=== PATIENT | male | born 1945 | race Caucasian/White ===

== ENCOUNTER 2017-05-31 12:54 | Inpatient (IN) | payer MEDICARE, OTHER ==
[~2017-05-31] VITALS: Ht 188 cm; Wt 123.8 kg
[~2017-05-31 12:54] MED LIST changes: -ALBU2.5V5 INH; -AMLO5 PO; -ASCO500 PO; -AZIT500 PO; -BUDE.5 INH; -Bactrim Ds Tab1 EACH PO; -CEFP200 PO; -CHOL10002 PO; -DOXA4 PO; -ERGO400 PO; -Elemental Calc600 MG PO; -GUAI600T33 PO; -INSULANPEN SC; -IRON150C PO; -METAMUCIL POWD174 GM PO; -Metamucil Plus1 EACH PO; -OMEG1CAP30 PO; -POTCHL10ER PO; -PRED10; -Toprol Xl25 MG PO; -XARELTO20 MG PO; -[UNRECOGNIZED DRUG - CODE] PO
[2017-05-31] MEDS ORDERED: INSULANPEN SC (13:53)
[2017-05-31] MEDS ORDERED: AMLO5 PO (15:29)
[2017-05-31] MEDS ORDERED: ERGO400 PO (15:35)
[2017-05-31 16:05] LABS: Influenza A Negative (NEGATIVE); Influenza B Negative (NEGATIVE)
[2017-05-31 17:28] LABS: BASOPHILS ABSOLUTE AUTO 0.08 K/mm3 (0.00-0.23); BASOPHILS PERCENT AUTO 1 % (0-2); EOSINOPHILS ABSOLUTE AUTO 0.27 K/mm3 (0.00-0.68); EOSINOPHILS PERCENT AUTO 2 % (0-6); Hematocrit 42.5 % (37.0-53.0); Hemoglobin 13.5 g/dL (13.5-17.5); IMMATURE GRAN ABSOLUTE AUTO 0.04 K/mm3 (0.00-0.10); IMMATURE GRAN PERCENT AUTO 0 % (0-1); LYMPHOCYTES ABSOLUTE AUTO 1.84 K/mm3 (0.84-5.20); LYMPHOCYTES PERCENT AUTO 16 % (21-46); MONOCYTES ABSOLUTE AUTO 0.81 K/mm3 (0.16-1.47); MONOCYTES PERCENT AUTO 7 % (4-13); Mean Corpuscular HGB Conc 31.8 g/dL (31.5-36.5); Mean Corpuscular Volume 91 fL (80-100); Mean Platelet Volume 9.5 fL (9.1-12.4); NEUTROPHILS ABSOLUTE AUTO 8.72 K/mm3 (1.96-9.15); NEUTROPHILS PERCENT AUTO 74 % (41-73); Platelet Count 294 K/mm3 (150-400); RDW Coefficient Variation 14.6 % (11.7-14.2); RDW Standard Deviation 48.9 fL (35.1-46.3); Red Blood Cell Count 4.65 M/mm3 (4.30-5.90); White Blood Cell Count 11.76 K/mm3 (4.00-11.30)
[2017-05-31 17:49] LABS: Albumin, Blood 3.5 g/dL (3.4-5.0); Albumin/Globulin Ratio 0.7 (0.8-1.8); Bilirubin, Total 0.5 mg/dL (0.1-1.0); Bun/Creatinine Ratio 10.8 (12.0-20.0); Calcium, Blood 10.6 mg/dL (8.5-10.1); Creatinine, Blood 1.39 mg/dL (0.60-1.20); Globulin, Blood 4.8 g/dL (2.2-4.0); Potassium, Blood 3.7 mmol/L (3.5-5.5); Total Protein, Blood 8.3 g/dL (6.4-8.2)
[2017-06-01] MEDS ORDERED: FINA5 PO (00:53)
[2017-06-01 04:43] LABS: BASOPHILS ABSOLUTE AUTO 0.06 K/mm3 (0.00-0.23); BASOPHILS PERCENT AUTO 1 % (0-2); EOSINOPHILS ABSOLUTE AUTO 0.38 K/mm3 (0.00-0.68); EOSINOPHILS PERCENT AUTO 5 % (0-6); Hematocrit 38.5 % (37.0-53.0); Hemoglobin 12.1 g/dL (13.5-17.5); IMMATURE GRAN ABSOLUTE AUTO 0.04 K/mm3 (0.00-0.10); IMMATURE GRAN PERCENT AUTO 1 % (0-1); LYMPHOCYTES ABSOLUTE AUTO 1.79 K/mm3 (0.84-5.20); LYMPHOCYTES PERCENT AUTO 22 % (21-46); MONOCYTES ABSOLUTE AUTO 0.73 K/mm3 (0.16-1.47); MONOCYTES PERCENT AUTO 9 % (4-13); Mean Corpuscular HGB 29.2 pg (26.0-34.0); Mean Corpuscular HGB Conc 31.4 g/dL (31.5-36.5); Mean Corpuscular Volume 93 fL (80-100); Mean Platelet Volume 9.6 fL (9.1-12.4); NEUTROPHILS ABSOLUTE AUTO 5.31 K/mm3 (1.96-9.15); NEUTROPHILS PERCENT AUTO 64 % (41-73); Platelet Count 256 K/mm3 (150-400); RDW Coefficient Variation 14.6 % (11.7-14.2); RDW Standard Deviation 48.8 fL (35.1-46.3); Red Blood Cell Count 4.15 M/mm3 (4.30-5.90); White Blood Cell Count 8.31 K/mm3 (4.00-11.30)
[2017-06-01 05:20] LABS: Alanine Aminotransfer (ALT/SGP 24 U/L (12-78); Albumin, Blood 2.9 g/dL (3.4-5.0); Albumin/Globulin Ratio 0.7 (0.8-1.8); Alk Phos 69 U/L (50-136); Anion Gap 7 mmol/L (6-16); Aspartate Aminotrans (AST/SGOT 18 U/L (12-37); Bilirubin, Total 0.5 mg/dL (0.1-1.0); Blood Urea Nitrogen 13 mg/dL (8-24); Bun/Creatinine Ratio 10.7 (12.0-20.0); CHOL/HDL RATIO 2.8; CO2, Blood 31 mmol/L (21-32); Calcium, Blood 9.9 mg/dL (8.5-10.1); Chloride, Blood 100 mmol/L (98-108); Cholesterol 85 mg/dL (50-200); Creatinine, Blood 1.21 mg/dL (0.60-1.20); Globulin, Blood 4.2 g/dL (2.2-4.0); Glomerular Filtration Rate >60 (60-); Glucose, Blood 110 mg/dL (70-99); HDL Cholesterol 30 mg/dL (>39); LDL/HDL RATIO 1.1; Low Density Lipoprotein Chol 34 mg/dL (0-110); Potassium, Blood 3.6 mmol/L (3.5-5.5); Sodium, Blood 138 mmol/L (136-145); Total Protein, Blood 7.1 g/dL (6.4-8.2); Triglycerides 105 mg/dL (30-160); Very Low Density Lipoprot Chol 21 mg/dL (6-32)
[2017-06-02] MEDS ORDERED: Elemental Calc600 MG PO (12:14)
[2017-06-02] MEDS ORDERED: DOXA4 PO (12:15)
[2017-06-02] MEDS ORDERED: OMEG1CAP30 PO (12:23)
[2017-06-02] MEDS ORDERED: CHOL10002 PO (12:23)
[2017-06-02] MEDS ORDERED: AZIT500 PO (12:24)
[2017-06-02] MEDS ORDERED: BUDE.5 INH (12:25)
[2017-06-02] MEDS ORDERED: GUAI600T33 PO (12:25)
[2017-06-02] MEDS ORDERED: ALBU2.5V5 INH (12:26)
== END 2017-06-02 16:25 | DRG 871 ==
LOC: ER 12:54 → MEDS 17:42 → ENPENDDIS 06-02 11:53 → MEDS 06-02 16:25
PROVIDERS: Emergency Medicine; Internal Medicine
DX: A41.9 Sepsis, unspecified organism (principal); J18.9 Pneumonia, unspecified organism; J96.01 Acute respiratory failure with hypoxia; N17.9 Acute kidney failure, unspecified; J44.0 Chronic obstructive pulmonary disease with (acute) lower respiratory infection; E11.9 Type 2 diabetes mellitus without complications; I10 Essential (primary) hypertension; E78.5 Hyperlipidemia, unspecified; Z77.22 Contact with and (suspected) exposure to environmental tobacco smoke (acute) (chronic); Z86.718 Personal history of other venous thrombosis and embolism; Z88.1 Allergy status to other antibiotic agents; Z88.8 Allergy status to other drugs, medicaments and biological substances; Z91.018 Allergy to other foods; Z79.4 Long term (current) use of insulin; Z79.84 Long term (current) use of oral hypoglycemic drugs; Z79.82 Long term (current) use of aspirin; Z79.899 Other long term (current) drug therapy
CPT/HCPCS: 36415; 71046; 71260; 80053; 80061; 82550; 82947; 83605; 83880; 84439; 84443; 84484; 85025; 85379; 87040; 87804; 93005; 93010; 93306; 94640; 94760; 94761; 94762; 96365; 99285; G0103; J1580; J1644; J1815; J3480; J3490; Q9967

== ENCOUNTER → 2017-05-31 | Outpatient (CLI) | payer MEDICARE, OTHER ==
[~2017-05-31] MED LIST: ALBU2.5V5 INH; AMLO5 PO; ASCO500 PO; ASPI81CH PO; ATOR40TA PO; AZIT500 PO; Amaryl1 MG PO; BENADRYL25 MG PO; BUDE.5 INH; Bactrim Ds Tab1 EACH PO; CALC1.25T; CEFP200 PO; CHOL10002; CHOL10002 PO; CYAN500 PO; Cardura8 MG PO; Catapres0.1 MG PO; DOXA4 PO; DOXAZOSIN; ERGO400 PO; Elemental Calc600 MG PO; FINA5 PO; FISH1000; GUAI600T33 PO; Ginkgo Biloba60 M1 PO; INSULANPEN SC; IRON150C PO; Klor-Con M1010 MEQ PO; LASIX; LISI20 PO; Lasix40 MG PO; METAMUCIL POWD174 GM PO; MINO100 PO; Metamucil Plus1 EACH PO; Multivitamin1 EAC1 PO; NAPR500 PO; OMEG1CAP30 PO; POTASSIUM; POTCHL10ER PO; PRED10; Pepcid20 MG PO; Prednisone20 MG PO; RANITIDINE; Toprol Xl25 MG PO; Vitamin C100 M1 PO; XARELTO20 MG PO; [UNRECOGNIZED DRUG - CODE] PO
[2017-05-31 11:44] LABS: BASOPHILS PERCENT AUTO 1 % (0-2); EOSINOPHILS ABSOLUTE AUTO 0.29 K/mm3 (0.00-0.68); EOSINOPHILS PERCENT AUTO 2 % (0-6); Hematocrit 39.6 % (37.0-53.0); Hemoglobin 13.2 g/dL (13.5-17.5); IMMATURE GRAN ABSOLUTE AUTO 0.06 K/mm3 (0.00-0.10); IMMATURE GRAN PERCENT AUTO 1 % (0-1); LYMPHOCYTES ABSOLUTE AUTO 1.19 K/mm3 (0.84-5.20); LYMPHOCYTES PERCENT AUTO 10 % (21-46); MONOCYTES ABSOLUTE AUTO 0.67 K/mm3 (0.16-1.47); MONOCYTES PERCENT AUTO 5 % (4-13); Mean Corpuscular HGB 30.3 pg (26.0-34.0); Mean Corpuscular HGB Conc 33.3 g/dL (31.5-36.5); Mean Corpuscular Volume 91 fL (80-100); Mean Platelet Volume 9.6 fL (9.1-12.4); NEUTROPHILS ABSOLUTE AUTO 10.17 K/mm3 (1.96-9.15); NEUTROPHILS PERCENT AUTO 82 % (41-73); Platelet Count 295 K/mm3 (150-400); RDW Coefficient Variation 14.6 % (11.7-14.2); RDW Standard Deviation 48.1 fL (35.1-46.3); Red Blood Cell Count 4.36 M/mm3 (4.30-5.90); White Blood Cell Count 12.48 K/mm3 (4.00-11.30)
[2017-05-31 12:04] LABS: Alanine Aminotransfer (ALT/SGP 28 U/L (12-78); Albumin, Blood 3.3 g/dL (3.4-5.0); Albumin/Globulin Ratio 0.7 (0.8-1.8); Alk Phos 82 U/L (40-126); Anion Gap 9 mmol/L (6-16); Aspartate Aminotrans (AST/SGOT 21 U/L (12-37); Bilirubin, Total 0.6 mg/dL (0.1-1.0); Blood Urea Nitrogen 16 mg/dL (8-24); Bun/Creatinine Ratio 9.8 (12.0-20.0); CO2, Blood 28 mmol/L (21-32); CPK Creatine Kinase 137 U/L (39-308); Calcium, Blood 11.1 mg/dL (8.5-10.1); Chloride, Blood 95 mmol/L (98-108); Creatinine, Blood 1.64 mg/dL (0.60-1.20); Free Thyroxine 1.02 ng/dL (0.70-1.60); Globulin, Blood 4.7 g/dL (2.2-4.0); Glomerular Filtration Rate 42 (60-); Glucose, Blood 225 mg/dL (70-99); Potassium, Blood 3.3 mmol/L (3.5-5.5); Sodium, Blood 132 mmol/L (136-145); Thyroid Stimulating Hormone 0.569 uIU/mL (0.360-4.800)
[2017-05-31 12:17] LABS: Troponin I <0.017 ng/mL (0.000-0.040)
== END ==
LOC: LAB EV 11:38 → LAB SHORT 11:38
PROVIDERS: General Practice
DX: E11.37X1 Type 2 diabetes mellitus with diabetic macular edema, resolved following treatment, right eye (principal); R06.00 Dyspnea, unspecified
CPT/HCPCS: 80053; 82550; 84439; 84443; 84484; 85025; 85379

== ENCOUNTER 2017-06-14 14:39 | Inpatient (IN) | payer MEDICARE, OTHER ==
[~2017-06-14] VITALS: Ht 190.5 cm; Wt 122.0 kg
[~2017-06-14 14:39] MED LIST changes: +ALBU2.5V5 INH; +AMLO5 PO; +AZIT500 PO; +BUDE.5 INH; +CHOL10002 PO; +DOXA4 PO; +ERGO400 PO; +Elemental Calc600 MG PO; +GUAI600T33 PO; +INSULANPEN SC; +OMEG1CAP30 PO
[2017-06-14 16:12] LABS: BASOPHILS ABSOLUTE AUTO 0.05 K/mm3 (0.00-0.23); BASOPHILS PERCENT AUTO 0 % (0-2); EOSINOPHILS ABSOLUTE AUTO 0.13 K/mm3 (0.00-0.68); EOSINOPHILS PERCENT AUTO 1 % (0-6); Hematocrit 37.9 % (37.0-53.0); Hemoglobin 12.5 g/dL (13.5-17.5); IMMATURE GRAN ABSOLUTE AUTO 0.07 K/mm3 (0.00-0.10); IMMATURE GRAN PERCENT AUTO 1 % (0-1); LYMPHOCYTES ABSOLUTE AUTO 0.94 K/mm3 (0.84-5.20); LYMPHOCYTES PERCENT AUTO 7 % (21-46); MONOCYTES PERCENT AUTO 6 % (4-13); Mean Corpuscular HGB 28.7 pg (26.0-34.0); Mean Platelet Volume 10.1 fL (9.1-12.4); NEUTROPHILS ABSOLUTE AUTO 11.11 K/mm3 (1.96-9.15); NEUTROPHILS PERCENT AUTO 85 % (41-73); Platelet Count 306 K/mm3 (150-400); RDW Coefficient Variation 14.2 % (11.7-14.2); RDW Standard Deviation 45.5 fL (35.1-46.3); Red Blood Cell Count 4.36 M/mm3 (4.30-5.90)
[2017-06-14 16:13] LABS: Mean Corpuscular Volume 87 fL (80-100)
[2017-06-14 16:28] LABS: Alanine Aminotransfer (ALT/SGP 42 U/L (12-78); Albumin, Blood 3.1 g/dL (3.4-5.0); Albumin/Globulin Ratio 0.7 (0.8-1.8); Alk Phos 84 U/L (50-136); Anion Gap 8 mmol/L (6-16); Aspartate Aminotrans (AST/SGOT 35 U/L (12-37); Bilirubin, Total 0.9 mg/dL (0.1-1.0); Blood Urea Nitrogen 15 mg/dL (8-24); Bun/Creatinine Ratio 12.5 (12.0-20.0); CO2, Blood 31 mmol/L (21-32); Calcium, Blood 9.5 mg/dL (8.5-10.1); Chloride, Blood 86 mmol/L (98-108); Globulin, Blood 4.7 g/dL (2.2-4.0); Glomerular Filtration Rate >60 (60-); Glucose, Blood 216 mg/dL (70-99); Magnesium, Blood 1.5 mg/dL (1.6-2.4); Potassium, Blood 3.4 mmol/L (3.5-5.5); Sodium, Blood 125 mmol/L (136-145); Total Protein, Blood 7.8 g/dL (6.4-8.2); Troponin I <0.015 ng/mL (0.000-0.040)
[2017-06-14 21:27] LABS: Osmolality, Serum 273 mos/KG (275-300)
[2017-06-14] MEDS ORDERED: METAMUCIL POWD174 GM PO (22:58)
[2017-06-14] MEDS ORDERED: CYAN500 PO (22:59)
[2017-06-14] MEDS ORDERED: ASCO500 PO (23:00)
[2017-06-14] MEDS ORDERED: IRON150C PO (23:00)
[2017-06-14] MEDS ORDERED: ERGO400 PO (23:00)
[2017-06-14 23:09] LABS: Potassium, Blood 3.3 mmol/L (3.5-5.5); Uric Acid, Blood 8.5 mg/dL (3.5-7.2)
[2017-06-15 04:13] LABS: PCO2 Arterial 53.4 mmHg (35-45); PO2 Arterial 72.3 mmHg (80-100)
[2017-06-15 04:14] LABS: BASOPHILS ABSOLUTE AUTO 0.02 K/mm3 (0.00-0.23); BASOPHILS PERCENT AUTO 0 % (0-2); EOSINOPHILS ABSOLUTE AUTO 0.08 K/mm3 (0.00-0.68); EOSINOPHILS PERCENT AUTO 1 % (0-6); Hematocrit 39.2 % (37.0-53.0); IMMATURE GRAN ABSOLUTE AUTO 0.06 K/mm3 (0.00-0.10); IMMATURE GRAN PERCENT AUTO 1 % (0-1); LYMPHOCYTES ABSOLUTE AUTO 0.67 K/mm3 (0.84-5.20); LYMPHOCYTES PERCENT AUTO 7 % (21-46); MONOCYTES ABSOLUTE AUTO 0.13 K/mm3 (0.16-1.47); MONOCYTES PERCENT AUTO 1 % (4-13); Mean Corpuscular HGB Conc 33.2 g/dL (31.5-36.5); Mean Corpuscular Volume 87 fL (80-100); Mean Platelet Volume 9.7 fL (9.1-12.4); NEUTROPHILS ABSOLUTE AUTO 9.01 K/mm3 (1.96-9.15); NEUTROPHILS PERCENT AUTO 90 % (41-73); Platelet Count 285 K/mm3 (150-400); RDW Coefficient Variation 14.4 % (11.7-14.2); RDW Standard Deviation 45.6 fL (35.1-46.3); Red Blood Cell Count 4.49 M/mm3 (4.30-5.90); White Blood Cell Count 9.97 K/mm3 (4.00-11.30)
[2017-06-15 04:33] LABS: Osmolality, Serum 275 mos/KG (275-300)
[2017-06-15 04:38] LABS: Anion Gap 8 mmol/L (6-16); Blood Urea Nitrogen 14 mg/dL (8-24); Bun/Creatinine Ratio 12.1 (12.0-20.0); CO2, Blood 30 mmol/L (21-32); Chloride, Blood 87 mmol/L (98-108); Creatinine, Blood 1.16 mg/dL (0.60-1.20); Glomerular Filtration Rate >60 (60-); Glucose, Blood 198 mg/dL (70-99); Magnesium, Blood 1.8 mg/dL (1.6-2.4); Phosphorus, Blood 3.2 mg/dL (2.5-4.9); Sodium, Blood 125 mmol/L (136-145); Uric Acid, Blood 8.6 mg/dL (3.5-7.2)
[2017-06-15 04:41] LABS: Thyroid Stimulating Hormone 0.449 uIU/mL (0.360-4.800)
== END 2017-06-15 14:29 | disposition short-term general hospital (02) | DRG 189 ==
LOC: ER 14:39 → PCU 17:17
PROVIDERS: Emergency Medicine; Hospitalist; Internal Medicine; Internal Medicine Nephrology
DX: J96.01 Acute respiratory failure with hypoxia (principal); E11.22 Type 2 diabetes mellitus with diabetic chronic kidney disease; I48.91 Unspecified atrial fibrillation; J67.9 Hypersensitivity pneumonitis due to unspecified organic dust; J21.9 Acute bronchiolitis, unspecified; J44.0 Chronic obstructive pulmonary disease with (acute) lower respiratory infection; E87.1 Hypo-osmolality and hyponatremia; Z99.81 Dependence on supplemental oxygen; Z77.22 Contact with and (suspected) exposure to environmental tobacco smoke (acute) (chronic); I12.9 Hypertensive chronic kidney disease with stage 1 through stage 4 chronic kidney disease, or unspecified chronic kidney disease; N18.2 Chronic kidney disease, stage 2 (mild); E78.1 Pure hyperglyceridemia; K21.9 Gastro-esophageal reflux disease without esophagitis; M17.9 Osteoarthritis of knee, unspecified; N40.0 Benign prostatic hyperplasia without lower urinary tract symptoms; I45.10 Unspecified right bundle-branch block; G89.29 Other chronic pain; M54.2 Cervicalgia; R91.8 Other nonspecific abnormal finding of lung field; D64.9 Anemia, unspecified; E87.6 Hypokalemia; E88.09 Other disorders of plasma-protein metabolism, not elsewhere classified; E21.3 Hyperparathyroidism, unspecified; Z77.090 Contact with and (suspected) exposure to asbestos; Z86.718 Personal history of other venous thrombosis and embolism; Z91.19 Patient's noncompliance with other medical treatment and regimen; Z79.82 Long term (current) use of aspirin; Z79.4 Long term (current) use of insulin; Z79.899 Other long term (current) drug therapy; Z88.1 Allergy status to other antibiotic agents; Z88.0 Allergy status to penicillin; Z88.8 Allergy status to other drugs, medicaments and biological substances
CPT/HCPCS: 36415; 36600; 71045; 71250; 80053; 80069; 82533; 82803; 82947; 83735; 83880; 83930; 83935; 84132; 84295; 84300; 84443; 84484; 84550; 85025; 93005; 93010; 94640; 94760; 96365; 96366; 96375; 99285; J0456; J0713; J1815; J2930; J3475; J3480; J7050

== ENCOUNTER 2017-06-26 12:41 | Observation (INO) | payer MEDICARE, OTHER ==
[~2017-06-26] VITALS: Ht 190.5 cm; Wt 117.8 kg
[~2017-06-26 12:41] MED LIST changes: +ASCO500 PO; +IRON150C PO; +METAMUCIL POWD174 GM PO
[2017-06-26] MEDS ORDERED: [UNRECOGNIZED DRUG - CODE] PO (13:43)
[2017-06-26] MEDS ORDERED: Toprol Xl25 MG PO (13:46)
[2017-06-26] MEDS ORDERED: Metamucil Plus1 EACH PO (13:46)
[2017-06-26] MEDS ORDERED: XARELTO20 MG PO (13:47)
[2017-06-26] MEDS ORDERED: CEFP200 PO (13:49)
[2017-06-26 14:56] LABS: Hematocrit 40.1 % (37.0-53.0); Mean Corpuscular HGB 28.8 pg (26.0-34.0); Mean Corpuscular HGB Conc 32.4 g/dL (31.5-36.5); Mean Corpuscular Volume 89 fL (80-100); Mean Platelet Volume 9.4 fL (9.1-12.4); Platelet Count 211 K/mm3 (150-400); RDW Coefficient Variation 14.3 % (11.7-14.2); RDW Standard Deviation 46.8 fL (35.1-46.3); Red Blood Cell Count 4.51 M/mm3 (4.30-5.90); White Blood Cell Count 10.87 K/mm3 (4.00-11.30)
[2017-06-26 15:25] LABS: Alanine Aminotransfer (ALT/SGP 68 U/L (12-78); Albumin/Globulin Ratio 0.7 (0.8-1.8); Alk Phos 86 U/L (50-136); Anion Gap 7 mmol/L (6-16); Aspartate Aminotrans (AST/SGOT 29 U/L (12-37); Bilirubin, Total 0.7 mg/dL (0.1-1.0); Blood Urea Nitrogen 11 mg/dL (8-24); Bun/Creatinine Ratio 9.8 (12.0-20.0); CO2, Blood 34 mmol/L (21-32); Calcium, Blood 8.8 mg/dL (8.5-10.1); Chloride, Blood 95 mmol/L (98-108); Creatinine, Blood 1.12 mg/dL (0.60-1.20); Globulin, Blood 4.2 g/dL (2.2-4.0); Glomerular Filtration Rate >60 (60-); Glucose, Blood 194 mg/dL (70-99); Potassium, Blood 3.4 mmol/L (3.5-5.5); Sodium, Blood 136 mmol/L (136-145); Total Protein, Blood 7.2 g/dL (6.4-8.2); Troponin I <0.015 ng/mL (0.000-0.040)
[2017-06-26 18:21] LABS: BASOPHILS ABSOLUTE AUTO 0.06 K/mm3 (0.00-0.23); BASOPHILS PERCENT AUTO 1 % (0-2); EOSINOPHILS PERCENT AUTO 2 % (0-6); IMMATURE GRAN ABSOLUTE AUTO 0.05 K/mm3 (0.00-0.10); IMMATURE GRAN PERCENT AUTO 1 % (0-1); LYMPHOCYTES PERCENT AUTO 12 % (21-46); MONOCYTES ABSOLUTE AUTO 0.54 K/mm3 (0.16-1.47); MONOCYTES PERCENT AUTO 5 % (4-13); NEUTROPHILS ABSOLUTE AUTO 8.71 K/mm3 (1.96-9.15); NEUTROPHILS PERCENT AUTO 80 % (41-73)
[2017-06-27 04:04] LABS: BASOPHILS ABSOLUTE AUTO 0.05 K/mm3 (0.00-0.23); BASOPHILS PERCENT AUTO 1 % (0-2); EOSINOPHILS ABSOLUTE AUTO 0.23 K/mm3 (0.00-0.68); EOSINOPHILS PERCENT AUTO 3 % (0-6); Hematocrit 38.2 % (37.0-53.0); Hemoglobin 12.3 g/dL (13.5-17.5); IMMATURE GRAN ABSOLUTE AUTO 0.02 K/mm3 (0.00-0.10); IMMATURE GRAN PERCENT AUTO 0 % (0-1); LYMPHOCYTES ABSOLUTE AUTO 1.49 K/mm3 (0.84-5.20); LYMPHOCYTES PERCENT AUTO 21 % (21-46); MONOCYTES ABSOLUTE AUTO 0.51 K/mm3 (0.16-1.47); MONOCYTES PERCENT AUTO 7 % (4-13); Mean Corpuscular HGB 28.5 pg (26.0-34.0); Mean Corpuscular HGB Conc 32.2 g/dL (31.5-36.5); Mean Corpuscular Volume 89 fL (80-100); Mean Platelet Volume 9.8 fL (9.1-12.4); NEUTROPHILS ABSOLUTE AUTO 4.73 K/mm3 (1.96-9.15); NEUTROPHILS PERCENT AUTO 67 % (41-73); Platelet Count 217 K/mm3 (150-400); RDW Coefficient Variation 14.4 % (11.7-14.2); RDW Standard Deviation 46.9 fL (35.1-46.3); Red Blood Cell Count 4.31 M/mm3 (4.30-5.90); White Blood Cell Count 7.03 K/mm3 (4.00-11.30)
[2017-06-27 04:22] LABS: Alanine Aminotransfer (ALT/SGP 65 U/L (12-78); Albumin, Blood 2.8 g/dL (3.4-5.0); Albumin/Globulin Ratio 0.7 (0.8-1.8); Alk Phos 80 U/L (50-136); Anion Gap 5 mmol/L (6-16); Aspartate Aminotrans (AST/SGOT 28 U/L (12-37); Bilirubin, Total 0.8 mg/dL (0.1-1.0); Blood Urea Nitrogen 12 mg/dL (8-24); Bun/Creatinine Ratio 12.2 (12.0-20.0); CO2, Blood 33 mmol/L (21-32); Calcium, Blood 8.8 mg/dL (8.5-10.1); Chloride, Blood 95 mmol/L (98-108); Creatinine, Blood 0.98 mg/dL (0.60-1.20); Globulin, Blood 4.3 g/dL (2.2-4.0); Glomerular Filtration Rate >60 (60-); Glucose, Blood 168 mg/dL (70-99); Potassium, Blood 3.4 mmol/L (3.5-5.5); Sodium, Blood 133 mmol/L (136-145); Total Protein, Blood 7.1 g/dL (6.4-8.2)
[2017-06-28 07:41] LABS: ANA Negative (NEG); Myeloperoxidase Antibody <0.2 AI (<1.0)
[2017-06-28 09:48] LABS: Immunoglobulin E 8.1 kU/L (0.0-158.0)
[2017-06-28 19:28] LABS: ANCA <1:20
== END 2017-06-27 16:05 | disposition home or self-care (01) ==
LOC: PCU 12:41
PROVIDERS: Internal Medicine Critical Care Medicine; Student in an Organized Health Care Education/Training Program
DX: J96.01 Acute respiratory failure with hypoxia (principal); E11.22 Type 2 diabetes mellitus with diabetic chronic kidney disease; I12.9 Hypertensive chronic kidney disease with stage 1 through stage 4 chronic kidney disease, or unspecified chronic kidney disease; N18.9 Chronic kidney disease, unspecified; N25.81 Secondary hyperparathyroidism of renal origin; I48.91 Unspecified atrial fibrillation; K21.9 Gastro-esophageal reflux disease without esophagitis; I45.10 Unspecified right bundle-branch block; M17.9 Osteoarthritis of knee, unspecified; G89.29 Other chronic pain; M54.2 Cervicalgia; N40.0 Benign prostatic hyperplasia without lower urinary tract symptoms; Z79.01 Long term (current) use of anticoagulants; Z86.718 Personal history of other venous thrombosis and embolism; Z79.899 Other long term (current) drug therapy; Z91.19 Patient's noncompliance with other medical treatment and regimen; Z79.82 Long term (current) use of aspirin; Z79.4 Long term (current) use of insulin; Z88.8 Allergy status to other drugs, medicaments and biological substances; Z88.1 Allergy status to other antibiotic agents
CPT/HCPCS: 36415; 71045; 80053; 82785; 82947; 83516; 84145; 84484; 85025; 85027; 86038; 86256; 87070; 87205; 94640; 94760; 94762; G0378; J1815

== ENCOUNTER 2017-07-11 15:20 | Inpatient (IN) | payer MEDICARE, OTHER ==
[~2017-07-11] VITALS: Ht 190.5 cm; Wt 115.3 kg
[~2017-07-11 15:20] MED LIST changes: +CEFP200 PO; +Metamucil Plus1 EACH PO; +Toprol Xl25 MG PO; +XARELTO20 MG PO; +[UNRECOGNIZED DRUG - CODE] PO
[2017-07-11] MEDS ORDERED: POTCHL10ER PO (16:35)
[2017-07-11 16:51] LABS: BASOPHILS ABSOLUTE AUTO 0.05 K/mm3 (0.00-0.23); BASOPHILS PERCENT AUTO 0 % (0-2); EOSINOPHILS ABSOLUTE AUTO 0.24 K/mm3 (0.00-0.68); EOSINOPHILS PERCENT AUTO 2 % (0-6); Hematocrit 38.2 % (37.0-53.0); Hemoglobin 12.6 g/dL (13.5-17.5); IMMATURE GRAN ABSOLUTE AUTO 0.06 K/mm3 (0.00-0.10); IMMATURE GRAN PERCENT AUTO 0 % (0-1); LYMPHOCYTES ABSOLUTE AUTO 1.55 K/mm3 (0.84-5.20); LYMPHOCYTES PERCENT AUTO 12 % (21-46); MONOCYTES ABSOLUTE AUTO 0.82 K/mm3 (0.16-1.47); MONOCYTES PERCENT AUTO 6 % (4-13); Mean Corpuscular HGB 29.1 pg (26.0-34.0); Mean Corpuscular Volume 88 fL (80-100); Mean Platelet Volume 9.4 fL (9.1-12.4); NEUTROPHILS ABSOLUTE AUTO 10.62 K/mm3 (1.96-9.15); NEUTROPHILS PERCENT AUTO 80 % (41-73); Platelet Count 280 K/mm3 (150-400); RDW Coefficient Variation 14.3 % (11.7-14.2); RDW Standard Deviation 45.7 fL (35.1-46.3); Red Blood Cell Count 4.33 M/mm3 (4.30-5.90); White Blood Cell Count 13.34 K/mm3 (4.00-11.30)
[2017-07-11 17:08] LABS: Alanine Aminotransfer (ALT/SGP 37 U/L (12-78); Albumin/Globulin Ratio 0.8 (0.8-1.8); Alk Phos 109 U/L (50-136); Anion Gap 2 mmol/L (6-16); Aspartate Aminotrans (AST/SGOT 26 U/L (12-37); Bilirubin, Total 0.7 mg/dL (0.1-1.0); Blood Urea Nitrogen 9 mg/dL (8-24); Bun/Creatinine Ratio 7.7 (12.0-20.0); CO2, Blood 34 mmol/L (21-32); Calcium, Blood 9.2 mg/dL (8.5-10.1); Chloride, Blood 95 mmol/L (98-108); Creatinine, Blood 1.17 mg/dL (0.60-1.20); Glomerular Filtration Rate >60 (60-); Glucose, Blood 160 mg/dL (70-99); Potassium, Blood 3.7 mmol/L (3.5-5.5); Sodium, Blood 131 mmol/L (136-145)
[2017-07-11 19:19] LABS: PCO2 Arterial 44.8 mmHg (35-45); PO2 Arterial 60.2 mmHg (80-100)
[2017-07-12 03:47] LABS: Hematocrit 39.7 % (37.0-53.0); Hemoglobin 12.9 g/dL (13.5-17.5); Mean Corpuscular HGB 28.3 pg (26.0-34.0); Mean Corpuscular HGB Conc 32.5 g/dL (31.5-36.5); Mean Corpuscular Volume 87 fL (80-100); Mean Platelet Volume 9.6 fL (9.1-12.4); Platelet Count 281 K/mm3 (150-400); RDW Coefficient Variation 14.5 % (11.7-14.2); RDW Standard Deviation 45.9 fL (35.1-46.3); Red Blood Cell Count 4.56 M/mm3 (4.30-5.90); White Blood Cell Count 8.82 K/mm3 (4.00-11.30)
[2017-07-12 04:07] LABS: Alanine Aminotransfer (ALT/SGP 38 U/L (12-78); Albumin, Blood 2.8 g/dL (3.4-5.0); Albumin/Globulin Ratio 0.6 (0.8-1.8); Alk Phos 105 U/L (50-136); Anion Gap 8 mmol/L (6-16); Aspartate Aminotrans (AST/SGOT 19 U/L (12-37); Bilirubin, Total 0.8 mg/dL (0.1-1.0); Blood Urea Nitrogen 12 mg/dL (8-24); Bun/Creatinine Ratio 10.6 (12.0-20.0); CO2, Blood 31 mmol/L (21-32); Chloride, Blood 92 mmol/L (98-108); Creatinine, Blood 1.13 mg/dL (0.60-1.20); Globulin, Blood 4.4 g/dL (2.2-4.0); Glomerular Filtration Rate >60 (60-); Glucose, Blood 192 mg/dL (70-99); Sodium, Blood 131 mmol/L (136-145); Total Protein, Blood 7.2 g/dL (6.4-8.2)
[2017-07-16] MEDS ORDERED: Bactrim Ds Tab1 EACH PO (12:47)
[2017-07-16] MEDS ORDERED: PRED10 (12:49)
== END 2017-07-16 13:57 | disposition home or self-care (01) | DRG 177 ==
LOC: PCU 15:20 → MEDS 15:56 → PCU 15:56 → MEDS 07-12 12:57
PROVIDERS: Family Medicine
DX: J69.0 Pneumonitis due to inhalation of food and vomit (principal); J96.21 Acute and chronic respiratory failure with hypoxia; E87.1 Hypo-osmolality and hyponatremia; J67.9 Hypersensitivity pneumonitis due to unspecified organic dust; J15.6 Pneumonia due to other Gram-negative bacteria; J42 Unspecified chronic bronchitis; R63.4 Abnormal weight loss; I12.9 Hypertensive chronic kidney disease with stage 1 through stage 4 chronic kidney disease, or unspecified chronic kidney disease; E11.22 Type 2 diabetes mellitus with diabetic chronic kidney disease; N18.2 Chronic kidney disease, stage 2 (mild); R13.10 Dysphagia, unspecified; E21.3 Hyperparathyroidism, unspecified; I48.91 Unspecified atrial fibrillation; T50.2X5A Adverse effect of carbonic-anhydrase inhibitors, benzothiadiazides and other diuretics, initial encounter; K21.9 Gastro-esophageal reflux disease without esophagitis; M19.90 Unspecified osteoarthritis, unspecified site; N40.0 Benign prostatic hyperplasia without lower urinary tract symptoms; E78.5 Hyperlipidemia, unspecified; I45.10 Unspecified right bundle-branch block; E66.9 Obesity, unspecified; Z68.31 Body mass index [BMI] 31.0-31.9, adult; Z79.01 Long term (current) use of anticoagulants; Z86.718 Personal history of other venous thrombosis and embolism; Z79.82 Long term (current) use of aspirin; Z79.4 Long term (current) use of insulin; Z79.899 Other long term (current) drug therapy; Z88.1 Allergy status to other antibiotic agents; Z88.0 Allergy status to penicillin
CPT/HCPCS: 36415; 36600; 71046; 71250; 74230; 80053; 82803; 82947; 83605; 83880; 85025; 85027; 85651; 86140; 87040; 87070; 87077; 87186; 87205; 92611; 93005; 93010; 94640; 94760; 97116; 97161; G8978; G8979; G8996; G8997; J0456; J0692; J1815; J2930; J7050

== ENCOUNTER → 2017-07-27 | Outpatient (CLI) | payer MEDICARE, OTHER ==
[~2017-07-27] MED LIST changes: +Bactrim Ds Tab1 EACH PO; +POTCHL10ER PO; +PRED10
== END | disposition home or self-care (01) ==
LOC: LAB HH 13:43
DX: E11.22 Type 2 diabetes mellitus with diabetic chronic kidney disease (principal); I12.9 Hypertensive chronic kidney disease with stage 1 through stage 4 chronic kidney disease, or unspecified chronic kidney disease; N18.3 Chronic kidney disease, stage 3 (moderate)
CPT/HCPCS: 83880

== ENCOUNTER 2017-08-06 12:12 | Emergency (ER) | payer MEDICARE, OTHER ==
[~2017-08-06] VITALS: Ht 190.5 cm; Wt 111.6 kg
[2017-08-06] MEDS ORDERED: NYST100000 (12:37)
[2017-08-06] MEDS ORDERED: FLUC100 (12:38)
[2017-08-06 12:47] LABS: BASOPHILS ABSOLUTE AUTO 0.03 K/mm3 (0.00-0.23); BASOPHILS PERCENT AUTO 0 % (0-2); EOSINOPHILS PERCENT AUTO 3 % (0-6); Hematocrit 36.5 % (37.0-53.0); Hemoglobin 12.1 g/dL (13.5-17.5); IMMATURE GRAN ABSOLUTE AUTO 0.05 K/mm3 (0.00-0.10); IMMATURE GRAN PERCENT AUTO 1 % (0-1); LYMPHOCYTES ABSOLUTE AUTO 1.45 K/mm3 (0.84-5.20); LYMPHOCYTES PERCENT AUTO 19 % (21-46); MONOCYTES PERCENT AUTO 8 % (4-13); Mean Corpuscular HGB Conc 33.2 g/dL (31.5-36.5); Mean Corpuscular Volume 88 fL (80-100); Mean Platelet Volume 9.9 fL (9.1-12.4); NEUTROPHILS ABSOLUTE AUTO 5.44 K/mm3 (1.96-9.15); NEUTROPHILS PERCENT AUTO 70 % (41-73); Platelet Count 233 K/mm3 (150-400); RDW Coefficient Variation 14.6 % (11.7-14.2); RDW Standard Deviation 46.5 fL (35.1-46.3); Red Blood Cell Count 4.17 M/mm3 (4.30-5.90); White Blood Cell Count 7.77 K/mm3 (4.00-11.30)
[2017-08-06 13:05] LABS: Alanine Aminotransfer (ALT/SGP 31 U/L (12-78); Albumin, Blood 2.9 g/dL (3.4-5.0); Albumin/Globulin Ratio 0.7 (0.8-1.8); Alk Phos 135 U/L (50-136); Anion Gap 9 mmol/L (6-16); Aspartate Aminotrans (AST/SGOT 15 U/L (12-37); Bilirubin, Total 0.6 mg/dL (0.1-1.0); Blood Urea Nitrogen 10 mg/dL (8-24); Bun/Creatinine Ratio 9.9 (12.0-20.0); CO2, Blood 30 mmol/L (21-32); Calcium, Blood 8.7 mg/dL (8.5-10.1); Chloride, Blood 95 mmol/L (98-108); Creatinine, Blood 1.01 mg/dL (0.60-1.20); Globulin, Blood 3.9 g/dL (2.2-4.0); Glomerular Filtration Rate >60 (60-); Glucose, Blood 438 mg/dL (70-99); Potassium, Blood 3.5 mmol/L (3.5-5.5); Sodium, Blood 134 mmol/L (136-145); Total Protein, Blood 6.8 g/dL (6.4-8.2); Troponin I <0.015 ng/mL (0.000-0.040)
[2017-08-06 13:43] LABS: PCO2 Arterial 43 mmHg (35-45); PO2 Arterial 64.8 mmHg (80-100); pH Blood Arterial 7.44 (7.35-7.45)
[2017-08-06] MEDS ORDERED: Cleocin HCl300 MG PO (17:17)
== END 2017-08-06 19:22 | disposition home or self-care (01) ==
LOC: ER 12:12
PROVIDERS: Physician Assistant
DX: R06.02 Shortness of breath (principal); Z88.0 Allergy status to penicillin; Z88.1 Allergy status to other antibiotic agents; Z88.8 Allergy status to other drugs, medicaments and biological substances; Z91.048 Other nonmedicinal substance allergy status; Z91.018 Allergy to other foods; Z79.899 Other long term (current) drug therapy; Z79.52 Long term (current) use of systemic steroids; Z79.82 Long term (current) use of aspirin; Z79.4 Long term (current) use of insulin; I12.9 Hypertensive chronic kidney disease with stage 1 through stage 4 chronic kidney disease, or unspecified chronic kidney disease; E11.22 Type 2 diabetes mellitus with diabetic chronic kidney disease; N18.2 Chronic kidney disease, stage 2 (mild); I48.91 Unspecified atrial fibrillation; K21.9 Gastro-esophageal reflux disease without esophagitis; E78.5 Hyperlipidemia, unspecified
CPT/HCPCS: 36415; 36600; 71046; 71260; 80053; 82803; 84484; 85025; 93005; 93010; 94640; 96361; 96374; 99284; J2930; J7030; Q9967

== ENCOUNTER → 2017-08-28 | Outpatient (CLI) | payer MEDICARE, OTHER ==
[~2017-08-28] MED LIST changes: +Cleocin HCl300 MG PO; +FLUC100; +NYST100000
[2017-08-28 16:57] LABS: BASOPHILS ABSOLUTE AUTO 0.08 K/mm3 (0.00-0.23); BASOPHILS PERCENT AUTO 1 % (0-2); EOSINOPHILS ABSOLUTE AUTO 0.28 K/mm3 (0.00-0.68); EOSINOPHILS PERCENT AUTO 2 % (0-6); Hemoglobin 13.2 g/dL (13.5-17.5); IMMATURE GRAN ABSOLUTE AUTO 0.05 K/mm3 (0.00-0.10); IMMATURE GRAN PERCENT AUTO 0 % (0-1); LYMPHOCYTES ABSOLUTE AUTO 2.62 K/mm3 (0.84-5.20); LYMPHOCYTES PERCENT AUTO 22 % (21-46); MONOCYTES ABSOLUTE AUTO 0.76 K/mm3 (0.16-1.47); MONOCYTES PERCENT AUTO 6 % (4-13); Mean Corpuscular HGB Conc 33.8 g/dL (31.5-36.5); Mean Corpuscular Volume 89 fL (80-100); Mean Platelet Volume 9.9 fL (9.1-12.4); NEUTROPHILS PERCENT AUTO 68 % (41-73); Platelet Count 277 K/mm3 (150-400); RDW Coefficient Variation 15.7 % (11.7-14.2); RDW Standard Deviation 50.9 fL (35.1-46.3); White Blood Cell Count 11.79 K/mm3 (4.00-11.30)
[2017-08-28 17:10] LABS: Anion Gap 8 mmol/L (6-16); Blood Urea Nitrogen 20 mg/dL (8-24); Bun/Creatinine Ratio 13.9 (12.0-20.0); CO2, Blood 34 mmol/L (21-32); Chloride, Blood 97 mmol/L (98-108); Creatinine, Blood 1.44 mg/dL (0.60-1.20); Glomerular Filtration Rate 49 (60-); Glucose, Blood 259 mg/dL (70-99); Potassium, Blood 3.3 mmol/L (3.5-5.5); Sodium, Blood 139 mmol/L (136-145)
[2017-08-28 17:11] LABS: Troponin I <0.017 ng/mL (0.000-0.040)
== END | disposition home or self-care (01) ==
LOC: LAB SHORT 16:52 → LAB EV 16:52
PROVIDERS: Family Medicine
DX: I48.91 Unspecified atrial fibrillation (principal)
CPT/HCPCS: 80048; 83880; 84484; 85025

== ENCOUNTER 2018-04-16 13:52 | Emergency (ER) | payer MEDICARE, OTHER ==
[~2018-04-16] VITALS: Ht 190.5 cm; Wt 127.0 kg
[2018-04-16] MEDS ORDERED: METF500C PO (14:16)
[2018-04-16] MEDS ORDERED: CYAN500 PO (15:00)
[2018-04-16 15:01] LABS: BASOPHILS ABSOLUTE AUTO 0.06 K/mm3 (0.00-0.23); BASOPHILS PERCENT AUTO 1 % (0-2); EOSINOPHILS ABSOLUTE AUTO 0.34 K/mm3 (0.00-0.68); EOSINOPHILS PERCENT AUTO 3 % (0-6); Hematocrit 38.4 % (37.0-53.0); Hemoglobin 12.7 g/dL (13.5-17.5); IMMATURE GRAN ABSOLUTE AUTO 0.02 K/mm3 (0.00-0.10); IMMATURE GRAN PERCENT AUTO 0 % (0-1); LYMPHOCYTES ABSOLUTE AUTO 1.42 K/mm3 (0.84-5.20); LYMPHOCYTES PERCENT AUTO 14 % (21-46); MONOCYTES ABSOLUTE AUTO 0.71 K/mm3 (0.16-1.47); MONOCYTES PERCENT AUTO 7 % (4-13); Mean Corpuscular HGB 30.5 pg (26.0-34.0); Mean Corpuscular HGB Conc 33.1 g/dL (31.5-36.5); Mean Corpuscular Volume 92 fL (80-100); Mean Platelet Volume 9.4 fL (9.1-12.4); NEUTROPHILS PERCENT AUTO 76 % (41-73); Platelet Count 239 K/mm3 (150-400); RDW Coefficient Variation 13.3 % (11.7-14.2); RDW Standard Deviation 45.2 fL (35.1-46.3); Red Blood Cell Count 4.16 M/mm3 (4.30-5.90); White Blood Cell Count 10.55 K/mm3 (4.00-11.30)
[2018-04-16] MEDS ORDERED: ASCO500 PO (15:01)
[2018-04-16] MEDS ORDERED: VITAMIN D32000 UNIT PO (15:01)
[2018-04-16] MEDS ORDERED: MAGOXI400 PO (15:04)
[2018-04-16] MEDS ORDERED: Humalog100 UNIT/1 (15:06)
[2018-04-16] MEDS ORDERED: CEPH500 PO (15:08)
[2018-04-16] MEDS ORDERED: PERIDEX15 ML (15:09)
[2018-04-16] MEDS ORDERED: Sulfamethoxazo1 EAC4 PO (15:09)
[2018-04-16 15:19] LABS: Anion Gap 8 mmol/L (6-16); Blood Urea Nitrogen 22 mg/dL (8-24); Bun/Creatinine Ratio 18.2 (12.0-20.0); CO2, Blood 31 mmol/L (21-32); Calcium, Blood 9.2 mg/dL (8.5-10.1); Chloride, Blood 99 mmol/L (98-108); Creatinine, Blood 1.21 mg/dL (0.60-1.20); Glomerular Filtration Rate >60 (60-); Glucose, Blood 142 mg/dL (70-99); Potassium, Blood 3.6 mmol/L (3.5-5.5); Sodium, Blood 138 mmol/L (136-145)
== END 2018-04-16 15:45 | disposition home or self-care (01) ==
LOC: ER 13:52
PROVIDERS: Physician Assistant
DX: S99.921A Unspecified injury of right foot, initial encounter (principal); W22.8XXA Striking against or struck by other objects, initial encounter; Z88.0 Allergy status to penicillin; Z88.8 Allergy status to other drugs, medicaments and biological substances; Z88.1 Allergy status to other antibiotic agents; Z91.018 Allergy to other foods; Z79.899 Other long term (current) drug therapy; Z79.4 Long term (current) use of insulin; Z79.52 Long term (current) use of systemic steroids; Z79.82 Long term (current) use of aspirin; I12.9 Hypertensive chronic kidney disease with stage 1 through stage 4 chronic kidney disease, or unspecified chronic kidney disease; N18.2 Chronic kidney disease, stage 2 (mild); E11.22 Type 2 diabetes mellitus with diabetic chronic kidney disease; K21.9 Gastro-esophageal reflux disease without esophagitis; I48.91 Unspecified atrial fibrillation; E78.5 Hyperlipidemia, unspecified
CPT/HCPCS: 36415; 73660; 80048; 85025; 99283-25

== ENCOUNTER 2018-09-18 17:06 | Emergency (ER) | payer MEDICARE, OTHER ==
[~2018-09-18] VITALS: Ht 190.5 cm; Wt 134.7 kg
[~2018-09-18 17:06] MED LIST changes: +CEPH500 PO; +Humalog100 UNIT/1; +MAGOXI400 PO; +METF500C PO; +PERIDEX15 ML; +Sulfamethoxazo1 EAC4 PO; +VITAMIN D32000 UNIT PO
== END 2018-09-18 18:15 | disposition home or self-care (01) ==
LOC: ER 17:06
DX: M77.02 Medial epicondylitis, left elbow (principal); E11.40 Type 2 diabetes mellitus with diabetic neuropathy, unspecified; Z79.899 Other long term (current) drug therapy; Z79.4 Long term (current) use of insulin; Z79.82 Long term (current) use of aspirin; Z88.8 Allergy status to other drugs, medicaments and biological substances; Z88.0 Allergy status to penicillin; Z88.1 Allergy status to other antibiotic agents; Z91.018 Allergy to other foods; I12.9 Hypertensive chronic kidney disease with stage 1 through stage 4 chronic kidney disease, or unspecified chronic kidney disease; N18.2 Chronic kidney disease, stage 2 (mild); E11.22 Type 2 diabetes mellitus with diabetic chronic kidney disease; E78.5 Hyperlipidemia, unspecified
CPT/HCPCS: 99283

== ENCOUNTER 2021-05-10 20:06 | Inpatient (IN) | payer MEDICARE, OTHER ==
[~2021-05-10] VITALS: Ht 188 cm; Wt 123.9 kg
[~2021-05-10 20:06] MED LIST changes: -PERIDEX15 ML; +PERIDEX15 ML PO
[2021-05-10 20:35] LABS: Base Excess Venous -7.8 mmol/L; Bicarbonate Venous 17.4 mmol/L (24.0-30.0); PCO2 Venous 53.4 mmHg (38-42); PO2 Venous 48.7 mmHg (38-42); pH Blood Venous 7.19 (7.34-7.37)
[2021-05-10 20:37] LABS: BASOPHILS ABSOLUTE AUTO 0.02 K/mm3 (0.00-0.23); BASOPHILS PERCENT AUTO 0 % (0-2); EOSINOPHILS PERCENT AUTO 0 % (0-6); Hematocrit 43.1 % (37.0-53.0); Hemoglobin 14.9 g/dL (13.5-17.5); IMMATURE GRAN ABSOLUTE AUTO 0.03 K/mm3 (0.00-0.10); IMMATURE GRAN PERCENT AUTO 0 % (0-1); LYMPHOCYTES PERCENT AUTO 5 % (21-46); MONOCYTES ABSOLUTE AUTO 0.54 K/mm3 (0.16-1.47); MONOCYTES PERCENT AUTO 6 % (4-13); Mean Corpuscular HGB 30.8 pg (26.0-34.0); Mean Corpuscular HGB Conc 34.6 g/dL (31.5-36.5); Mean Corpuscular Volume 89 fL (80-100); Mean Platelet Volume 11.7 fL (9.1-12.4); NEUTROPHILS ABSOLUTE AUTO 8.35 K/mm3 (1.96-9.15); NEUTROPHILS PERCENT AUTO 89 % (41-73); Platelet Count 234 K/mm3 (150-400); RDW Coefficient Variation 12.8 % (11.7-14.2); RDW Standard Deviation 41.6 fL (35.1-46.3); Red Blood Cell Count 4.83 M/mm3 (4.30-5.90); White Blood Cell Count 9.44 K/mm3 (4.00-11.30)
[2021-05-10 21:06] LABS: Ethanol (Alcohol), Blood, Med <3 mg/dL
[2021-05-10 21:12] LABS: Source, Urine Voided
[2021-05-10 21:15] LABS: Influenza A, PCR NEGATIVE (NEGATIVE); Influenza B, PCR NEGATIVE (NEGATIVE); Resp Syncytial Virus, PCR NEGATIVE (NEGATIVE); SARS-Cov-2 (COVID-19) PCR, MMC NEGATIVE (NEGATIVE)
[2021-05-10 21:22] LABS: Bilirubin, Urine Neg (Neg); Blood, Urine 3+ (Neg); Glucose Qualitative, Urine 4+ (Neg); Ketones, Urine 3+ (Neg); Leukocyte Esterase, Urine Neg (Neg); Nitrite, Urine Neg (Neg); Protein, Urine 2+ (Neg); Urobilinogen, Urine NORM (Normal)
[2021-05-10 21:27] LABS: Color, Urine Pale Yellow (P-Yellow)
[2021-05-10 21:28] LABS: Amorphous Light (0-Heavy); Appearance, Urine Hazy (Clear); Bacteria Rare /hpf; Squamous Epithelial Cells Rare /hpf (Few); White Blood Cells, Urine 0-2 /hpf (0-5)
[2021-05-10] MEDS ORDERED: XARELTO15 M1 PO (21:40)
[2021-05-10 21:50] LABS: CPK Creatine Kinase 182 U/L (39-308)
[2021-05-10 21:52] LABS: Alanine Aminotransfer (ALT/SGP 40 U/L (12-78); Albumin, Blood 4.1 g/dL (3.4-5.0); Alk Phos 131 U/L (50-136); Anion Gap 22 mmol/L (6-16); Aspartate Aminotrans (AST/SGOT 15 U/L (12-37); Beta-hydroxybutyrate 88.5 mg/dL (0.2-2.8); Bilirubin, Total 0.7 mg/dL (0.1-1.0); Blood Urea Nitrogen 54 mg/dL (8-24); Bun/Creatinine Ratio 26.9 (12.0-20.0); CO2, Blood 22 mmol/L (21-32); Calcium, Blood 9.9 mg/dL (8.5-10.1); Chloride, Blood 90 mmol/L (98-108); Creatinine, Blood 2.01 mg/dL (0.60-1.20); Glomerular Filtration Rate 33 (60-); Glucose, Blood 1120 mg/dL (70-99); Potassium, Blood 3.8 mmol/L (3.5-5.5); Sodium, Blood 134 mmol/L (136-145); Total Protein, Blood 8.1 g/dL (6.4-8.2)
[2021-05-10 21:57] LABS: International Normalized Ratio 1.06; Prothrombin Time Results 11.1 Sec (9.7-11.5)
[2021-05-10 23:44] LABS: Thyroid Stimulating Hormone 0.389 uIU/mL (0.360-4.800)
[2021-05-11 00:04] LABS: BASOPHILS ABSOLUTE AUTO 0.01 K/mm3 (0.00-0.23); BASOPHILS PERCENT AUTO 0 % (0-2); EOSINOPHILS ABSOLUTE AUTO 0.01 K/mm3 (0.00-0.68); EOSINOPHILS PERCENT AUTO 0 % (0-6); Hematocrit 42.8 % (37.0-53.0); Hemoglobin 15.1 g/dL (13.5-17.5); IMMATURE GRAN ABSOLUTE AUTO 0.06 K/mm3 (0.00-0.10); IMMATURE GRAN PERCENT AUTO 1 % (0-1); LYMPHOCYTES ABSOLUTE AUTO 1.04 K/mm3 (0.84-5.20); LYMPHOCYTES PERCENT AUTO 9 % (21-46); MONOCYTES ABSOLUTE AUTO 0.98 K/mm3 (0.16-1.47); MONOCYTES PERCENT AUTO 9 % (4-13); Mean Corpuscular HGB 30.6 pg (26.0-34.0); Mean Corpuscular HGB Conc 35.3 g/dL (31.5-36.5); Mean Corpuscular Volume 87 fL (80-100); Mean Platelet Volume 11.1 fL (9.1-12.4); NEUTROPHILS ABSOLUTE AUTO 9.37 K/mm3 (1.96-9.15); NEUTROPHILS PERCENT AUTO 82 % (41-73); Platelet Count 270 K/mm3 (150-400); RDW Coefficient Variation 12.5 % (11.7-14.2); RDW Standard Deviation 39.6 fL (35.1-46.3); Red Blood Cell Count 4.93 M/mm3 (4.30-5.90); White Blood Cell Count 11.47 K/mm3 (4.00-11.30)
[2021-05-11 00:27] LABS: Bun/Creatinine Ratio 28.5 (12.0-20.0); Calcium, Blood 10.2 mg/dL (8.5-10.1); Creatinine, Blood 1.86 mg/dL (0.60-1.20); Potassium, Blood 3.7 mmol/L (3.5-5.5)
[2021-05-11 03:25] LABS: BASOPHILS ABSOLUTE AUTO 0.02 K/mm3 (0.00-0.23); BASOPHILS PERCENT AUTO 0 % (0-2); EOSINOPHILS ABSOLUTE AUTO 0.01 K/mm3 (0.00-0.68); EOSINOPHILS PERCENT AUTO 0 % (0-6); Hematocrit 44.5 % (37.0-53.0); Hemoglobin 15.8 g/dL (13.5-17.5); IMMATURE GRAN ABSOLUTE AUTO 0.04 K/mm3 (0.00-0.10); IMMATURE GRAN PERCENT AUTO 0 % (0-1); LYMPHOCYTES PERCENT AUTO 13 % (21-46); MONOCYTES ABSOLUTE AUTO 0.72 K/mm3 (0.16-1.47); MONOCYTES PERCENT AUTO 5 % (4-13); Mean Corpuscular HGB 30.1 pg (26.0-34.0); Mean Corpuscular HGB Conc 35.5 g/dL (31.5-36.5); Mean Corpuscular Volume 85 fL (80-100); NEUTROPHILS ABSOLUTE AUTO 10.73 K/mm3 (1.96-9.15); NEUTROPHILS PERCENT AUTO 81 % (41-73); Platelet Count 311 K/mm3 (150-400); RDW Coefficient Variation 12.4 % (11.7-14.2); RDW Standard Deviation 37.8 fL (35.1-46.3); Red Blood Cell Count 5.25 M/mm3 (4.30-5.90); White Blood Cell Count 13.22 K/mm3 (4.00-11.30)
[2021-05-11 03:42] LABS: Bun/Creatinine Ratio 28.6 (12.0-20.0); Calcium, Blood 10.7 mg/dL (8.5-10.1); Creatinine, Blood 1.82 mg/dL (0.60-1.20); Potassium, Blood 3.1 mmol/L (3.5-5.5)
--- NOTE | 2021-05-11 06:24 | NUR ---
TOA: 2330 Pt AOx2 (person and place), labile and anxious. Upon arrival to ICU, noticed left sided facial droop that wasn't passed along from ED report. Notified MD and obtain STAT head CT. Pt also became very combative and agitated as the night went on. Bilateral wrist restraints were initiated due to combativeness and confusion. Pt also has spasticity on bilat upper extremities - pt unable to verify if it was baseline due to confusion. Pt does tend to repeat phrases and answers, very difficult to redirect when agitated. HR 90 - 130s, sinus tachycardia, did have an episode of wide bundle branch AFIB vs VT, was not symptomatic. Afebrible. Pt on room air, does occassionally desaturate while asleep. Pt has a nonproductive cough. Remains NPO due to insulin drip. Unable to fully clear secretions per MD will do a swallow evaluation in the morning. DKA protocol initiated and notified MD of the glucose trends. Insulin drip still infusing with 150 mL of NS. Guardado catheter was placed for strict I/Os. Pt states he lives alone, will need a social service consult to help evaluate his current situation.
[2021-05-11 06:26] LABS: Bun/Creatinine Ratio 29.9 (12.0-20.0); Calcium, Blood 10.3 mg/dL (8.5-10.1); Creatinine, Blood 1.84 mg/dL (0.60-1.20); Potassium, Blood 2.9 mmol/L (3.5-5.5)
[2021-05-11 10:50] LABS: Bun/Creatinine Ratio 27.8 (12.0-20.0); Calcium, Blood 9.7 mg/dL (8.5-10.1); Creatinine, Blood 1.8 mg/dL (0.60-1.20); Potassium, Blood 3.5 mmol/L (3.5-5.5)
--- NOTE | 2021-05-11 13:28 | NUR ---
Echocardiogram using 0.50ml of Definity contrast was performed.
[2021-05-11 14:24] LABS: Bun/Creatinine Ratio 28.3 (12.0-20.0); Calcium, Blood 9.6 mg/dL (8.5-10.1); Creatinine, Blood 1.84 mg/dL (0.60-1.20); Potassium, Blood 3.4 mmol/L (3.5-5.5)
--- NOTE | 2021-05-11 15:01 | NUR ---
Pt. was alert and in bed. Pt. welcomed my visit. Pt. was unsettled about the care of his pets, and verbalized concern about his health. Pt. had spiritual distress regarding the lack of a family support system. Provided a calming presence and offered emotional support. Pt. displayed evidence of increased courage. Prayed with pt. Pt. verbalized prayer as well as gratitude for spiritual care visit.
--- NOTE | 2021-05-11 17:31 | NUR ---
NEURO: THIS AM ORIGINALLY IS CONFUSED AND DISORIENTED TO PLACE, SITUATION. KNOWS IT IS THE YEAR 2021. ONCE REORIENTED TO PLACE AND SITUATION, HE IS ABLE TO ANSWER THESE QUESTIONS APPROPRIATELY. THROUGHOUT DAY, HE HAS BECOME INCREASINGLY MORE TALKATIVE AND ALERT. HE IS CONSTANTLY DISROBING. YELLS OCCASIONALLY, PULLS AT LINES AND TUBES FREQUENTLY EVEN IN BILATERAL RESTRAINTS. HE IS INAPPROPRAITE W STAFF, MAKING INAPPROPRAITE REMARKS ABOUT STAFF BODY PARTS, CONTINUES WHEN ASKED TO STOP. HE SEEMS TO UNDERSTAND STAFF REQUEST TO NOT PULL AT LINES AT TUBES, BUT CONTINUES TO DO SO, APOLOGIZES FREQUENTLY. PT HAS L SIDE FACIAL DROOP. PULM: LUNGS DIMINISHED, OCCASIONAL PRODUCTIVE COUGH. ROOM AIR. CARDIAC: SR [id number]. PVCS AND PACS. HAD 1 SHORT RUN OF SVT THIS AFTERNOON DURING A TURN. GI/: NPO. THIS RN IS NOT COMFORTABLE WITH PT ABILITY TO SWALLOW. DISCUSSED WITH , SALESFORCE ADMINISTRATOR DANNI ORDERED. PT HAS BEEN ON INSULIN GTT TODAY. LOSS OF IV ACCESS THIS MORNING REQUIRED A PAUSE IN INSULIN DRIP WHILE NEW IV ACCESS WAS ACQUIRED. HERMINIO W CLEAR YELLOW OUTPUT SKIN: SCALING AND FLAKING BLE, RASH/RED BUMPS BUE, SCATTERED REDNESS COCCYX/BUTTOCKS, BROWN SPOTS BILATERAL THIGHS.
--- NOTE | 2021-05-11 20:00 | NUR ---
ASSUMED CARE OF PT AT 1915. REPORT RECEIVED. PT PRESENTS IN BED. TAT RESTRAINTS IN PLACE SECONDARY TO PT PULLING AT LINES. PT SLEEPING AT THIS TIME. INSULIN DRIP AT 1 UNIT PER HOUR. WILL REVIEW CHART AND PLAN OF CARE FOR THIS PT.
[2021-05-12 01:09] LABS: Bun/Creatinine Ratio 27.6 (12.0-20.0); Calcium, Blood 9.2 mg/dL (8.5-10.1); Creatinine, Blood 1.63 mg/dL (0.60-1.20); Potassium, Blood 3.8 mmol/L (3.5-5.5)
--- NOTE | 2021-05-12 06:30 | NUR ---
WITH PT'S IMPROVING MENTATION, DID TRIAL PT OUT OF RESTRAINTS. PT WAS ABLE TO NOT PULL AT LINES EXCEPT FOR SEVERAL TIMES PULLING AT CATHETER. PT WOULD REDIRECT APPROPRIATELY. PT DOES SLEEP SOME. WHEN HE AWAKENED, PT WAS CONFUSED. THROWS BLANKETS AND PILLOWS OFF BED. BEGINS TO PULL AT LINES AND CATHETER. DID, UNFORTUNEATELY HAVE TO RESTART RESTRAINTS. PT VERBALLY AGGRESSIVE AND VULGAR. INSULIN DRIP HAS BEEN TITRATED UP TO 3 UNITS PER HOUR. PT REFUSED LAB TO DRAW HIS BLOOD THIS MORNING EVEN WITH THIS RN GIVING RATIONAL FOR HAVING LABS DRAWN WHILE ON INSULIN DRIP. WILL CONTINUE TO MONITOR PT, AND WILL REPORT OFF TO ONCOMING RN.
[2021-05-12 09:54] LABS: Bun/Creatinine Ratio 25.7 (12.0-20.0); Calcium, Blood 8.7 mg/dL (8.5-10.1); Creatinine, Blood 1.4 mg/dL (0.60-1.20); Phosphorus, Blood 2.2 mg/dL (2.5-4.9); Potassium, Blood 3.2 mmol/L (3.5-5.5)
--- NOTE | 2021-05-12 12:43 | NUR ---
I called and spoke with the patient's neighbor, Jeannie whom lives next door to the patient. She states that the Sony's , Lucy, about 3-4 years ago. The patient now lives alone in his home. Jeannie states the patient has a cane that he uses and O2 at home. Patient previously was still driving prior to admit. She states that another neighbor across the street had contacted her on 05/09 stating that she was worried because she had not seen Sony in two days. Jeannie had contacted the police who were able to enter the home and found the patient on his bedroom floor. Jeannie believes he may have been down about two days. She now has a hyman and is taking care of the patient's dog and cat in his home. She states he did serve in the and may have VA benefits. That about a year ago he received a [place] loan to purchase his residence he had been previously renting. Jeannie also confirmed that the patient does not have any family or friends in the area, just his neighbors who check in on him periodically. Jeannie also reports that the patient's home is not clean, and that it does not look like his shower has been used for awhile. She does not believe he had been bathing for an unknown length of time. I went to visit the patient in his room. He was sitting up, eating lunch, alert and pleasant. He confirmed he did service in the . I've left a message with Cesar at the [employer] in regards to inquiring whether the patient is currently service connected. Patient asked about his dog and cat. I reassured him that his neighbor Jeannie is currently taking care of them. Sony became teary and worried that he left them alone. He states he has not been to a SNF and does not have a preference. He does confirm he needs more help at home. I also inquired his opinion on the possibility of an assisted living facility. He was unsure at this time. I plan to talk to him again about LTC placement as an option.
--- NOTE | 2021-05-12 14:13 | NUR ---
UPDATE: PT IS ALERT AND ORIENTED TO SELF, PLACE AND FOLLOWING DIRECTIONS. PT REMOVED FROM BILATERAL WRIST RESTRAINTS AT 0800. PT CONFUSED. PT DENIED NAUSEA/PAIN. PT EVALUATED BY SPEECH THERAPIST, DIET ADVANCED TO PUREE/THIN LIQUIDS, TOLERATED WELL. PT TRASITIONED TO SUBq INSULIN. PHYSICAL THERAPY EVALUATED PT, PT AMBULATED TO [facility] WITH FWW, GAIT BLET, 3 STAFF MEMBERS PRESENT, VERY WEAK AND UNSTEADY. PT GIVEN BEDBATH, LINENS CHANGED. PT HAD ONE LARGE BM, DURHAM PATENT AND DRAINING TO GRAVITY.
--- NOTE | 2021-05-12 18:00 | NUR ---
SHIFT SUMMARY: SEE PREVIOUS NOTES. PT CONTINUES TO BE ALERT AND ORIENTED TO SELF, AND FOLLOWING DIRECTIONS. PT HAS BEEN ON RA WITH SPO2 ABOVE 90% NO RESP DISTRESS NOTED. BP STABLE, BP MEDS STARTED. PT HAS BEEN EATING 100% OF ALL MEALS, NO S/S OF ASPIRATION. DENIES NAUSEA/PAIN. DURHAM PATENT AND DRAINING TO GRAVITY, DURHAM CARE PROVIDED. WILL CONTINUE TO MONITOR PT UNTIL REPORT IS GIVEN TO ONCOMING SHIFT.
--- NOTE | 2021-05-12 18:25 | NUR ---
Pt. was awake and welcomed my visit. Pt. continues to be unsettled by concern of his pets at home. Provided calming presence and theraputic listeing. Pt. emotes easily. Pt. was spiritually distressed by the past deaths of brothers, and passing of his in recent years. Provided prayer. Pt. displayed evidence of comprehension and increased hope. Pt. verbalized gratitude and requested that I return tomorrow.
--- NOTE | 2021-05-12 20:00 | NUR ---
ASSUMED CARE OF PT AT 1915. REPORT RECEIVED. PT PRESENTS IN BED SLEEPING. IN NO APPARENT DISTRESS. MAINTAINS ON ROOM AIR WITHOUT S/S DYSPNEA. WILL REVIEW CHART AND PLAN OF CARE FOR THIS PT.
--- NOTE | 2021-05-12 23:51 | NUR ---
PT COOPERATIVE WITH CARE. BLOOD GLUCOSE CHECK DONE WITH COVERAGE INDICATED. SEE EMAR FOR DETAILS. PT TOLERATES TURNS IN BED AND IS COOPERATIVE. NO ACTIONS OF PULLING AT LINES NOTED. WILL CONTINUE TO MONITOR.
--- NOTE | 2021-05-13 06:30 | NUR ---
PT ABLE TO REST SOME THIS NIGHT. DID NOT REQUIRE RESTRAINTS THIS NIGHT. HAS NOT PULLED AT ANY LINES OR TUBES. PT ASKS QUESTIONS ABOUT WHY HE IS HERE. ANSWERED QUESTIONS FOR HIM. PROVIDED MUSIC PER TELEVISION Mallika SEWELL FOR HIM. HE VOICES APPRECIATION. WILL CONTINUE TO MONITOR PT, AND WILL REPORT OFF TO ONCOMING RN.
[2021-05-13 06:36] LABS: Bun/Creatinine Ratio 20.6 (12.0-20.0); Calcium, Blood 8.2 mg/dL (8.5-10.1); Creatinine, Blood 1.26 mg/dL (0.60-1.20); Potassium, Blood 3.6 mmol/L (3.5-5.5)
[2021-05-13 07:47] LABS: BASOPHILS ABSOLUTE AUTO 0.03 K/mm3 (0.00-0.23); BASOPHILS PERCENT AUTO 0 % (0-2); EOSINOPHILS PERCENT AUTO 3 % (0-6); Hematocrit 40.2 % (37.0-53.0); Hemoglobin 13.3 g/dL (13.5-17.5); IMMATURE GRAN ABSOLUTE AUTO 0.03 K/mm3 (0.00-0.10); IMMATURE GRAN PERCENT AUTO 0 % (0-1); LYMPHOCYTES ABSOLUTE AUTO 1.41 K/mm3 (0.84-5.20); LYMPHOCYTES PERCENT AUTO 21 % (21-46); MONOCYTES ABSOLUTE AUTO 0.63 K/mm3 (0.16-1.47); MONOCYTES PERCENT AUTO 9 % (4-13); Mean Corpuscular HGB 30.5 pg (26.0-34.0); Mean Corpuscular HGB Conc 33.1 g/dL (31.5-36.5); Mean Platelet Volume 11.2 fL (9.1-12.4); NEUTROPHILS ABSOLUTE AUTO 4.45 K/mm3 (1.96-9.15); NEUTROPHILS PERCENT AUTO 66 % (41-73); Platelet Count 165 K/mm3 (150-400); RDW Coefficient Variation 12.9 % (11.7-14.2); RDW Standard Deviation 43.8 fL (35.1-46.3); Red Blood Cell Count 4.36 M/mm3 (4.30-5.90); White Blood Cell Count 6.75 K/mm3 (4.00-11.30)
[2021-05-13 07:52] LABS: Mean Corpuscular Volume 92 fL (80-100)
--- NOTE | 2021-05-13 10:43 | NUR ---
Per PT evaluation yesterday, patient is recommended for SNF setting to resume activity to return home indepedent and safe. This morning I faxed a patient packet for SNF referral to Sarita Delaney with [facility]. I plan to also give his neighbor , Jeannie [phone], a call to update and plan accordingly. She is currently taking care of his dog and cat in his home.
--- NOTE | 2021-05-13 12:01 | NUR ---
ASSUMED CARE OF PATIENT 0700: FOLLOWS COMMANDS, AOX3, DISORIENTED TO TIME, CBGS COVERED WITH LISPRO, TOLERATED BREAKFAST 100%, VSS ON RA, 1 SMALL BM TYPE 5, WILL CONTINUE TO MONITOR.
--- NOTE | 2021-05-13 17:12 | NUR ---
AOX3, FOLLOWS COMMANDS, CONFUSED AT TIMES, TOLERATING NEW MECHANICAL SOFT DIET, CBGS 200/300 RANGE COVERED WITH LISPRO, LUNGS CLEAR/DIM, RA, 2 PERSON ASSIST TO COMMED, VSS, 2 SMALL FORMED STOOLS, HERMINIO MOHAMUD PER MD, VOIDS INDEPENDENTLY, WILL CONTINUE TO MONITOR AND REPORT TO NIGHT RN.
--- NOTE | 2021-05-13 20:29 | NUR ---
SHIFT ASSESSMENT ASSUMED CARE OF PT @ 1900. PT A&OX3. INTERMITTENT BOUTS OF CONFUSION. FOLLOWS ALL COMMANDS, MOVING ALL EXTREMITIES. VSS. USING BEDSIDE URINAL WITH ASSISTANCE. TWO PERSON ASSIST TO BEDSIDE COMMODE. PT WAS INCONTINENT OF SMALL BM. MED NO TELE STATUS. WILL CONTINUE TO MONITOR.
--- NOTE | 2021-05-14 07:30 | NUR ---
ASSUMED CARE: PT RESTING IN BED, CALLS FOR STAFF TO ASSIST WITH URINAL. PT IS COOPERATIVE, ALERT AND ORIENTED, FLIRTATIOUS WITH STAFF BY FREQUENTLY COMMENTING HOW HE LIKES WORKING WITH PRETTY GIRLS. VSS, NO ACUTE NEEDS AT THIS TIME.
[2021-05-14 10:47] LABS: Anion Gap 7 mmol/L (6-16); Blood Urea Nitrogen 23 mg/dL (8-24); Bun/Creatinine Ratio 20.5 (12.0-20.0); CO2, Blood 26 mmol/L (21-32); Calcium, Blood 8.4 mg/dL (8.5-10.1); Chloride, Blood 102 mmol/L (98-108); Creatinine, Blood 1.12 mg/dL (0.60-1.20); Glomerular Filtration Rate >60 (60-); Glucose, Blood 361 mg/dL (70-99); Potassium, Blood 3.9 mmol/L (3.5-5.5); Sodium, Blood 135 mmol/L (136-145)
--- NOTE | 2021-05-14 15:34 | NUR ---
REPORT GIVEN TO [facility]. PT TRANSFERRED TO MEDICAL FLOOR, ROOM 355 VIA BED BY MURAL ARTIST. NO FURTHER NEEDS AT THIS TIME.
--- NOTE | 2021-05-14 15:40 | NUR ---
PT TRANSFERED TO UNIT PT SLIDE TRANSFER FROM ICU BED. PT SOILED, PERSONAL CARE PROVIDED. PT A&O X2 @ TIME OF ARRIVAL. VSS ASSESSED RIGHT BEFORE TRANSFER. HPTN AND BLOOD GLUCOSE LEVELS NOTED. PT ORIENTATED TO ROOM, INSTRUCTED FOOD TRADES ASSISTANTS LIGHT WHICH IS IN REACH.
--- NOTE | 2021-05-15 03:25 | NUR ---
SCU TRANSFER PT TRANSFERRED FROM ROOM 355 TO SCU ROOM 353. PT WAS A/OX4 AT THE BEGINNING OF THE SHIFT, SPEECH AT TIMES NONSENSICAL BUT PT WAS FOLLOWING DIRECTIONS AND WAS STAYING IN BED. HOWEVER THE NIGHT PROGRESSED PT BEGAN SUNDOWNING AND WAS BECOMING INCREASINGLY CONFUSED AND WAS CLIMBING OUT OF BED MULTIPLE TIMES DESPITE REDIRECTION AND REMINDERS TO STAY IN BED. DR. RODRIGUEZ CALLED AND NOTIFIED OF PT AGITATION AND CONFUSION. ONE TIME DOSE OF SEROQUELL WAS ORDERED. SEROQUELL GIVEN, BUT PT CONTINUED TO BE AGIATATED/RESTLESS AND WAS STILL TRYING TO GET OOB. SPOKE WITH KAYLEE KAUR RN WHO WAS ALREADY AWARE OF PT BEHAVIOR. IT WAS DECIDED TO TRANSER PT TO THE SCU. PT TRANSFERRED TO SCU RM 353 AROUND 314. REPORT GIVEN TO MARÍA OWENS RN TO ASSUME CARE OF PT. PT TRANSFERRED. BELONGINGS IN PLACE.
--- NOTE | 2021-05-15 03:36 | NUR ---
SHIFT SUMMARY PT TRANSFERRED TO SCU THIS SHIFT DUE TO INCREASED CONFUSION OVERNIGHT, SEE TRANSDER NOTE. PT WOULD NOT STAY IN BED DESPITE REDIRECTION AND IS A HIGH FALL RISK, 2-3 PERSON MAX ASSIST. PT HAS HAD VERY LITTLE SLEEP MOST OF THE NIGHT. PRESSING CALL LIGHT FREQUENTLY. SPEECH IS NONSENSICAL AT TIMES. BLOOD SUGARS REMAIN ELEVATED IN THE 300'S, PROVIDERS ARE AWARE OF PT HYPERGLYCEMIA AND INSULIN HAS BEEN ADJUSTED ACCORDINGLY. PT HYPERTENSIVE THIS SHIFT BUT TRENDING AROUND BASELINE. NO OTHER CHANGES TO REPORT. BED IN LOWEST POSITION, CALL LIGHT WITHIN REACH.
--- NOTE | 2021-05-15 17:55 | NUR ---
Patient was alert and orient, His affect was pleasant and mood was congruent. He was continent of bowel and bladder, he also had a shower today. Patient was compliant with medications and requested no prns. Patient sat in the chair for awhile and then back to bed. He had a non-productive cough during his lunch and dinner. I will foward to ask for speech eval. Continue to monitor this patient
--- NOTE | 2021-05-16 03:04 | NUR ---
SHIFT SUMMARY 75 YR M ADMITTED ON 05/10/21 FOR DKA. FULL CODE. NO ACUTE CHANGES THIS SHIFT. PT'S BLOOD SUGARS ARE STILL RUNNING IN THE 300'S AND INSULIN IS BEING ADMINISTERED PER EMAR. HE IS VERY CONFUSED AT TIMES AND TALKS ABOUT RANDOM THINGS WITH SCATTERED THOUGHTS. HE IS VERY UNSTEADY ON HIS FEET BUT AT TIMES INSISTS ON STANDING UP OR AMBULATING TO BEDSIDE COMMODE. HE IS MOSTLY INCONTINENT. HE SEEMS TO HAVE THE MOST LUCID THOUGHTS WHEN HE IS TALKING ABOUT HIS CAREER AND GUNS. HE HAS BEEN VERY PLWASNAT AND COOPERATIVE THIS SHIFT.
[2021-05-16] MEDS ORDERED: ELIQUIS5 M2 PO (08:15)
[2021-05-16] MEDS ORDERED: BUSP5 PO (08:16)
[2021-05-16] MEDS ORDERED: PREZISTA PO (08:18)
[2021-05-16] MEDS ORDERED: CYMBALTA60 M1 PO (08:19)
[2021-05-16] MEDS ORDERED: FENO145 PO (08:20)
[2021-05-16] MEDS ORDERED: SYNTHROID125 MC1 PO (08:21)
[2021-05-16] MEDS ORDERED: METFORMIN HCL500 M3 PO ×2 (08:23→08:54)
[2021-05-16] MEDS ORDERED: OXYCODONE ACETAMINOP PO (08:24)
[2021-05-16] MEDS ORDERED: ISENTRESS100 MG PO (08:25)
[2021-05-16] MEDS ORDERED: Crestor20 MG PO (08:27)
[2021-05-16] MEDS ORDERED: RYBELSUS7 MG PO (08:28)
[2021-05-16] MEDS ORDERED: VEMLIDY25 MG PO (08:29)
[2021-05-16] MEDS ORDERED: VALS80 PO (08:30)
[2021-05-16] MEDS ORDERED: Insulin Glargine-Yfg SC (08:46)
[2021-05-16] MEDS ORDERED: AMLO10 PO (08:47)
[2021-05-16] MEDS ORDERED: ATORVASTATIN CA80 M1 PO (08:48)
[2021-05-16] MEDS ORDERED: CARDURA2 M1 PO (08:49)
[2021-05-16] MEDS ORDERED: FINA5 PO (08:50)
[2021-05-16] MEDS ORDERED: FUROSEMIDE40 MG PO (08:52)
[2021-05-16] MEDS ORDERED: Humalog KwikPen 100 SC (08:53)
[2021-05-16] MEDS ORDERED: METO25ER PO (08:56)
[2021-05-16] MEDS ORDERED: K-Dur20 MEQ PO (08:57)
[2021-05-16] MEDS ORDERED: XARELTO10 M1 PO (08:58)
--- NOTE | 2021-05-16 16:23 | NUR ---
Per consult with Dr. Villegas, patient may need possible guardianship. I spoke to Beth Mon, National Certified Guardian, regarding this patient for possible referral for services. I have also kept in contact with the patient's neighbor, Jeannie Blevins, to relay updates and possible plan for LTC placement. Jeannei has been taking care of the patient's dog and cat. I also facilitated a call to Jeannie while visiting the patient in his room. Jenanie was going to buy more dog and catfood today. Patient was concerned about his backyard fencing and that the dog may escape. Jeannie confirmed the dog did but, she found her at the next house over. Another neighbor plans to help fix the fencing in the next couple of days. Patient was comforted by this and very appreciative. Patient scored 11 out of 30 on SLUMS test by OT.
--- NOTE | 2021-05-16 18:07 | NUR ---
Patient was alert and orient, his affect was flat but mood was pleasant. Patient was continent of bowel and bladder and had a LBM today. Patient was compliant with medications and did not request any PRNs. He had no complaints of pain. Patient appetite was fair for all meals. Patient is going down to have MRI w/wo contrast. Patient worked with PT/OT/ST today. He sat in the chair throughout the shift. Patient had no requests at this time.
--- NOTE | 2021-05-17 06:12 | NUR ---
SHIFT SUMMARY AOX3-SELF, SITUATION, FOLLOWING DIRECTIONS. UNAWARE DATE & FORGETFUL OF TOWN. L SIDE FACIAL DROOP, L EYE REDNESS & DROOP. SLURRING SPEECH. EQUAL TOUR PRODUCTION SUPERVISOR. VSS. DENIES PAIN, N/V OR SOB. CBG @323, PROVIDED COVERAGE PER EMAR. FAXED PSYCH CONSULT TO ER. AWAITING SAFE DC PLAN. CALL LIGHT IN REACH, ALARM IN PLACE. WCTM.
[2021-05-17 08:11] LABS: Anion Gap 9 mmol/L (6-16); Blood Urea Nitrogen 19 mg/dL (8-24); Bun/Creatinine Ratio 16.2 (12.0-20.0); CO2, Blood 25 mmol/L (21-32); Calcium, Blood 8.1 mg/dL (8.5-10.1); Chloride, Blood 102 mmol/L (98-108); Creatinine, Blood 1.17 mg/dL (0.60-1.20); Glomerular Filtration Rate >60 (60-); Glucose, Blood 322 mg/dL (70-99); Potassium, Blood 3.5 mmol/L (3.5-5.5); Sodium, Blood 136 mmol/L (136-145)
--- NOTE | 2021-05-17 18:39 | NUR ---
SHIFT SUMMARY: NO ACUTE EVENTS. CBG CONTINUES TO BE > 300. A&O X 2, PLEASANT. HAS L EYE AND L FACIAL DROOP, STRENGHT IS EQUAL BILATERALLY. AMBULATED IN HALLWAY X 2 WITH FWW, TOLERATED WELL. INCONTINENT OF BLADDER AT TIMES. TOLERATING PO INTAKE. DENIED PAIN. ADMITTED HE NEEDS HELP WITH MEDICATIONS AT HOME.
[2021-05-18 07:51] LABS: Anion Gap 7 mmol/L (6-16); Blood Urea Nitrogen 20 mg/dL (8-24); Bun/Creatinine Ratio 17.5 (12.0-20.0); CO2, Blood 28 mmol/L (21-32); Calcium, Blood 8.5 mg/dL (8.5-10.1); Chloride, Blood 102 mmol/L (98-108); Creatinine, Blood 1.14 mg/dL (0.60-1.20); Glomerular Filtration Rate >60 (60-); Glucose, Blood 310 mg/dL (70-99); Potassium, Blood 3.5 mmol/L (3.5-5.5); Sodium, Blood 137 mmol/L (136-145)
--- NOTE | 2021-05-18 10:42 | NUR ---
Per Dr. West's consult with the patient, guardianship recommendation and letter have been provided. Patient has moderate to severe dementia. I have emailed these to Beth Mon, National Certified Guardian, ([phone]) to proceed with the recommendation.
--- NOTE | 2021-05-18 13:41 | NUR ---
Spiritual care in response to physician referral. Pt. is alert and sitting up in his chair. Pt. welcomed my visit. Pt. is cautiously unsettled about the current "dementia" diagnosis. Listened empathetically. Provided pastoral newspaper delivery counselor. Pt. displayed evidence of clarity, but also other moments of repeating himself. Pt. refers to past experiences as examples of identifying his enemy. Pt. verbalizes that his diagnosis is his new enemy. Provided further pastoral newspaper delivery counselor the disease from his personal identity. Prayed with pt. Pt. displayed evidence of trust and peace. Pt. verbalized desire to have me communicate with his neighbors who are caring for his pets. I contacted the Gen family, and left a message of the pts. gratitude on their voicemail.
--- NOTE | 2021-05-18 17:03 | NUR ---
SHIFT SUMMARY PT A&O X3-4 T/O SHIFT. PT IN A GENERALLY GOOD MOOD T/O SHIFT, ALTHOUGH DID VERBALIZE UNHAPPY W/ SNF RECOMMENDATION. PALATIVE CARE AND SPIRITIAL CARE EVAL ORDERED FOR ADDITIONAL SUPPORT. PT VERBALIZED WISHES TO HELP W/ SHAVING HIS FACE, VICE PRESIDENT OF TALENT MANAGEMENT PROVIDED MIN ASSIST. WORKED W/ PT AND OT. VSS. CALL LIGHT W/IN REACH.
--- NOTE | 2021-05-19 03:46 | NUR ---
KEYMODULE ASSEMBLY MACHINE TENDER SUMMARY HAS BEEN RSTING QUIETLY WITH OCCASIONAL INTERRUPTION SINCE HS, AFTER HAVING RECEIVED MELATONIN. WOKE UP A WHILE AGO, GOT OUT OF BED. REMAINS IN CHAIR AT BEDSIDE. DENIED PAIN. VERY CORDIAL TO STAFF IN HIS INTERACTIONS. CALL LIGHT IN REACH. ENCOURAGED TO USE CALL LIGHT IF NEEDS ARRISE.
[2021-05-19 04:58] LABS: Anion Gap 5 mmol/L (6-16); Blood Urea Nitrogen 17 mg/dL (8-24); Bun/Creatinine Ratio 15.6 (12.0-20.0); CO2, Blood 29 mmol/L (21-32); Calcium, Blood 8.6 mg/dL (8.5-10.1); Chloride, Blood 102 mmol/L (98-108); Creatinine, Blood 1.09 mg/dL (0.60-1.20); Glomerular Filtration Rate >60 (60-); Glucose, Blood 245 mg/dL (70-99); Potassium, Blood 3.5 mmol/L (3.5-5.5); Sodium, Blood 136 mmol/L (136-145)
--- NOTE | 2021-05-19 18:10 | NUR ---
SHIFT SUMMARY PT A&O X2, APPEARS TO BE MORE IRRITABLE T/O SHIFT. PT CALLED ME A "NAGGING " DUE TO EDUCATION REGUARDING UTILIZATION OF CALL LIGHT FOR SAFETY. PT UP TO RESTROOM SEVERAL TIMES T/O SHIFT, 1X SBA. SHOWERED INDEPENDENTLY, THOUGH LATER INFORMED STAFF NO SOAP WAS USED. C/O FOOD PROVIDED. MEDICATED PER EMAR T/O SHIFT FOR BLOOD GLUCOSE LEVELS, PLAN TO UP THE INSULINE GLARGINE TO [address] LOGAN @ SCHED. 2100 TIME. VSS. CALL LIGHT W/IN REACH. PT AMBULATED/WORKED W/ PT AND OT Q SHIFT.
--- NOTE | 2021-05-20 03:27 | NUR ---
DIRECTOR SUPPLY CHAIN SUMMARY HAS BEEN RSTING QUIETLY WITH OCCASIONAL EPISODES OF GETTING OUT OF BED AND EITHER HAVING INCONT OR MAKING IT TO THE BATHROOM TO VOID. SOME APPARENT CONFUSION NOTED. EASILY REDIRECTED. PLEASANT AFFECT. CALL LIGHT IN REACH. SAFETY ENCOURAGED AND MAINTAINED.
--- NOTE | 2021-05-20 08:51 | NUR ---
Yesterday I spoke to both [facility] at the [facility] and Silvia in the [facility] Eligibility office to inquire more information on if and when the patient served in the . Silvia confirmed they had the patient's DD214 on file, that he served in the [employer] from [phone]. She plans to consult with her fractionation supervisor and will be calling today with more information on how to proceed with applying for VA benefits for the patient.
--- NOTE | 2021-05-20 15:15 | NUR ---
Per conversation with Silvia at the [facility] Eligibility [facility], they will need social security income document that states what the patient has received last year. I plan on trying to locate that information, may have to ask the patient's neighbor, Jeannie, to assist. Once submitted, patient may be eligible for placement at the [facility] care facility.
--- NOTE | 2021-05-20 16:08 | NUR ---
I spoke with the patient's neighbor, Jeannie, earlier and discussed possible discharge plan to the [facility] and the documents needed to apply for benefits. Jeannie is currently is out of town, but plans to follow-up with me Sunday. She reports that the patient has stated on numerous occasions he has a girlfriend that he met online that is currently incarcerated in [place], who he has sent a significant amount of money to the past two years. Patient's neighbor reports she has told the patient this person has been lying to him and likely taking advantage of him. I called and spoke with [employer] regarding possible financial exploitation, requesting additional help with this. I plan to do a medicaid application on Sunday with the patient. At this point his finances are unknown.
--- NOTE | 2021-05-20 18:08 | NUR ---
SHIFT SUMMARY- PT IS ALERT, PLESANT AND COOPERATIVE. HE IS FORGETFUL AT TIMES. HE IS EATING AND DRINKING WELL. HE WORKED WITH PT AND OT THIS SHIFT AND TOLERATED WELL. HE IS AMBULATING TO THE RESTROOM. HIS BED IS IN THE LOW POSTION, CALL LIGHT IS WITHIN REACH.
--- NOTE | 2021-05-21 05:28 | NUR ---
SHIFT SUMMARY PATIENT ALERT TO SELF WITH CONFUSION ABLE TO VOICE NEEDS QUIANA PAIN PATIENT INCONT OF URINE BED CHANGED TWICE STAFF HAS ENCOURAGE TO TAKE PATIENT TO THE BATHROOM DURING ROUNDS PATIENT REFUSED.
--- NOTE | 2021-05-21 18:25 | NUR ---
SHIFT SUMMARY PATIENT IS ALERT AND ORIENTED TO SELF AND LOCATION ONLY. PATIENT HAS BEEN PLEASENT AND COOPERATIVE WITH CARE. PATIENT DENIES AND PAIN, NAUSEA, VOMITTING OR SOB. PATIENT PULLED OUT POWERGLIDE, NOTIFIED DR AND NO IV ACCESS ORDER OBTAINED. NO ACUTE EVENTS THIS SHIFT. WILL MONITOR UNTIL SHIFT CHANGE.
--- NOTE | 2021-05-22 04:32 | NUR ---
SHIFT SUMMARY PATIENT ALERT OX2 WITH SOME CONFUSION AT TIME ABLE TO VOICE NEEDS ASSISTED WITH STAND BY ASSIST TO BATHROOM BED CHANGE X 1 PT HAD AN URINE INCONT.PO FLUIDS OFFERED NO ACUTE CHANGE NOTED
--- NOTE | 2021-05-22 17:13 | NUR ---
SHIFT SUMMARY PATIENT IS ALERT AND ORIENTATED X2. PATIENT HAS OCCASIONAL CONFUSION. PATIENT IS A ONE PERSON ASSIST TO BATHROOM. PATIENT ATTEMPTED TO LEAVE AMA, CONVINCED TO STAY "ONE MORE NIGHT" PATIENT HAS WALKED HALLWAYS THIS SHIFT WITH SUPERVISION. VITAL SIGNS REVIEWED. PATIENT HAS HAD NO ACUTE EVENTS THIS SHIFT. BED IN LOCKED POSITION. CALL LIGHT IN PLACE. WILL MONITOR UNTIL SHIFT CHANGE.
--- NOTE | 2021-05-23 05:52 | NUR ---
SHIFT SUMMARY PATIENT SLEPT JUST FOR FEW HOURS AND STAYED UP THE WHOLE NIGHT PACKING AND UNPACKING HIS BELONGING STATING HE IS GOING HOME HE IS TIRED OF THIS PLACE PT TRIED TO LEAVE SEVERAL TIMES REDIRECTED AND BEEN CLOSELY WATCH.ASISSTED WITH INCONTINENCE CARE MULTIPLE TIMES .PT IN HIS ROOM AT THIS MOMENT.
--- NOTE | 2021-05-24 05:59 | NUR ---
PT CALM AND COOPERATIVE. PT WAS ASLEEP DURING SHIFT CHANGE REPORT AT NIGHT AND REMAINED ASLEEP UNTIL MEDICATIONS WERE GIVEN. PT DID NOT COMPLAIN OF ANY PAIN,SOB,N/V. PT CONTINUED TO SLEEP THROUGH THE NIGHT. PT AWAKE AND READING EDUCATION PAPERS THIS MORNING. CALL LIGHT AND BELONGINGS ARE WITHIN REACH.
[2021-05-24 06:50] LABS: BASOPHILS ABSOLUTE AUTO 0.04 K/mm3 (0.00-0.23); BASOPHILS PERCENT AUTO 1 % (0-2); EOSINOPHILS ABSOLUTE AUTO 0.15 K/mm3 (0.00-0.68); EOSINOPHILS PERCENT AUTO 3 % (0-6); Hematocrit 33.6 % (37.0-53.0); Hemoglobin 11.3 g/dL (13.5-17.5); IMMATURE GRAN ABSOLUTE AUTO 0.02 K/mm3 (0.00-0.10); IMMATURE GRAN PERCENT AUTO 0 % (0-1); LYMPHOCYTES ABSOLUTE AUTO 1.12 K/mm3 (0.84-5.20); LYMPHOCYTES PERCENT AUTO 19 % (21-46); MONOCYTES ABSOLUTE AUTO 0.44 K/mm3 (0.16-1.47); MONOCYTES PERCENT AUTO 7 % (4-13); Mean Corpuscular HGB 30.1 pg (26.0-34.0); Mean Corpuscular HGB Conc 33.6 g/dL (31.5-36.5); Mean Corpuscular Volume 89 fL (80-100); Mean Platelet Volume 10.2 fL (9.1-12.4); NEUTROPHILS ABSOLUTE AUTO 4.22 K/mm3 (1.96-9.15); NEUTROPHILS PERCENT AUTO 71 % (41-73); Platelet Count 272 K/mm3 (150-400); RDW Standard Deviation 42.6 fL (35.1-46.3); Red Blood Cell Count 3.76 M/mm3 (4.30-5.90); White Blood Cell Count 5.99 K/mm3 (4.00-11.30)
[2021-05-24 07:08] LABS: Alanine Aminotransfer (ALT/SGP 29 U/L (12-78); Albumin, Blood 2.8 g/dL (3.4-5.0); Albumin/Globulin Ratio 0.6 (0.8-1.8); Alk Phos 83 U/L (50-136); Anion Gap 5 mmol/L (6-16); Aspartate Aminotrans (AST/SGOT 26 U/L (12-37); Blood Urea Nitrogen 19 mg/dL (8-24); Bun/Creatinine Ratio 16.1 (12.0-20.0); CO2, Blood 31 mmol/L (21-32); Calcium, Blood 8.4 mg/dL (8.5-10.1); Chloride, Blood 101 mmol/L (98-108); Creatinine, Blood 1.18 mg/dL (0.60-1.20); Globulin, Blood 4.4 g/dL (2.2-4.0); Glomerular Filtration Rate >60 (60-); Glucose, Blood 99 mg/dL (70-99); Magnesium, Blood 1.3 mg/dL (1.6-2.4); Phosphorus, Blood 3.1 mg/dL (2.5-4.9); Potassium, Blood 3.2 mmol/L (3.5-5.5); Sodium, Blood 137 mmol/L (136-145); Total Protein, Blood 7.2 g/dL (6.4-8.2)
--- NOTE | 2021-05-24 15:45 | NUR ---
Today I completed and submitted the guardianship application on the patient's behalf to the state and faxed it. I also assisted the patient in a medicaid application to apply for ltc benefits. Patient acknowledges the need for full-time caregiving services and has accepted assistance in applying for these services to be able to coordinate a safe discharge plan. Patient agreeable to this.
--- NOTE | 2021-05-24 16:28 | NUR ---
Pt resting in bed upon arrival. Pt denies pain at this time. Offered therapeutic listening as Pt expresses concerns of not having family to rely on for support. Discussed with Pt that the care team [facility] Answered questions and continued therapeutic listening. Pt expresses appreciation and reports no other concerns at this time. Spoke with Primary RN Iqra and discussed case. Palliative Care will remain available.
[2021-05-24 17:08] LABS: Magnesium, Blood 1.4 mg/dL (1.6-2.4)
[2021-05-24 17:29] LABS: Albumin, Blood 2.7 g/dL (3.4-5.0); Anion Gap 7 mmol/L (6-16); Blood Urea Nitrogen 21 mg/dL (8-24); Bun/Creatinine Ratio 17.5 (12.0-20.0); CO2, Blood 28 mmol/L (21-32); Calcium, Blood 8.3 mg/dL (8.5-10.1); Chloride, Blood 100 mmol/L (98-108); Glomerular Filtration Rate 59 (60-); Glucose, Blood 204 mg/dL (70-99); Phosphorus, Blood 2.9 mg/dL (2.5-4.9); Potassium, Blood 3.6 mmol/L (3.5-5.5); Sodium, Blood 135 mmol/L (136-145)
--- NOTE | 2021-05-24 17:53 | NUR ---
PATIENT IS ALERT AND ORIENTED TO SELF, PLACE AND FOLLOWING DIRECTIONS. SBA WITH FWW AND GAITBELT TO THE BATHROOM. WORKED WITH PT TODAY. DR. GARCES HAS BEEN CONSULTED. PLACED ON 1L FLUID RESTRICTION. PALLIATIVE CARE SAW THE PATIENT TODAY. WILL CONTINUE TO MONITOR
--- NOTE | 2021-05-25 04:44 | NUR ---
SHIFT SUMMARY 75 YR M ADMITTED ON 05/10/21 FOR DKA, AND DIMENTIA. FULL CODE. NO ACUTE CHANGES OVERNIGHT. PT HAS BEEN VERY PLEASANT AND COOPERATIVE. HE GETS CONFUSED ABOUT SMALL THINGS AND APPEARS TO BE EBARASSED BY THE CONFUSION. HE IS INCONTINENT AT TIMES AND PREFERS TO AMBULATE TO THE BATHROOM BUT DOESNT ALWAYS MAKE IT ON TIME. HE HAS EDEMA IN THE BLE AND HAS BEEN WAERING ANA SOCKS FOR MOST OF THIS SHIFT. THEY WERE TAKEN OFF TO GIVE HIS LEFS A BREAK AND HE HAD SIGNIFICANT INDENT ARROYO FROM THE [place]SE. PT IS WAITING TO BE DISCHARGED TO ASSISTED LIVING [place]ER [place] BUT GETS UPSET WHEN TALKING ABOUT IT. HE DOES NOT UNDERSTAND WHY HE CANNOT GO BACK TO LIVING ALONE HE IS UNABLE TO PROPERLY CARE FOR HIMSELF.
[2021-05-25 05:37] LABS: Hematocrit 32.2 % (37.0-53.0); Hemoglobin 10.6 g/dL (13.5-17.5)
[2021-05-25 06:01] LABS: Albumin, Blood 2.6 g/dL (3.4-5.0); Anion Gap 8 mmol/L (6-16); Blood Urea Nitrogen 22 mg/dL (8-24); CO2, Blood 29 mmol/L (21-32); Calcium, Blood 8.5 mg/dL (8.5-10.1); Chloride, Blood 101 mmol/L (98-108); Creatinine, Blood 1.22 mg/dL (0.60-1.20); Glomerular Filtration Rate 58 (60-); Glucose, Blood 102 mg/dL (70-99); Magnesium, Blood 1.5 mg/dL (1.6-2.4); Potassium, Blood 3.2 mmol/L (3.5-5.5); Sodium, Blood 138 mmol/L (136-145)
--- NOTE | 2021-05-25 15:02 | NUR ---
Spiritual Care Visit. Pt. is on my status board to visit. Floor nurse stopped and also requested I see Pt. Pt. is on the phone. I wait for call to end. Pt. welcomes my visit. Pt. quickly shares spiritual distress over being unable to leave hospital. Listen empathetically. Re-establish Rapport. Pt. is unsettled by the slow process to find assisted living opportunity. Provide a calming presence. Pt. displays evidence of building anger. Provided space for de-escalaton and containment by normalizing the pt. experience. [place] with pt. Pt verbalize gratitude for the prayer and the spitiual care visit.
--- NOTE | 2021-05-25 16:36 | NUR ---
I called and spoke with Claus, Client Solutions Director with the [place] [employer] who confirmed the referral has been received. He states he will contact me after assessing the application and medical documents. Per Claus, there are two [facility] patient on their wait list ahead of Mr. Gonzales awaiting guardianship. Claus states this process could take up to 3 months if patient is deemed an appropriate candidate for guardianship. I also called and spoke with Shauna at [employer] office who confirmed they have received the patient's medicaid application. I plan to call first thing in the morning to schedule a phone screening and interview for the patient and will assist him with that process.
--- NOTE | 2021-05-25 19:28 | NUR ---
END OF SHIFT SUMMARY: PATIENT DENIED PAIN THROUGHOUT THE SHIFT. PATIENT REPORTED SOME FRUSTRATION WITH STILL BEING IN THE HOSPITAL THIS AFTERNOON. HE REPORTED TO THE RN THAT HE WAS DECIDING IF HE WANTED TO "LEAVE NOW OR LEAVE LATER". PATIENT RECEIVED A VISIT FROM SPIRITUAL CARE. THIS HELPED CALM THE PATIENT. HE DID NOT MENTION LEAVING AGAIN. PATIENT UP TO THE BATHROOM WITH FWW. PATIENT STEADY ON HIS FEET, BUT DOES USE THE WALKER TO MAINTAIN BALANCE. PATIENT HAS AN EXCELLENT APPETITE. PATIENT HAS FOUND IT DIFFICULT TO MAINTAIN 1L FLUID RESTRICTION. PATIENT IS CALM AND COOPERATIVE WITH CARE HOWEVER.
--- NOTE | 2021-05-26 02:18 | NUR ---
SHIFT SUMMARY: A&OX1-2, IMPUSLIVE, SUNDOWNS ON NOC. LEFT SIDED FACIAL DROOP NOTED, PATIENT STATES THIS IS FROM A CHILDHOOD INJURY. 2+ PITTING EDEMA TO BLE, TEDS IN PLACE. INCONTINENT ON NOC, HEAVY WETTER. NOTED DISCOLORATION TO BLE. STEADY ON FEET WITH USE OF FWW. SBA FOR SAFETY. WCTM.
[2021-05-26 07:51] LABS: Albumin, Blood 2.8 g/dL (3.4-5.0); Anion Gap 8 mmol/L (6-16); Blood Urea Nitrogen 19 mg/dL (8-24); Bun/Creatinine Ratio 15.6 (12.0-20.0); CO2, Blood 31 mmol/L (21-32); Chloride, Blood 98 mmol/L (98-108); Creatinine, Blood 1.22 mg/dL (0.60-1.20); Glomerular Filtration Rate 58 (60-); Glucose, Blood 103 mg/dL (70-99); Magnesium, Blood 1.6 mg/dL (1.6-2.4); Phosphorus, Blood 2.7 mg/dL (2.5-4.9); Potassium, Blood 3.5 mmol/L (3.5-5.5); Sodium, Blood 137 mmol/L (136-145)
--- NOTE | 2021-05-26 11:30 | NUR ---
I scheduled Mr. Gonzales for a phone interview with [employer] today at 1:15PM. I plan to assist him with this phone interview, medicaid pending.
--- NOTE | 2021-05-26 14:12 | NUR ---
This afternoon I assisted the patient with a phone interview to apply for long-term care benefits with the [employer] office. Patient completed the 30 minute interview and then I assisted him with a phone call to the Social Security office to request a document of last year's annual gross income be mailed to him. I informed him that this is what is needed to apply for VA benefits and that it will need to be turned into the VA eligibility office.
--- NOTE | 2021-05-26 17:55 | NUR ---
DAY SHIFT SUMMARY 75 YR OLD MALE PT ADMITTED WITH DKA. INSULIN COVERAGE PROVIDED RX. PT IS ON FLUID RESTRICTION OF 1000ML. PT ABLE TO TAKE SHOWER TODAY, AND TAKE SEVERAL HALLWAY WALKS WITH STAFF THIS SHIFT. PT PULLED IV OUT, PROVIDED AN ORDER FOR NO NEW IV. IV MEDS CHANGED TO PO. CALL LIGHT WITHIN REACH, PT DOES NOT USE CALL LIGHT APPROPRIATELY, BUT YELLS INTO ZURITA WHEN HE NEEDS SOMETHING. PT IS CONFUSED, TELLING THE SAME STORY OVER MANY TIMES WITH SLIGHT VARIATIONS, EASILY REDIRECTABLE. PITTING EDEMA TO LOWER EXTREMITIES. STOCKINGS IN PLACE. PT AWAITING GUARDIANSHIP AND PLACEMENT.
[2021-05-27 05:13] LABS: Hematocrit 31.9 % (37.0-53.0); Hemoglobin 10.7 g/dL (13.5-17.5)
[2021-05-27 05:46] LABS: Albumin, Blood 2.7 g/dL (3.4-5.0); Anion Gap 9 mmol/L (6-16); Blood Urea Nitrogen 23 mg/dL (8-24); Bun/Creatinine Ratio 17.2 (12.0-20.0); CO2, Blood 30 mmol/L (21-32); Calcium, Blood 8.8 mg/dL (8.5-10.1); Chloride, Blood 96 mmol/L (98-108); Creatinine, Blood 1.34 mg/dL (0.60-1.20); Glomerular Filtration Rate 52 (60-); Glucose, Blood 208 mg/dL (70-99); Magnesium, Blood 1.6 mg/dL (1.6-2.4); Potassium, Blood 3.8 mmol/L (3.5-5.5); Sodium, Blood 135 mmol/L (136-145)
--- NOTE | 2021-05-27 06:34 | NUR ---
SHIFT SUMMARY: NO SIGNIFCANT EVENTS ON NOC. PATIENT CONSUMED ENTIRETY OF FLUID RESTRICTION ON DAY SHIFT. HE IS NON COMPLAINT AND IS DRINKING WATER FROM THE SINK. HE GETS AGITATED WHEN BEING INSTRUCTED AGAINST DRINKING WATER FORM SINK. ALL RECEPTICABLES ABLE TO HOLD WATER REMOVED FROM ROOM TO DETER PATIENT FROM DRINKING WATER FROM SINK. 2+ PITTING EDEMA REMAINS.
--- NOTE | 2021-05-27 14:01 | NUR ---
I called and spoke with Shauna at [facility] that states the patient's [employer] Countersinker is Iqra [phone] whom works Sunday- and is not in today. I plan on calling Iqra Sunday regarding the patient's application for long-term care. During the phone interview yesterday , when the patient was asked various questions regarding a need for caregiving services or possibly assisted living facility placement, the patient states he is independent in his home, able to take care of himself, can ambulate without assistance, and doesn't need help with anything in his home except maybe housekeeping or laundry . I attempted to redirect the patient and discuss the reason for admit. Will need to consult with the counter caser on this and plan to send a patient packet as well.
--- NOTE | 2021-05-28 05:39 | NUR ---
ASSEMBLER ADJUSTER SUMMARY ADMITTED FOR DKA. PT IS FULL CODE. HE IS AWAITING GUARDIANSHIP AND PLACEMENT R/T HIS SEVERE DEMENTIA. HE HAS BEEN COOPERATIVE THROUGHOUT THE SHIFT BUT IS VERY IMPULSIVE. PT HAD NO COMPLAINTS THROUGHOUT THE SHIFT BUT DID HAVE AN EPISODE OF INCONTINENCE. PT RESTING AND COOPERATIVE WITH LAB STAFF AT THIS TIME.
[2021-05-28 06:10] LABS: Hematocrit 33.6 % (37.0-53.0)
[2021-05-28 06:31] LABS: Albumin, Blood 2.8 g/dL (3.4-5.0); Anion Gap 6 mmol/L (6-16); Blood Urea Nitrogen 23 mg/dL (8-24); Bun/Creatinine Ratio 16.3 (12.0-20.0); CO2, Blood 31 mmol/L (21-32); Chloride, Blood 99 mmol/L (98-108); Creatinine, Blood 1.41 mg/dL (0.60-1.20); Glomerular Filtration Rate 49 (60-); Glucose, Blood 142 mg/dL (70-99); Magnesium, Blood 1.7 mg/dL (1.6-2.4); Phosphorus, Blood 2.8 mg/dL (2.5-4.9); Potassium, Blood 3.6 mmol/L (3.5-5.5); Sodium, Blood 136 mmol/L (136-145)
--- NOTE | 2021-05-28 18:04 | NUR ---
PATIENT RECEIVED HIS MAG SULFATE IV, AND SODIUM PHOSPATE IV. TOLERATED WELL. AINSLEY HAD NEW IV PLACEMENT X 2 TODAY HE REMOVED THE FIRST. PATIENTS MOOD IS GOOD AND ATTITUDE POSITIVE. PUSHES BOUNDARIED WITH STAFF (TICKLING). PATIENT HAS NO COMPLAINTS OF PAIN. BM X 1 TODAY. NO OTHER CONCERNS WITH PATIENT TODAY.
--- NOTE | 2021-05-28 18:45 | NUR ---
PATIENT PULLED HIS IV OUT FOR THE SECOND TIME TODAY. THIS WILL BE LEFT OUT UNTIL IT IS NEEDED.
[2021-05-29 06:44] LABS: Hemoglobin 10.7 g/dL (13.5-17.5)
[2021-05-29 07:06] LABS: Albumin, Blood 2.7 g/dL (3.4-5.0); Anion Gap 6 mmol/L (6-16); Blood Urea Nitrogen 21 mg/dL (8-24); Bun/Creatinine Ratio 15.4 (12.0-20.0); CO2, Blood 30 mmol/L (21-32); Chloride, Blood 101 mmol/L (98-108); Creatinine, Blood 1.36 mg/dL (0.60-1.20); Glomerular Filtration Rate 51 (60-); Glucose, Blood 130 mg/dL (70-99); Magnesium, Blood 1.7 mg/dL (1.6-2.4); Phosphorus, Blood 3.4 mg/dL (2.5-4.9); Potassium, Blood 3.8 mmol/L (3.5-5.5); Sodium, Blood 137 mmol/L (136-145)
--- NOTE | 2021-05-29 07:22 | NUR ---
SHIFT SUMMARY PT CONFUSED AND ALERT TO PERSON, IRRITABLE AT TIMES BUT REDIRECTS EASILY, INCONTINENT OF BLADDER AND BRIEF CHECKED AND CHANGED PRN Q 2HRS, NO IV ACCESS AND IS ON RA, DENIES ANY PAIN , EDEMA NOTED BLE WITH ANA HOSE ON, TOES RED ANDSKIN SCALY , NO ACUTE DISTRESS
--- NOTE | 2021-05-29 19:27 | NUR ---
SUMMARY- PT ALERT AND COOPERATIVE. FORGETFUL TO DETAILS. JOVIAL AND SYNNICAL. TOLERATING FOOD AND FLUID. SITS IN BED OR CHAIR AND SBA TO BATHROOM. PT YELLS AND NOT TOLERANT OF BED/CHAIR ALARM, BECOMES AGGITATED AND STATES HE WILL SHOOT THE BED OR ALARM. PT INSTRUCTED TO WAIT TO GET UP AND USES CALL LIGHT TO GET UP. USES FURNATURE WHILE AMBULATING, RN ENCOURAGED PT TO USE WALKER. GOOD STRENGTH BUT SLIGHT SLOW RESPONSES AND COULD HAVE MIS-STEP. AWAITING PLACEMENT/GAURDIANSHIP WITH NO FAMILY SO DISCHARGE PLANNING MAY TAKE TIME. BLOOD SUGARS IN BETTER LIMITS. PT AT 1L FR IN 12 HRS BECAUSE HE FILLED UP HIS OWN WATER IN THE SINK, HAD TO REMOVE ALL CUPS FROM HIS ROOM. RERPETED ALL TO DEVIN RN.
--- NOTE | 2021-05-30 05:04 | NUR ---
SUMMARY: PT A/OX3 AND CALLS APPROPRIATELY TO SPECIFY NEEDS BUT IS MILDLY FORGETFULL TO SOME DETAILS AND NEEDS REMINDERS PRN. HE APPEARS TO HALLUCINATE AT TIMES TOO HAVING REPORTED "A LARGE ERICKSON AND WHITE RAT RUN ACROSS ROOM INTO THE KITCHEN". PT WAS REORIENTED TO PLACE AND SURROUNDINGS W/O ANY EVIDENCE CONFUSION SINCE. HE'S SBA TO TOILET W/FWW ENCOURAGED BUT HE MOSTLY USES FURNITURE TO AMBULATE. PT OFTEN SITS AT EOB OR IN CHAIR BUT WAS ENCOURAGED TO ELEVATE BLE'S FOR EDEMA, TEDS HOSE INTACT. 1L FR IN PLACE BUT CUPS HAVE TO BE REMOVED FROM ROOM TO PREVENT PT FROM FILLING THEM AT SINK. NO ACUTE CHANGES, VSS/AFEBRILE. PLACEMENT/GUARDIANSHIP PENDING. WCTM AND REPORT TO DAY RN.
[2021-05-30 05:20] LABS: Hematocrit 33.4 % (37.0-53.0); Hemoglobin 11.1 g/dL (13.5-17.5)
[2021-05-30 05:49] LABS: Albumin, Blood 2.9 g/dL (3.4-5.0); Anion Gap 7 mmol/L (6-16); Blood Urea Nitrogen 26 mg/dL (8-24); Bun/Creatinine Ratio 18.8 (12.0-20.0); CO2, Blood 29 mmol/L (21-32); Calcium, Blood 9.2 mg/dL (8.5-10.1); Chloride, Blood 98 mmol/L (98-108); Creatinine, Blood 1.38 mg/dL (0.60-1.20); Glomerular Filtration Rate 50 (60-); Glucose, Blood 143 mg/dL (70-99); Magnesium, Blood 1.9 mg/dL (1.6-2.4); Phosphorus, Blood 2.9 mg/dL (2.5-4.9); Potassium, Blood 3.8 mmol/L (3.5-5.5); Sodium, Blood 134 mmol/L (136-145)
--- NOTE | 2021-05-30 10:44 | NUR ---
I called ROMI Escalona Bioassayist this morning hugh left a voicemail requesting a callback. I also called and spoke with Claus, Bird Cage Assembler with the [place] [employer] who states there has been no changes regarding the referral received last week. He has not started the process or looked into the information sent as of yet due to 3 other inpatients at [facility] awaiting guardianship. I plan to follow up with him the end of the week. He reiterated that guardianship could take up to 3 months if deemed appropriate.
--- NOTE | 2021-05-30 16:04 | NUR ---
ROMI Escalona Button And Buckle Maker returned my call this afternoon and plans to visit the patient in his room on Sunday at 10:30am to do her assessment which I plan to also to attend with her permission.
--- NOTE | 2021-05-31 06:42 | NUR ---
SHIFT SUMMARY Pt rested well, oriented to self and situation but forgetful at times. Pt up with SBA, incontinent of urine and cynthia care/attends changed as needed. Pt has been calm/cooperative majority of shift but had several outbursts where he would yell out. Reinforced with pt that he needs to keep his voice lower while in the hospital and pt agreeable to this. VSS, anticipate d/c when placement determined.
[2021-05-31 08:33] LABS: Albumin, Blood 2.6 g/dL (3.4-5.0); Anion Gap 5 mmol/L (6-16); Blood Urea Nitrogen 25 mg/dL (8-24); Bun/Creatinine Ratio 18.2 (12.0-20.0); CO2, Blood 31 mmol/L (21-32); Calcium, Blood 9.1 mg/dL (8.5-10.1); Chloride, Blood 100 mmol/L (98-108); Creatinine, Blood 1.37 mg/dL (0.60-1.20); Glomerular Filtration Rate 51 (60-); Glucose, Blood 152 mg/dL (70-99); Magnesium, Blood 1.9 mg/dL (1.6-2.4); Potassium, Blood 3.6 mmol/L (3.5-5.5); Sodium, Blood 136 mmol/L (136-145)
--- NOTE | 2021-05-31 14:47 | NUR ---
Spiritual Care visit. Pt. is awake and sitting up in the chair. Pt. is pleasant, and did not exhibit significant anxiety. Pt. is mildly unsettled about the percieved delays in discharge. Re-establish rapport and preview how he can navigate the hurdles that exist for discharge to happen. Pt. displays spirit of alert waiting, and verbalizes the appreciate for the care he has recieved. [place] for pt. Pt. dispplays evidence of reduced stress, and verbalizes his gratitude for the spiritual care visit.
--- NOTE | 2021-05-31 15:48 | NUR ---
Patient received letter from that states his gross yearly income and with patient's verbal permission I faxed it to the VA eligibility office. Will consult with Christianne at the VA tomorrow regarding what services the patient will be available for and to get him on the memory care waitlist.
--- NOTE | 2021-05-31 16:11 | NUR ---
PATIENT ORIENTATED TO SELF. HE HAS TROUBLE REMEMBERING WHERE HE IS AND HOW LONG HE'S BEEN PLACED WITH [facility]. PATIENT REPORTS HE WANTS TO GO HOME TO CARE FOR HIS CAT AND PUP. NEIGHBOR/FRIEND VISITED TODAY. PPATIENT HAS NO COMPLAINTS OF PAIN. HR SOUNDS MORE REGULAR TODAY. LS ARE CLEAR. BS POSITIVE. ALBUMIN AND GFR LOW. PATIENT CONTINUES ON A FLUID RESTRICTION DUE TO VOLUME OVERLOAD. LEGS HAVE SLIGHT EDEMA, BUT TEDS ARE HELPING TO REDUCE THE APPEARANCE.
--- NOTE | 2021-06-01 05:25 | NUR ---
SHIFT SUMMARY Pt alert, oriented to self, up with SBA and walker, incontinent of urine at times, 1L fluid restriction per orders. Pt slept well for most of the shift but was more forgetful and disoriented this morning. Pt reoriented and has been cooperative with cares. Anticipate d/c when placement determined.
[2021-06-01 07:04] LABS: Albumin, Blood 2.8 g/dL (3.4-5.0); Anion Gap 7 mmol/L (6-16); Blood Urea Nitrogen 23 mg/dL (8-24); Bun/Creatinine Ratio 17.3 (12.0-20.0); CO2, Blood 30 mmol/L (21-32); Calcium, Blood 9.6 mg/dL (8.5-10.1); Chloride, Blood 99 mmol/L (98-108); Creatinine, Blood 1.33 mg/dL (0.60-1.20); Glomerular Filtration Rate 53 (60-); Glucose, Blood 125 mg/dL (70-99); Magnesium, Blood 1.9 mg/dL (1.6-2.4); Phosphorus, Blood 3.1 mg/dL (2.5-4.9); Potassium, Blood 3.8 mmol/L (3.5-5.5); Sodium, Blood 136 mmol/L (136-145)
--- NOTE | 2021-06-01 15:51 | NUR ---
Faxed patient packet to Bekah at the [facility] who is in agreement that patient is in need of memory care not SNF setting - patient placed on [facility] care waitlist. Also consulted with Cesar who relays that the patient would only be eligible for 9 hours of caregiving services. MARCO ANTONIO KHAN spent one hour attending a care needs assessment completed today by patient's [employer] Manufacture Specialist Maura Dunbar [phone] in his room. CW left forms for patient to complete. Went to check on patient again and he needed assistance completing them. I assisted him and faxed them to the [facility]. Will follow up with CW tomorrow regarding assessment.
--- NOTE | 2021-06-01 18:20 | NUR ---
SHIFT SUMMARY PATIENT HAD A VISIT FROM [employer] WHO ARE ASSISTING WITH VA BENEFITS AND PLACEMENT TODAY. HE IS ON A [place] MEMORY CARE WAIT LIST. THERE ARE NO NEW MEDICAL CONCERNS. HE WENT FOR A WALK WITH PHYSICAL THERAPY THIS AFTERNOON AND ENJOYED HIMSELF. PATIENT HAS BEEN EATING A FEW ICE CHIPS THROUGHOUT THE SHIFT, TO HELP REDUCE DRY MOUTH.
--- NOTE | 2021-06-02 06:04 | NUR ---
SHIFT SUMMARY PT ALERT, ORIENTED TO SELF AND OCCASIONALLY TO SITUATION, FORGETFUL AT TIMES. PT UP WITH SBA/WALKER IN HIS ROOM, INCONTINENT OF URINE AT TIMES, PT COMPLIANT WITH 1L FLUID RESTRICTION. 1+ EDEMA NOTED IN BLE'S, ANA HOSE ON, VSS, DWAYNE PO WELL. ANTICIPATE D/C WHEN PLACEMENT DETERMINED.
--- NOTE | 2021-06-02 18:08 | NUR ---
SHIFT SUMMARY PATIENT IS A/O X2-3 AT TIMES. PLEASANT AND COOPERATIVE WITH CARE FOR THE MOST PART. THE PATIENT WENT FOR TWO WALKS THIS SHIFT. 7 UNITS OF INSULIN GIVEN WITH MEALS TID. NO SLIDING SCALE COVERAGE FOR INSULIN. GIVEN. NO ACUTE CHANGES. VSS. THIS NURSE WILL CONTINUE TO CARE FOR THE PATIENT UNTIL SHIFT REPORT IS GIVEN TO ONCOMING NURSE.
--- NOTE | 2021-06-03 06:01 | NUR ---
Patient is alert and oriented x2-3, forgets time and place. He is able to sit at end of bed. Needs one person assist when ambulating. Patient is hard of hearing. Patient has been resting all night. No complains of pain. No signs of distress. Fluid restriction 1L completed by midnight. Patient is redirectable and pleasant. Bed alarm in lowest position with bed alarm on, call light within reach.
--- NOTE | 2021-06-03 13:51 | NUR ---
Spiritual Care Visit. Pt. is awake and sitting in a chair. Pt. welcomes my visit. Pt. is GREATLY unsettled about not getting answers about his next options. Pt. struggles to be pleasant, because he feels he isn't getting any answers. Empathetically listen and provide a calming presence. I have visited this Pt. since he was in ICU. Pt. verbalizes the depth of his frustration. Continue giving pastoral guidance and a calming presence. [place] with Pt. Pt. displayed evidence of respecting my visit, and verbalized his gratitude for spiritual care.
--- NOTE | 2021-06-03 18:28 | NUR ---
SHIFT SUMMARY THE PATIENT IS ALERT AND ORIENTED X2-3 PLEASANT AND COOPERATIVE WITH CARE.THE PATIENT HAS BEEN FIXATED ON GOING HOME THI SHIFT. SLIDING SCALE INSULIN COVERAGE USED ONE TIME THIS SHIFT. 7 UNITS GIVEN TID PER MD ORDER. PATIENT HAS TOLERATED WELL WITH FOOD. NO ACUTE CHANGES. VSS. PATIENT IS AWAITING GUARDIANSHIP/PLACEMENT.
--- NOTE | 2021-06-04 06:16 | NUR ---
Patient is alert and oriented x2, seldom forgets situation. He is friendly and redirectable. Patient had no complains of pain. No signs of distress. Blood sugar wnl. Call light within reach.
--- NOTE | 2021-06-04 18:51 | NUR ---
SHIFT SUMMARY PATIENT A&O 3-4. FORGETFUL AND EASILY FRUSTRATED WITH SELF WHEN UNABLE TO THINK OF WHAT HE IS TRYING TO SAY. PATIENT GETS UP TO CHAIR AND RESTROOM INDEPENTDENTLY USING WALKER. PATIENT AMBULATED UP AND DOWN ZURITA MULTIPLE TIMES T/O SHIFT. NO SIGNIFICANT EVENTS. WILL CONTINUE TO MONITOR.
--- NOTE | 2021-06-05 18:49 | NUR ---
SHIFT SUMMARY PATIENT AWAITING GUARDIANSHIP. NO SIGNIFICANT EVENTS T/O SHIFT. PATIENT AMBULATES WITH WALKER AROUND ROOM AND UP AND DOWN HALLWAYS. VSS. WILL CONINTUE TO MONITOR.
--- NOTE | 2021-06-06 04:03 | NUR ---
SHIFT SUMMARY NO ACUTE CHANGES OVERNIGHT. VSS. CBG AT 132 LAST NIGHT. NO HUMALOG COVERAGE NEEDED. ADMISNTERED 25U INSULIN AT HS. PT AMBULATES INDEPENDENTLY WITH HIS WALKER IN THE BATHROOM. VOIDING WITHOUT ISSUES. TOLERATING PO INTAKE. PT ON 1L FLUIDS RESTRICTIONS. CALL LIGHT WITHIN REACH. WILL CONTINUE TO MONITOR PT. AND WILL PROVIDE REPORT TO ONCOMING NURSE.
--- NOTE | 2021-06-06 10:52 | NUR ---
This [facility] CM called this morning and spoke with Claus [place] [employer] Cotton Farmworker who reports there has been no changes or updates regarding the referral this CM faxed on 05/24/2021 - that there is still two people ahead of the patient currently who are also awaiting guardianship.
--- NOTE | 2021-06-06 18:18 | NUR ---
NO ACUTE CHANGES THIS SHIFT. PATIENT CONTINUES TO AWAIT PLACEMENT. COOPERATIVE WITH CARE. ABLE TO MAKE NEEDS KNOWN.
--- NOTE | 2021-06-07 04:09 | NUR ---
SHIFT SUMMARY A/OX3, CALM AND COOPERATIVE WITH CARE. UP TO BATHROOM SBA WITH FWW. DENIES PAIN OR SOB. VSS, NO ACUTE CHANGES AT THIS TIME. BED IN LOWEST POSITION WITH CALL LIGHT IN REACH. WILL CONTINUE TO MONITOR AND REPORT TO ONCOMING RN.
--- NOTE | 2021-06-07 18:13 | NUR ---
NO ACUTE CHANGES THIS SHIFT. PLAN IS FOR DISCHARGE HOME TOMORROW WITH HOME HEALTH. PATIENT WILL HAVE A CAREGIVER FOR 9 HOURS/WEEK THROUGH THE [place].
--- NOTE | 2021-06-08 04:42 | NUR ---
SHIFT SUMMARY ADMITTED FOR DKA. FULL CODE. FOUND DOWN AT HOME. HE IS ON A 1 L FLUID RESTRICTION. HE IS ACHS CHEMSTICKS. HE IS ON XARELTO. LEFT FACIAL DROOP LIKELY DUE TO BELLS PALSY. [facility] PT. HE WALKS WITH A CANE AT HOME. PLAN IS FOR DC HOME W/HH, HOPEFUL FOR TODAY. HE IS PLEASANT AND COOPERATIVE WITH CARE. HIS NEIGHBOR MATTIE IS POA.
--- NOTE | 2021-06-08 07:21 | NUR ---
LOVE wiggins handoff of patient care from [facility] Patient was awake and sitting in his chair. He had no requests
--- NOTE | 2021-06-08 16:39 | NUR ---
Patient's neighbor, Jeannie Blevins [phone] to provide discharge transportation to the patient's home tomorrow. [facility] RN to visit the patient's home tomorrow at 2PM to complete intake assessment with the patient. [facility]. This [facility] CM to schedule hospital follow-up with PCP and arrange transportation services to that appointment. This [facility] CM also to offer the patient [facility]W home visit hospital follow-ups weekly and referral to [facility].
--- NOTE | 2021-06-08 18:00 | NUR ---
Patient was alert and orient, his affect was reactive and mood was congruent. Patient was indep with his cares, ambulated in hallway with walker, and was continent of bowel and bladder. His appetite was 100% for all meals, and he continued to be on fluid restriction 1000ml. SO far he has drank 700ml. Patient was compliant with taking medications and requested no prns. He complained of no pain and is expected to discharge tomorrow.
--- NOTE | 2021-06-09 06:14 | NUR ---
PM SHIFT SUMMARY PATIENT HAS BEEN HERE FOR OVER 2 MONTHS. HE WAS FOUND DOWN ON THE GROUND AT HOME BY A NEIGHBOR. HE STATES HE HAS HAD MULTIPLE FALLS OVER THE LAST FEW MONTHS. HE IS A&Ox3, INDEPENDENT AND AMBULATORY WITH WALKER. ALL OF HIS TESTING SHOWED NO ACUTE PROCESSES. WHEN ASKED IF HE NEEDED ANYTHING [id number] THE SHIFT, HE STATED HE DID NOT EVERY TIME. PLAN IS TO DC HOME TODAY WITH [facility]OUGH [facility].
[2021-06-09] MEDS ORDERED: GLIP10 PO (12:17)
[2021-06-09] MEDS ORDERED: MAGNESIUM OXID500 MG PO (12:17)
[2021-06-09] MEDS ORDERED: PANT40 PO (12:17)
[2021-06-09] MEDS ORDERED: SPIR25 PO (12:17)
[2021-06-09] MEDS ORDERED: AKWA Tears15 ML BOTHEYES (12:19)
--- NOTE | 2021-06-09 12:38 | NUR ---
Patient was alert and orient and excited to be discharged today, His neighbor came to pick him up by car. RN reviewed his discharge instructions and medication list with him. Patient was compliant with medications and treatment plan while here. He was discharged to home
--- NOTE | 2021-06-09 15:53 | NUR ---
Per chart review with Dr. Ramos, patient medically stable and appropriate to discharge home. This [facility] CM scheduled a hospital follow up with patient's PCP, Aman Jaramillo on Tuesday, June 15, 2021 at 11:20 AM. CM also scheduled transportation with [employer] to pick patient up at his home 06/15 @ 10:45 to transport to the appointment, and to pick him up at [place] at 12:30 to transport him back home. [facility] and [facility] to meet patient in his home tomorrow to complete initial intake assessment to start services. Home Health Services to include PT, OT, Nursing, and bath aide. This CM has given the patient a list of contact phone numbers for [place], This [facility] CM, [facility], [facility], [facility], [facility], and [facility]. With patient's verbal permission, this CM also submitted a referral to [facility] for patient to received home delivered meals throughout the week. Patient informed of the higgins and agreeable. Patient signed IMM and patient choice letter. Jeannie Kingsleyiness, patient's neighbor provided discharge transportation home. This [facility] CM informed both [facility] and [facility] of patient's discharging. has also contacted Claus, Senior Statistical Programmer, with [place] [employer] to inform of patient's discharging and requested Guardianship still be assessed and pursued. Claus advises it still may take 2-3 months to even get to patient to do an initial assessment due to two others on the waiting list at [facility] waiting for guardianship. All agreeable to discharge plan, deny barriers to discharge. This [facility] CM to follow up with the patient, per PCP Request, and offer weekly Community Health Worker home visits.
== END 2021-06-09 12:34 | disposition home health service (06) | DRG 638 ==
LOC: ER 20:06 → MEDS 21:57 → ICUW 21:57 → MEDS 05-14 15:32
PROVIDERS: Emergency Medicine; Family Medicine; Hospitalist; Internal Medicine; Internal Medicine Nephrology; ADMIT Family Medicine
DX: E11.10 Type 2 diabetes mellitus with ketoacidosis without coma (principal); N25.81 Secondary hyperparathyroidism of renal origin; E87.4 Mixed disorder of acid-base balance; E87.1 Hypo-osmolality and hyponatremia; N17.9 Acute kidney failure, unspecified; I13.0 Hypertensive heart and chronic kidney disease with heart failure and stage 1 through stage 4 chronic kidney disease, or unspecified chronic kidney disease; I50.32 Chronic diastolic (congestive) heart failure; Z20.822 Contact with and (suspected) exposure to COVID-19; Z91.14 Patient's other noncompliance with medication regimen; Z28.21 Immunization not carried out because of patient refusal; E11.22 Type 2 diabetes mellitus with diabetic chronic kidney disease; D63.1 Anemia in chronic kidney disease; N18.30 Chronic kidney disease, stage 3 unspecified; E87.6 Hypokalemia; I87.2 Venous insufficiency (chronic) (peripheral); R29.810 Facial weakness; G30.9 Alzheimer's disease, unspecified; E83.42 Hypomagnesemia; F02.80 Dementia in other diseases classified elsewhere, unspecified severity, without behavioral disturbance, psychotic disturbance, mood disturbance, and anxiety; I27.20 Pulmonary hypertension, unspecified; N40.0 Benign prostatic hyperplasia without lower urinary tract symptoms; I48.91 Unspecified atrial fibrillation; K21.9 Gastro-esophageal reflux disease without esophagitis; E78.00 Pure hypercholesterolemia, unspecified; E66.9 Obesity, unspecified; Z68.38 Body mass index [BMI] 38.0-38.9, adult; Z86.718 Personal history of other venous thrombosis and embolism; Z98.890 Other specified postprocedural states; Z88.0 Allergy status to penicillin; Z91.018 Allergy to other foods; Z88.8 Allergy status to other drugs, medicaments and biological substances; Z79.01 Long term (current) use of anticoagulants; Z79.4 Long term (current) use of insulin; Z79.82 Long term (current) use of aspirin; Z79.899 Other long term (current) drug therapy
CPT/HCPCS: 0241U; 36415; 51702; 70450; 70551; 71045; 76770; 80048; 80053; 80069; 81001; 82010; 82550; 82803; 82947; 83036; 83605; 83735; 83880; 84100; 84443; 84484; 85014; 85018; 85025; 85610; 87086; 92526; 92610; 93005; 93010; 97110; 97116; 97129; 97130; 97162; 97166; 97530; 97535; 99285-25; A9270; C1751; C8929; G0480; J1815; J1940; J3475; J3480; J7030; J7060; Q9957

== ENCOUNTER 2021-07-19 12:32 | Emergency (ER) | payer MEDICARE, OTHER ==
[~2021-07-19] VITALS: Ht 188 cm; Wt 111.1 kg
[~2021-07-19 12:32] MED LIST changes: +AKWA Tears15 ML BOTHEYES; +AMLO10 PO; +ATORVASTATIN CA80 M1 PO; +BUSP5 PO; +CARDURA2 M1 PO; +CYMBALTA60 M1 PO; +Crestor20 MG PO; +ELIQUIS5 M2 PO; +FENO145 PO; +FUROSEMIDE40 MG PO; +GLIP10 PO; +Humalog KwikPen 100 SC; +ISENTRESS100 MG PO; +Insulin Glargine-Yfg SC; +K-Dur20 MEQ PO; +MAGNESIUM OXID500 MG PO; +METFORMIN HCL500 M3 PO; +METO25ER PO; +OXYCODONE ACETAMINOP PO; +PANT40 PO; +PREZISTA PO; +RYBELSUS7 MG PO; +SPIR25 PO; +SYNTHROID125 MC1 PO; +VALS80 PO; +VEMLIDY25 MG PO; +XARELTO10 M1 PO; +XARELTO15 M1 PO
[2021-07-19] MEDS ORDERED: ATOR40TA PO (12:47)
[2021-07-19] MEDS ORDERED: FIASP 100100 UNIT/3 SC (12:49)
[2021-07-19] MEDS ORDERED: LEVEMIR FL100 UNIT/2 SC (12:50)
== END 2021-07-19 15:02 | disposition home or self-care (01) ==
LOC: ER 12:32
DX: S09.90XA Unspecified injury of head, initial encounter (principal); W18.30XA Fall on same level, unspecified, initial encounter; E11.22 Type 2 diabetes mellitus with diabetic chronic kidney disease; N18.30 Chronic kidney disease, stage 3 unspecified; I12.9 Hypertensive chronic kidney disease with stage 1 through stage 4 chronic kidney disease, or unspecified chronic kidney disease; M19.90 Unspecified osteoarthritis, unspecified site; I48.91 Unspecified atrial fibrillation; E78.00 Pure hypercholesterolemia, unspecified; Z88.8 Allergy status to other drugs, medicaments and biological substances; Z88.0 Allergy status to penicillin; Z88.1 Allergy status to other antibiotic agents; Z91.018 Allergy to other foods; Z79.899 Other long term (current) drug therapy; Z79.4 Long term (current) use of insulin; Z79.82 Long term (current) use of aspirin
CPT/HCPCS: 36415; 70450; 93005; 93010; 99284-25

== ENCOUNTER 2021-07-27 10:27 | Observation (INO) | payer MEDICARE, OTHER ==
[~2021-07-27] VITALS: Ht 193 cm; Wt 129.3 kg
[~2021-07-27 10:27] MED LIST changes: +FIASP 100100 UNIT/3 SC; +LEVEMIR FL100 UNIT/2 SC
[2021-07-27 10:54] LABS: BASOPHILS ABSOLUTE AUTO 0.04 K/mm3 (0.00-0.23); BASOPHILS PERCENT AUTO 1 % (0-2); EOSINOPHILS ABSOLUTE AUTO 0.04 K/mm3 (0.00-0.68); EOSINOPHILS PERCENT AUTO 1 % (0-6); Hematocrit 41.6 % (37.0-53.0); Hemoglobin 13.2 g/dL (13.5-17.5); IMMATURE GRAN ABSOLUTE AUTO 0.03 K/mm3 (0.00-0.10); IMMATURE GRAN PERCENT AUTO 1 % (0-1); LYMPHOCYTES ABSOLUTE AUTO 0.71 K/mm3 (0.84-5.20); LYMPHOCYTES PERCENT AUTO 12 % (21-46); MONOCYTES ABSOLUTE AUTO 0.36 K/mm3 (0.16-1.47); MONOCYTES PERCENT AUTO 6 % (4-13); Mean Corpuscular HGB 30.2 pg (26.0-34.0); Mean Corpuscular HGB Conc 31.7 g/dL (31.5-36.5); Mean Corpuscular Volume 95 fL (80-100); Mean Platelet Volume 11.4 fL (9.1-12.4); NEUTROPHILS ABSOLUTE AUTO 4.86 K/mm3 (1.96-9.15); NEUTROPHILS PERCENT AUTO 80 % (41-73); Platelet Count 177 K/mm3 (150-400); RDW Coefficient Variation 14.3 % (11.7-14.2); RDW Standard Deviation 49.8 fL (35.1-46.3); Red Blood Cell Count 4.37 M/mm3 (4.30-5.90); White Blood Cell Count 6.04 K/mm3 (4.00-11.30)
[2021-07-27 11:03] LABS: Beta-hydroxybutyrate 3.7 mg/dL (0.2-2.8)
[2021-07-27 11:11] LABS: Alanine Aminotransfer (ALT/SGP 32 U/L (12-78); Albumin, Blood 3.5 g/dL (3.4-5.0); Alk Phos 217 U/L (50-136); Anion Gap 7 mmol/L (6-16); Aspartate Aminotrans (AST/SGOT 14 U/L (12-37); Bilirubin, Total 0.6 mg/dL (0.1-1.0); Blood Urea Nitrogen 32 mg/dL (8-24); Bun/Creatinine Ratio 28.1 (12.0-20.0); CO2, Blood 31 mmol/L (21-32); Calcium, Blood 8.9 mg/dL (8.5-10.1); Chloride, Blood 89 mmol/L (98-108); Creatinine, Blood 1.14 mg/dL (0.60-1.20); Globulin, Blood 3.4 g/dL (2.2-4.0); Glomerular Filtration Rate >60 (60-); Glucose, Blood 1268 mg/dL (70-99); Potassium, Blood 4.8 mmol/L (3.5-5.5); Sodium, Blood 127 mmol/L (136-145); Total Protein, Blood 6.9 g/dL (6.4-8.2)
[2021-07-27 11:48] LABS: Base Excess Venous 3.9 mmol/L; Bicarbonate Venous 26.8 mmol/L (24.0-30.0); PCO2 Venous 54.4 mmHg (38-42); PO2 Venous 86.5 mmHg (38-42); pH Blood Venous 7.34 (7.34-7.37)
[2021-07-27 15:41] LABS: Glucose, Blood 961 mg/dL (70-99)
[2021-07-27 17:20] LABS: Glucose, Blood 807 mg/dL (70-99)
[2021-07-27 22:36] LABS: Glucose, Blood 388 mg/dL (70-99)
--- NOTE | 2021-07-28 06:11 | NUR ---
Rn summary: Patient is oriented to self. He is cooperative and follows directions. Pt has been sleepy and rested well this shift. Pt needs assist to reposition, he does not change position on his own. Patient blood sugar was >500 on our glucometer, was rechecked by lab, was 388. Glucometer done again and it was 361. Insulin given as ordered. Glucose rechecked at 0400, slowly trending down at 271. Pt was incontinent of urine, attends in place. Pt c/o being very thirsty, ice water given, drank 2 glasses. Pt was decreased to 1 L O2 from 3L. O2 sat 95% Lungs diminished in bases. Pt has scaley skin on feet. Pt has some edema paloma feet. Skin redened left calf, cellulitis. Some dry discolored skin upper thighs. Call light is in reach.
--- NOTE | 2021-07-28 18:15 | NUR ---
SHIFT SUMMARY PATIENT ALERT AND ORIENTED TO SELF, PLEASANT AND COOPERATIVE WITH CARE. PATIENT UP TO RECLINER WITH 2 ASSIST. 1LPM OF 02 CURRENTLY. PATIENT'S BLOOD SUGARS HAVE BEEN RANGING FROM 388 TO 486 TODAY. MD BURDEN NOTIFIED. INSULIN ADJUSTED. 15UNITS PER SLIDING SCALE GIVEN X2 WELL TID 8 UNITS PATIENT STATES THEY ARE TIRED AND THIRSTY. EDEMA IN BILATERAL LOWER EXTREMITIES. ECCHYMOSIS ON RIGHT THIGH. PATIENT HAS BEEN INCONTINENT/CONTINENT THIS SHIFT. PATIENT IS CURRENTLY UP IN RECLINER EATING DINNER. VSS. PATIENT HAS CALL LIGHT WITHIN REACH. PATIENT WILL CALL OUT FOR ASSITANCE. PATIENT NEEDS REMINDERS. CALL LIGHT WITHIN REACH.
[2021-07-29 04:45] LABS: BASOPHILS ABSOLUTE AUTO 0.05 K/mm3 (0.00-0.23); BASOPHILS PERCENT AUTO 1 % (0-2); EOSINOPHILS ABSOLUTE AUTO 0.15 K/mm3 (0.00-0.68); EOSINOPHILS PERCENT AUTO 2 % (0-6); Hematocrit 39.5 % (37.0-53.0); Hemoglobin 13.4 g/dL (13.5-17.5); IMMATURE GRAN ABSOLUTE AUTO 0.02 K/mm3 (0.00-0.10); IMMATURE GRAN PERCENT AUTO 0 % (0-1); LYMPHOCYTES ABSOLUTE AUTO 2.06 K/mm3 (0.84-5.20); LYMPHOCYTES PERCENT AUTO 33 % (21-46); MONOCYTES ABSOLUTE AUTO 0.45 K/mm3 (0.16-1.47); MONOCYTES PERCENT AUTO 7 % (4-13); Mean Corpuscular HGB 29.7 pg (26.0-34.0); Mean Corpuscular HGB Conc 33.9 g/dL (31.5-36.5); Mean Platelet Volume 10.8 fL (9.1-12.4); NEUTROPHILS ABSOLUTE AUTO 3.52 K/mm3 (1.96-9.15); NEUTROPHILS PERCENT AUTO 56 % (41-73); Platelet Count 180 K/mm3 (150-400); RDW Coefficient Variation 13.5 % (11.7-14.2); RDW Standard Deviation 43.2 fL (35.1-46.3); Red Blood Cell Count 4.51 M/mm3 (4.30-5.90); White Blood Cell Count 6.25 K/mm3 (4.00-11.30)
[2021-07-29 04:47] LABS: Mean Corpuscular Volume 88 fL (80-100)
[2021-07-29 05:00] LABS: Albumin, Blood 3.2 g/dL (3.4-5.0); Anion Gap 7 mmol/L (6-16); Blood Urea Nitrogen 29 mg/dL (8-24); Bun/Creatinine Ratio 26.1 (12.0-20.0); CO2, Blood 30 mmol/L (21-32); Calcium, Blood 8.7 mg/dL (8.5-10.1); Chloride, Blood 99 mmol/L (98-108); Creatinine, Blood 1.11 mg/dL (0.60-1.20); Glomerular Filtration Rate >60 (60-); Glucose, Blood 239 mg/dL (70-99); Magnesium, Blood 1.8 mg/dL (1.6-2.4); Potassium, Blood 3.4 mmol/L (3.5-5.5); Sodium, Blood 136 mmol/L (136-145)
--- NOTE | 2021-07-29 07:29 | NUR ---
Rn summary: Patient is less confused than Sunday night , worried about his cat and dog. He knew his friend had a hyman and that she was going to be out of town. Pt continues to be incontinent. Sugar was 256 for me. Denies pain. Rested well.
--- NOTE | 2021-07-29 07:35 | NUR ---
Patient is unable or unwilling to answer questions. Pt is very restless and trying to get out of bed. Pt did get up to bedside commode with assist, did void 100cc of dk regine colored urine and sm stool. Pt has difficulty following commands. Pt medicated with ativan x1. It seemed to almost make him more agitated. pt was found on his knees on the floor by the end of the be, scrape to left knee. Pt was placed in karen restraints at 2355. Pt was agitated and fought restraint . pt did have an incontinent urine this am. Has rested last few hours less restless.IV fluids DC'd.
--- NOTE | 2021-07-29 07:43 | NUR ---
Patient is more clear this shift. He is worried about his cat and dog. BS was 256 for me,. He continues to be incontinent. Rested well. SL flushed and is patent.
--- NOTE | 2021-07-29 08:48 | NUR ---
PATIENT'S BLOOD SUGAR 277 THIS AM 9 UNITS GIVEN PER SLIDING SCALE. 8 UNITS GIVEN PER TID ORDER. THIS NURSE SPOKE WITH MD RUDOLPH REGARDING DOSAGE. TOLD THIS NURSE TO GIVE THE DOSE ORDERED.
--- NOTE | 2021-07-29 18:30 | NUR ---
SHIFT SUMMARY PATIENT ALERT AND ORIENTED X2, SELF AND FAMILY. PATIENT THINKS THEY ARE IN A MOTEL ROOM. PATIENT CAN BECOME GRABBY AND VERBALLY INAPPROPRIATE WITH COMMENTS AT TIMES. PATIENT IS REDIRECTABLE AND APOLOGETIC. PATIENT HAS BEEN UP TO THE RECLINER WITH TWO STAFF ASSIST. UNSTEADY GAIT. LISPRO SLIDING SCALE CHANGED TO Q4 HIGH SLIDING SCALE WELL THE TID 8 UNITS. PATIENT'S BLOOD GLUCOSE HAS BEEN TRENDING DOWN TODAY. LAST CBG WAS 198. INSULIN GIVEN WITH FOOD. ON RA. NO TELE. PATIENT DOES CALL APPROPRIATELY BUT OCCASIONALLY YELLS OUT FOR HELP. CALL LIGHT WITHIN REACH. BED IN LOWEST POSITION.
[2021-07-30 05:05] LABS: BASOPHILS ABSOLUTE AUTO 0.04 K/mm3 (0.00-0.23); BASOPHILS PERCENT AUTO 1 % (0-2); EOSINOPHILS PERCENT AUTO 1 % (0-6); Hematocrit 41.1 % (37.0-53.0); Hemoglobin 13.6 g/dL (13.5-17.5); IMMATURE GRAN ABSOLUTE AUTO 0.02 K/mm3 (0.00-0.10); IMMATURE GRAN PERCENT AUTO 0 % (0-1); LYMPHOCYTES ABSOLUTE AUTO 1.53 K/mm3 (0.84-5.20); LYMPHOCYTES PERCENT AUTO 21 % (21-46); MONOCYTES ABSOLUTE AUTO 0.63 K/mm3 (0.16-1.47); MONOCYTES PERCENT AUTO 9 % (4-13); Mean Corpuscular HGB 29.7 pg (26.0-34.0); Mean Corpuscular HGB Conc 33.1 g/dL (31.5-36.5); Mean Corpuscular Volume 90 fL (80-100); Mean Platelet Volume 10.7 fL (9.1-12.4); NEUTROPHILS ABSOLUTE AUTO 4.91 K/mm3 (1.96-9.15); NEUTROPHILS PERCENT AUTO 68 % (41-73); Platelet Count 171 K/mm3 (150-400); RDW Coefficient Variation 13.4 % (11.7-14.2); RDW Standard Deviation 44.2 fL (35.1-46.3); Red Blood Cell Count 4.58 M/mm3 (4.30-5.90); White Blood Cell Count 7.23 K/mm3 (4.00-11.30)
[2021-07-30 05:32] LABS: Albumin, Blood 3.1 g/dL (3.4-5.0); Anion Gap 9 mmol/L (6-16); Blood Urea Nitrogen 24 mg/dL (8-24); Bun/Creatinine Ratio 20.5 (12.0-20.0); CO2, Blood 23 mmol/L (21-32); Calcium, Blood 8.7 mg/dL (8.5-10.1); Chloride, Blood 102 mmol/L (98-108); Creatinine, Blood 1.17 mg/dL (0.60-1.20); Glomerular Filtration Rate >60 (60-); Glucose, Blood 257 mg/dL (70-99); Magnesium, Blood 1.9 mg/dL (1.6-2.4); Phosphorus, Blood 3.2 mg/dL (2.5-4.9); Potassium, Blood 3.8 mmol/L (3.5-5.5); Sodium, Blood 134 mmol/L (136-145)
--- NOTE | 2021-07-30 06:33 | NUR ---
PATIENT ALERT TO SELF AND PLACE. COGNITION FLUCTUATES HOWEVER FOR THE MOST PART HE IS PLEASANTLY CONFUSED. BG CLOSELY MONITORED AND COVERED PER SLIDING SCALE. PATIENT INCONTINENT DURING THE NIGHT AND ONE TIME ATTEMPTED TO USE BSC HOWEVER PT VERY WEAK AND HAVING A HARD TIME STANDING UP. NO ACUTE CHANGES NOTED.
--- NOTE | 2021-07-30 17:49 | NUR ---
SHIFT SUMMARY: NO ACUTE EVENTS. CBG REMAINS > 230, GLIPIZIDE RE-STARTED. A&O X 2, FORGETFUL, NOT SURE OF THE DAY, MAKES INAPPROPRIATE COMMENTS AT TIMES. INCONTINENT OF BLADDER, CONTINENT OF BOWEL. GETTING UP TO CHAIR FOR MEALS, WAS ABLE TO TAKE A SHOWER WITH ASSISTANCE, NEEDS FWW AND GAIT BELT. DENIED PAIN. TOLERATING PO INTAKE. BM X 2 TODAY. ANXIOUS TO GO HOME, BUT WILL NEED MORE CAREGIVER HOURS IN ORDER TO BE SAFE AT HOME; ASSISTED LIVING OR ADULT FOSTER CARE WOULD BE BETTER.
--- NOTE | 2021-07-31 03:52 | NUR ---
PATIENT WITH CONTINUED CONFUSION AND FORGETFULNESS. ALERT TO SELF AND PLACE. CONTINENT AND INCONTINENT OF URINE. BLOOD SUGARS REMAINED ELEVATED AND COVERED PER MAR. SLEPT WELL DURING THE NIGHT. NO OTHER CHANGES NOTED.
[2021-07-31 05:09] LABS: BASOPHILS ABSOLUTE AUTO 0.03 K/mm3 (0.00-0.23); BASOPHILS PERCENT AUTO 0 % (0-2); EOSINOPHILS ABSOLUTE AUTO 0.12 K/mm3 (0.00-0.68); EOSINOPHILS PERCENT AUTO 2 % (0-6); Hematocrit 39.5 % (37.0-53.0); Hemoglobin 13.3 g/dL (13.5-17.5); IMMATURE GRAN ABSOLUTE AUTO 0.02 K/mm3 (0.00-0.10); IMMATURE GRAN PERCENT AUTO 0 % (0-1); LYMPHOCYTES ABSOLUTE AUTO 1.42 K/mm3 (0.84-5.20); LYMPHOCYTES PERCENT AUTO 21 % (21-46); MONOCYTES PERCENT AUTO 9 % (4-13); Mean Corpuscular HGB 29.7 pg (26.0-34.0); Mean Corpuscular HGB Conc 33.7 g/dL (31.5-36.5); Mean Corpuscular Volume 88 fL (80-100); Mean Platelet Volume 11.1 fL (9.1-12.4); NEUTROPHILS ABSOLUTE AUTO 4.61 K/mm3 (1.96-9.15); NEUTROPHILS PERCENT AUTO 68 % (41-73); Platelet Count 161 K/mm3 (150-400); RDW Coefficient Variation 13.6 % (11.7-14.2); RDW Standard Deviation 43.8 fL (35.1-46.3); Red Blood Cell Count 4.48 M/mm3 (4.30-5.90)
[2021-07-31 05:39] LABS: Anion Gap 8 mmol/L (6-16); Blood Urea Nitrogen 27 mg/dL (8-24); Bun/Creatinine Ratio 21.6 (12.0-20.0); CO2, Blood 27 mmol/L (21-32); Calcium, Blood 8.6 mg/dL (8.5-10.1); Chloride, Blood 101 mmol/L (98-108); Creatinine, Blood 1.25 mg/dL (0.60-1.20); Glomerular Filtration Rate 57 (60-); Glucose, Blood 251 mg/dL (70-99); Magnesium, Blood 1.9 mg/dL (1.6-2.4); Potassium, Blood 3.3 mmol/L (3.5-5.5); Sodium, Blood 136 mmol/L (136-145)
--- NOTE | 2021-07-31 14:56 | NUR ---
PATIENT BLOOD SUGAR AT NOON WAS 361. A CALL WAS PLACED TO DR. RUDOLPH, AND HE INSTRUCTED TO GIVE INSULIN 15 UNITS. (SLIDING SCALE HAS NO DIRECTION WITH SUGAR THAT HIG).
--- NOTE | 2021-08-01 03:38 | NUR ---
PATIENT A/O TO SELF, PLACE AND YEAR HOWEVER HE IS OFTEN CONFUSED. PATIENT HAS VERY POOR SAFETY INSIGHT. GROSSLY INCONTINENT REQUIRING FULL LINEN CHANGE OFTEN DUE TO PATIENT REMOVING ATTENDS AND NOT CALLING FOR ASSISTANCE OR USING URINAL. PT STATES THAT HE REMOVES THE ATTENDS BECAUSE HE IS "LOOKING FOR A HOLE WITHIN THE BED." BLOOD GLUCOSE MONITORED Q4H AND COVERED PER MAR. PATIENT IS PLEASANTLY CONFUSED HOWEVER MAKES INAPROPRIATE REMARKS. PT ALSO OFTEN NOTED SAYING THAT HE "NEEDS A PSYCHIATRIST." WHEN ASKED FURTHER TO WHY PATIENT DOES NOT STATE WHY. OTHERWISE NO ACUTE CHANGES NOTED.
[2021-08-01 05:05] LABS: BASOPHILS ABSOLUTE AUTO 0.04 K/mm3 (0.00-0.23); BASOPHILS PERCENT AUTO 1 % (0-2); EOSINOPHILS ABSOLUTE AUTO 0.14 K/mm3 (0.00-0.68); EOSINOPHILS PERCENT AUTO 2 % (0-6); Hematocrit 38.4 % (37.0-53.0); IMMATURE GRAN ABSOLUTE AUTO 0.04 K/mm3 (0.00-0.10); IMMATURE GRAN PERCENT AUTO 1 % (0-1); LYMPHOCYTES ABSOLUTE AUTO 1.72 K/mm3 (0.84-5.20); LYMPHOCYTES PERCENT AUTO 20 % (21-46); MONOCYTES ABSOLUTE AUTO 0.87 K/mm3 (0.16-1.47); MONOCYTES PERCENT AUTO 10 % (4-13); Mean Corpuscular HGB 30.1 pg (26.0-34.0); Mean Corpuscular HGB Conc 33.9 g/dL (31.5-36.5); Mean Corpuscular Volume 89 fL (80-100); Mean Platelet Volume 10.7 fL (9.1-12.4); NEUTROPHILS ABSOLUTE AUTO 5.95 K/mm3 (1.96-9.15); NEUTROPHILS PERCENT AUTO 68 % (41-73); Platelet Count 165 K/mm3 (150-400); RDW Coefficient Variation 13.4 % (11.7-14.2); RDW Standard Deviation 43.8 fL (35.1-46.3); Red Blood Cell Count 4.32 M/mm3 (4.30-5.90); White Blood Cell Count 8.76 K/mm3 (4.00-11.30)
[2021-08-01 05:38] LABS: Anion Gap 7 mmol/L (6-16); Blood Urea Nitrogen 29 mg/dL (8-24); Bun/Creatinine Ratio 26.4 (12.0-20.0); CO2, Blood 27 mmol/L (21-32); Calcium, Blood 8.8 mg/dL (8.5-10.1); Chloride, Blood 101 mmol/L (98-108); Glomerular Filtration Rate >60 (60-); Glucose, Blood 262 mg/dL (70-99); Magnesium, Blood 1.7 mg/dL (1.6-2.4); Phosphorus, Blood 3.2 mg/dL (2.5-4.9); Potassium, Blood 3.8 mmol/L (3.5-5.5); Sodium, Blood 135 mmol/L (136-145)
--- NOTE | 2021-08-01 07:21 | NUR ---
ASSUMED CARE: PT SITTING UPRIGHT IN BED, TALKING TO STAFF DURING BEDSIDE REPORT. NO ACUTE NEEDS OR CONCERNS AT THIS TIME.
--- NOTE | 2021-08-01 13:00 | NUR ---
DR RUDOLPH NOTIFIED OF AFTERNOON BLOOD SUGAR. SPOKE WITH DR NIXON REGARDING FURTHER RECOMMENDATIONS. SEE NEW ORDERS
--- NOTE | 2021-08-01 18:45 | NUR ---
SHIFT SUMMARY: PT HAS BEEN UP IN CHAIR FOR MAJORITY OF SHIFT WITH BSC FOR RESTROOM NEEDS. REQUIRES 2 ASSIST AND IS UNABLE TO AMBULATE WELL ON HIS OWN. DR RUDOLPH ADJUSTED HIS MEDICATIONS PER CBG CHECKS. NO FURTHER NEEDS AT THIS TIME.
[2021-08-02 04:50] LABS: BASOPHILS ABSOLUTE AUTO 0.06 K/mm3 (0.00-0.23); BASOPHILS PERCENT AUTO 1 % (0-2); EOSINOPHILS ABSOLUTE AUTO 0.12 K/mm3 (0.00-0.68); EOSINOPHILS PERCENT AUTO 2 % (0-6); Hematocrit 40.5 % (37.0-53.0); Hemoglobin 13.5 g/dL (13.5-17.5); IMMATURE GRAN ABSOLUTE AUTO 0.03 K/mm3 (0.00-0.10); IMMATURE GRAN PERCENT AUTO 0 % (0-1); LYMPHOCYTES PERCENT AUTO 22 % (21-46); MONOCYTES ABSOLUTE AUTO 0.68 K/mm3 (0.16-1.47); MONOCYTES PERCENT AUTO 9 % (4-13); Mean Corpuscular HGB 29.5 pg (26.0-34.0); Mean Corpuscular HGB Conc 33.3 g/dL (31.5-36.5); Mean Corpuscular Volume 89 fL (80-100); Mean Platelet Volume 11.1 fL (9.1-12.4); NEUTROPHILS PERCENT AUTO 66 % (41-73); Platelet Count 182 K/mm3 (150-400); RDW Coefficient Variation 13.7 % (11.7-14.2); Red Blood Cell Count 4.57 M/mm3 (4.30-5.90); White Blood Cell Count 7.69 K/mm3 (4.00-11.30)
[2021-08-02 05:12] LABS: Albumin, Blood 3.2 g/dL (3.4-5.0); Anion Gap 8 mmol/L (6-16); Blood Urea Nitrogen 29 mg/dL (8-24); Bun/Creatinine Ratio 26.1 (12.0-20.0); CO2, Blood 26 mmol/L (21-32); Calcium, Blood 8.9 mg/dL (8.5-10.1); Chloride, Blood 100 mmol/L (98-108); Creatinine, Blood 1.11 mg/dL (0.60-1.20); Glomerular Filtration Rate >60 (60-); Glucose, Blood 285 mg/dL (70-99); Magnesium, Blood 1.8 mg/dL (1.6-2.4); Potassium, Blood 3.9 mmol/L (3.5-5.5); Sodium, Blood 134 mmol/L (136-145)
--- NOTE | 2021-08-02 05:54 | NUR ---
PATIENT ALERT TO SELF, PLACE AND YEAR HOWEVER INTERMITTENTLY CONFUSED. REMAINS HEAVILY INCONTINENT AT THIS TIME. PATIENT HAD PERIODS OF ANGER IN WHICH HE WOUL PRESS THE CALL LIGHT AND WHEN ASKED IF HE NEEDED ANYTHING HE WOULD ANGRILY YELL THAT HE DID NOT NEED ANYTHING. SLEPT IN RECLINER HE REPEATEDLY STATED THE BED WAS UNCOMFORTABLE. REMAINS WITH POOR SAFETY INSIGHT AND HIGH FALL RISK. BLOOD SUGAR MONITORED AND MEDICATED PER MAY.
--- NOTE | 2021-08-02 09:40 | NUR ---
NOTIFIED OF ELEVATED BLOOD GLUCOSE OF 408, MEDICATED PER SLIDE SCALE
--- NOTE | 2021-08-02 12:00 | NUR ---
DR CONTACTED DEVYNING PT BLOOD GLUCOSE OF 439, INSTRUCTED TO MEDICATE PER SLIDE SCALE INSULIN AND RECHECK IN 2 HOURS. PLAN TO CONTACT AGAIN WITH RESULTS OF GLUCOSE RECHECK
--- NOTE | 2021-08-02 14:28 | NUR ---
CONTACTED REGDAVIDING BLOOD GLUCOSE 391, INSTRUCTED TO ADMIN 1 UNSCHEDULED DOSE OF INSULIN PER SLIDE SCALE AND RECHECK IN 2 HOURS.
--- NOTE | 2021-08-02 18:05 | NUR ---
SHIFT SUMMARY PT A&O X4 AND IN PLEASENT MOOD T/O SHIFT. HYPERGLYCEMIA REPORTED TO DR AND MEDICATED PER EMAR-SEE NOTE. VSS. PT UP TO CHAIR FOR MOST OF SHIFT. INCONT. CALL LIGHT W/IN REACH. 2X ASSIST W/ FWW & GB. PLAN TO D/C TO SNF FOR GLUCOSE MANAGEMENT PER .
--- NOTE | 2021-08-02 18:37 | NUR ---
AT HOME CARE PROVIDER CONTACTED HOSPITAL ABOUT PT BY YOUR SIDE CARE GIVING CONTACTED THIS RN AND REQUESTED CALL REGUARDING PT D/C, PLEASE CALL .
[2021-08-03] MEDS ORDERED: LEVEMIR FL100 UNIT/2 SC (01:59)
[2021-08-03] MEDS ORDERED: INSULIN AS100 UNIT/8 SC (01:59)
--- NOTE | 2021-08-03 06:38 | NUR ---
SHIFT SUMMARY PT IS A 75 Y/O MALE, ADMITTED FOR HYPERGLYCEMIA. HE IS A&O X 3, FORGETFUL AT TIMES, 1PA. PT IS ON Q4H BLOOD SUGARS, BETWEEN 180-200S THROUGH THE NIGHT. VITAL SIGNS STABLE. PT WAS MEDICATED FOR ACUTE NECK PAIN WITH PRN TYLENOL. NO C/O ACUTE SOB OR NAUSEA. VITAL SIGNS STABLE. NO ACUTE CHANGES IN PT CONDITION NOTED DURING THE NIGHT. WILL CONTINUE TO MONITOR AND TREAT PER EMAR UNTIL HAND OFF TO DAY SHIFT RN.
--- NOTE | 2021-08-03 14:28 | NUR ---
DR RUDOLPH NOTIFIED OF CBG OF 301 PER HIS REQUEST (TWO HOURS AFTER LAST INSULIN DOSE). NEW ORDER PLACED.
--- NOTE | 2021-08-03 18:10 | NUR ---
SHIFT SUMMARY PT AXO THOUGH FORGETFUL AND MAKES ODD COMMENTS AT TIMES. VSS THIS SHIFT. UP WITH FWW, GB AND 1 ASSIST. AMBULATED 100 FEET X1 THIS SHIFT, PT TOLERATED WELL. SEE LAB FOR CBG RESULTS, MEDICATED PER EMAR. CBG AT [address] RUDOLPH IN ROOM AT THE TIME OF THAT CBG AND MELI ALSO PRESENT AT THAT TIME. THIS NURSE ALSO NOTIFIED DR RUDOLPH OF ELEVATED CBG, ONE TIME ADDITIONAL DOSE OF INSULIN GIVEN PER DR RUDOLPH ORDER, SEE EMAR. INCONTINENT, HEAVY WETTER OF URINE. IV PATENT AND SALINE LOCKED. PT DENIED SOB, PAIN AND N/V. BED IN LOW POSITON, CALL LIGHT WITHIN REACH. BED AND CHAIR ALARM ON WHEN PATIENT IS IN BED OR CHAIR. NO OTHER CHANGES THIS SHIFT.
--- NOTE | 2021-08-04 02:54 | NUR ---
PT GAVE CONSENT TO PROVIDE CARE 08/03/21.
--- NOTE | 2021-08-04 03:35 | NUR ---
PT WAS ALERT TO SELF AND COULD FOLLOW COMMANDS. PT VS STABLE DURING SHIFT. CHECK PT LABS FOR CBG VALUES. COVERAGE PROVIDED PER AC SS IN EMAR. PT WAS FORGETFUL. PT WAS INCONTINENT OF URINE X 1 AND REQUIRED COMPLETE BED CHANGE. PT WAS IN GOOD SPIRITS DURING SHIFT MAKING JOKES TO STAFF. PT REPOSITIONED PER ORDERS Q2H. PT CURRENTLY SLEEPING WITH CALL LIGHT WITHIN REACH AND BED IN LOWEST POSITION WITH BED ALARM ON.
--- NOTE | 2021-08-04 04:23 | NUR ---
I AM IN AGREEMENT WITH DIRECTOR SCRIPT NOTES AND ASSESSMENTS
--- NOTE | 2021-08-04 11:21 | NUR ---
Pt. is sitting up in chair and welcomes my visit. Pt. recognizes this lamp shade maker from previous stays in the hospital. Pt. is unsettled by his hospitalization, and verbalizes that he isn't sure why he is in the hospital, and feels like he is in a "fdc cell." Listen empathetically with a calming presence. Re-establish rapport. Individuals listed as NOK are neighbors and not blood relatives. Pt. displays evidence of frustration in his situation, but displays evidence of trust in this lamp shade maker. Prayed with Pt. Pt. verbalized gratitude for the the spiritual care visit, and the pastoral prayer.
--- NOTE | 2021-08-04 18:19 | NUR ---
END OF SHIFT SUMMARY Pt doing well this shift, no changes to patient status, pt awaiting caregiver support for safe discharge home. MD wants caregiver to administer insulin to pt at home. CBGs [id number] SSI given, aware of CBGs. VSS. Pt ambulating independently, walking hallways. Steady gait uses FWW when ambulating.
--- NOTE | 2021-08-04 21:15 | NUR ---
PT GAVE CONSENT TO PROVIDE CARE 08/04/21.
--- NOTE | 2021-08-05 03:39 | NUR ---
PT ORIENTED TO SELF AND PLACE. VS STABLE. PT WALKED INDEPENDENTLY IN [place] WITH FWW UNDER SUPERVISION UP HALLWAY TO NURSING STATION MULTIPLE TIMES DURING SHIFT. PT WAS PLEASANT CALM AND COOPERATIVE AND EASILY REDIRECTABLE BACK INTO ROOM. PT WAS INCONTINENT OF URINE 3 TIMES AND CONTINENT TWICE AND USED THE TOILET WITH 1PA. PT HAS EMAR CHANGE OF GLARGINE 30 UNITS SCHEDULED FOR 2100 MED PASS TO HELP CONTROL BLOOD GLUCOSE LEVELS. PT CURRENTLY SLEEPING WITH CALL LIGHT WITHIN REACH AND BED IN LOW POSITION.
--- NOTE | 2021-08-05 03:58 | NUR ---
I AM IN AGREEMENT WITH FAMILY PHYSICIAN NOTES AND ASSESSMENTS
--- NOTE | 2021-08-05 09:37 | NUR ---
Pt. is awake and welcomes my visit. Pt. is unsettled about the delays in his discharge. Pt. verbalizes his frustration. Provide a calming presence and some pastoral securities counselor. This production control expediter brought pt. a large print NT bible. Pt. verbalized gratitude for the gift and the visit. Will continue to be available for the Pt. and verbalized I would return later in the day.
--- NOTE | 2021-08-05 10:19 | NUR ---
PT PLEASANT AND COOPERATIVE WITH CARE. DENIES PAIN. A/O X3-4. NO TELE. H/R REGULAR. MURMUR NOTED. LUNGS CLEAR BILATERALLY. ON ROOM AIR. BREATHING IS EASY AND UNLABORED. PT IS A 2+ ASSIST. PT STATES LAST BOWEL MOVEMENT WAS YESTERDAY AM. HE ALSO STATES HE DOES NOT URINATE OFTEN. PT WEAK AND UNSTABLE WHEN SITTING ON EDGE OF BED. HELPED HIM TO LAY DOWN. STATES HE JUST DOES NOT FEEL WELL. 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 FOOT IS WRAPPED IN GAUZE AND COBANS. LEGS ARE DRY AND RED. WOUNDS PRESENT BILATERALLY. LT HAND RING FINGER IS WRAPPED IN [place] WELL. PT STATES HE WAS BIT BY A SPIDER. WE DID NOT UNWRAP HIS FOOT OR HIS FINGER. WILL CHECK FOR WOUND ORDERS. 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 WOUND DRESSING APPLIED FOR PURULENT DRAINAGE. DRAINAGE APPEARS YELLOW. PT IN DIALYSIS RIGHT NOW. PT POSSIBLY TO HAVE SX FOR PERIOTONEAL DIALYSIS PORT WELL. WILL KEEP UPDATED ON THIS. BED IN LOW POSITION, CALL LIGHT IN REACH, CALLS APPROPRIALTY.
--- NOTE | 2021-08-05 10:58 | NUR ---
PT PLEASANT AND COOPERATIVE WITH CARE. REDIRECTABLE. FORGETFUL. A/OX 2-3. DENIES PAIN. H/R REGULAR. NO TELE. NO MURMUR NOTED. ON ROOM AIR. BREATHING IS EASY AND UNLABORED, LUNGS CLEAR BILATERALLY. PT AMBULATES TO RESTROOM INDEPENDENTLY WITH FWW. PT STATES HE HAS A BOWEL MOVEMENT YESERDAY AM. PT VISIBLY SEEN WALKING AROUND UNIT WITH FWW. REDESS AND BRUSING NOTED BETWEEN THIGHS AND ON KNEES. BED IN LOW POSITION, CALL LIGHT IN REACH AND CALLS APPORPRIATLY.
--- NOTE | 2021-08-05 11:49 | NUR ---
CHANGE CBG CHECKS TO ACHS PER DR MOMIN
--- NOTE | 2021-08-05 17:05 | NUR ---
PT PLEASANT AND COOPERATIVE WITH CARE. A/O X2-3. DENIES PAIN. H/R REGULAR. NO TELE. NO MURMUR NOTED. BREATHING ON ROOM AIR, BREATHING IS EASY AND UNLABORED. PT AMBULATES AROUND FLOOR INDEPENDENTLY WITH FWW. INDEPENENT IN RESTROOM. BED IN LOW POSITION, CALL LIGHT IN REACH, CALLS APPROPRIATLY.
--- NOTE | 2021-08-05 17:32 | NUR ---
Pt. is sitting up in bed and welcomes my visit. Pt. is quite pleasant this afternoon. Rapport is re-established. Pt. displays evidence of being interested in reading. Listen empathetically and give pastoral patient financial counselor. Prayed with Pt. Delivered Pt. a Hinduism devotional. Pt. verbalized gratitude for the gift and the spiritual care visit.
--- NOTE | 2021-08-05 18:36 | NUR ---
AGREE WITH PT NOTES AND ASSESSMENTS.
--- NOTE | 2021-08-06 04:14 | NUR ---
SHIFT SUMMARY 77 YR M ADMITTED ON 07/27/21 FOR HYPERGLYCEMIA. FULL CODE. BLOOD SUGARS ARE RUNNING IN THE LOW TO MID 200'S. PT IS AMBULATORY AND INDEPENDANT IN THE ROOM. HE GETS CONFUSED AT TIMES BUT HE LIKES TO TALK ABOUT HIS DAYS AN [employer]. HE IS A FORMER [employer]IG[employer] GENERAL. HE IS PLEASANT AND COOPERATIVE. THIS SHIFT HE WAS GIVEN HOSPITAL JANE PANTS AND A GOWN AFTER HE CAME OUT INTO THE [place] IN HIS UNDERWEAR WITH HIS DIRTY CLOTHS IN HIS ARMS ASKING WHERE THE WASHING MACHINE IS.
--- NOTE | 2021-08-06 16:55 | NUR ---
SHIFT SUMMARY PATIENT DENIES PAIN, NAUSEA, AND SHORTNESS OF BREATH. PATIENT IS INDEPENDENT IN ROOM WITH A FWW. PATIENT FREQUENTLY WILL AMBULATE IN HALLWAY WITH FWW. PATIENT IS A&O X3, BUT PLEASANTLY CONFUSED. PATIENT IS REDIRECTABLE. PATIENT DOES OCCASIONALLY HAVE TANGENTIAL SPEECH DURING COVERSATIONS. PATIENT IS EATING AND DRINKING WELL. PATIENT IS PLEASANT AND COOPERATIVE WITH CARE.
--- NOTE | 2021-08-07 03:30 | NUR ---
SHIFT SUMMARY 77 YR M ADMITTED ON 07/27/21 FOR HYPERGLYCEMIA. FULL CODE. BS READING THIS SHIFT WAS 227. IT APPEARS TO BE TRENDING DOWN. PT IS FORGETFUL AND CONFUSED AT TIME BUT IS OTHERWISE VERY PLEASANT AND COOPERATIVE. HE HAS ASKED SEVERAL TIMES TODAY ABOUT WHEN HE GETS TO GO HOME. HE IS CONCERNED ABOUT HIS DOG AND CAT AND IF ANYONE IS TAKING CARE OF THEM. HE AMBULATES INDEPENDANTLY AND LIKES TO TAKE SHORT WALKS IN THE HALLS. HE LOVES TO REMINICE ABOUT HIS YEARS AN [employer]. HE IS INDEPENDANT TO THE BATHROOM BUT ALSO HAS EPISODES OF INCONTINENCE.
[2021-08-07 05:38] LABS: BASOPHILS ABSOLUTE AUTO 0.05 K/mm3 (0.00-0.23); BASOPHILS PERCENT AUTO 1 % (0-2); EOSINOPHILS ABSOLUTE AUTO 0.12 K/mm3 (0.00-0.68); EOSINOPHILS PERCENT AUTO 2 % (0-6); Hematocrit 38.4 % (37.0-53.0); Hemoglobin 12.7 g/dL (13.5-17.5); IMMATURE GRAN ABSOLUTE AUTO 0.04 K/mm3 (0.00-0.10); IMMATURE GRAN PERCENT AUTO 1 % (0-1); LYMPHOCYTES ABSOLUTE AUTO 2.11 K/mm3 (0.84-5.20); LYMPHOCYTES PERCENT AUTO 28 % (21-46); MONOCYTES ABSOLUTE AUTO 0.66 K/mm3 (0.16-1.47); MONOCYTES PERCENT AUTO 9 % (4-13); Mean Corpuscular HGB 29.1 pg (26.0-34.0); Mean Corpuscular HGB Conc 33.1 g/dL (31.5-36.5); Mean Corpuscular Volume 88 fL (80-100); Mean Platelet Volume 10.4 fL (9.1-12.4); NEUTROPHILS PERCENT AUTO 60 % (41-73); Platelet Count 236 K/mm3 (150-400); RDW Coefficient Variation 13.4 % (11.7-14.2); RDW Standard Deviation 43.3 fL (35.1-46.3); Red Blood Cell Count 4.36 M/mm3 (4.30-5.90); White Blood Cell Count 7.48 K/mm3 (4.00-11.30)
[2021-08-07 06:09] LABS: Albumin, Blood 3.2 g/dL (3.4-5.0); Anion Gap 8 mmol/L (6-16); Blood Urea Nitrogen 34 mg/dL (8-24); Bun/Creatinine Ratio 25.8 (12.0-20.0); CO2, Blood 27 mmol/L (21-32); Calcium, Blood 9.1 mg/dL (8.5-10.1); Chloride, Blood 103 mmol/L (98-108); Creatinine, Blood 1.32 mg/dL (0.60-1.20); Glomerular Filtration Rate 53 (60-); Glucose, Blood 139 mg/dL (70-99); Magnesium, Blood 1.9 mg/dL (1.6-2.4); Phosphorus, Blood 3.1 mg/dL (2.5-4.9); Sodium, Blood 138 mmol/L (136-145)
--- NOTE | 2021-08-07 17:54 | NUR ---
SHIFT SUMMARY PATIENT DENIES PAIN, NAUSEA, AND SHORTNESS OF BREATH. PATIENT IS INDEPENDENT IN ROOM. PATIENT FREQUENTLY AMBULATES IN HALLWAY. PATIENT EXPRRESSED FRUSTRATIONS TODAY ABOUT NOT BEING HOME. PATIENT EXPRESSED CONCERN FOR DOG AND CAT. PATIENT NAPPED IN AFTERNOON. A&O X2 IN THE LATER AFTERNOON. PATIENT MORE CONFUSED. TANGENTIAL SPEECH DURING CONVERSATIONS. PATIENT VERY PLEASANT. PATIENT IS EATING AND DRINKING WELL. PATIENT IS PLEASANT AND COOPERATIVE WITH CARE.
--- NOTE | 2021-08-08 05:20 | NUR ---
SHIFT SUMMARY 77 YR M ADMITTED SINCE 07/27/21. FULL CODE. NO ACUTE CHANGES THIS SHIFT. HE HAD SEVERAL INCONTINENT EPISODES AND AT TIMES HE SEEMS TO NOT NOTICE HE IS WET EVEN WHEN HE HAS SOAKED THROUGH ALL OF HIS BEDDING. HE IS VERY PLEASANT AND LOVES TO TALK. WE WENT FOR A WALK DOWN THE HALLWAY THIS SHIFT AND SAT IN CHAIRS BY THE ELEVATOR AND CHATTED. HE APPEARS TO BE LONELY. 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 HE GETS CONFUSED BUT IS ALSO LUCID. HE IS ANXIOUS TO GO HOME AND PLAY WITH HIS DOG AND CAT. HE IS INDEPENDANT IN THE ROOM AND COOPERATIVE WITH HIS CARE.
--- NOTE | 2021-08-08 08:17 | NUR ---
pt reports digitally assisting in bowel movements. advised against practice. called dr degroot for orders. miralax ordered.
--- NOTE | 2021-08-08 10:04 | NUR ---
PT COOPERATIVE WITH CARE. FLAT AFFECT. DECLINES PAIN. A/OX2-3. NO TELE. NO MURMUR NOTED. H/R REGULAR. ON ROOM AIR. BREATHING IS UNLABORED AND EASY. LUNGS CLEAR BILATERALLY. PT AMBULATES TO RESTROOM INDEPENDENLTY. PT VISIBLY SEEN WALKING AROUND HALLS. PT STATES LAST BOWEL MOVEMENT WAS YESTERDAY, BUT HE OFTEN DECOMPACTS HIMSELF. MEDICATED PER EMAR. SKIN IS DRY AND SCALING. FEET/LEGS HAVE SLIGHT DISCOLORATION. BED IN LOW POSITION, CALL LIGHT IN REACH, CALLS APPROPRIALTY.
--- NOTE | 2021-08-08 10:19 | NUR ---
PT PLEASANT COOP A/O X2 (DX DEMENTIA). TALKATIVE. RETIRED FROM SERVICE. DENIES PAIN AT THIS TIME. HR REG, NO MURMER NOTED. NO TELE. LUNGS CLEAR, RESP EASY, UNLABORED. ON R/A. BT X4 LAST BM YEST. STATES DIGITALLY ASSISTED IN B/M. DISCUSSED WITH DR MOMIN. ORDERS RECEIVED. VOIDS INDEPENDANT TO BATHROOM WITH FWW. WALKS HALLS REGULARLY. BED IN LOW POSITION, CALL LITE IN REACH, CALLS APPROP
--- NOTE | 2021-08-08 12:46 | NUR ---
PT WAS TAUGHT HOW TO SELF ADMINISTER INSULIN. PT GIVEN VERBAL INSTRUCTIONS AND GAVE VERBAL UNDERSTANDING OF INSTRUCTIONS. PT GAVE INSULIN INJECTION HIMSELF WITHOUT DIFFICULTY. PT STATES HE CAN DO THIS FOR HIMSELF AT HOME HE HAS DONE IT BEFORE.
--- NOTE | 2021-08-08 18:12 | NUR ---
PT COOPERATIVE WITH CARE. A/O X2-3. DENIES PAIN. H/R REGULAR. NO MURMUR NOTED. NO TELE. LUNGS CLEAR BILATERALLY. ON ROOM AIR. BREATHING IS EASY AND UNLABORED. PT AMBULATES AROUND HALLS AND ROOM INDEPENDENTLY WITH FWW. PT USES RESTROOM INDEPENDENTLY. SLIGHT DISCOLORATION ON BILATERAL LOWER EXTREMITES. DRY AND SCALING. PT HAS GIVEN INSULIN INJECTIONS HIMSELF TODAY. HE REMEMBERED MOST OF THE STEPS FROM LUNCH. WALKED PT THOUGH STEPS AGAIN AT DINNER. BED IN LOW POSITION, CALL LIGHT IN REACH, CALLS APPROPRAITLY.
--- NOTE | 2021-08-08 18:50 | NUR ---
AGREE WITH STUDENT NOTES AND DOCUMENTATION
--- NOTE | 2021-08-09 04:37 | NUR ---
PATIENT ON ASSESSMENT A/0X3, NOTED WITH INTERMITTENT CONFUSION AND FORGETFULNESS. ASSISTED PATIENT WITH INSULIN ADMINISTRATION. PATIENT HAVING HARD TIME REMEMBERING HOW TO READ SLIDING SCALE AND NEEDING FREQUENT INSTRUCTIONS ON HOW TO USE INSULIN PEN. PATIENT OVER ALL VERY PLEASANT AND STATES THAT "WITH PRACTICE I'LL GET BETTER." PATIENT DID HAVE AN EPISODE OF INCONTINENCE. NO ACUTE CHANGES NOTED.
--- NOTE | 2021-08-09 18:21 | NUR ---
SHIFT SUMMARY NO ACUTE CHANGES WITH PT. CARE MANAGEMENT MOVING TO GET HIM PLACEMENT. PT WALKED THE HALLS TODAY FOR EXCERCISE AND WAS ABLE TO ENJOY TO COMPANY OF SOME PEOPLE STANDING IN THE HALLS. HE IS ANXIOUS TO LEAVE. WILL CONTINUE TO MONITOR.
--- NOTE | 2021-08-10 02:49 | NUR ---
PATIENT A/OX4 WITH NOTED PERIODS OF CONFUSION. PATIENT VERY PLEASANT HOWEVER VERY LONELY. PATIENT ENJOYS HAVING SOMEONE TO TALK TO AND STATES THAT AT HOME ITS JUST HIMSELF AND HIS DOG/CAT. PATIENT ABLE TO ADMINISTER INSULIN HOWEVER REQUIRED FREQUENT DIRECTIONS, AT THIS TIME HE IS NOT ABLE TO SAFELY ADMINISTER OWN INSULIN. PATIENT DID HAVE AN EPISODE OF INCONTINENCE. RASH NOTED TO L UPPER LEG/INNER THIGH HOWEVER PER PATIENT THIS IS NOT NEW AND PT "ALWAYS GETS THEM." NO ACUTE CHANGES NOTED.
--- NOTE | 2021-08-10 15:45 | NUR ---
Spiritual Care Notes (officially form 08/09/21). Pt. is sitting up in bed, and welcomes my visit. Pt. is unsettled by being by what he knows...his home...his cat and dog. Pt. is generally pleasant, but can respond harshly if he doesn't understand or trust the individual he is engaged with. Listen empathetically and direct him with pastoral recreation counselor and a calming presence. Pt. displays evidence of understanding and compliance. Champion with Pt. Pt. verbally expressed gratitude for the spiritual care visit.
--- NOTE | 2021-08-10 19:00 | NUR ---
SHIFT SUMMARY MR AGUILERA IS A&OX4, OCCASIONALLY CONFUSED REMARKS, BUT MOSTLY ENGAGES IN COMPREHENSIVE CONVERSATION. HE HAS NOT HAD ANY PAIN OR SOB TODAY. HE HAS BEEN UP AMBULATING INDEPENDENTLY WITH THE ROLLING WALKER. CONTINENT OF URINE TODAY. GOOD APPETITE. BLOOD GLUCOSE MEASUREMENTS IN THE 100S TODAY. BLE EDEMA/REDNESS/DRY SKIN. CALL LIGHT IN REACH.
[2021-08-11 04:05] LABS: Albumin, Blood 3.5 g/dL (3.4-5.0); Anion Gap 8 mmol/L (6-16); Blood Urea Nitrogen 32 mg/dL (8-24); Bun/Creatinine Ratio 22.1 (12.0-20.0); CO2, Blood 29 mmol/L (21-32); Calcium, Blood 9.5 mg/dL (8.5-10.1); Chloride, Blood 103 mmol/L (98-108); Creatinine, Blood 1.45 mg/dL (0.60-1.20); Glomerular Filtration Rate 51 (60-); Glucose, Blood 93 mg/dL (70-99); Magnesium, Blood 1.9 mg/dL (1.6-2.4); Phosphorus, Blood 3.3 mg/dL (2.5-4.9); Potassium, Blood 3.8 mmol/L (3.5-5.5); Sodium, Blood 140 mmol/L (136-145)
--- NOTE | 2021-08-11 04:55 | NUR ---
SHIFT SUMMARY 75 YR M ADMITTED ON 07/27/21 FOR HYPERGLYCEMIA. FULL CODE. NO ACUTE CHANGES THIS SHIFT. BLOOD SUGAR LEVELS SEEM TO HAVE STABILIZED. LAST CBS WAS 184. PT IS COOPERATIVE AND FRIENDLY. HE LIKES TO TAKE WALKS IN THE [place] AND HE LIKES TO CHAT ABOUT HIS TIME IN THE . HE TAKES HIS MEDS WHOLE W/ APPLESAUCE. HE IS ANXIOUS TO GET HOME TO HIS CAT AND DOG. CM IS WORKING ON A HOME HEALTH CARE TYPE OF SITUATION.
--- NOTE | 2021-08-11 17:38 | NUR ---
SHIFT SUMMARY PATIENT DENIES PAIN, NAUSEA, AND SHORTNESS OF BREATH. PATIENT IS IND IN ROOM WITH FWW. PATIENT SLEPT MOST OF SHIFT. PATIENT CONCERNED ABOUT ANIMALS AND GOING HOME. INFORMED PATIENT THAT HIS ANIMALS ARE SAFE. PATIENT CBG BETTER TODAY. PATIENT IS EATING AND DRINKING WELL. PATIENT IS PLEASANT AND COOPERATIVE WITH CARE. PATIENT IS AWAITING GUARDIANSHIP/PLACEMENT.
--- NOTE | 2021-08-12 04:41 | NUR ---
SHIFT SUMMARY 75 YR M ADMITTED ON 07/27/21. FULL CODE. NO ACUTE CHANGES THIS SHIFT BUT THIS NURSE HAS NOTICED THAT PT SEEMS TO BE MORE QUITE AND RESERVED THAN USUAL. HE VERBALIZES DISAPPOINTMENT THAT HE HAS NOT BEEN ALLOWED TO GO HOME YET. HE DID NOT TAKE A WALK IN THE HALLWAY THIS SHIFT HE NORMALLY DOES, AND HE APPEARS TO BE SLEEPING MORE THAN USUAL. HE IS PLEASANT AND COOPERATIVE WITH CARE AND SEEMS TO STAY A BIT CONFUSED.
[2021-08-12 05:32] LABS: Albumin, Blood 3.7 g/dL (3.4-5.0); Anion Gap 9 mmol/L (6-16); Blood Urea Nitrogen 33 mg/dL (8-24); Bun/Creatinine Ratio 24.1 (12.0-20.0); CO2, Blood 28 mmol/L (21-32); Calcium, Blood 9.8 mg/dL (8.5-10.1); Chloride, Blood 102 mmol/L (98-108); Creatinine, Blood 1.37 mg/dL (0.60-1.20); Glomerular Filtration Rate 54 (60-); Glucose, Blood 62 mg/dL (70-99); Phosphorus, Blood 3.2 mg/dL (2.5-4.9); Potassium, Blood 3.7 mmol/L (3.5-5.5); Sodium, Blood 139 mmol/L (136-145)
--- NOTE | 2021-08-12 15:07 | NUR ---
Spiritual Care Visit. Pt. is sitting on hte side of his bed and welcomes my visit. This crayon molding machine operator has met with this pt. often over his various admissions to the hospital. Pt. has at times been unsettled over his not being able to walk outside the hospital. Re-established rapport and took an extended amount of time doing a life-review. Our visit was interrupted because of a rapid response call in Day Surgery. This crayon molding machine operator promised the Pt. I would return Upon returning the Pt. verbalized..."You kept your promise" We continued the life review with theraputic listening. Pt. displayed evidence of an improved attitude of compliance with regard to the expectations of doctors and the medical staff. Explored the roots of his stella and belief, and prayed for Pt. Pt. verbalized gratitude for the spiritual care visit.
--- NOTE | 2021-08-12 16:28 | NUR ---
SHIFT SUMMARY PATIENT DENIES PAIN, NAUSEA, AND SHORTNESS OF BREATH. PATIENT IS IND IN ROOM WITH FWW. PATIENT STATES HE IS FRUSTRATED ABOUT BEING IN THE HOSPITAL STILL. PATIENT MET WITH SPIRITUAL CARE. PER DR. RUDOLPH, HE WOULD LIKE THE RN TO CALL HIM TONIGHT BEFORE ADMINISTERING LONG ACTING INSULIN TO LET HIM KNOW WHAT THE BLOOD SUGAR IS. THIS RN WILL PASS THIS ON TO NIGHTSHIFT. PATIENT IS EATING AND DRINKING WELL. PATIENT IS PLEASANT AND COOPERATIVE WITH CARE.
--- NOTE | 2021-08-12 23:19 | NUR ---
DR RUDOLPH NOTIFIED OF CBG OF 155. REPORTS TO HOLD GLARGINE 30 UNITS AND GIVE GLARGINE 20 UNITS. ORDERED GLIPIZIDE 10 MG X ONE FOR AM.
--- NOTE | 2021-08-13 03:45 | NUR ---
PT A/O TO SELF AND PLACE. CAN BE FORGETFUL AT TIMES. PT WAS INCONTINENT OF URINE X 2 WITH FULL BED CHANGE. PT EXPERIENCES INCONTINENT EPISODES WHILE SLEEPING. PT HAD LONG ACTING INSULIN CHANGED WITH ONE TIME ORDER OF 20 UNITS BEFORE BED. PT CAME OUT OF ROOM TWO TIMES WITH FWW TO ASK SOME QUESTIONS. PT WAS PLEASANT AND COOPERATIVE WITH CARE. PT WAS JUST CHANGED AND IS NOW SLEEPING WITH CALL LIGT WITHIN REACH AND BED IN LOW POSITION.
[2021-08-13 04:59] LABS: Albumin, Blood 3.7 g/dL (3.4-5.0); Anion Gap 6 mmol/L (6-16); Blood Urea Nitrogen 33 mg/dL (8-24); Bun/Creatinine Ratio 24.6 (12.0-20.0); CO2, Blood 29 mmol/L (21-32); Calcium, Blood 9.5 mg/dL (8.5-10.1); Chloride, Blood 102 mmol/L (98-108); Creatinine, Blood 1.34 mg/dL (0.60-1.20); Glomerular Filtration Rate 56 (60-); Glucose, Blood 113 mg/dL (70-99); Phosphorus, Blood 3.5 mg/dL (2.5-4.9); Sodium, Blood 137 mmol/L (136-145)
--- NOTE | 2021-08-13 06:35 | NUR ---
I AM IN AGREEMENT [facility] STUDENT NURSE NOTES AND ASSESSMENT
--- NOTE | 2021-08-13 17:45 | NUR ---
PT AOX4 AND COOPERATIVE OF CARE. NO ACUTE CHANGES AT THIS TIME. PT IS ABLE TO INDEPENDENTLY USE WALKER TO GO OUT IN [place] AND IN HIS ROOM. PT ABLE TO MAKE NEEDS KNOWN. CALL LIGHT IS WITHIN REACH WILL CONTINUE TO MONITOR.
--- NOTE | 2021-08-14 03:40 | NUR ---
PT A/O TO SELF AND SURROUNDINGS. PT PLEASANT AND COOPERATIVE TO CARE. PT SLEPT DURING MAJORITY OF SHIFT. PT WAS CONTINENT OF BOTH URINE AND BOWELS. PT DID GET A BIT GRUMPY WHEN WOKEN UP FOR AM VS. PT IS CURRENTLY SLEEPING WITH CALL LIGHT WITHIN REACH AND BED IN LOW POSITION.
--- NOTE | 2021-08-14 06:11 | NUR ---
NURSING STUDENTS NOTES AND ASSESSMENT REVIEWED AND ACCEPTED.
--- NOTE | 2021-08-14 16:53 | NUR ---
NO ACUTE CHANGES AT THIS TIME. AOX4 AND COOPERATIVE OF CARE. CHRONIC BACK PAIN TREATED PER EMAR. WILL CONTINUE TO MONTIOR CALL LIGHT WITHIN REACH.
--- NOTE | 2021-08-15 04:13 | NUR ---
SHIFT SUMMARY PATIENT HAD NO ACUTE CHANGES. AXO X 3 WITH HX OF DEMENTIA. INCONTINENT AT TIMES OF URINE. INDEPENDENT WITH FWW IN ROOM AND HALLS. CBG 131. NO IV ACCESS. VSS/AFEBRILE. DENIES PAIN, SOB, AND N/V. COOPERATIVE WITH CARE. CALL LIGHT IN REACH. BED IN LOWEST POSITION. WILL CONTINUE TO MONITOR UNTIL DAY SHIFT NURSE ASSUMES CARE.
--- NOTE | 2021-08-16 03:39 | NUR ---
SUMMARY: PT A/OX3-4, CALLS APPROPRIATELY TO SPECIFY NEEDS AND IS PLEASANT AND COOPERATIVE W/CARE. HE'S UP W/FWW IN ROOM AD GAETANO AND IS CONTINENT/INCONTINENT W/ATTENDS CHANGED PRN. NO IV ACCESS. HE DENIED PAIN/COMPLAINTS AND IS AWAITING GUARDIANSHIP W/PLACEMENT. VSS/AFEBRILE, NO ACUTE CHANGES. WCTM AND REPORT TO DAY RN.
--- NOTE | 2021-08-16 15:03 | NUR ---
Pt. is sitting in the 3rd floor waiting area, having completed 13 laps around the Medical floor. Pt. welcomes my visit and I engage with him in the lobby. Pt. verbalizes that he was told he would discharge home tomorrow. Pt. displays evidence of being optimistic regarding the discharge. Re-establish rapport. Pastoral certified alcohol and drug counselor is given, and Pt. verbalizes gratitude for the pastoral care visit.
--- NOTE | 2021-08-16 17:38 | NUR ---
SHIFT SUMMARY PT A/O X3; PLEASANT AND COOPERATIVE WITH CARE. PT IS EXCITED TO DISCHARGE HOME TOMORROW. PT NEEDS TEACHING REGARDING CHECKING HIS BLOOD SUGAR AND USING A GLUCOMETER PRIOR TO DC. PT WALKING IN THE HALLS OFTEN AND HAS BEEN CONTINENT DURING THE DAY. VSS. WILL REPORT TO DEVIN ALEMAN.
--- NOTE | 2021-08-17 15:36 | NUR ---
Pt. was standing in the doorway of his room, and greeted me as I can down the rahman. Pt. is pleasant, though mildly unsettled by the recent news that his discharge would be delayed another day (tomorrow 08/18 is the new target). Provide a calming presence and Re-establish rapport. Pt. displayed evidence of understanding and hope. Pt. verbalized gratitude for the spiritual care visit.
--- NOTE | 2021-08-17 16:45 | NUR ---
SHIFT SUMMARY PT TO HOPEFULLY DC HOME W/HH TOMORROW. OT SAW PT AND DID AN UPDATED COGNITIVE EVALUATION. GLUCOSE MONITOR IN PT'S BOX AND RN TO EDUCATE PT ON HOW TO TAKE HIS OWN BLOOD GLUCOSE WITH THE GLUCOMETER. PT WALKS FREQUENTLY IN THE ZURITA AND IS COOPERATIVE. VSS. WILL REPORT TO DEVIN RN.
--- NOTE | 2021-08-18 01:13 | NUR ---
RECEIVED REPORT AND ASSUMED CARE OF PT. HE IS LYING QUIETLY IN BED WATCHING TV.
--- NOTE | 2021-08-18 05:46 | NUR ---
SHIFT SUMMARY: MEDARDO IS A&OX4. BP NOTED TO HAVE A SLIGHT DOWNWARD JEET, OTHERWISE VSS. HE DID HAVE AN INCONTINENT EPISODE DURING THE NIGHT WHICH HE MANAGED HIMSELF, INCLUDING CHANGING HIS BED LINENS. HE WAS ENCOURAGED TO CALL FOR ASSISTANCE, BUT STATED THAT HE DOES NOT LIKE BOTHERING PEOPLE WHEN HE CAN TAKE CARE OF HIMSELF. WHEN DISCUSSING DIABETES EDUCATION, HE STATED THAT HE WAS THE CAREGIVER FOR HIS WHO WAS DIABETIC. HE STATES THAT HE IS FAMILIAR WITH THE USE OF THE GLUCOMETER AND WAS ABLE TO VERBALIZE THE STEPS IN PROPER ORDER. HE DENIES ANY NEEDS AT THIS TIME OTHER THAN WONDERING WHERE THE CLOTHES HE WORE TO THE HOSPITAL ARE. HE IS INDEPENDENT IN THE ROOM. WCTM UNTIL REPORT IS GIVEN TO DAY SHIFT RN.
--- NOTE | 2021-08-18 08:19 | NUR ---
WORKED WITH AND PROVIDED PATIENT EDUCATION TO PATIENT ON TAKING BLOOD GLUCOSE USING NEW GLUCOMETER. PT DID WELL BUT HAD SOME TROUBLE WITH THE LANCET DEVICE. LOOKED AT OTHER LANCING DEVICES AND PT DID BETTER WITH THE SINGLE USE LANCETS USED BY THE HOSPITAL.
[2021-08-18] MEDS ORDERED: ALOGLIPTIN25 M1 PO (14:16)
[2021-08-18] MEDS ORDERED: LASIX20 M2 PO (14:24)
[2021-08-18] MEDS ORDERED: GLIM4 PO (14:25)
[2021-08-18] MEDS ORDERED: OMEP20ER PO (14:27)
[2021-08-18] MEDS ORDERED: PIOG30 PO (14:27)
[2021-08-18] MEDS ORDERED: MAGNESIUM OXID500 MG PO (14:27)
[2021-08-18] MEDS ORDERED: POTA10T PO (14:28)
[2021-08-18] MEDS ORDERED: SPIR25 PO (14:28)
[2021-08-18] MEDS ORDERED: MIRALAX17 GM PO (14:28)
[2021-08-18] MEDS ORDERED: VITAMIN D31000 UNI1 PO (14:29)
--- NOTE | 2021-08-18 16:06 | NUR ---
DISCHARGE SUMMARY PT A/O X3; PLEASANT AND COOPERATIVE WITH CARE. WORKED WITH THE PATIENT TODAY ON CHECKING HIS OWN BLOOD GLUCOSE USING A GLUCOMETER. PT ABLE TO CHECK OWN GLUCOSE. HE DID A BETTER JOB USING THE SINGLE USE LANCETS RATHER THAN THE ONES THAT HE HAS TO LOAD INTO THE LANCET PEN DUE TO DEXTERITY ISSUES. PT TO FOLLOW UP WITH [facility] AND [facility] OR [facility]. PT REPORTS THAT HIS PHONE DOES NOT WORK BUT CAN GO INTO THE OFFICE IN PERSON TO MAKE THE APPOINTMENTS. PT HAS A PLAN TO GET A REPLACEMENT PHONE. HOME HEALTH TO COME OUT ON SUNDAY. VSS. PT DC'D HOME IN AN AMBULANCE.
== END 2021-08-18 15:58 | disposition home or self-care (01) ==
LOC: ER 10:27 → MEDS 10:28 → ERHOLD 10:28 → MEDS 17:28 → ENPENDDIS 08-17 17:36 → MEDS 08-18 15:58
PROVIDERS: Emergency Medicine; ADMIT Family Medicine
DX: E11.00 Type 2 diabetes mellitus with hyperosmolarity without nonketotic hyperglycemic-hyperosmolar coma (NKHHC) (principal); E11.22 Type 2 diabetes mellitus with diabetic chronic kidney disease; I13.0 Hypertensive heart and chronic kidney disease with heart failure and stage 1 through stage 4 chronic kidney disease, or unspecified chronic kidney disease; I50.33 Acute on chronic diastolic (congestive) heart failure; E21.3 Hyperparathyroidism, unspecified; E78.00 Pure hypercholesterolemia, unspecified; I45.10 Unspecified right bundle-branch block; G30.9 Alzheimer's disease, unspecified; F02.80 Dementia in other diseases classified elsewhere, unspecified severity, without behavioral disturbance, psychotic disturbance, mood disturbance, and anxiety; Z88.1 Allergy status to other antibiotic agents; Z88.8 Allergy status to other drugs, medicaments and biological substances; Z79.4 Long term (current) use of insulin; Z79.01 Long term (current) use of anticoagulants; Z79.82 Long term (current) use of aspirin; Z79.84 Long term (current) use of oral hypoglycemic drugs; N18.30 Chronic kidney disease, stage 3 unspecified; I48.91 Unspecified atrial fibrillation; K21.9 Gastro-esophageal reflux disease without esophagitis; E66.9 Obesity, unspecified; Z68.34 Body mass index [BMI] 34.0-34.9, adult
CPT/HCPCS: 36415; 80053; 80069; 82010; 82803; 82947; 83735; 85025; 94760; 97129; 97166; 97168; 97535; 99285; A9270; G0378; J1815; J7030

== ENCOUNTER 2022-02-07 12:41 | Day surgery (SDC) | payer MEDICARE ==
[~2022-02-07] VITALS: Ht 190.5 cm; Wt 128.7 kg
[~2022-02-07 12:41] MED LIST changes: +ALOGLIPTIN25 M1 PO; +GLIM4 PO; +INSULIN AS100 UNIT/8 SC; +LASIX20 M2 PO; +MIRALAX17 GM PO; +OMEP20ER PO; +PIOG30 PO; +POTA10T PO; +VITAMIN D31000 UNI1 PO
--- NOTE | 2022-02-07 13:27 | NUR ---
02/07/22 1327 Afia Wagoner RIGHT EYE @ 1318 JANIS RIGHT E[facility] @ 1319 BY [facility].ARLENE
[2022-02-07 13:59] LABS: Glucose, Blood 568 mg/dL (70-99)
[2022-02-07] MEDS ORDERED: LEVEMIR FL100 UNIT/2 SC (15:00)
[2022-02-07] MEDS ORDERED: FIASP 100100 UNIT/3 SC (15:01)
== END 2022-02-07 14:15 | disposition other institution (70) ==
LOC: ORSCSDS 12:41
PROVIDERS: Ophthalmology
DX: H25.11 Age-related nuclear cataract, right eye (principal); Z53.9 Procedure and treatment not carried out, unspecified reason
CPT/HCPCS: 82947; J2250; J3010; J3301; J7040

== ENCOUNTER 2022-02-07 14:10 | Emergency (ER) | payer MEDICARE ==
[~2022-02-07] VITALS: Ht 190.5 cm; Wt 81.2 kg
[2022-02-07 14:54] LABS: BASOPHILS ABSOLUTE AUTO 0.04 K/mm3 (0.00-0.23); BASOPHILS PERCENT AUTO 1 % (0-2); EOSINOPHILS ABSOLUTE AUTO 0.14 K/mm3 (0.00-0.68); EOSINOPHILS PERCENT AUTO 2 % (0-6); Hematocrit 40.3 % (37.0-53.0); Hemoglobin 14.9 g/dL (13.5-17.5); IMMATURE GRAN ABSOLUTE AUTO 0.03 K/mm3 (0.00-0.10); IMMATURE GRAN PERCENT AUTO 0 % (0-1); LYMPHOCYTES ABSOLUTE AUTO 1.75 K/mm3 (0.84-5.20); LYMPHOCYTES PERCENT AUTO 25 % (21-46); MONOCYTES ABSOLUTE AUTO 0.47 K/mm3 (0.16-1.47); MONOCYTES PERCENT AUTO 7 % (4-13); Mean Corpuscular HGB 31.7 pg (26.0-34.0); Mean Corpuscular Volume 86 fL (80-100); Mean Platelet Volume 10.6 fL (9.1-12.4); NEUTROPHILS ABSOLUTE AUTO 4.47 K/mm3 (1.96-9.15); NEUTROPHILS PERCENT AUTO 65 % (41-73); Platelet Count 173 K/mm3 (150-400); RDW Coefficient Variation 12.8 % (11.7-14.2); RDW Standard Deviation 39.8 fL (35.1-46.3)
[2022-02-07] MEDS ORDERED: LEVEMIR FL100 UNIT/2 SC (15:00)
[2022-02-07] MEDS ORDERED: FIASP 100100 UNIT/3 SC (15:01)
[2022-02-07 15:06] LABS: pH Blood Venous 7.36 (7.34-7.37)
[2022-02-07 15:07] LABS: Base Excess Venous 1.8 mmol/L; Bicarbonate Venous 24.9 mmol/L (24.0-30.0); PCO2 Venous 47.9 mmHg (38-42)
[2022-02-07 15:45] LABS: Albumin, Blood 3.9 g/dL (3.4-5.0); Albumin/Globulin Ratio 1.1 (0.8-1.8); Bilirubin, Total 1.1 mg/dL (0.1-1.0); Bun/Creatinine Ratio 22.1 (12.0-20.0); Calcium, Blood 9.9 mg/dL (8.5-10.1); Creatinine, Blood 1.22 mg/dL (0.60-1.20); Globulin, Blood 3.6 g/dL (2.2-4.0); Potassium, Blood 4.5 mmol/L (3.5-5.5); Total Protein, Blood 7.5 g/dL (6.4-8.2)
[2022-02-07 15:59] LABS: Source, Urine Clean Catch
[2022-02-07 16:01] LABS: Appearance, Urine Clear (Clear); Bilirubin, Urine Neg (Neg); Blood, Urine 1+ (Neg); Color, Urine Yellow (P-Yellow); Glucose Qualitative, Urine 4+ (Neg); Ketones, Urine 2+ (Neg); Leukocyte Esterase, Urine Neg (Neg); Nitrite, Urine Neg (Neg); Protein, Urine 3+ (Neg); Urobilinogen, Urine NORM (Normal)
[2022-02-07 16:07] LABS: Red Blood Cells, Urine 0-2 /hpf (0-2); White Blood Cells, Urine 0-2 /hpf (0-5)
[2022-02-07 16:08] LABS: Bacteria Rare /hpf; Squamous Epithelial Cells Rare /hpf (Few)
== END 2022-02-07 17:37 | disposition home or self-care (01) ==
LOC: ER 14:10
PROVIDERS: Physician Assistant
DX: E11.65 Type 2 diabetes mellitus with hyperglycemia (principal); I12.9 Hypertensive chronic kidney disease with stage 1 through stage 4 chronic kidney disease, or unspecified chronic kidney disease; E11.22 Type 2 diabetes mellitus with diabetic chronic kidney disease; N18.2 Chronic kidney disease, stage 2 (mild); E78.00 Pure hypercholesterolemia, unspecified; Z88.1 Allergy status to other antibiotic agents; Z88.0 Allergy status to penicillin; Z88.8 Allergy status to other drugs, medicaments and biological substances; Z91.018 Allergy to other foods; Z79.899 Other long term (current) drug therapy; Z79.4 Long term (current) use of insulin
CPT/HCPCS: 36415; 80053; 81001; 82803; 82947; 85025; J7030

== ENCOUNTER 2022-07-22 09:29 | Emergency (ER) | payer MEDICARE ==
[~2022-07-22] VITALS: Ht 182.9 cm; Wt 122.5 kg
[~2022-07-22 09:29] MED LIST changes: +INSULIN GL100 UNIT/4 SC; +PRED FORTE5 M1 BOTHEYES
[2022-07-22 09:58] LABS: BASOPHILS ABSOLUTE AUTO 0.04 K/mm3 (0.00-0.23); BASOPHILS PERCENT AUTO 0 % (0-2); EOSINOPHILS ABSOLUTE AUTO 0.03 K/mm3 (0.00-0.68); EOSINOPHILS PERCENT AUTO 0 % (0-6); Hematocrit 42.9 % (37.0-53.0); Hemoglobin 15.5 g/dL (13.5-17.5); IMMATURE GRAN ABSOLUTE AUTO 0.06 K/mm3 (0.00-0.10); IMMATURE GRAN PERCENT AUTO 1 % (0-1); LYMPHOCYTES ABSOLUTE AUTO 0.95 K/mm3 (0.84-5.20); LYMPHOCYTES PERCENT AUTO 9 % (21-46); MONOCYTES ABSOLUTE AUTO 0.59 K/mm3 (0.16-1.47); MONOCYTES PERCENT AUTO 6 % (4-13); Mean Corpuscular HGB 30.7 pg (26.0-34.0); Mean Corpuscular HGB Conc 36.1 g/dL (31.5-36.5); Mean Corpuscular Volume 85 fL (80-100); Mean Platelet Volume 10.3 fL (9.1-12.4); NEUTROPHILS ABSOLUTE AUTO 8.48 K/mm3 (1.96-9.15); NEUTROPHILS PERCENT AUTO 84 % (41-73); Platelet Count 198 K/mm3 (150-400); RDW Coefficient Variation 12.6 % (11.7-14.2); RDW Standard Deviation 38.4 fL (35.1-46.3); Red Blood Cell Count 5.05 M/mm3 (4.30-5.90); White Blood Cell Count 10.15 K/mm3 (4.00-11.30)
[2022-07-22 10:26] LABS: Albumin, Blood 3.9 g/dL (3.4-5.0); Albumin/Globulin Ratio 1.1 (0.8-1.8); Bilirubin, Total 1.3 mg/dL (0.1-1.0); Bun/Creatinine Ratio 27.5 (12.0-20.0); Calcium, Blood 9.7 mg/dL (8.5-10.1); Creatinine, Blood 1.53 mg/dL (0.60-1.20); Globulin, Blood 3.7 g/dL (2.2-4.0); Potassium, Blood 4.2 mmol/L (3.5-5.5); Total Protein, Blood 7.6 g/dL (6.4-8.2)
[2022-07-22 11:12] LABS: Source, Urine Clean Catch
[2022-07-22 11:15] LABS: Appearance, Urine Clear (Clear); Bilirubin, Urine Neg (Neg); Blood, Urine 2+ (Neg); Color, Urine Yellow (P-Yellow); Glucose Qualitative, Urine 4+ (Neg); Ketones, Urine 3+ (Neg); Leukocyte Esterase, Urine Neg (Neg); Nitrite, Urine Neg (Neg); Protein, Urine 2+ (Neg); Urobilinogen, Urine NORM (Normal)
[2022-07-22 11:51] LABS: Red Blood Cells, Urine 0-2 /hpf (0-2); White Blood Cells, Urine 0-2 /hpf (0-5)
[2022-07-22 11:52] LABS: Bacteria Rare /hpf; Squamous Epithelial Cells Rare /hpf (Few); Yeast/Fungi Urine Rare /hpf
[2022-07-22 11:54] LABS: Hyaline Casts 0-2 /lpf (0-2); Mucus Light (0-Heavy)
[2022-07-22 14:06] LABS: Glucose, Blood 484 mg/dL (70-99)
[2022-07-22 18:00] VITALS: BP 136/71
== END 2022-07-22 18:23 | disposition home or self-care (01) ==
LOC: ER 09:29
PROVIDERS: Emergency Medicine
DX: E11.65 Type 2 diabetes mellitus with hyperglycemia (principal); E86.0 Dehydration; I12.9 Hypertensive chronic kidney disease with stage 1 through stage 4 chronic kidney disease, or unspecified chronic kidney disease; E11.22 Type 2 diabetes mellitus with diabetic chronic kidney disease; N18.2 Chronic kidney disease, stage 2 (mild); I48.91 Unspecified atrial fibrillation; N40.0 Benign prostatic hyperplasia without lower urinary tract symptoms; E78.00 Pure hypercholesterolemia, unspecified; Z88.8 Allergy status to other drugs, medicaments and biological substances; Z91.018 Allergy to other foods; Z88.1 Allergy status to other antibiotic agents; Z79.899 Other long term (current) drug therapy; Z79.84 Long term (current) use of oral hypoglycemic drugs; Z79.01 Long term (current) use of anticoagulants; Z79.4 Long term (current) use of insulin; Z86.718 Personal history of other venous thrombosis and embolism
CPT/HCPCS: 71045; 72080; 80053; 81001; 82947; 85025; 93005; 93010; 96360; 96361; 99285-25; J1815; J7030

== ENCOUNTER 2022-07-23 10:16 | Observation (INO) | payer MEDICARE ==
[~2022-07-23] VITALS: Ht 190.5 cm; Wt 90.7 kg
[2022-07-23 10:56] LABS: BASOPHILS ABSOLUTE AUTO 0.04 K/mm3 (0.00-0.23); BASOPHILS PERCENT AUTO 0 % (0-2); EOSINOPHILS ABSOLUTE AUTO 0.07 K/mm3 (0.00-0.68); EOSINOPHILS PERCENT AUTO 1 % (0-6); Hematocrit 47.7 % (37.0-53.0); Hemoglobin 16.8 g/dL (13.5-17.5); IMMATURE GRAN ABSOLUTE AUTO 0.03 K/mm3 (0.00-0.10); IMMATURE GRAN PERCENT AUTO 0 % (0-1); LYMPHOCYTES ABSOLUTE AUTO 1.21 K/mm3 (0.84-5.20); LYMPHOCYTES PERCENT AUTO 13 % (21-46); MONOCYTES ABSOLUTE AUTO 0.71 K/mm3 (0.16-1.47); MONOCYTES PERCENT AUTO 7 % (4-13); Mean Corpuscular HGB 30.9 pg (26.0-34.0); Mean Corpuscular HGB Conc 35.2 g/dL (31.5-36.5); Mean Corpuscular Volume 88 fL (80-100); Mean Platelet Volume 10.4 fL (9.1-12.4); NEUTROPHILS ABSOLUTE AUTO 7.54 K/mm3 (1.96-9.15); NEUTROPHILS PERCENT AUTO 79 % (41-73); Platelet Count 205 K/mm3 (150-400); RDW Coefficient Variation 12.7 % (11.7-14.2); RDW Standard Deviation 40.8 fL (35.1-46.3); Red Blood Cell Count 5.43 M/mm3 (4.30-5.90)
[2022-07-23 11:16] LABS: Albumin, Blood 3.8 g/dL (3.4-5.0); Albumin/Globulin Ratio 0.9 (0.8-1.8); Bilirubin, Total 1.3 mg/dL (0.1-1.0); Bun/Creatinine Ratio 25.4 (12.0-20.0); Calcium, Blood 9.5 mg/dL (8.5-10.1); Creatine Kinase MB 4.4 ng/mL (0.0-3.6); Creatine Kinase MB Index 1.2 (0.0-4.0); Creatinine, Blood 1.34 mg/dL (0.60-1.20); Globulin, Blood 4.2 g/dL (2.2-4.0); Potassium, Blood 4.3 mmol/L (3.5-5.5)
[2022-07-24 11:06] VITALS: BP 155/74
[2022-07-24 11:23] LABS: Influenza A, PCR NEGATIVE (NEGATIVE); Influenza B, PCR NEGATIVE (NEGATIVE); Resp Syncytial Virus, PCR NEGATIVE (NEGATIVE); SARS-Cov-2 (COVID-19) PCR, MMC NEGATIVE (NEGATIVE)
== END 2022-07-24 17:20 ==
LOC: ER 10:16 → MEDS 10:17 → ER 07-24 10:17 → MEDS 07-24 16:02
PROVIDERS: Emergency Medicine; ADMIT Internal Medicine
DX: R53.1 Weakness (principal); I12.9 Hypertensive chronic kidney disease with stage 1 through stage 4 chronic kidney disease, or unspecified chronic kidney disease; E11.22 Type 2 diabetes mellitus with diabetic chronic kidney disease; N18.30 Chronic kidney disease, stage 3 unspecified; I48.91 Unspecified atrial fibrillation; N40.0 Benign prostatic hyperplasia without lower urinary tract symptoms; E78.5 Hyperlipidemia, unspecified; Z91.81 History of falling; Z66 Do not resuscitate; Z88.0 Allergy status to penicillin; Z88.8 Allergy status to other drugs, medicaments and biological substances; Z88.1 Allergy status to other antibiotic agents; Z79.01 Long term (current) use of anticoagulants; Z79.84 Long term (current) use of oral hypoglycemic drugs; Z79.899 Other long term (current) drug therapy; Z20.822 Contact with and (suspected) exposure to COVID-19
CPT/HCPCS: 0241U; 71045; 80053; 82550; 82553; 85025; 93005; 93010; 97116; 97161; 99285-25; A9270; J1815

== ENCOUNTER 2022-08-03 00:05 | Observation (INO) | payer MEDICARE ==
[~2022-08-03] VITALS: Ht 182.9 cm; Wt 116.5 kg
[2022-08-03 00:38] LABS: BASOPHILS ABSOLUTE AUTO 0.04 K/mm3 (0.00-0.23); BASOPHILS PERCENT AUTO 1 % (0-2); EOSINOPHILS ABSOLUTE AUTO 0.01 K/mm3 (0.00-0.68); EOSINOPHILS PERCENT AUTO 0 % (0-6); Hematocrit 38.3 % (37.0-53.0); Hemoglobin 13.2 g/dL (13.5-17.5); IMMATURE GRAN ABSOLUTE AUTO 0.03 K/mm3 (0.00-0.10); IMMATURE GRAN PERCENT AUTO 0 % (0-1); LYMPHOCYTES ABSOLUTE AUTO 0.73 K/mm3 (0.84-5.20); LYMPHOCYTES PERCENT AUTO 9 % (21-46); MONOCYTES ABSOLUTE AUTO 0.75 K/mm3 (0.16-1.47); MONOCYTES PERCENT AUTO 9 % (4-13); Mean Corpuscular HGB 30.3 pg (26.0-34.0); Mean Corpuscular HGB Conc 34.5 g/dL (31.5-36.5); Mean Corpuscular Volume 88 fL (80-100); Mean Platelet Volume 9.7 fL (9.1-12.4); NEUTROPHILS ABSOLUTE AUTO 6.74 K/mm3 (1.96-9.15); NEUTROPHILS PERCENT AUTO 81 % (41-73); Platelet Count 229 K/mm3 (150-400); RDW Coefficient Variation 13.2 % (11.7-14.2); RDW Standard Deviation 43.1 fL (35.1-46.3); Red Blood Cell Count 4.35 M/mm3 (4.30-5.90)
[2022-08-03 01:00] LABS: Albumin, Blood 2.8 g/dL (3.4-5.0); Albumin/Globulin Ratio 0.7 (0.8-1.8); Bilirubin, Total 0.5 mg/dL (0.1-1.0); Bun/Creatinine Ratio 17.7 (12.0-20.0); Calcium, Blood 8.2 mg/dL (8.5-10.1); Creatine Kinase MB Index 1.4 (0.0-4.0); Creatinine, Blood 1.41 mg/dL (0.60-1.20); Globulin, Blood 3.9 g/dL (2.2-4.0); Potassium, Blood 3.4 mmol/L (3.5-5.5); Total Protein, Blood 6.7 g/dL (6.4-8.2)
[2022-08-03 01:39] LABS: Influenza A, PCR NEGATIVE (NEGATIVE); Influenza B, PCR NEGATIVE (NEGATIVE); Resp Syncytial Virus, PCR NEGATIVE (NEGATIVE); SARS-Cov-2 (COVID-19) PCR, MMC NEGATIVE (NEGATIVE)
[2022-08-03 02:30] LABS: Magnesium, Blood 1.5 mg/dL (1.6-2.4)
[2022-08-03 02:38] LABS: Thyroid Stimulating Hormone 1.11 uIU/mL (0.360-4.800)
[2022-08-03] MEDS ORDERED: NOVOLOG100 UNIT/2 SC (05:56)
[2022-08-03 06:02] VITALS: BP 144/81
--- NOTE | 2022-08-03 06:41 | NUR ---
PT ARRIVED TO [facility] 08 AT ABOUT 0600 REPORT RECIEVED FROM CHALO ALEMAN, PT WAS SLID FROM ER ANÍBAL TO THE U BED. PT IS VERY TREMOROUS, WARM TO TOUCH, AND IS A&OX2-3 (SELF, PERSON, PLACE). HE FOLLOWS COMMANDS AND CONVERSATION BUT HE RESPONDS SARCASTICALY AND W/ SHORT RESPONSES. HE IS VERY DROWSY BUT WAKES TO VERBAL STIMULI. A BED SIDE SWALLOW EVALUATION WAS DONE AND THE PT WAS ABLE TO SWALLOW WATER BUY THE SPOON AND APPLE SAUCE W/O ISSUES. HE WAS THEN GIVEN GLUCOSE GEL AT ABOUT 0600 AND HIS 0630 CBG CAME BACK AT 108. PT'S ORAL TEMP 101.2 AND WAS MEDICATED W/ TYLANOL FOR HIS FEVER. PT SETTLED IN THE ROOM. BED IN LOW, CALL LIGHT IN REACH, BED ALARM ON. SEE NOTES FOR ANY UPDATES.
[2022-08-03 07:21] LABS: Bun/Creatinine Ratio 17.8 (12.0-20.0); Calcium, Blood 8.1 mg/dL (8.5-10.1); Creatinine, Blood 1.18 mg/dL (0.60-1.20); Magnesium, Blood 1.6 mg/dL (1.6-2.4); Potassium, Blood 4.3 mmol/L (3.5-5.5)
[2022-08-03 08:07] VITALS: BP 122/59
--- NOTE | 2022-08-03 10:47 | NUR ---
PT CBG CAME BACK AT 251. DR NOTIFIED. LOW SLIDING SCALE INSULIN AND GLARGINE INSULIN ORDERED, SEE NEW ORDERS FOR DOSING. CBG HAMILTONS BETO.
--- NOTE | 2022-08-03 11:20 | NUR ---
Spiritual Care Visit. Pt. was meeting with Palliative Care RN Aminta, when both welcome my visit. Pt. verbalized to Palliative Care his openness to having home health assist him at home. After RN left, rapport was re-established with the Pt. I have served as his ground support equipment mechanic during previous hospitalizations. Pt. displays evidence of grief over the recent loss of his neighbor and friend. Listen with empathy, pastoral care and a calming presence. Discussed matters of home life, and Pt. displayed evidence of working on having a more positive attiude to life and his care. Discussed the positive choice to request home health, and sought to normalize the Pt. experience. Prayed with Pt. Pt. verbalized gratitude for the spiritual care visit.
--- NOTE | 2022-08-03 12:26 | NUR ---
IV NOTICED TO BE LAYING ON EDGE OF SINK. IV OF PT L WRIST NO LONGER PRESENT. WHEN PT ASKED IF HE PULLED OUT HIS IV PT RESONDED "DID I? I'M NOT SURE. MAYBE I DID, I DON'T KNOW." NOTIFIED, NO IV ACCESS ORDERED.
--- NOTE | 2022-08-03 15:26 | NUR ---
TRANSFER UPDATE REPORT GIVEN TO MILENA ALEMAN ON MED FLOOR AT 1520. PT LEFT PCU VIA WHEELCHAIR AND ON RA. PT BELONGINGS AND MEDS TRANSFERED WITH PT ALONG WITH PT CHART.
[2022-08-03] MEDS ORDERED: HUMALOG KW100 UNIT/1 SC (16:33)
--- NOTE | 2022-08-03 17:33 | NUR ---
DISCHARGE REPORT GIVEN TO LISA ALEMAN AT 0031. PT TRANSFERED VIA WHEELCHAIR AND ON RA. PT DISCHARGE INSTRUCTIONS GIVEN TO TRANSPORT PERSONEL.
== END 2022-08-03 17:40 | disposition home or self-care (01) ==
LOC: ER 00:05 → PCU 00:06
PROVIDERS: Emergency Medicine; Student in an Organized Health Care Education/Training Program; ADMIT Internal Medicine
DX: E11.649 Type 2 diabetes mellitus with hypoglycemia without coma (principal); G92.8 Other toxic encephalopathy; E87.6 Hypokalemia; E83.42 Hypomagnesemia; E78.5 Hyperlipidemia, unspecified; Z66 Do not resuscitate; I12.9 Hypertensive chronic kidney disease with stage 1 through stage 4 chronic kidney disease, or unspecified chronic kidney disease; E11.22 Type 2 diabetes mellitus with diabetic chronic kidney disease; N18.30 Chronic kidney disease, stage 3 unspecified; I48.91 Unspecified atrial fibrillation; Z86.718 Personal history of other venous thrombosis and embolism; Z88.8 Allergy status to other drugs, medicaments and biological substances; Z79.01 Long term (current) use of anticoagulants; Z79.4 Long term (current) use of insulin; Z79.899 Other long term (current) drug therapy; Z20.822 Contact with and (suspected) exposure to COVID-19
CPT/HCPCS: 0241U; 36415; 70450; 71045; 72125; 80048; 80053; 82550; 82553; 82947; 83735; 83880; 84443; 84484; 85025; 93005; 93010; 96361; 96365; 96366; 96367; 96375; 96376; 97110; 97162; 97166; 97530; 97535; 99285-25; A9270; G0378; J1815; J3475; J3480; J7030; L0160

== ENCOUNTER 2023-07-22 20:39 | Inpatient (IN) | payer MEDICARE ==
[~2023-07-22] VITALS: Ht 193 cm; Wt 124.5 kg
[~2023-07-22 20:39] MED LIST changes: +Actos30 MG PO; +BASAGLAR K100 UNIT/1 SC; +FURO40 PO; +GLUCOPHAGE1000 M1 PO; +HUMALOG KW100 UNIT/1 SC; +INSULIN GL100 UNIT/3 SC; +KLOR-CON 1010 ME9 PO; +NOVOLOG100 UNIT/2 SC
[2023-07-22] MEDS ORDERED: NS 1,000 ML IV ONE (20:55)
[2023-07-22 21:11] LABS: BASOPHILS ABSOLUTE AUTO 0.06 K/mm3 (0.00-0.23); BASOPHILS PERCENT AUTO 1 % (0-2); EOSINOPHILS ABSOLUTE AUTO 0.01 K/mm3 (0.00-0.68); EOSINOPHILS PERCENT AUTO 0 % (0-6); Hematocrit 43.4 % (37.0-53.0); Hemoglobin 15.3 g/dL (13.5-17.5); IMMATURE GRAN ABSOLUTE AUTO 0.02 K/mm3 (0.00-0.10); IMMATURE GRAN PERCENT AUTO 0 % (0-1); LYMPHOCYTES ABSOLUTE AUTO 0.57 K/mm3 (0.84-5.20); LYMPHOCYTES PERCENT AUTO 8 % (21-46); MONOCYTES ABSOLUTE AUTO 0.53 K/mm3 (0.16-1.47); MONOCYTES PERCENT AUTO 7 % (4-13); Mean Corpuscular HGB 31.1 pg (26.0-34.0); Mean Corpuscular HGB Conc 35.3 g/dL (31.5-36.5); Mean Corpuscular Volume 88 fL (80-100); Mean Platelet Volume 10.1 fL (9.1-12.4); NEUTROPHILS ABSOLUTE AUTO 6.17 K/mm3 (1.96-9.15); NEUTROPHILS PERCENT AUTO 84 % (41-73); Platelet Count 194 K/mm3 (150-400); RDW Coefficient Variation 12.9 % (11.7-14.2); RDW Standard Deviation 41.6 fL (35.1-46.3); Red Blood Cell Count 4.92 M/mm3 (4.30-5.90); White Blood Cell Count 7.36 K/mm3 (4.00-11.30)
[2023-07-22 21:36] LABS: Albumin, Blood 3.4 g/dL (3.4-5.0); Albumin/Globulin Ratio 0.9 (0.8-1.8); Beta-hydroxybutyrate 2.7 mg/dL (0.2-2.8); Bilirubin, Total 1.1 mg/dL (0.1-1.0); Calcium, Blood 9.2 mg/dL (8.5-10.1); Creatinine, Blood 1.5 mg/dL (0.60-1.20); Globulin, Blood 3.6 g/dL (2.2-4.0)
[2023-07-22] MEDS ORDERED: CefTRIAXone Sodium 1,000 MG in NS 50 ML IV ONE (21:40)
[2023-07-22] MEDS ORDERED: NS 1,000 ML IV SCH ×2 (21:45)
[2023-07-22 21:48] LABS: Influenza A, PCR NEGATIVE (NEGATIVE); Influenza B, PCR NEGATIVE (NEGATIVE); Resp Syncytial Virus, PCR NEGATIVE (NEGATIVE); SARS-Cov-2 (COVID-19) PCR, MMC NEGATIVE (NEGATIVE)
[2023-07-22 21:58] LABS: Source, Urine Straight Cath
[2023-07-22 22:03] LABS: Bilirubin, Urine Neg (Neg); Blood, Urine 5+ (Neg); Glucose Qualitative, Urine 2+ (Neg); Ketones, Urine 2+ (Neg); Leukocyte Esterase, Urine Neg (Neg); Nitrite, Urine Neg (Neg); Protein, Urine 4+ (Neg); Urobilinogen, Urine NORM (Normal)
[2023-07-22 22:08] LABS: Bicarbonate Venous 25.5 mmol/L (24.0-30.0); pH Blood Venous 7.37 (7.34-7.37)
[2023-07-22 22:09] LABS: Appearance, Urine Clear (Clear); Color, Urine Yellow (P-Yellow)
[2023-07-22 22:09] LABS: Base Excess Venous 2.7 mmol/L
[2023-07-22 22:10] LABS: Amorphous Light (0-Heavy); Bacteria Few /hpf; Red Blood Cells, Urine 0-2 /hpf (0-2); Squamous Epithelial Cells Rare /hpf (Few); Transitional Epithelial Cells Few /hpf (0-Rare); White Blood Cells, Urine Not Seen /hpf (0-5)
[2023-07-23] MEDS ORDERED: Ondansetron HCl 2 MG / ML 2ML Vial IV PRN (00:20)
[2023-07-23] MEDS ORDERED: NS 1,000 ML IV SCH (00:25)
[2023-07-23 01:12] LABS: International Normalized Ratio 1.1; Prothrombin Time Results 11.7 Sec (9.7-11.5)
[2023-07-23 01:38] VITALS: BP 127/101
[2023-07-23] MEDS ORDERED: BASAGLAR K100 UNIT/1 SC (05:04)
[2023-07-23 05:33] LABS: BASOPHILS ABSOLUTE AUTO 0.06 K/mm3 (0.00-0.23); BASOPHILS PERCENT AUTO 1 % (0-2); EOSINOPHILS ABSOLUTE AUTO 0.02 K/mm3 (0.00-0.68); EOSINOPHILS PERCENT AUTO 0 % (0-6); Hematocrit 42.3 % (37.0-53.0); Hemoglobin 14.5 g/dL (13.5-17.5); IMMATURE GRAN ABSOLUTE AUTO 0.02 K/mm3 (0.00-0.10); IMMATURE GRAN PERCENT AUTO 0 % (0-1); LYMPHOCYTES ABSOLUTE AUTO 0.83 K/mm3 (0.84-5.20); LYMPHOCYTES PERCENT AUTO 15 % (21-46); MONOCYTES ABSOLUTE AUTO 0.47 K/mm3 (0.16-1.47); MONOCYTES PERCENT AUTO 9 % (4-13); Mean Corpuscular HGB 30.7 pg (26.0-34.0); Mean Corpuscular HGB Conc 34.3 g/dL (31.5-36.5); Mean Corpuscular Volume 90 fL (80-100); Mean Platelet Volume 9.9 fL (9.1-12.4); NEUTROPHILS ABSOLUTE AUTO 4.13 K/mm3 (1.96-9.15); NEUTROPHILS PERCENT AUTO 75 % (41-73); Platelet Count 154 K/mm3 (150-400); RDW Coefficient Variation 13.1 % (11.7-14.2); Red Blood Cell Count 4.72 M/mm3 (4.30-5.90); White Blood Cell Count 5.53 K/mm3 (4.00-11.30)
--- NOTE | 2023-07-23 05:43 | NUR ---
SHIFT SUMMARY PT RESPONDS TO VERBAL STIMULI AND IS ORIENTED TO SELF. PT IS CONFUSED BUT ABLE TO BE REORIENTED. PT ARRIVED ON UNIT AT ABOUT 0120 VIA GURNEY AND WAS TRANSFERED VIA SLIDESHEET. PT ORIENTED TO UNIT AND CALL LIGHT. PT ON CONTINUOUS TELEMETRY. PT HAS MINOR FEVER, REMAINING VSS. NO COMPLAINTS OF CP OR SOB. PT APPEARED TO HAVE PIECES OF COUCH/CHAIR STUCK TO HIS BOTTOM THAT WERE EASILY REMOVED. NO ACUTE EVENTS AT THIS TIME. FALL PRECAUTIONS IN PLACE PER POLICY. CALL LIGHT IN REACH.
[2023-07-23 05:48] VITALS: BP 150/88
[2023-07-23 06:04] LABS: Albumin/Globulin Ratio 0.9 (0.8-1.8); Bun/Creatinine Ratio 16.3 (12.0-20.0); Calcium, Blood 8.5 mg/dL (8.5-10.1); Creatinine, Blood 1.35 mg/dL (0.60-1.20); Globulin, Blood 3.2 g/dL (2.2-4.0); Potassium, Blood 3.7 mmol/L (3.5-5.5); Total Protein, Blood 6.2 g/dL (6.4-8.2)
[2023-07-23 07:39] VITALS: BP 145/79
[2023-07-23] MEDS ORDERED: Insulin Human Lispro 100 Units/ML 3ML Syringe SC SCH (08:30)
[2023-07-23] MEDS ORDERED: Enoxaparin 40 MG/0.4 ML SYR SC SCH (09:00)
[2023-07-23] MEDS ORDERED: Insulin Glargine-Yfgn 100 Unit/mL 3 ML SYR SC SCH ×2 (09:00→21:00)
[2023-07-23] MEDS ORDERED: Potassium Chloride 10 Meq Tablet SA PO SCH (09:00)
[2023-07-23] MEDS ORDERED: Furosemide 40 MG Tab PO SCH (09:00)
[2023-07-23] MEDS ORDERED: CefTRIAXone Sodium 1,000 MG in NS 100 ML IV SCH (15:00)
--- NOTE | 2023-07-23 15:29 | NUR ---
1500 TELE CALLED STATE PT SWITCHED FROM NSR TO AFIB AT 1230. PT RESTING, ASYMPTOMATIC. RATE 100 TO [address] IN HALLWAY. NO NEW ORDERS.
[2023-07-23 15:58] VITALS: BP 145/78
[2023-07-23] MEDS ORDERED: Metoprolol Succinate 25 MG TABCR PO ONE (16:30)
--- NOTE | 2023-07-23 18:27 | NUR ---
PT PLEASANT TODAY. MORE WAKE THIS AFT. ALERT TO PRESIDENT NAME ADD, AGE, SELF. ALSO ABOUT HIS BACKGROUND. HE REMEMBERED ME FROM LAST VISIT AT HOSPITAL. H/R REG, NO MURMUR NOTED PER TLE WA NSR THHIS AM. THEN SWITCHED MIDDAY TO AFIB/ AFLUTTER AND BACK TO NSR. BACK AND FORTH. METOPROLOL GIVEN THIS AFT. PRESENTLY IN 1TEENS. AFIB. DID JUMP UP TO 150'S ABOUT 18;15 ABOUT A MINUTE. NO NEW CONCERNS NOTED. BED IN LOW POSITION, CALL LITE IN REACH, CALLS APPROP
[2023-07-23 19:46] VITALS: BP 99/61
[2023-07-24 04:21] VITALS: BP 120/77
[2023-07-24 06:12] LABS: BASOPHILS ABSOLUTE AUTO 0.06 K/mm3 (0.00-0.23); BASOPHILS PERCENT AUTO 1 % (0-2); EOSINOPHILS ABSOLUTE AUTO 0.07 K/mm3 (0.00-0.68); EOSINOPHILS PERCENT AUTO 2 % (0-6); Hematocrit 40.4 % (37.0-53.0); Hemoglobin 14.4 g/dL (13.5-17.5); IMMATURE GRAN ABSOLUTE AUTO 0.01 K/mm3 (0.00-0.10); IMMATURE GRAN PERCENT AUTO 0 % (0-1); LYMPHOCYTES PERCENT AUTO 22 % (21-46); MONOCYTES ABSOLUTE AUTO 0.54 K/mm3 (0.16-1.47); MONOCYTES PERCENT AUTO 12 % (4-13); Mean Corpuscular HGB 31.3 pg (26.0-34.0); Mean Corpuscular HGB Conc 35.6 g/dL (31.5-36.5); Mean Corpuscular Volume 88 fL (80-100); NEUTROPHILS ABSOLUTE AUTO 2.82 K/mm3 (1.96-9.15); NEUTROPHILS PERCENT AUTO 63 % (41-73); Platelet Count 138 K/mm3 (150-400); RDW Coefficient Variation 13.4 % (11.7-14.2); RDW Standard Deviation 43.2 fL (35.1-46.3)
--- NOTE | 2023-07-24 06:22 | NUR ---
SHIFT SUMMARY: Pt admitted for sepsis and is a full code. Is alert and able to make some needs known. ADLs have been 2p but did not get out of bed. Denies pain or discomfort when asked.
[2023-07-24 06:39] LABS: Albumin, Blood 2.7 g/dL (3.4-5.0); Albumin/Globulin Ratio 0.9 (0.8-1.8); Bilirubin, Total 0.9 mg/dL (0.1-1.0); Bun/Creatinine Ratio 18.6 (12.0-20.0); Calcium, Blood 8.5 mg/dL (8.5-10.1); Creatinine, Blood 1.4 mg/dL (0.60-1.20); Potassium, Blood 3.6 mmol/L (3.5-5.5); Total Protein, Blood 5.7 g/dL (6.4-8.2)
[2023-07-24 07:11] VITALS: BP 132/82
[2023-07-24] MEDS ORDERED: Metoprolol Succinate 25 MG TABCR PO SCH (09:00)
[2023-07-24] MEDS ORDERED: NS 1,000 ML IV ONE (14:10)
[2023-07-24 15:13] VITALS: BP 129/87
--- NOTE | 2023-07-24 17:57 | NUR ---
PATIENT UP TO CHAIR 2 PERSON ASSIST FOR LUNCH. HE C/O DIZZINESS WITH STANDING LATER AROUND 1400. DR MCLAUGHLIN NOTIFIED AND SHE ORDERED A 1000ML NS FLUID BOLUS, ORTHOSTATICS, PT AND OT EVAL. KEISHA STOREY NOTIFIED.
--- NOTE | 2023-07-24 19:44 | NUR ---
SHIFT SUMMARY PATIENT C/O LIGHTHEADEDNESS THIS AFTERNOON AFTER STANDING, WHICH SUBSIDED AFTER DR BIRCH 1 LITER BOLUS. HE IS UP TODAY FOR LUNCH AND DINNER IN CHAIR. HE IS ORIENTED TO SELF AND PRESIDENT. HE IS ABLE TO MAKE NEEDS KNOWN BUT IS FORGETFUL AND REORIENTS QUICKLY. BED IN LOW POSITION, CALL LIGHT IN REACH. HE IS ABLE TO MAKE NEEDS KNOWN.
[2023-07-24 19:58] VITALS: BP 125/70
[2023-07-25 03:36] VITALS: BP 133/89
--- NOTE | 2023-07-25 04:17 | NUR ---
SHIFT SUMMARY PT. IS A&O X3-4, COOPRATIVE WITH CARE, USES HUMOR AND SARCASM WITH THE STAFF, PLEASANT. PT. DENIES PAIN, SOB, OR DISCOMFORT. HS B, INSULIN ADMINISTERED ORDERED. TELLY:SINUS RHYTHM 75. CHANGED MEPILEX ON THE COCCYX AREA. NOTED PT. WAS WEAK NEEDING 2-3 PERSON ASSISTANCE (WITH GAITBELT AND FWW) WHEN ATTEMPTED TO STAND UP,AND TRASFER TO BEDSIDE COMMODE. PT.SPENT DEANGELO TIME SITTING IN THE CHAIR. PT. IS ABLE TO MAKE HIS NEEDS KNOWN. NO ACUTE EVENTS/DISTRESS NOTED/REPORTED DURING THIS SHIFT. BED AT THE LOWEST POSITION, CALL LIGHT WITHIN REACH. WILL PASS ON REPORT TO INCOMING SHIFT NURSE.
[2023-07-25 06:31] LABS: BASOPHILS ABSOLUTE AUTO 0.05 K/mm3 (0.00-0.23); BASOPHILS PERCENT AUTO 1 % (0-2); EOSINOPHILS ABSOLUTE AUTO 0.18 K/mm3 (0.00-0.68); EOSINOPHILS PERCENT AUTO 4 % (0-6); Hematocrit 40.1 % (37.0-53.0); IMMATURE GRAN ABSOLUTE AUTO 0.01 K/mm3 (0.00-0.10); IMMATURE GRAN PERCENT AUTO 0 % (0-1); LYMPHOCYTES ABSOLUTE AUTO 1.14 K/mm3 (0.84-5.20); LYMPHOCYTES PERCENT AUTO 28 % (21-46); MONOCYTES ABSOLUTE AUTO 0.68 K/mm3 (0.16-1.47); MONOCYTES PERCENT AUTO 16 % (4-13); Mean Corpuscular HGB 30.4 pg (26.0-34.0); Mean Corpuscular HGB Conc 34.9 g/dL (31.5-36.5); Mean Corpuscular Volume 87 fL (80-100); NEUTROPHILS ABSOLUTE AUTO 2.09 K/mm3 (1.96-9.15); NEUTROPHILS PERCENT AUTO 50 % (41-73); Platelet Count 124 K/mm3 (150-400); RDW Coefficient Variation 13.6 % (11.7-14.2); RDW Standard Deviation 43.8 fL (35.1-46.3); White Blood Cell Count 4.15 K/mm3 (4.00-11.30)
[2023-07-25 07:15] LABS: Albumin, Blood 2.8 g/dL (3.4-5.0); Albumin/Globulin Ratio 0.9 (0.8-1.8); Bilirubin, Total 0.8 mg/dL (0.1-1.0); Bun/Creatinine Ratio 20.8 (12.0-20.0); Calcium, Blood 8.8 mg/dL (8.5-10.1); Creatinine, Blood 1.2 mg/dL (0.60-1.20); Globulin, Blood 3.1 g/dL (2.2-4.0); Potassium, Blood 3.9 mmol/L (3.5-5.5); Total Protein, Blood 5.9 g/dL (6.4-8.2)
[2023-07-25 07:27] VITALS: BP 136/82
[2023-07-25] MEDS ORDERED: Insulin Glargine-Yfgn 100 Unit/mL 3 ML SYR SC SCH ×2 (09:00→21:00)
[2023-07-25 17:28] VITALS: BP 128/76
--- NOTE | 2023-07-25 18:26 | NUR ---
SHIFT SUMMARY PATIENT WITH NO C/O PAIN TODAY, HE IS UP 1 PERSON ASSIST TO RECLINER FOR LUNCH AND DINNER. NO ACUTE EVENTS DURING SHIFT. BED IN LOW POSITION, CHAIR ALARM ON, CALL LIGHT IN REACH. PATIENT ABLE TO MAKE NEEDS KNOWN.
[2023-07-25 19:43] VITALS: BP 128/86
[2023-07-26] MEDS ORDERED: Ondansetron 4 MG TAB PO PRN (00:35)
--- NOTE | 2023-07-26 01:09 | NUR ---
PT. PULLED IV OUT, RN. AND HOSPITALIST NOTIFIED. NEW ORDERS: - NO IV ACCESS NEEDED, D/C TELEMETRY. IV ABX CHANGED TO PO ABX.
--- NOTE | 2023-07-26 02:58 | NUR ---
PT. IS A&O X3, CONFUSED, ABLE TO MAKE HIS NEEDS KNOWN, AND PT.USES SARCASM WHEN COMMUNICATING WITH THE STAFF. PT. DENIES PAIN,SOB, DISCOMFORT,AND STATES"I JUST JOKE ABOUT IT." PT. WAS EDUCATED ON IMPORTANCE OF EFFECTIVE PAIN MANAGMENT BY THIS NURSE. HS B, INSULIN GIVEN ORDERED. APPROIMATELY 2300HRS, PT. TOOK OFF THE IV FROM HIS LEFT FOREARM, PLACING IT INTO HIS URINAL. RN NOTIFIED, AND CONTACTED DR. ABREU; ORDERS: D/C TELEMETRY, ROCEPHIN IV, AND ZOFRAN IV MEDS. NEW ORDERS: NO IV ACCESS NEEDED, PO ZOFRAN, AND PO ABX (SEE PREVIOUS PT.NOTE.) TELLY:SINUS RHYTH 73 WITH BUNDLE BRANCH BLOCK. NO ACUTE EVENTS/DISTRESS NOTED OR REPORTED DURING THIS SHIFT. BED AT THE LOWEST POSITION, CALL LIGHT IN REACH. WILL HANDOFF TO THE INCOMING SHIFT NURSE.
[2023-07-26 05:39] VITALS: BP 126/87
[2023-07-26 06:17] LABS: BASOPHILS ABSOLUTE AUTO 0.05 K/mm3 (0.00-0.23); BASOPHILS PERCENT AUTO 1 % (0-2); EOSINOPHILS ABSOLUTE AUTO 0.24 K/mm3 (0.00-0.68); EOSINOPHILS PERCENT AUTO 5 % (0-6); Hematocrit 37.7 % (37.0-53.0); Hemoglobin 13.3 g/dL (13.5-17.5); IMMATURE GRAN ABSOLUTE AUTO 0.02 K/mm3 (0.00-0.10); IMMATURE GRAN PERCENT AUTO 0 % (0-1); LYMPHOCYTES ABSOLUTE AUTO 1.51 K/mm3 (0.84-5.20); LYMPHOCYTES PERCENT AUTO 32 % (21-46); MONOCYTES PERCENT AUTO 13 % (4-13); Mean Corpuscular HGB 31.1 pg (26.0-34.0); Mean Corpuscular HGB Conc 35.3 g/dL (31.5-36.5); Mean Corpuscular Volume 88 fL (80-100); Mean Platelet Volume 10.6 fL (9.1-12.4); NEUTROPHILS ABSOLUTE AUTO 2.33 K/mm3 (1.96-9.15); NEUTROPHILS PERCENT AUTO 49 % (41-73); Platelet Count 151 K/mm3 (150-400); RDW Coefficient Variation 13.3 % (11.7-14.2); RDW Standard Deviation 43.2 fL (35.1-46.3); Red Blood Cell Count 4.28 M/mm3 (4.30-5.90); White Blood Cell Count 4.75 K/mm3 (4.00-11.30)
[2023-07-26 06:41] LABS: Albumin, Blood 2.8 g/dL (3.4-5.0); Albumin/Globulin Ratio 0.9 (0.8-1.8); Bilirubin, Total 0.8 mg/dL (0.1-1.0); Bun/Creatinine Ratio 18.8 (12.0-20.0); Calcium, Blood 8.5 mg/dL (8.5-10.1); Creatinine, Blood 1.28 mg/dL (0.60-1.20); Globulin, Blood 3.1 g/dL (2.2-4.0); Potassium, Blood 3.5 mmol/L (3.5-5.5); Total Protein, Blood 5.9 g/dL (6.4-8.2)
[2023-07-26 07:25] VITALS: BP 139/80
[2023-07-26] MEDS ORDERED: Cefdinir 300 MG Cap PO SCH (09:00)
[2023-07-26] MEDS ORDERED: CEFD300 PO (12:55)
--- NOTE | 2023-07-26 16:27 | NUR ---
REPORT GIVEN TO RN AT [facility].
--- NOTE | 2023-07-26 18:35 | NUR ---
PT DISCHARGED TO FACILITY. FOOD GIVEN TO PATIENT TO EAT BECAUSE THIS RN GAVE HIM INSULIN. I ALSO CALLED THE RN AT [facility] AND LET HER KNOW.
== END 2023-07-26 17:34 | DRG 871 ==
LOC: ER 20:39 → ERHOLD 20:40 → MEDS 20:40 → ERHOLD 20:40 → MEDS 07-23 01:16 → ENPENDDIS 07-25 15:40 → EDPENDDIS 07-25 15:40 → MEDS 07-25 22:29
PROVIDERS: Emergency Medicine; Family Medicine; ADMIT Internal Medicine
DX: A41.9 Sepsis, unspecified organism (principal); G92.8 Other toxic encephalopathy; I13.0 Hypertensive heart and chronic kidney disease with heart failure and stage 1 through stage 4 chronic kidney disease, or unspecified chronic kidney disease; I50.32 Chronic diastolic (congestive) heart failure; N17.9 Acute kidney failure, unspecified; N18.30 Chronic kidney disease, stage 3 unspecified; Z66 Do not resuscitate; I48.91 Unspecified atrial fibrillation; F03.90 Unspecified dementia, unspecified severity, without behavioral disturbance, psychotic disturbance, mood disturbance, and anxiety; E78.5 Hyperlipidemia, unspecified; E88.09 Other disorders of plasma-protein metabolism, not elsewhere classified; E11.65 Type 2 diabetes mellitus with hyperglycemia; E11.22 Type 2 diabetes mellitus with diabetic chronic kidney disease; Z88.1 Allergy status to other antibiotic agents; Z88.8 Allergy status to other drugs, medicaments and biological substances; Z91.018 Allergy to other foods; Z86.718 Personal history of other venous thrombosis and embolism; N40.0 Benign prostatic hyperplasia without lower urinary tract symptoms; Z79.4 Long term (current) use of insulin; Z79.899 Other long term (current) drug therapy; Z79.84 Long term (current) use of oral hypoglycemic drugs; E21.3 Hyperparathyroidism, unspecified
CPT/HCPCS: 0241U; 36415; 51701; 71045; 80053; 81001; 82010; 82803; 82947; 83605; 83880; 84145; 85025; 85610; 87040; 93005; 93010; 96361-59; 96365-59; 97116; 97162; 97166; 97530; 97535; 99285-25; A9270; G0378; J0696; J1650; J1815; J7030

== ENCOUNTER 2023-08-11 18:32 | Emergency (ER) | payer MEDICARE ==
[~2023-08-11] VITALS: Ht 188 cm; Wt 93.9 kg
[~2023-08-11 18:32] MED LIST changes: +CEFD300 PO
[2023-08-11 19:00] LABS: BASOPHILS ABSOLUTE AUTO 0.03 K/mm3 (0.00-0.23); BASOPHILS PERCENT AUTO 0 % (0-2); EOSINOPHILS ABSOLUTE AUTO 0.05 K/mm3 (0.00-0.68); EOSINOPHILS PERCENT AUTO 1 % (0-6); Hematocrit 40.4 % (37.0-53.0); IMMATURE GRAN ABSOLUTE AUTO 0.03 K/mm3 (0.00-0.10); IMMATURE GRAN PERCENT AUTO 0 % (0-1); LYMPHOCYTES PERCENT AUTO 27 % (21-46); MONOCYTES ABSOLUTE AUTO 0.54 K/mm3 (0.16-1.47); MONOCYTES PERCENT AUTO 7 % (4-13); Mean Corpuscular HGB 30.2 pg (26.0-34.0); Mean Corpuscular HGB Conc 34.7 g/dL (31.5-36.5); Mean Corpuscular Volume 87 fL (80-100); Mean Platelet Volume 10.1 fL (9.1-12.4); NEUTROPHILS ABSOLUTE AUTO 5.05 K/mm3 (1.96-9.15); NEUTROPHILS PERCENT AUTO 65 % (41-73); Platelet Count 296 K/mm3 (150-400); RDW Coefficient Variation 13.2 % (11.7-14.2); RDW Standard Deviation 41.4 fL (35.1-46.3); Red Blood Cell Count 4.63 M/mm3 (4.30-5.90)
[2023-08-11 19:20] LABS: Albumin, Blood 2.8 g/dL (3.4-5.0); Albumin/Globulin Ratio 0.7 (0.8-1.8); Bilirubin, Total 0.7 mg/dL (0.1-1.0); Bun/Creatinine Ratio 19.1 (12.0-20.0); Calcium, Blood 8.5 mg/dL (8.5-10.1); Creatinine, Blood 1.31 mg/dL (0.60-1.20); Globulin, Blood 4.3 g/dL (2.2-4.0); Total Protein, Blood 7.1 g/dL (6.4-8.2)
[2023-08-11 21:39] LABS: Source, Urine Voided
[2023-08-11 21:45] LABS: Bilirubin, Urine Neg (Neg); Blood, Urine 2+ (Neg); Glucose Qualitative, Urine Neg (Neg); Ketones, Urine 2+ (Neg); Leukocyte Esterase, Urine Neg (Neg); Nitrite, Urine Neg (Neg); Protein, Urine 4+ (Neg); Specific Gravity, Urine 1.025 (1.003-1.022); Urobilinogen, Urine NORM (Normal)
[2023-08-11 21:51] LABS: Appearance, Urine Clear (Clear); Color, Urine Yellow (P-Yellow)
[2023-08-11 21:52] LABS: Amorphous Light (0-Heavy); Bacteria Rare /hpf; Hyaline Casts 0-2 /lpf (0-2); Red Blood Cells, Urine 0-2 /hpf (0-2); Squamous Epithelial Cells Rare /hpf (Few); White Blood Cells, Urine Not Seen /hpf (0-5)
[2023-08-11 23:00] VITALS: BP 126/91
== END 2023-08-12 01:23 | disposition home or self-care (01) ==
LOC: ER 18:32
PROVIDERS: Emergency Medicine
DX: S09.90XA Unspecified injury of head, initial encounter (principal); E11.22 Type 2 diabetes mellitus with diabetic chronic kidney disease; I12.9 Hypertensive chronic kidney disease with stage 1 through stage 4 chronic kidney disease, or unspecified chronic kidney disease; N18.2 Chronic kidney disease, stage 2 (mild); W18.30XA Fall on same level, unspecified, initial encounter; Z88.0 Allergy status to penicillin; Z88.8 Allergy status to other drugs, medicaments and biological substances; Z91.018 Allergy to other foods; Z79.4 Long term (current) use of insulin; Z79.84 Long term (current) use of oral hypoglycemic drugs; Z79.01 Long term (current) use of anticoagulants
CPT/HCPCS: 51701; 51798; 70450; 80053; 81001; 84484; 85025

== ENCOUNTER 2024-06-17 13:58 | Emergency (ER) | payer MEDICARE, OTHER ==
[~2024-06-17] VITALS: Ht 198.1 cm; Wt 99.8 kg
[2024-06-17 15:07] LABS: BASOPHILS ABSOLUTE AUTO 0.09 K/mm3 (0.00-0.23); BASOPHILS PERCENT AUTO 1 % (0-2); EOSINOPHILS ABSOLUTE AUTO 0.08 K/mm3 (0.00-0.68); EOSINOPHILS PERCENT AUTO 1 % (0-6); Hematocrit 43.4 % (37.0-53.0); Hemoglobin 15.1 g/dL (13.5-17.5); IMMATURE GRAN ABSOLUTE AUTO 0.12 K/mm3 (0.00-0.10); IMMATURE GRAN PERCENT AUTO 1 % (0-1); LYMPHOCYTES ABSOLUTE AUTO 0.85 K/mm3 (0.84-5.20); LYMPHOCYTES PERCENT AUTO 6 % (21-46); MONOCYTES ABSOLUTE AUTO 0.84 K/mm3 (0.16-1.47); MONOCYTES PERCENT AUTO 6 % (4-13); Mean Corpuscular HGB 30.3 pg (26.0-34.0); Mean Corpuscular HGB Conc 34.8 g/dL (31.5-36.5); Mean Corpuscular Volume 87 fL (80-100); NEUTROPHILS ABSOLUTE AUTO 11.59 K/mm3 (1.96-9.15); NEUTROPHILS PERCENT AUTO 85 % (41-73); Platelet Count 251 K/mm3 (150-400); RDW Coefficient Variation 12.8 % (11.7-14.2); RDW Standard Deviation 40.4 fL (35.1-46.3); Red Blood Cell Count 4.99 M/mm3 (4.30-5.90); White Blood Cell Count 13.57 K/mm3 (4.00-11.30)
[2024-06-17 15:25] LABS: Bun/Creatinine Ratio 23.3 (12.0-20.0); Creatinine, Blood 1.89 mg/dL (0.60-1.20)
[2024-06-17] MEDS ORDERED: NS 1,000 ML IV SCH (16:40)
[2024-06-17 17:22] LABS: Base Excess Venous 1.7 mmol/L; Bicarbonate Venous 24.4 mmol/L (24.0-30.0); PCO2 Venous 49.9 mmHg (38-42); pH Blood Venous 7.35 (7.34-7.37)
[2024-06-17 18:30] VITALS: BP 114/66
== END 2024-06-17 21:00 | disposition home or self-care (01) ==
LOC: ER 13:58
PROVIDERS: Emergency Medicine
DX: L60.8 Other nail disorders (principal); E87.1 Hypo-osmolality and hyponatremia; R79.89 Other specified abnormal findings of blood chemistry; E11.65 Type 2 diabetes mellitus with hyperglycemia; I12.9 Hypertensive chronic kidney disease with stage 1 through stage 4 chronic kidney disease, or unspecified chronic kidney disease; N18.2 Chronic kidney disease, stage 2 (mild); I48.91 Unspecified atrial fibrillation; M19.90 Unspecified osteoarthritis, unspecified site; Z88.8 Allergy status to other drugs, medicaments and biological substances; Z88.1 Allergy status to other antibiotic agents; Z91.018 Allergy to other foods; Z79.4 Long term (current) use of insulin; Z79.84 Long term (current) use of oral hypoglycemic drugs; Z79.899 Other long term (current) drug therapy
CPT/HCPCS: 80048; 82010; 82803; 82947; 85025; 93925; 96360; 99284-25; J7030

== ENCOUNTER 2024-06-19 09:54 | Observation (INO) | payer OTHER, MEDICARE ==
[~2024-06-19] VITALS: Ht 190.5 cm; Wt 111.0 kg
[2024-06-19] MEDS ORDERED: Meropenem 1,000 MG in NS 100 ML IV ONE (10:30)
[2024-06-19 10:37] LABS: BASOPHILS ABSOLUTE AUTO 0.06 K/mm3 (0.00-0.23); BASOPHILS PERCENT AUTO 1 % (0-2); EOSINOPHILS ABSOLUTE AUTO 0.09 K/mm3 (0.00-0.68); EOSINOPHILS PERCENT AUTO 1 % (0-6); Hematocrit 40.3 % (37.0-53.0); Hemoglobin 14.2 g/dL (13.5-17.5); IMMATURE GRAN ABSOLUTE AUTO 0.06 K/mm3 (0.00-0.10); IMMATURE GRAN PERCENT AUTO 1 % (0-1); LYMPHOCYTES ABSOLUTE AUTO 0.73 K/mm3 (0.84-5.20); LYMPHOCYTES PERCENT AUTO 6 % (21-46); MONOCYTES ABSOLUTE AUTO 0.76 K/mm3 (0.16-1.47); MONOCYTES PERCENT AUTO 7 % (4-13); Mean Corpuscular HGB 29.6 pg (26.0-34.0); Mean Corpuscular HGB Conc 35.2 g/dL (31.5-36.5); Mean Corpuscular Volume 84 fL (80-100); Mean Platelet Volume 10.5 fL (9.1-12.4); NEUTROPHILS ABSOLUTE AUTO 9.98 K/mm3 (1.96-9.15); NEUTROPHILS PERCENT AUTO 85 % (41-73); Platelet Count 246 K/mm3 (150-400); RDW Coefficient Variation 12.4 % (11.7-14.2); RDW Standard Deviation 37.8 fL (35.1-46.3); Red Blood Cell Count 4.79 M/mm3 (4.30-5.90); White Blood Cell Count 11.68 K/mm3 (4.00-11.30)
[2024-06-19] MEDS ORDERED: Acetaminophen 500 MG Tab PO ONE (10:45)
[2024-06-19 11:06] LABS: Albumin, Blood 3.1 g/dL (3.4-5.0); Albumin/Globulin Ratio 0.8 (0.8-1.8); Bilirubin, Total 1.1 mg/dL (0.1-1.0); Bun/Creatinine Ratio 25.2 (12.0-20.0); Calcium, Blood 8.5 mg/dL (8.5-10.1); Creatinine, Blood 1.43 mg/dL (0.60-1.20); Globulin, Blood 4.1 g/dL (2.2-4.0); Magnesium, Blood 1.9 mg/dL (1.6-2.4); Phosphorus, Blood 2.4 mg/dL (2.5-4.9); Potassium, Blood 3.8 mmol/L (3.5-5.5); Total Protein, Blood 7.2 g/dL (6.4-8.2)
[2024-06-19 13:51] LABS: Anti-Xa UFH, PHA Monitoring <0.10 IU/mL; International Normalized Ratio 1.01; Prothrombin Time Results 10.8 Sec (9.7-11.5)
[2024-06-19] MEDS ORDERED: FLU VACC TS2024-25(6MOS UP)/PF 45 MCG/0.5 ML SYRINGE IM ONE (13:55)
[2024-06-19] MEDS ORDERED: Heparin Sodium 1000 Units/ML 10ML MDV ONE ×3 (16:29→19:01)
[2024-06-19] MEDS ORDERED: NS 1,000 ML IV ONE ×2 (16:29→17:43)
[2024-06-19] MEDS ORDERED: Heparin Sodium,Porcine/0.5 NS 500 ML IV SCH (16:35)
[2024-06-19] MEDS ORDERED: Heparin Sodium 5000 Units/ML 1ML MDV IV ONE (16:35)
[2024-06-19] MEDS ORDERED: BUME2 PO (17:01)
[2024-06-19] MEDS ORDERED: LOSA50 PO (17:02)
[2024-06-19] MEDS ORDERED: STEGLATRO15 MG PO (17:03)
[2024-06-19] MEDS ORDERED: Potassium Phosphate Dibasic 10 MM in Dextrose 5% 250 ML IV STA (17:30)
[2024-06-19] MEDS ORDERED: Midazolam HCl 1MG / ML 2ML Vial ONE ×2 (17:43→17:44)
[2024-06-19] MEDS ORDERED: FentaNYL Citrate 50 MCG/ML 2 ML Injection ONE (17:43)
[2024-06-19] MEDS ORDERED: Meropenem 1,000 MG in NS 100 ML IV SCH ×2 (18:00→21:00)
[2024-06-19] MEDS ORDERED: Insulin Regular 100 UNIT/ML 10ML Vial SC SCH ×2 (18:00)
[2024-06-19] MEDS ORDERED: NS 500 ML IV ONE (19:01)
--- NOTE | 2024-06-19 19:09 | NUR ---
SHIFT SUMMARY: PATIENT CAME TO UNIT FROM EMERGENCY ROOM. PATIENT IS ALERT AND ORIETNED X3, NOT ABLE TO GIVE ME THE DATE. HAS CAREGIVER AT BEDSIDE UPON ARRIVAL. PATIENT IS ON TELE UPON ARRIVAL SHOWING SINUS TACH WITH RATE 112, SATTING >92% ON ROOM AIR. PATIENT DENIED CHEST PAIN/PRESSURE OR FEELING SHORT OF BREATH THROUGHOUT SHIFT. PATIENT IS CONTINTEN, WITH A PUREWICK PLACED. PATIENT HAS SEVERAL SORES ON COCCYX AND CREAM WAS PLACED. A HEPARIN DRIP WAS STARTED AND PATIENT WAS TAKEN TO SAMPLE BODY BUILDER. PATIENT IS Q6 BLOOD SUGAR CHECKS AND ON A MEDIUM SLIDING SCALE. MED REC WAS COMPLETED PER THE PATIENT RECORDS FROM [facility]. PATIENT IS CURRENTLY IN THE SAMPLE BODY BUILDER.
[2024-06-19 20:34] VITALS: BP 148/80
[2024-06-19] MEDS ORDERED: Insulin Glargine-Yfgn 100 Unit/mL 3 ML SYR SC SCH (21:00)
[2024-06-19] MEDS ORDERED: Lactobacil 2-S.Thermo-Bifido 1 1 Cap PO SCH (21:00)
[2024-06-19 23:22] LABS: BASOPHILS ABSOLUTE AUTO 0.08 K/mm3 (0.00-0.23); BASOPHILS PERCENT AUTO 1 % (0-2); EOSINOPHILS ABSOLUTE AUTO 0.11 K/mm3 (0.00-0.68); EOSINOPHILS PERCENT AUTO 1 % (0-6); Hematocrit 39.5 % (37.0-53.0); Hemoglobin 13.9 g/dL (13.5-17.5); IMMATURE GRAN ABSOLUTE AUTO 0.06 K/mm3 (0.00-0.10); IMMATURE GRAN PERCENT AUTO 1 % (0-1); LYMPHOCYTES ABSOLUTE AUTO 1.25 K/mm3 (0.84-5.20); LYMPHOCYTES PERCENT AUTO 13 % (21-46); MONOCYTES ABSOLUTE AUTO 0.77 K/mm3 (0.16-1.47); MONOCYTES PERCENT AUTO 8 % (4-13); Mean Corpuscular HGB 30.3 pg (26.0-34.0); Mean Corpuscular HGB Conc 35.2 g/dL (31.5-36.5); Mean Corpuscular Volume 86 fL (80-100); Mean Platelet Volume 10.5 fL (9.1-12.4); NEUTROPHILS ABSOLUTE AUTO 7.24 K/mm3 (1.96-9.15); NEUTROPHILS PERCENT AUTO 76 % (41-73); Platelet Count 229 K/mm3 (150-400); RDW Coefficient Variation 12.5 % (11.7-14.2); RDW Standard Deviation 39.2 fL (35.1-46.3); Red Blood Cell Count 4.59 M/mm3 (4.30-5.90); White Blood Cell Count 9.51 K/mm3 (4.00-11.30)
[2024-06-19 23:46] LABS: Bun/Creatinine Ratio 21.3 (12.0-20.0); Calcium, Blood 8.5 mg/dL (8.5-10.1); Creatinine, Blood 1.41 mg/dL (0.60-1.20); Potassium, Blood 3.5 mmol/L (3.5-5.5)
[2024-06-20 00:31] VITALS: BP 142/66
[2024-06-20 03:00] VITALS: BP 148/75
[2024-06-20 03:18] LABS: BASOPHILS ABSOLUTE AUTO 0.09 K/mm3 (0.00-0.23); BASOPHILS PERCENT AUTO 1 % (0-2); EOSINOPHILS ABSOLUTE AUTO 0.21 K/mm3 (0.00-0.68); EOSINOPHILS PERCENT AUTO 2 % (0-6); Hematocrit 38.4 % (37.0-53.0); Hemoglobin 13.3 g/dL (13.5-17.5); IMMATURE GRAN ABSOLUTE AUTO 0.06 K/mm3 (0.00-0.10); IMMATURE GRAN PERCENT AUTO 1 % (0-1); LYMPHOCYTES ABSOLUTE AUTO 1.69 K/mm3 (0.84-5.20); LYMPHOCYTES PERCENT AUTO 19 % (21-46); MONOCYTES ABSOLUTE AUTO 0.83 K/mm3 (0.16-1.47); MONOCYTES PERCENT AUTO 9 % (4-13); Mean Corpuscular HGB 29.8 pg (26.0-34.0); Mean Corpuscular HGB Conc 34.6 g/dL (31.5-36.5); Mean Corpuscular Volume 86 fL (80-100); Mean Platelet Volume 10.5 fL (9.1-12.4); NEUTROPHILS ABSOLUTE AUTO 6.21 K/mm3 (1.96-9.15); NEUTROPHILS PERCENT AUTO 68 % (41-73); Platelet Count 240 K/mm3 (150-400); RDW Coefficient Variation 12.4 % (11.7-14.2); Red Blood Cell Count 4.47 M/mm3 (4.30-5.90); White Blood Cell Count 9.09 K/mm3 (4.00-11.30)
[2024-06-20] MEDS ORDERED: Dose Adjust by Pharmacy XX STA (04:19)
--- NOTE | 2024-06-20 04:26 | NUR ---
SHIFT SUMMARY PT ARRIVED BACK FROM [facility] [employer] [facility] @ 2029. VSS ON RA. FLOW STASIS DEVICES CDI ON BILAT KNEES. PT REMAINED SUPINE FOR OVER AN HOUR. RAISED HEAD OF BED FOR SIPS OF WATER (CLARIFIED WITH RESIDENT) HOWEVER REMAINED NPO AND CONTINUED Q6HR CBGs. REMAINED BELOW 300 AND CORRECTED ACCORDING TO EMAR. PT REMAINS BEDREST WITH Q2HR TURNS. BED SORES NOTED AND MEPILEX PLACED WITH NYSTATIN POWDER ORDERED. HEPARIN CONTINUOUSLY RUNNING PER ORDERS. PT ALERT HOWEVER VERY FORGETFUL AND ORIENTED TO ALL BESIDES TIME AND DATE. NO FURTHER QUESTIONS OR CONCERNS AT THIS TIME. BED ALARM SET WITH CALL MADRIGAL WITHIN REACH. WILL CONTINUE WITH PLAN OF CARE.
[2024-06-20 04:42] LABS: Bun/Creatinine Ratio 22.3 (12.0-20.0); Calcium, Blood 8.6 mg/dL (8.5-10.1); Creatinine, Blood 1.39 mg/dL (0.60-1.20); Potassium, Blood 3.2 mmol/L (3.5-5.5)
[2024-06-20] MEDS ORDERED: Miconazole Nitrate 2% 85 GM PWD TOP SCH (05:20)
[2024-06-20] MEDS ORDERED: Potassium Chloride 40 MEQ in NS 250 ML IV ONE (05:20)
[2024-06-20] MEDS ORDERED: Nystatin 100,000 Unit/GM CREAM 15 GM TOP PRN (05:45)
[2024-06-20 07:30] VITALS: BP 149/81
[2024-06-20] MEDS ORDERED: Empagliflozin 10 MG TAB PO SCH (09:00)
[2024-06-20] MEDS ORDERED: Losartan Potassium 50 MG Tab PO SCH (09:00)
[2024-06-20] MEDS ORDERED: Bumetanide 1 MG Tab PO SCH (09:00)
[2024-06-20] MEDS ORDERED: Rivaroxaban 10 MG Tab PO SCH (10:35)
[2024-06-20 11:24] VITALS: BP 141/79
[2024-06-20] MEDS ORDERED: Insulin Human Lispro 100 Units/ML 3ML Syringe SC SCH (11:30)
[2024-06-20] MEDS ORDERED: BACTRIM DS TAB1 EAC6 PO (13:36)
[2024-06-20] MEDS ORDERED: NYSTATIN15 GM TOP (13:52)
[2024-06-20] MEDS ORDERED: VISBIOME 112.51 EACH PO (14:04)
[2024-06-20] MEDS ORDERED: XARELTO15 MG PO (14:04)
[2024-06-20] MEDS ORDERED: XARELTO20 MG PO (14:05)
--- NOTE | 2024-06-20 15:15 | NUR ---
Shift Summary Pt alert, oriented x2-3; irritabile at times. Pt able to make needs known. Pt denies pain, chest pain/pressure, sob, nasuea, dizziness and numb/tingling. Tele sinus, bp stable. Pt pulling tele off repeatedly, notified Dr Landa, ok to keep off. Sp2o >90% on ra, breathing even and unlabored. Abd distended, soft, nontender, +bt. Flowstatis in bilateral popliteal, medical lab director rn to room to remove, placed pressure dressing on this am, removed this afternoon and replaced with tegaderm dressing. Vss. No other acute changes noted. Pt and caregiver educated on discharge instructions, follow up appointments, wound care and medications. LOVE Rogers from [facility] assessed patient to be able to go back to the facility, she approved and was provided a copy of medications list. Pt left via wheelchair at 1515.
[2024-06-20] MEDS ORDERED: Arginine/Glutamine/Calcium Hmb 1 Packet PO SCH (21:00)
== END 2024-06-20 15:14 | disposition home or self-care (01) ==
LOC: ER 09:54 → PCU 09:55 → ER 13:56 → PCU 13:56 → UNDODEPER 06-20 20:38
PROVIDERS: Pharmacist; Student in an Organized Health Care Education/Training Program; ADMIT Family Medicine
DX: I26.99 Other pulmonary embolism without acute cor pulmonale (principal); I82.220 Acute embolism and thrombosis of inferior vena cava; I82.412 Acute embolism and thrombosis of left femoral vein; E11.65 Type 2 diabetes mellitus with hyperglycemia; K76.89 Other specified diseases of liver; N28.1 Cyst of kidney, acquired; K80.20 Calculus of gallbladder without cholecystitis without obstruction; N40.0 Benign prostatic hyperplasia without lower urinary tract symptoms; I12.9 Hypertensive chronic kidney disease with stage 1 through stage 4 chronic kidney disease, or unspecified chronic kidney disease; E11.22 Type 2 diabetes mellitus with diabetic chronic kidney disease; N18.2 Chronic kidney disease, stage 2 (mild); E78.00 Pure hypercholesterolemia, unspecified; I48.91 Unspecified atrial fibrillation; Z66 Do not resuscitate; Z79.4 Long term (current) use of insulin; Z79.84 Long term (current) use of oral hypoglycemic drugs; Z79.899 Other long term (current) drug therapy; Z88.0 Allergy status to penicillin; Z88.1 Allergy status to other antibiotic agents; Z88.8 Allergy status to other drugs, medicaments and biological substances; Z91.018 Allergy to other foods
CPT/HCPCS: 36415; 37187; 37191; 37193; 37248; 74177; 75820; 75825; 76937; 80048; 80053; 82947; 83605; 83735; 83880; 84100; 84484; 85025; 85520; 85610; 85730; 87040; 93005; 93010; 93306; 96365-59; 99152; 99153; 99285-25; A9270; C1725; C1757; C1769; C1887; C1894; G0378; J1644; J1815; J2185; J2250; J3010; J3480; J7030; J7040; J7050; J7060; Q9967

== ENCOUNTER 2024-06-30 18:50 | Inpatient (IN) | payer OTHER, MEDICARE ==
[~2024-06-30] VITALS: Ht 190.5 cm; Wt 111.8 kg
[~2024-06-30 18:50] MED LIST changes: +BACTRIM DS TAB1 EAC6 PO; +BUME2 PO; +LOSA50 PO; +NS 1,000 ML IV ONE; +NYSTATIN15 GM TOP; +STEGLATRO15 MG PO; +VISBIOME 112.51 EACH PO; +XARELTO15 MG PO
[2024-06-30 19:29] LABS: BASOPHILS ABSOLUTE AUTO 0.08 K/mm3 (0.00-0.23); BASOPHILS PERCENT AUTO 1 % (0-2); EOSINOPHILS ABSOLUTE AUTO 0.15 K/mm3 (0.00-0.68); EOSINOPHILS PERCENT AUTO 1 % (0-6); Hematocrit 36.7 % (37.0-53.0); Hemoglobin 12.7 g/dL (13.5-17.5); IMMATURE GRAN ABSOLUTE AUTO 0.05 K/mm3 (0.00-0.10); IMMATURE GRAN PERCENT AUTO 0 % (0-1); LYMPHOCYTES ABSOLUTE AUTO 1.74 K/mm3 (0.84-5.20); LYMPHOCYTES PERCENT AUTO 16 % (21-46); MONOCYTES ABSOLUTE AUTO 0.74 K/mm3 (0.16-1.47); MONOCYTES PERCENT AUTO 7 % (4-13); Mean Corpuscular HGB 29.5 pg (26.0-34.0); Mean Corpuscular HGB Conc 34.6 g/dL (31.5-36.5); Mean Corpuscular Volume 85 fL (80-100); Mean Platelet Volume 10.1 fL (9.1-12.4); NEUTROPHILS ABSOLUTE AUTO 8.39 K/mm3 (1.96-9.15); NEUTROPHILS PERCENT AUTO 75 % (41-73); Platelet Count 472 K/mm3 (150-400); RDW Coefficient Variation 12.8 % (11.7-14.2); RDW Standard Deviation 39.9 fL (35.1-46.3); Red Blood Cell Count 4.31 M/mm3 (4.30-5.90); White Blood Cell Count 11.15 K/mm3 (4.00-11.30)
[2024-06-30 20:03] LABS: Albumin, Blood 3.3 g/dL (3.4-5.0); Albumin/Globulin Ratio 0.8 (0.8-1.8); Bilirubin, Total 0.4 mg/dL (0.1-1.0); Bun/Creatinine Ratio 15.7 (12.0-20.0); Calcium, Blood 8.9 mg/dL (8.5-10.1); Creatinine, Blood 3.06 mg/dL (0.60-1.20); Globulin, Blood 4.4 g/dL (2.2-4.0); Potassium, Blood 4.7 mmol/L (3.5-5.5); Total Protein, Blood 7.7 g/dL (6.4-8.2)
[2024-06-30] MEDS ORDERED: Heparin Sodium,Porcine/0.5 NS 500 ML IV SCH (22:45)
[2024-06-30 22:59] LABS: International Normalized Ratio 1.23
[2024-06-30 23:04] LABS: Anti-Xa UFH, PHA Monitoring >1.50 IU/mL
[2024-06-30 23:48] LABS: Magnesium, Blood 2.1 mg/dL (1.6-2.4)
[2024-07-01] VITALS (7 sets, daily range): BP systolic 108–136; BP diastolic 66–84
[2024-07-01 00:35] LABS: Alpha Feto Protein, Tumor Mkr 1.1 ng/mL (0.0-8.0); Cancer Antigen 125 24.1 U/mL (1.5-35.0); Cancer Antigen 19-9 43.1 U/mL (2.0-37.0); Carcinoembryonic Antigen 1.6 ng/mL (0.0-3.0)
[2024-07-01] MEDS ORDERED: NS 1,000 ML IV ONE (01:45)
--- NOTE | 2024-07-01 04:25 | NUR ---
PT ARRIVED TO UNIT AT 00:05 ON 07/01/2024 IN STABLE CONDITION. A&OX4, VSS, ON RA, NO COMPLAINTS OF PAIN OR CHEST PRESSURE, BP AND ALL VSS WDL. HR IN SR WITH RBBB. PT POOR HISTORIAN BUT IS PLEASANT AND HAS A DRY BUT FUNNY SENSE OF HUMOR. PICTURES TAKEN OF SKIN BREAKDOWN IN GROIN AREA AND BUTTOCKS DUE TO INCONTINENCE (MOST LIKELY). NO OTHER SKIN ISSUES NOTED. IVF & HEPARIN GTT RUNNING AT 18U/KG/HR (REFER TO MAY). LABS SCHEDULED AT 0600 FOR HEPARIN AND OTHER LABS ORDERED. PT POOR HISTORIAN AT TIMES, MEDS MARKED FOR REVIEW (IE. XARELTO AND DOSAGE BEING TAKEN, AND BUMEX). NO SIGNS OF BLEEDING PRESENT FROM HEPARIN GTT, BILATERAL DVTS AND REDNESS SITES OUTLINED, PT REMAINS NPO, KEPT ON BED REST DUE TO PTS ADMIT DX AND PT FEELING TIRED. ORIENTED TO CALL LIGHT AND ROOM, ABLE TO TURN ON TV AND DEMONSTRATE APPROPRIATE USAGE OF CALL LIGHT. PT APPEARED FRUSTRATED DURING SHIFT PER REPORT FROM OTHER RN WHO ENTERED ROOM WHILE THIS RN (LICENSED PRACTICAL NURSE) WAS ON BREAK, PT SAID HE WANTED TO "GO HOME AND GET OUT OF HERE," BUT NO OTHER COMMENTS HAVE BEEN MADE SINCE 0230. PRIMARY RN (LICENSED PRACTICAL NURSE) DID NOT WITNESS THESE COMMENTS. MALE PUREWICK WDL AND INTACT, PT EDUCATED ON THAT. BELONGINGS TO REMAIN W/ PT PER HIS REQUEST, SHIRT/PANTS/CLOTHES/WALLET/JEWELERY (IE. WATCH/RING/NECKLACE) AND TRULY NO CONCERNS AT THIS TIME.
--- NOTE | 2024-07-01 04:32 | NUR ---
MD ORDERS CARRIED OUT INCLUDING Q6 BG CHECKS DUE TO PT BEING NPO. WILL WAIT FOR AM LABS AND BG AT 0600 TO ADJUST MEDICATIONS AND CONTINUE PLAN OF CARE.
[2024-07-01 06:30] LABS: BASOPHILS PERCENT AUTO 1 % (0-2); EOSINOPHILS ABSOLUTE AUTO 0.25 K/mm3 (0.00-0.68); EOSINOPHILS PERCENT AUTO 2 % (0-6); Hematocrit 35.4 % (37.0-53.0); Hemoglobin 12.2 g/dL (13.5-17.5); IMMATURE GRAN ABSOLUTE AUTO 0.07 K/mm3 (0.00-0.10); IMMATURE GRAN PERCENT AUTO 1 % (0-1); LYMPHOCYTES ABSOLUTE AUTO 2.84 K/mm3 (0.84-5.20); LYMPHOCYTES PERCENT AUTO 26 % (21-46); MONOCYTES ABSOLUTE AUTO 0.92 K/mm3 (0.16-1.47); MONOCYTES PERCENT AUTO 8 % (4-13); Mean Corpuscular HGB 29.8 pg (26.0-34.0); Mean Corpuscular HGB Conc 34.5 g/dL (31.5-36.5); Mean Corpuscular Volume 86 fL (80-100); Mean Platelet Volume 9.8 fL (9.1-12.4); NEUTROPHILS ABSOLUTE AUTO 6.94 K/mm3 (1.96-9.15); NEUTROPHILS PERCENT AUTO 63 % (41-73); Platelet Count 404 K/mm3 (150-400); White Blood Cell Count 11.12 K/mm3 (4.00-11.30)
[2024-07-01 06:55] LABS: Albumin/Globulin Ratio 0.7 (0.8-1.8); Bilirubin, Total 0.5 mg/dL (0.1-1.0); Bun/Creatinine Ratio 15.5 (12.0-20.0); Calcium, Blood 8.8 mg/dL (8.5-10.1); Creatinine, Blood 3.04 mg/dL (0.60-1.20); Globulin, Blood 4.1 g/dL (2.2-4.0); Phosphorus, Blood 4.3 mg/dL (2.5-4.9); Potassium, Blood 4.1 mmol/L (3.5-5.5); Total Protein, Blood 7.1 g/dL (6.4-8.2)
[2024-07-01] MEDS ORDERED: Dose Adjust by Pharmacy XX STA ×2 (07:07→13:48)
--- NOTE | 2024-07-01 09:55 | NUR ---
Pt. is awake and sitting in a chair. Pt. is known to this diffuser operator form previous hospitalizations. Facilitate a life review and re-establish rapport. Pt. displays evidence of a good memory and a pleasant dispostion. Pt. is a bit unsettled about his unknown diagnosis. Seek to normalize the pt. experience. Prayed with the Pt. and assured him that this diffuser operator would be checking on him.
[2024-07-01] MEDS ORDERED: ANTIFUNGAL30 GM TOP (11:39)
[2024-07-01] MEDS ORDERED: VISBIOME 112.51 EACH PO (11:40)
[2024-07-01] MEDS ORDERED: CeFAZolin Sodium 1,000 MG in NS 50 ML IV SCH (16:00)
[2024-07-01] MEDS ORDERED: Insulin Regular 100 UNIT/ML 10ML Vial SC SCH ×2 (16:30)
--- NOTE | 2024-07-01 16:55 | NUR ---
SHIFT SUMMARY: PT ALERT, ANSWERING QUESTIONS APPROPRIATELY, ORIENTED TO SELF, LOCATION, SITUATION. PT IS POOR HISTORIAN RE: HOME MEDICATIONS, MED LIST OBTAINED [facility] THIS SHIFT AND MED REC COMPLETED. PT DENIES SOB, O2 SATS >93% ON RA. LUNG PERFUSION STUDY COMPLETED THIS SHIFT. PT DENIES CHEST PAIN/PRESSURE, SR W/BBB ON MONITOR W/RATE 70s-80s. BLE RED AND EDEMATOUS, PULSES STRONG AND PALPABLE. IR CONSULT AT BEDSIDE THIS SHIFT, NO NEW ORDERS. MALE PUREWICK IN PLACE FOR INCONTINENCE. HEPARIN INFUSING PER ORDERS. PT HAS BEEN 1P ASSIST WHEN TRANSFERING TO/FROM BED OR CHAIR. PT RESTING IN BED, CALL LIGHT IN REACH.
[2024-07-01] MEDS ORDERED: Insulin Glargine-Yfgn 100 Unit/mL 3 ML SYR SC SCH (21:00)
[2024-07-02] MEDS ORDERED: Dose Adjust by Pharmacy XX STA ×3 (02:56→18:17)
[2024-07-02 03:18] VITALS: BP 125/73
--- NOTE | 2024-07-02 04:10 | NUR ---
ASSUMED CARE OF THIS PATIENT AT 0300 RN JAMES GAVE REPORT TO THIS RN. PATIENT 0400 VITALS STABLE, SECOND IV PLACED FOR IV ABX INFUSING NOW PER EMAR. HEPARIN GTT INFUSING PER EMAR, RATE CHANGED TO 19 UNIT/KG/HR PER PHARMACY. CALL LIGHT IN REACH, BED IN LOWEST POSTION BED ALARM ON. WILL CONTINUE WITH PLAN OF CARE AND REPORT TO ONCOMING RN.
[2024-07-02 08:00] VITALS: BP 125/74
[2024-07-02 09:36] LABS: BASOPHILS ABSOLUTE AUTO 0.08 K/mm3 (0.00-0.23); BASOPHILS PERCENT AUTO 1 % (0-2); EOSINOPHILS ABSOLUTE AUTO 0.19 K/mm3 (0.00-0.68); EOSINOPHILS PERCENT AUTO 2 % (0-6); Hematocrit 32.1 % (37.0-53.0); Hemoglobin 11.3 g/dL (13.5-17.5); IMMATURE GRAN ABSOLUTE AUTO 0.04 K/mm3 (0.00-0.10); IMMATURE GRAN PERCENT AUTO 0 % (0-1); LYMPHOCYTES ABSOLUTE AUTO 1.34 K/mm3 (0.84-5.20); LYMPHOCYTES PERCENT AUTO 14 % (21-46); MONOCYTES ABSOLUTE AUTO 0.61 K/mm3 (0.16-1.47); MONOCYTES PERCENT AUTO 7 % (4-13); Mean Corpuscular HGB 29.7 pg (26.0-34.0); Mean Corpuscular HGB Conc 35.2 g/dL (31.5-36.5); Mean Corpuscular Volume 85 fL (80-100); Mean Platelet Volume 9.8 fL (9.1-12.4); NEUTROPHILS ABSOLUTE AUTO 7.04 K/mm3 (1.96-9.15); NEUTROPHILS PERCENT AUTO 76 % (41-73); Platelet Count 393 K/mm3 (150-400); RDW Coefficient Variation 12.8 % (11.7-14.2)
[2024-07-02 09:46] LABS: Hematocrit 32.6 % (37.0-53.0); Hemoglobin 11.4 g/dL (13.5-17.5); Mean Platelet Volume 10.1 fL (9.1-12.4); Platelet Count 401 K/mm3 (150-400)
[2024-07-02 09:56] LABS: C-REACTIVE PROTEIN, EXT RANGE 3.67 mg/dL (0.000-0.300)
[2024-07-02 09:57] LABS: Bun/Creatinine Ratio 15.6 (12.0-20.0); Calcium, Blood 8.8 mg/dL (8.5-10.1); Creatinine, Blood 2.69 mg/dL (0.60-1.20); Potassium, Blood 4.2 mmol/L (3.5-5.5)
--- NOTE | 2024-07-02 10:12 | NUR ---
NURSING PCU DAYSHIFT: Assumed care of pt at approx 0700. Alert, fairly oriented though forgetful at times and can be a poor historian. Cooperative w/care at this time. Skin is fragile w/scattered bruising, redness to cynthia area possibly d/t incontinence related irritation, BLE red w/borders marked for monitoring. Denies any pain/discomfort at this time. Tele in place, NSR w/BBB, no c/o CP/pressure, SBP 125, nonpitting BLE edema. L/S fairly cta t/o w/dim bases, O2 sat mid 90's on RA though pt requests that NC remains in place while off, occ CONTAINER FINISHING INSPECTOR cough. Abd mildly distended, BT+, incontinent of urine, PW in place collecting yellow urine. PIV x2, hep gtt infusing as per pharmacy dosing. No s/s of acute distress at this time. Seen by PMD, new d/o received. Bed alarm has been set for safety purposes. Pt denies any current needs other than desire to nap, call light in reach, cont to monitor.
[2024-07-02] MEDS ORDERED: CeFAZolin Sodium 2,000 MG in NS 100 ML IV SCH (11:30)
--- NOTE | 2024-07-02 11:43 | NUR ---
Pt. is awake in bed and welcomed my visit. Rapport has already been established over many hospitalizations and visits. Facilitated an update. Pt. verbalized an expectation of being in the hospital anouther "three days or so." Pt. 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 Considered matters of Pts. stella since he has experienced declining health. Pt. displayed a positive response. Pt. also verbalized that he enjoys the care he is getting at [facility] in [place]. Prayed with the Pt. Pt. grabbed this structural metal worker's hand as we did, and verbalized gratitude for years of friendship and spiritual support.
[2024-07-02 16:44] VITALS: BP 127/77
--- NOTE | 2024-07-02 17:14 | NUR ---
NURSING PCU DAYSHIFT SUMMARY: Pt has done very well t/o the shift. Hep gtt continues to infuse as per pharmacy dosing. Has converted between NSR and afib t/o afternoon though rate remains controlled 70-80's (did experience short period of HR 40s while converting back to NSR while asleep, BP remained stable and HR returned to 70-80's). Visits received from caregiver and spiritual care which pt enjoyed very much. Lab currently at bedside for PTT draw, U/S tech beginning renal U/S as per d/o. Pt denies any current questions/needs, bed alarm remains set for safety. Continue to monitor until rpt is given to NOC RN.
[2024-07-02 18:15] LABS: International Normalized Ratio 1.05; Prothrombin Time Results 11.2 Sec (9.7-11.5)
[2024-07-02] MEDS ORDERED: Warfarin Sodium 5 MG Tab PO ONE (18:20)
--- NOTE | 2024-07-02 18:49 | NUR ---
HEPARIN/COUMADIN Per pharmacist via telephone, administer first dose of coumadin, continue heparin gtt per pharmacy dosing until lab values are therapeutic.
[2024-07-02 20:26] VITALS: BP 123/69; BP 123/694
--- NOTE | 2024-07-02 20:49 | NUR ---
ASSUMED CARE OF PT @ 190 PT AXO. BED ALARM ON. VSS. 2100 MEDS DELIVERED. PT CALM AND COOPERATIVE. RESTING IN BED WITH BLANKETS OVER HEAD, ROOM TEMP TURNED UP ALL THE WAY PER PT REQUEST. RELINQUESHED CARE TO KHADAR Salinas RN @2039
--- NOTE | 2024-07-02 21:00 | NUR ---
ASSUMPTION OF CARE RECEIVED REPORT FROM CHATA ALEMAN. PATIENT IS ALERT AND ORIENTED. DENIES HAVING ANY PAIN OR SORTNESS OF BREATH. LOWER EXTREMETES RED, 1+ EDEMA, AND NONTENDER. ON ROOM AIR.
--- NOTE | 2024-07-02 23:58 | NUR ---
@2149 REPORT RECEIVED FROM UNDERGROUND PRODUCTION FOREPERSONLOVE ANDERSON. @2199 PT ARRIVED TO THE MEDICAL FLOOR RM# [id number]. PT REMAINED IN PCU BED (BEDS WERE SWITCHED). PT BROUGHT ALL HIS BELONINGS WITH HIM. EDUCATED BULK PLANT SUPERVISOR LIGHT AND FALL PRECAUTIONS. BED AT THE LOWEST POSITION, CALL LIGHT WITHIN REACH. PT CONTINUES ON HEPARIN DRIP, MANAGED PER PHARMACY. PT IS A/O X4, ABLE TO MAKE HIS NEEDS KNOWN AND COOPERATIVE WITH CARE. PT DENIES PAIN AND DISCOMFORT AT HS.
[2024-07-03 00:47] VITALS: BP 132/77
[2024-07-03 04:41] VITALS: BP 139/74
[2024-07-03 06:08] LABS: International Normalized Ratio 1.07; Prothrombin Time Results 11.4 Sec (9.7-11.5)
[2024-07-03] MEDS ORDERED: Dose Adjust by Pharmacy XX STA ×2 (06:36→12:44)
[2024-07-03 07:16] LABS: BASOPHILS ABSOLUTE AUTO 0.09 K/mm3 (0.00-0.23); BASOPHILS PERCENT AUTO 1 % (0-2); EOSINOPHILS PERCENT AUTO 3 % (0-6); Hematocrit 32.8 % (37.0-53.0); Hemoglobin 11.4 g/dL (13.5-17.5); IMMATURE GRAN ABSOLUTE AUTO 0.03 K/mm3 (0.00-0.10); IMMATURE GRAN PERCENT AUTO 0 % (0-1); LYMPHOCYTES ABSOLUTE AUTO 1.77 K/mm3 (0.84-5.20); LYMPHOCYTES PERCENT AUTO 25 % (21-46); MONOCYTES ABSOLUTE AUTO 0.61 K/mm3 (0.16-1.47); MONOCYTES PERCENT AUTO 9 % (4-13); Mean Corpuscular HGB 30.2 pg (26.0-34.0); Mean Corpuscular HGB Conc 34.8 g/dL (31.5-36.5); Mean Corpuscular Volume 87 fL (80-100); Mean Platelet Volume 9.7 fL (9.1-12.4); NEUTROPHILS ABSOLUTE AUTO 4.44 K/mm3 (1.96-9.15); NEUTROPHILS PERCENT AUTO 62 % (41-73); Platelet Count 325 K/mm3 (150-400); RDW Coefficient Variation 12.8 % (11.7-14.2); RDW Standard Deviation 40.3 fL (35.1-46.3); Red Blood Cell Count 3.78 M/mm3 (4.30-5.90); White Blood Cell Count 7.14 K/mm3 (4.00-11.30)
[2024-07-03 07:30] LABS: Bun/Creatinine Ratio 16.7 (12.0-20.0); Calcium, Blood 8.7 mg/dL (8.5-10.1); Creatinine, Blood 2.21 mg/dL (0.60-1.20); Potassium, Blood 3.9 mmol/L (3.5-5.5)
[2024-07-03 07:35] VITALS: BP 124/70
[2024-07-03] MEDS ORDERED: NS 250 ML IV PRN (08:35)
[2024-07-03 12:33] LABS: Hematocrit 32.1 % (37.0-53.0); Hemoglobin 10.6 g/dL (13.5-17.5); Mean Platelet Volume 9.9 fL (9.1-12.4); Platelet Count 322 K/mm3 (150-400)
[2024-07-03 15:41] VITALS: BP 112/51
[2024-07-03] MEDS ORDERED: Warfarin Sodium 5 MG Tab PO SCH (18:00)
--- NOTE | 2024-07-03 18:06 | NUR ---
SHIFT SUMMARY PT ON HEPARIN DRIP FOR PE. RATE UNCHANGED AT 34.8 ML/HR. RN OBTAINED A CORRECT WEIGHT OF 111.8 KG STANDING SCALE AND UPDATED PHARMACY. RN NOTED BLOOD WITHOUT CLOTS IN DURHAM CATHETER, URINE IS BRIGHT RED IN COLOR. RN UPDATED [facility] PROVIDER . LATHA ORDERED TO HOLD ORAL COUMADIN AND TO CONTINUE HEPARIN, CBC NOW, AND H&H Q8H. RN ENTERED ORDERS AND UPDATED CHARGE. LATHA INSTRUCTED IF BLEEDING WORSENS OR CLOTS NOTED CALL NIGHT PROVIDER AND START CONTINUOUS BLADDER IRRIGATION. VITALS STABLE, PT A/Ox4, USES CALL LIGHT APPROPRIATELY. DURHAM REMAINS PATENT AND DRAINING. PT DENIES PAIN. INSULIN ADMINISTERED PER ORDERS. PT CURRENTLY RESTING IN HOSPITAL BED WITH BED IN LOWEST POSITION AND CALL LIGHT WITHIN REACH.
[2024-07-03 19:34] LABS: BASOPHILS ABSOLUTE AUTO 0.09 K/mm3 (0.00-0.23); BASOPHILS PERCENT AUTO 1 % (0-2); EOSINOPHILS ABSOLUTE AUTO 0.25 K/mm3 (0.00-0.68); EOSINOPHILS PERCENT AUTO 3 % (0-6); Hemoglobin 12.1 g/dL (13.5-17.5); IMMATURE GRAN ABSOLUTE AUTO 0.04 K/mm3 (0.00-0.10); IMMATURE GRAN PERCENT AUTO 1 % (0-1); LYMPHOCYTES ABSOLUTE AUTO 2.15 K/mm3 (0.84-5.20); LYMPHOCYTES PERCENT AUTO 27 % (21-46); MONOCYTES ABSOLUTE AUTO 0.59 K/mm3 (0.16-1.47); MONOCYTES PERCENT AUTO 7 % (4-13); Mean Corpuscular HGB 29.7 pg (26.0-34.0); Mean Corpuscular HGB Conc 33.6 g/dL (31.5-36.5); Mean Corpuscular Volume 88 fL (80-100); Mean Platelet Volume 10.3 fL (9.1-12.4); NEUTROPHILS ABSOLUTE AUTO 4.89 K/mm3 (1.96-9.15); NEUTROPHILS PERCENT AUTO 61 % (41-73); Platelet Count 390 K/mm3 (150-400); RDW Coefficient Variation 12.7 % (11.7-14.2); RDW Standard Deviation 40.3 fL (35.1-46.3); Red Blood Cell Count 4.08 M/mm3 (4.30-5.90); White Blood Cell Count 8.01 K/mm3 (4.00-11.30)
[2024-07-03 20:37] VITALS: BP 138/82
[2024-07-04 00:12] VITALS: BP 124/51
--- NOTE | 2024-07-04 02:58 | NUR ---
SHIFT SUMMARY NO ACUTE EVENTS DURING THIS SHIFT. HEPARIN DRIP @38.4MLS/HR ORDERED AND MANAGED PER PHARMACY. DURHAM DRAINING RED COLOR URINE, NO CLOTS OF BLOOD NOTED. PT IS A/O X3-4, VERY PLEASANT AND COOPERATIVE WITH CARE. SOME CONFUSION NOTED DURING THE NIGHT HRS. PT YELLING "WHAT'S GOING ON". EASILY REORIENTED. BED ALARM FOR SAFETY. BED AT THE LOWEST POSITION, CALL LIGHT W/I REACH. HS B. H&H LAB ORDER IS Q8HRS PER .
[2024-07-04 04:20] VITALS: BP 129/71
[2024-07-04 06:20] LABS: Hematocrit 34.1 % (37.0-53.0); Hemoglobin 11.4 g/dL (13.5-17.5); Mean Platelet Volume 9.9 fL (9.1-12.4); Platelet Count 333 K/mm3 (150-400)
[2024-07-04 06:33] LABS: International Normalized Ratio 1.13
[2024-07-04] MEDS ORDERED: Clarify Drug Order XX ONE (06:50)
[2024-07-04 07:13] LABS: BASOPHILS ABSOLUTE AUTO 0.06 K/mm3 (0.00-0.23); BASOPHILS PERCENT AUTO 1 % (0-2); EOSINOPHILS ABSOLUTE AUTO 0.26 K/mm3 (0.00-0.68); EOSINOPHILS PERCENT AUTO 4 % (0-6); Hemoglobin 11.4 g/dL (13.5-17.5); IMMATURE GRAN ABSOLUTE AUTO 0.03 K/mm3 (0.00-0.10); IMMATURE GRAN PERCENT AUTO 0 % (0-1); LYMPHOCYTES ABSOLUTE AUTO 1.75 K/mm3 (0.84-5.20); LYMPHOCYTES PERCENT AUTO 25 % (21-46); MONOCYTES ABSOLUTE AUTO 0.51 K/mm3 (0.16-1.47); MONOCYTES PERCENT AUTO 7 % (4-13); Mean Corpuscular HGB 29.8 pg (26.0-34.0); Mean Corpuscular HGB Conc 33.5 g/dL (31.5-36.5); Mean Corpuscular Volume 89 fL (80-100); Mean Platelet Volume 9.9 fL (9.1-12.4); NEUTROPHILS ABSOLUTE AUTO 4.43 K/mm3 (1.96-9.15); NEUTROPHILS PERCENT AUTO 63 % (41-73); Platelet Count 323 K/mm3 (150-400); RDW Coefficient Variation 12.6 % (11.7-14.2); RDW Standard Deviation 40.9 fL (35.1-46.3); Red Blood Cell Count 3.82 M/mm3 (4.30-5.90); White Blood Cell Count 7.04 K/mm3 (4.00-11.30)
[2024-07-04 07:20] LABS: Bun/Creatinine Ratio 16.3 (12.0-20.0); Calcium, Blood 8.4 mg/dL (8.5-10.1); Creatinine, Blood 1.72 mg/dL (0.60-1.20); Potassium, Blood 3.8 mmol/L (3.5-5.5)
[2024-07-04 09:40] VITALS: BP 133/76
[2024-07-04 11:01] LABS: Hematocrit 32.9 % (37.0-53.0); Hemoglobin 11.1 g/dL (13.5-17.5)
[2024-07-04] MEDS ORDERED: Lidocaine 2% Jelly Uro-Jet UR ONE (13:00)
[2024-07-04] MEDS ORDERED: NS 500 ML IV ONE (14:41)
[2024-07-04] MEDS ORDERED: Heparin Sodium 1000 Units/ML 10ML MDV ONE (14:41)
[2024-07-04] MEDS ORDERED: NS 1,000 ML IV ONE (14:41)
[2024-07-04] MEDS ORDERED: FentaNYL Citrate 50 MCG/ML 2 ML Injection ONE (15:18)
[2024-07-04] MEDS ORDERED: Midazolam HCl 1MG / ML 2ML Vial ONE (15:18)
[2024-07-04 16:22] VITALS: BP 124/74
--- NOTE | 2024-07-04 17:40 | NUR ---
Pt. is awake in bed and welcomes my visit. Pt. is pleasant and vervalizes his expectation to be in the hospital a little longer before he returns to [facility]. Facilitated an update, and spent time conversing with rapport that has been built over a couple years. Pt. displays evidence of being engaged and aware as well as motivated to get moving in order to be discharges back to [facility]. Prayed with Pt. Pt. verbalized gratitude for the spiritual care visit.
[2024-07-04 18:00] VITALS: BP 144/92
[2024-07-04] MEDS ORDERED: Warfarin Sodium 5 MG Tab PO ONE (18:00)
--- NOTE | 2024-07-04 19:28 | NUR ---
SHIFT SUMMARY PT A&OX4. PT ADMITTED DUE PE. PT ON BEDREST. PT REPORTS NO PAIN NOR CHEST DISCOMFORT. VSS. PT ON TELE. PT ON STRICT I&O. PT HAD FLANK RED BLOOD IN DURHAM THIS AM, DOCTOR YARON LAINEZ STARTED PT ON CONT BLADDER IRRIGATION. DURHAM WAS CHANGED. BLADDER IRRIGATION STARTED AROUND 1200. PT WENT TO COUNTER TENDER AND HAD IVC PROCEDURE. HEPARIN PAUSED FOR PROCEDURE. REPORTED TO D/C HEPARIN DRIP POST PROCEDURE. PT DURHAM LOOKS MORE TRANSULCENT PINK FLUID THIS EVENING. PT IS ACHS BLOOD SUGAR. BLOOD SUGARS ARE STABLE. PT IN BED, BED IN LOWEST POSITION, CALL LIGHT IN REACH.
[2024-07-04 19:43] LABS: Hematocrit 36.4 % (37.0-53.0); Hemoglobin 12.2 g/dL (13.5-17.5)
[2024-07-04 21:18] VITALS: BP 124/75
[2024-07-05 00:28] VITALS: BP 123/78
[2024-07-05 03:07] VITALS: BP 117/81
[2024-07-05 04:46] LABS: Hematocrit 35.3 % (37.0-53.0); Hemoglobin 11.9 g/dL (13.5-17.5); Mean Platelet Volume 9.7 fL (9.1-12.4); Platelet Count 343 K/mm3 (150-400)
--- NOTE | 2024-07-05 05:59 | NUR ---
SHIFT SUMMARY NOC PT A/O X 3-4. FORGETFUL AND CONFUSED AT TIMES. POST OP VSS. HS CBG 227 SCHDEULED GLARGING GIVEN. PT HAD IVC FILTER PLACED IN R UPPER GROIN YESTERDAY. SITE IS C/D/I WITH TEGADERM IN PLACE. PT HAS NO HAD C/O OF PAIN WHEN ASSESSED. PT HAS DURHAM IN PLACE WITH CBI FOR HEMATURIA, URINE WAS PINK AT BEGINNING OF SHIFT AND URINIE NOW CLEAR. PT ON TELE SINUS RHYTHM/BBB IN 70'S. PT PULLED LW IV FOR NO REASON BESIDES "I FELT LIKE DOING IT". PT CONTINUES IV ABX THERAPY. PT CURRENTLY RESTING WITH BED ALARM ON, BED IN LOWEST POSITION, AND CALL LIGHT WITHIN REACH.
[2024-07-05 07:45] VITALS: BP 124/70
[2024-07-05 08:04] LABS: BASOPHILS ABSOLUTE AUTO 0.09 K/mm3 (0.00-0.23); BASOPHILS PERCENT AUTO 1 % (0-2); EOSINOPHILS ABSOLUTE AUTO 0.19 K/mm3 (0.00-0.68); EOSINOPHILS PERCENT AUTO 3 % (0-6); Hematocrit 35.7 % (37.0-53.0); IMMATURE GRAN ABSOLUTE AUTO 0.02 K/mm3 (0.00-0.10); IMMATURE GRAN PERCENT AUTO 0 % (0-1); LYMPHOCYTES ABSOLUTE AUTO 1.45 K/mm3 (0.84-5.20); LYMPHOCYTES PERCENT AUTO 19 % (21-46); MONOCYTES ABSOLUTE AUTO 0.52 K/mm3 (0.16-1.47); MONOCYTES PERCENT AUTO 7 % (4-13); Mean Corpuscular HGB 29.6 pg (26.0-34.0); Mean Corpuscular HGB Conc 33.6 g/dL (31.5-36.5); Mean Corpuscular Volume 88 fL (80-100); Mean Platelet Volume 10.1 fL (9.1-12.4); NEUTROPHILS ABSOLUTE AUTO 5.24 K/mm3 (1.96-9.15); NEUTROPHILS PERCENT AUTO 70 % (41-73); Platelet Count 355 K/mm3 (150-400); RDW Coefficient Variation 12.5 % (11.7-14.2); RDW Standard Deviation 40.4 fL (35.1-46.3); Red Blood Cell Count 4.06 M/mm3 (4.30-5.90); White Blood Cell Count 7.51 K/mm3 (4.00-11.30)
[2024-07-05 08:12] LABS: Bun/Creatinine Ratio 13.8 (12.0-20.0); Calcium, Blood 8.5 mg/dL (8.5-10.1); Creatinine, Blood 1.52 mg/dL (0.60-1.20); Potassium, Blood 3.5 mmol/L (3.5-5.5)
[2024-07-05] MEDS ORDERED: Dose Adjust by Pharmacy XX STA ×2 (13:58→20:54)
[2024-07-05] MEDS ORDERED: Heparin Sodium,Porcine/0.5 NS 500 ML IV SCH (14:00)
[2024-07-05] MEDS ORDERED: CeFAZolin Sodium 2,000 MG in NS 100 ML IV SCH (16:00)
--- NOTE | 2024-07-05 19:41 | NUR ---
SHIFT SUMMARY PT A&OX4. PT ADMITTED DUE TO PE. PT REPORTS NO PAIN NOR CHEST DISCOMFORT, VSS. PT ON TELE, TELE REPORTED IN AND OUT OF AFLUTTER WITH STABLE RATE, DR. AZUL NOTIFIED, NO NEW ORDERS AT THIS TIME. CALLED DR. AZUL ABOUT IF PT NEEDED TO BE ON A PROBIOTIC, NO NEW ORDERS AT THIS TIME. PT ON STRICT I&O. PT HAS DURHAM, DURHAM DRAINING WITH NO DEPENDENT LOOPS, BLADDER IRRIGATION STILL CONTINUIOUS AT THE START OF SHIFT, WAS PAUSED THIS AM, DR. AZUL STATED TO CALL HIM AT 1400 TO REPORT COLOR OF URINE IN DURHAM. LATHA WAS NOTIFIED, BLADDER IRRIGATION CONTINUES TO BE PAUSED AND HEPARIN WAS RESTARTED AT 1400. GROIN PUNCTURE SITE REMAINS INTACT. PT ACHS BLOOD SUGARS. BLOOD SUGARS ARE STABLE. PT IN BED, BED IN LOWEST POSITION, CALL LIGHT IN REACH, PT CALLS OUT AT TIMES FOR HELP, MAKES NEEDS KNOWN. PT HAD IV ANTIBIOTIC DUE TODAY, ATTEMPTED TO PLACE AN ADDITIONAL IV, CLEANING ATTENDANT CAME TO ROOM TO ATTEMPT IV PLACEMENT, PT REFUSED TO BE POKED. HEPARIN INFUSING.
[2024-07-05 20:27] VITALS: BP 132/76
[2024-07-05] MEDS ORDERED: CeFAZolin Sodium 2,000 MG VIAL ONE (23:52)
[2024-07-06 00:42] VITALS: BP 113/58
[2024-07-06 02:54] LABS: Hematocrit 33.9 % (37.0-53.0); Hemoglobin 11.3 g/dL (13.5-17.5); Mean Platelet Volume 9.4 fL (9.1-12.4); Platelet Count 280 K/mm3 (150-400)
--- NOTE | 2024-07-06 03:22 | NUR ---
SHIFT SUMMARY PATIENT HAS BEEN AWAKE FOR MOST OF THE NIGHT BUT APPEARS TO BE SLEEPING AT THIS TIME. HEPARIN GTT IS INFUSING WITHOUT COMPLICATIONS. DURHAM CATHETER IS PATENT AND URINE IS YELLOW WITHOUT ANY SIGNS OF BLEEDING. PATIENT IS ORIENTED X3. HE HAS HIS CALL LIGHT WITHIN REACH AND HIS BED ALARM IS SET. SAFETY PRECAUTIONS ARE BEING MAINTAINED.
[2024-07-06] MEDS ORDERED: Clarify Drug Order XX ONE (04:35)
[2024-07-06 05:47] VITALS: BP 151/86
[2024-07-06 08:02] VITALS: BP 120/79
[2024-07-06 10:03] LABS: BASOPHILS ABSOLUTE AUTO 0.06 K/mm3 (0.00-0.23); BASOPHILS PERCENT AUTO 1 % (0-2); EOSINOPHILS ABSOLUTE AUTO 0.28 K/mm3 (0.00-0.68); EOSINOPHILS PERCENT AUTO 4 % (0-6); Hematocrit 36.3 % (37.0-53.0); IMMATURE GRAN ABSOLUTE AUTO 0.02 K/mm3 (0.00-0.10); IMMATURE GRAN PERCENT AUTO 0 % (0-1); LYMPHOCYTES ABSOLUTE AUTO 1.63 K/mm3 (0.84-5.20); LYMPHOCYTES PERCENT AUTO 22 % (21-46); MONOCYTES ABSOLUTE AUTO 0.57 K/mm3 (0.16-1.47); MONOCYTES PERCENT AUTO 8 % (4-13); Mean Corpuscular HGB 29.3 pg (26.0-34.0); Mean Corpuscular HGB Conc 33.1 g/dL (31.5-36.5); Mean Corpuscular Volume 89 fL (80-100); Mean Platelet Volume 9.6 fL (9.1-12.4); NEUTROPHILS ABSOLUTE AUTO 5.01 K/mm3 (1.96-9.15); NEUTROPHILS PERCENT AUTO 66 % (41-73); Platelet Count 292 K/mm3 (150-400); RDW Coefficient Variation 12.7 % (11.7-14.2); Red Blood Cell Count 4.09 M/mm3 (4.30-5.90); White Blood Cell Count 7.57 K/mm3 (4.00-11.30)
[2024-07-06 10:21] LABS: Bun/Creatinine Ratio 15.3 (12.0-20.0); Calcium, Blood 8.7 mg/dL (8.5-10.1); Creatinine, Blood 1.24 mg/dL (0.60-1.20); Potassium, Blood 3.9 mmol/L (3.5-5.5)
[2024-07-06] MEDS ORDERED: Dose Adjust by Pharmacy XX STA ×2 (10:22→16:57)
[2024-07-06 16:47] VITALS: BP 137/79
[2024-07-06 16:55] LABS: International Normalized Ratio 1.09; Prothrombin Time Results 11.6 Sec (9.7-11.5)
[2024-07-06] MEDS ORDERED: Warfarin Sodium 7.5 MG Tab PO SCH (18:00)
--- NOTE | 2024-07-06 19:47 | NUR ---
SHIFT SUMMARY PT A&OX4. PT ADMITTED DUE TO PE. PT REPORTS NO PAIN NOR CHEST DISCOMFORT. VSS. PT ON TELE. PT ON STRICT I&O. HEPARIN INFUSING. PT HAS DURHAM, DURHAM DRAINING FREELY WITH NO DEPENDENT LOOPS. GROIN PUNCTURE SITE REMAINS INTACT. PT ACHS BLOOD SUGARS. BLOOD SUGARS ARE CORRECTED WITH SLIDING SCALE INSULIN ORDER. PT EATS ADEQUATE. DR. AZUL D/C CONT PULSE OX. DR. AZUL STATES PT WILL BE STARTED ON WARFARIN TONIGHT AND STARTED ON PROBIOTIC. PT IN BED. BED IN LOWEST POSITION, CALL LIGHT IN REACH. PT CALLS OUT FOR HELP AT TIMES, MAKES NEEDS KNOWN.
[2024-07-06 20:42] VITALS: BP 127/76
[2024-07-07 00:26] VITALS: BP 114/60
--- NOTE | 2024-07-07 03:12 | NUR ---
SHIFT SUMMARY PATIENT HAS BEEN SLEEPING INTERMITTANTLY TONIGHT. HEPARIN GTT CONTINUES TO INFUSED WITHOUT COMPLICATIONS. DURHAM CATHETER IS PATENT DRAINING CLEAR YELLOW URINE. PATIENT IS ORIENTED X4. HE HAS HIS CALL LIGHT WITHIN REACH. SAFETY PRECAUTIONS ARE BEING MAINTAINED.
[2024-07-07 04:35] VITALS: BP 112/76
[2024-07-07 07:56] VITALS: BP 133/79
[2024-07-07 08:45] LABS: BASOPHILS ABSOLUTE AUTO 0.06 K/mm3 (0.00-0.23); BASOPHILS PERCENT AUTO 1 % (0-2); EOSINOPHILS ABSOLUTE AUTO 0.24 K/mm3 (0.00-0.68); EOSINOPHILS PERCENT AUTO 3 % (0-6); Hematocrit 36.7 % (37.0-53.0); Hemoglobin 12.3 g/dL (13.5-17.5); IMMATURE GRAN ABSOLUTE AUTO 0.03 K/mm3 (0.00-0.10); IMMATURE GRAN PERCENT AUTO 0 % (0-1); LYMPHOCYTES ABSOLUTE AUTO 1.76 K/mm3 (0.84-5.20); LYMPHOCYTES PERCENT AUTO 25 % (21-46); MONOCYTES PERCENT AUTO 7 % (4-13); Mean Corpuscular HGB 29.3 pg (26.0-34.0); Mean Corpuscular HGB Conc 33.5 g/dL (31.5-36.5); Mean Corpuscular Volume 87 fL (80-100); Mean Platelet Volume 9.5 fL (9.1-12.4); NEUTROPHILS ABSOLUTE AUTO 4.55 K/mm3 (1.96-9.15); NEUTROPHILS PERCENT AUTO 64 % (41-73); Platelet Count 317 K/mm3 (150-400); RDW Coefficient Variation 12.8 % (11.7-14.2); RDW Standard Deviation 39.8 fL (35.1-46.3); White Blood Cell Count 7.14 K/mm3 (4.00-11.30)
[2024-07-07 09:07] LABS: International Normalized Ratio 1.12; Prothrombin Time Results 11.9 Sec (9.7-11.5)
[2024-07-07 09:18] LABS: Bun/Creatinine Ratio 13.8 (12.0-20.0); Calcium, Blood 9.1 mg/dL (8.5-10.1); Creatinine, Blood 1.23 mg/dL (0.60-1.20)
[2024-07-07] MEDS ORDERED: Dose Adjust by Pharmacy XX STA (09:27)
--- NOTE | 2024-07-07 11:41 | NUR ---
RN GAVE PT STATUS UPDATE TO GUARDIDONALD SALCEDO OVER THE PHONE, WITH AAMIR'S VERBAL PERMISSION. NOW AAMIR'S CAREGIVER RENATA IS VISITING AT THE BEDSIDE, RN GAVE VERBAL UPDATE TO RENATA WITH AAMIR'S CONSENT.
--- NOTE | 2024-07-07 14:23 | NUR ---
RN SPOKE TO NURSE STEPHANIE FROM [facility], AND GAVE A PT STATUS UPDATE. ADVISED THAT PT HAS A DURHAM CATHETER IN PLACE DUE TO URINARY RETENTION. STEPHANIE STATES THAT MEDARDO HAS BEEN HAVING URINARY INCONTINENCE ISSUES AT [facility] AND SHE WAS WONDERING IF HE COULD DISCHARGE WITH A DURHAM. RN ADVISED THAT WE HAVE STRICT PROTOCOLS FOR PLACING FOLEYS AND DISCHARGING PTS WITH FOLEYS, AND THAT MAY NOT BE POSSIBLE. STEPHANIE VERBALIZED UNDERSTANDING.
[2024-07-07 15:59] VITALS: BP 127/75
--- NOTE | 2024-07-07 17:29 | NUR ---
MEDARDO AMBULATED IN HIS ROOM AT LEAST THREE TIMES TODAY, UP TO THAT CHAIR AND THEN WALKING AROUND THE BED. HE IS ASSISTED BY ONE STAFF MEMBER WITH A GAIT BELT AND FWW TO MANAGE DURHAM TUBING AND IV POLES. IV HEPARIN INFUSING AT 19.1 UNITS/KG/HR. PLAN IS TO BRIDGE FROM HEPARIN DRIP TO PO COUMADIN. A&O X3. HISTORY OF DEMENTIA. LIVES AT THE [facility] WITH HIS CAT, "KITTEN." HE IS PLEASANT WITH CARE, BUT DID STAND UP WITHOUT CALLING AND MOVE FROM THE CHAIR TO THE EDGE OF THE BED. CHAIR ALARM IN ROOM. DURHAM PREVIOUSLY PLACED FOR URINARY RETENTION, DRAINING CLEAR YELLOW URINE TO GRAVITY.
[2024-07-07] MEDS ORDERED: Warfarin Sodium 7.5 MG Tab PO ONE (18:00)
[2024-07-07 20:16] VITALS: BP 130/85
[2024-07-07] MEDS ORDERED: Lactobacil 2-S.Thermo-Bifido 1 1 Cap PO SCH (21:00)
[2024-07-08 00:19] VITALS: BP 124/69
--- NOTE | 2024-07-08 03:24 | NUR ---
SHIFT SUMMARY PATIENT HAS BEEN SLEEPING FOR MOST OF THIS SHIFT. HE HAS NOT HAD ANY COMPLAINTS. HEPARIN GTT IS INFUSING WITHOUT ANY COMPLICATIONS. DURHAM CATHETER IS INTACT. URINE IS CLEAR AND YELLOW. PATIENT IS ORIENTED X3 AND HAS HIS CALL LIGHT WITHIN REACH. SAFETY PRECAUTIONS ARE BEING MAINTAINED.
[2024-07-08 04:34] VITALS: BP 125/74
[2024-07-08 07:04] LABS: BASOPHILS ABSOLUTE AUTO 0.09 K/mm3 (0.00-0.23); BASOPHILS PERCENT AUTO 1 % (0-2); EOSINOPHILS ABSOLUTE AUTO 0.23 K/mm3 (0.00-0.68); EOSINOPHILS PERCENT AUTO 3 % (0-6); Hematocrit 33.9 % (37.0-53.0); Hemoglobin 11.4 g/dL (13.5-17.5); IMMATURE GRAN ABSOLUTE AUTO 0.03 K/mm3 (0.00-0.10); IMMATURE GRAN PERCENT AUTO 0 % (0-1); LYMPHOCYTES ABSOLUTE AUTO 1.91 K/mm3 (0.84-5.20); LYMPHOCYTES PERCENT AUTO 27 % (21-46); MONOCYTES ABSOLUTE AUTO 0.57 K/mm3 (0.16-1.47); MONOCYTES PERCENT AUTO 8 % (4-13); Mean Corpuscular HGB 29.5 pg (26.0-34.0); Mean Corpuscular HGB Conc 33.6 g/dL (31.5-36.5); Mean Corpuscular Volume 88 fL (80-100); NEUTROPHILS ABSOLUTE AUTO 4.13 K/mm3 (1.96-9.15); NEUTROPHILS PERCENT AUTO 59 % (41-73); Platelet Count 285 K/mm3 (150-400); RDW Coefficient Variation 13.1 % (11.7-14.2); RDW Standard Deviation 41.1 fL (35.1-46.3); Red Blood Cell Count 3.87 M/mm3 (4.30-5.90); White Blood Cell Count 6.96 K/mm3 (4.00-11.30)
[2024-07-08 07:27] LABS: International Normalized Ratio 1.51; Prothrombin Time Results 15.7 Sec (9.7-11.5)
[2024-07-08 07:34] LABS: Bun/Creatinine Ratio 15.9 (12.0-20.0); Calcium, Blood 8.4 mg/dL (8.5-10.1); Creatinine, Blood 1.26 mg/dL (0.60-1.20); Potassium, Blood 3.9 mmol/L (3.5-5.5)
[2024-07-08] MEDS ORDERED: Dose Adjust by Pharmacy XX STA ×2 (07:45→09:37)
[2024-07-08 08:26] VITALS: BP 128/80
--- NOTE | 2024-07-08 10:34 | NUR ---
ASSUMED CARE A/O X4 PLEASENT AND COOPERATIVE. NO C/O PAIN NO DISTRESS HEPARIN INFUSING. CAN MAKE NEEDS KNOWN
--- NOTE | 2024-07-08 10:36 | NUR ---
0945 HEPARIN DCED PER PHARMACY. PT NOW ON LOVENOX NO CHANGE IN CONDITION
[2024-07-08] MEDS ORDERED: Enoxaparin 120 MG/0.8 ML SYR SC SCH (11:00)
[2024-07-08 11:44] VITALS: BP 132/84
[2024-07-08] MEDS ORDERED: Warfarin Sodium 7.5 MG Tab PO ONE (15:08)
[2024-07-08] MEDS ORDERED: Enoxaparin 60 MG/0.6 ML SYR SC ONE (15:10)
--- NOTE | 2024-07-08 15:11 | NUR ---
Pt. is sitting up on the side fo his bed, and the staff is getting him dressed for the possibility of discharge. Pt. welcomes my visit and is pleasant. Facilitate an update. Pt. verbalizes that he has no other clothes than the T shirt he is wearing. Prayed with the Pt. After the visit I was able to get the Pts. size and was able to get a sweatshirt for the Pt. from the volunteer office. Pt. verbalized gratitude for the gift.
[2024-07-08] MEDS ORDERED: ENOX120I SC (15:23)
[2024-07-08] MEDS ORDERED: WARF7.5 PO (15:23)
== END 2024-07-08 16:04 | disposition home health service (06) | DRG 300 ==
LOC: ER 18:50 → PCU 23:10 → MEDS 23:10 → PCU 07-01 00:08 → MEDS 07-02 22:02
PROVIDERS: Emergency Medicine; Family Medicine; Internal Medicine; Student in an Organized Health Care Education/Training Program; ADMIT Student in an Organized Health Care Education/Training Program
PROC: 06H03DZ Insertion of Intraluminal Device into Inferior Vena Cava, Percutaneous Approach (ICD-10-PCS; 2024-07-04)
PROC: 0T9B70Z Drainage of Bladder with Drainage Device, Via Natural or Artificial Opening (ICD-10-PCS; principal; 2024-07-05)
DX: I82.811 Embolism and thrombosis of superficial veins of right lower extremity (principal); I13.0 Hypertensive heart and chronic kidney disease with heart failure and stage 1 through stage 4 chronic kidney disease, or unspecified chronic kidney disease; I50.32 Chronic diastolic (congestive) heart failure; N17.9 Acute kidney failure, unspecified; L03.116 Cellulitis of left lower limb; L03.115 Cellulitis of right lower limb; F03.90 Unspecified dementia, unspecified severity, without behavioral disturbance, psychotic disturbance, mood disturbance, and anxiety; E11.22 Type 2 diabetes mellitus with diabetic chronic kidney disease; E21.3 Hyperparathyroidism, unspecified; M19.90 Unspecified osteoarthritis, unspecified site; I48.91 Unspecified atrial fibrillation; I45.10 Unspecified right bundle-branch block; E78.5 Hyperlipidemia, unspecified; N18.32 Chronic kidney disease, stage 3b; E11.65 Type 2 diabetes mellitus with hyperglycemia; E66.9 Obesity, unspecified; R31.9 Hematuria, unspecified; N40.1 Benign prostatic hyperplasia with lower urinary tract symptoms; R33.8 Other retention of urine; Z96.651 Presence of right artificial knee joint; Z96.662 Presence of left artificial ankle joint; I82.492 Acute embolism and thrombosis of other specified deep vein of left lower extremity; Z88.5 Allergy status to narcotic agent; Z91.018 Allergy to other foods; Z79.84 Long term (current) use of oral hypoglycemic drugs; Z79.4 Long term (current) use of insulin; Z88.1 Allergy status to other antibiotic agents; Z79.85 Long-term (current) use of injectable non-insulin antidiabetic drugs; Z79.01 Long term (current) use of anticoagulants; Z79.899 Other long term (current) drug therapy; Z98.890 Other specified postprocedural states; Z87.19 Personal history of other diseases of the digestive system; Z98.42 Cataract extraction status, left eye; Z98.41 Cataract extraction status, right eye; Z86.711 Personal history of pulmonary embolism; Z68.33 Body mass index [BMI] 33.0-33.9, adult
CPT/HCPCS: 36415; 51702; 71045; 76770; 76937; 78580; 80048; 80053; 82105; 82378; 82947; 83735; 83880; 84100; 84484; 85014; 85018; 85025; 85049; 85379; 85520; 85610; 85730; 86140; 86301; 86304; 93005; 93010; 93970; 94762; 99152; 99285-25; A9270; A9540; C1769; C1880; G0103; J0690; J1644; J1650; J1815; J2250; J3010; J7030; J7040; J7050; Q9967

== ENCOUNTER 2024-07-11 08:02 | Emergency (ER) | payer MEDICARE ==
[~2024-07-11] VITALS: Ht 198.1 cm; Wt 108.9 kg
[~2024-07-11 08:02] MED LIST changes: +ANTIFUNGAL30 GM TOP; +ENOX120I SC; -NS 1,000 ML IV ONE; +WARF7.5 PO
[2024-07-11] MEDS ORDERED: Lidocaine 4% 1 Patch TOP ONE (08:55)
[2024-07-11] MEDS ORDERED: Acetaminophen 325 MG TABLET PO ONE (08:55)
[2024-07-11 09:54] LABS: Source, Urine Clean Catch
[2024-07-11 09:59] LABS: Appearance, Urine Clear (Clear); Bilirubin, Urine Neg (Neg); Blood, Urine 5+ (Neg); Color, Urine Yellow (P-Yellow); Glucose Qualitative, Urine 4+ (Neg); Ketones, Urine Neg (Neg); Leukocyte Esterase, Urine 1+ (Neg); Nitrite, Urine Neg (Neg); Protein, Urine 3+ (Neg); Urobilinogen, Urine NORM (Normal)
[2024-07-11 10:07] LABS: Bacteria Rare /hpf; Red Blood Cells, Urine 25-50 /hpf (0-2); Squamous Epithelial Cells Rare /hpf (Few)
[2024-07-11 11:00] VITALS: BP 120/75
== END 2024-07-11 11:00 | disposition home or self-care (01) ==
LOC: ER 08:02
PROVIDERS: Student in an Organized Health Care Education/Training Program
DX: T83.091A Other mechanical complication of indwelling urethral catheter, initial encounter (principal); R33.9 Retention of urine, unspecified; E11.9 Type 2 diabetes mellitus without complications; I10 Essential (primary) hypertension
CPT/HCPCS: 51702; 51798; 81001; 87086; 99283-25

== ENCOUNTER 2024-07-17 03:19 | Emergency (ER) | payer MEDICARE, OTHER ==
[~2024-07-17] VITALS: Ht 198.1 cm; Wt 108.9 kg
[2024-07-17] MEDS ORDERED: Lidocaine 2% Jelly Uro-Jet TOP ONE (06:30)
[2024-07-17] MEDS ORDERED: Fluconazole 100 MG Tab PO ONE (06:30)
[2024-07-17] MEDS ORDERED: Lidocaine 2% Jelly Uro-Jet UR ONE (08:30)
[2024-07-17 09:02] LABS: Source, Urine Foley catheter
[2024-07-17 09:19] LABS: Appearance, Urine Clear (Clear); Bilirubin, Urine Neg (Neg); Blood, Urine 5+ (Neg); Glucose Qualitative, Urine 4+ (Neg); Ketones, Urine Neg (Neg); Leukocyte Esterase, Urine Neg (Neg); Nitrite, Urine Neg (Neg); Protein, Urine 3+ (Neg); Specific Gravity, Urine 1.015 (1.003-1.022); Urobilinogen, Urine NORM (Normal)
[2024-07-17 09:39] LABS: Color, Urine Pale Yellow (P-Yellow); White Blood Cells, Urine 0-2 /hpf (0-5)
[2024-07-17 09:40] VITALS: BP 133/80
[2024-07-17 09:40] LABS: Bacteria Rare /hpf; Squamous Epithelial Cells Rare /hpf (Few)
--- NOTE | 2024-07-17 09:57 | NUR ---
Pt. is in ED and is awaiting for a ride home. Pt. is known to this collar trimmer from previous hospitalizations. Pt. is pleasant, and displays evidence of hope and encouragement. Prayed with the Pt. Pt. verbalized gratitude for the spiritual care visit.
== END 2024-07-17 11:36 | disposition home or self-care (01) ==
LOC: ER 03:19
PROVIDERS: Emergency Medicine
DX: B37.41 Candidal cystitis and urethritis (principal); E11.22 Type 2 diabetes mellitus with diabetic chronic kidney disease; I13.0 Hypertensive heart and chronic kidney disease with heart failure and stage 1 through stage 4 chronic kidney disease, or unspecified chronic kidney disease; N18.30 Chronic kidney disease, stage 3 unspecified; I50.30 Unspecified diastolic (congestive) heart failure; E78.5 Hyperlipidemia, unspecified; Z79.01 Long term (current) use of anticoagulants; Z79.84 Long term (current) use of oral hypoglycemic drugs; Z88.0 Allergy status to penicillin; Z88.1 Allergy status to other antibiotic agents; Z91.018 Allergy to other foods; Z88.8 Allergy status to other drugs, medicaments and biological substances
CPT/HCPCS: 51798; 81001; 99283-25; A9270

== ENCOUNTER 2024-07-24 15:39 | Emergency (ER) | payer MEDICARE, OTHER ==
[~2024-07-24] VITALS: Ht 198.1 cm; Wt 108.9 kg
[2024-07-24 16:00] VITALS: BP 116/66
== END 2024-07-24 17:09 | disposition home or self-care (01) ==
LOC: ER 15:39
DX: T83.011A Breakdown (mechanical) of indwelling urethral catheter, initial encounter (principal); E11.22 Type 2 diabetes mellitus with diabetic chronic kidney disease; N18.30 Chronic kidney disease, stage 3 unspecified; I48.91 Unspecified atrial fibrillation; I13.0 Hypertensive heart and chronic kidney disease with heart failure and stage 1 through stage 4 chronic kidney disease, or unspecified chronic kidney disease; I50.30 Unspecified diastolic (congestive) heart failure; E78.5 Hyperlipidemia, unspecified; M19.90 Unspecified osteoarthritis, unspecified site; Z79.84 Long term (current) use of oral hypoglycemic drugs; Z79.01 Long term (current) use of anticoagulants; Z79.899 Other long term (current) drug therapy; Z88.0 Allergy status to penicillin; Z88.1 Allergy status to other antibiotic agents; Z88.8 Allergy status to other drugs, medicaments and biological substances; Z91.018 Allergy to other foods
CPT/HCPCS: 99283

== ENCOUNTER 2024-08-02 00:57 | Emergency (ER) | payer MEDICARE, OTHER ==
[~2024-08-02] VITALS: Ht 198.1 cm; Wt 113.4 kg
[2024-08-02 03:04] LABS: Source, Urine Clean Catch
[2024-08-02] MEDS ORDERED: NS 1,000 ML IV SCH (03:05)
[2024-08-02 03:26] LABS: Bilirubin, Urine Neg (Neg); Blood, Urine 4+ (Neg); Glucose Qualitative, Urine 4+ (Neg); Ketones, Urine Neg (Neg); Leukocyte Esterase, Urine 2+ (Neg); Nitrite, Urine Neg (Neg); Protein, Urine 3+ (Neg); Specific Gravity, Urine 1.015 (1.003-1.022); Urobilinogen, Urine NORM (Normal)
[2024-08-02 03:36] LABS: Appearance, Urine Hazy (Clear); Color, Urine Yellow (P-Yellow)
[2024-08-02 03:37] LABS: White Blood Cells, Urine 50-100 /hpf (0-5)
[2024-08-02 03:38] LABS: Bacteria Many /hpf; Squamous Epithelial Cells Few /hpf (Few)
[2024-08-02 03:51] LABS: BASOPHILS ABSOLUTE AUTO 0.07 K/mm3 (0.00-0.23); BASOPHILS PERCENT AUTO 1 % (0-2); EOSINOPHILS ABSOLUTE AUTO 0.18 K/mm3 (0.00-0.68); EOSINOPHILS PERCENT AUTO 2 % (0-6); Hematocrit 41.3 % (37.0-53.0); Hemoglobin 13.8 g/dL (13.5-17.5); IMMATURE GRAN ABSOLUTE AUTO 0.03 K/mm3 (0.00-0.10); IMMATURE GRAN PERCENT AUTO 0 % (0-1); LYMPHOCYTES ABSOLUTE AUTO 1.73 K/mm3 (0.84-5.20); LYMPHOCYTES PERCENT AUTO 19 % (21-46); MONOCYTES ABSOLUTE AUTO 0.69 K/mm3 (0.16-1.47); MONOCYTES PERCENT AUTO 8 % (4-13); Mean Corpuscular HGB 29.6 pg (26.0-34.0); Mean Corpuscular HGB Conc 33.4 g/dL (31.5-36.5); Mean Corpuscular Volume 88 fL (80-100); Mean Platelet Volume 9.6 fL (9.1-12.4); NEUTROPHILS ABSOLUTE AUTO 6.41 K/mm3 (1.96-9.15); NEUTROPHILS PERCENT AUTO 70 % (41-73); Platelet Count 261 K/mm3 (150-400); RDW Coefficient Variation 13.9 % (11.7-14.2); RDW Standard Deviation 45.1 fL (35.1-46.3); Red Blood Cell Count 4.67 M/mm3 (4.30-5.90); White Blood Cell Count 9.11 K/mm3 (4.00-11.30)
[2024-08-02 04:13] LABS: Albumin, Blood 3.1 g/dL (3.4-5.0); Albumin/Globulin Ratio 0.8 (0.8-1.8); Bilirubin, Total 0.5 mg/dL (0.1-1.0); Bun/Creatinine Ratio 21.3 (12.0-20.0); Calcium, Blood 9.1 mg/dL (8.5-10.1); Creatinine, Blood 1.27 mg/dL (0.60-1.20); Globulin, Blood 4.1 g/dL (2.2-4.0); Potassium, Blood 3.7 mmol/L (3.5-5.5); Total Protein, Blood 7.2 g/dL (6.4-8.2)
[2024-08-02] MEDS ORDERED: CefTRIAXone Sodium 2,000 MG in NS 50 ML IV ONE (04:40)
[2024-08-02] MEDS ORDERED: CEFP200 PO (04:44)
[2024-08-02 08:45] VITALS: BP 145/78
[2024-08-05] MEDS ORDERED: CEFU250T47 PO (11:06)
== END 2024-08-02 08:46 | disposition home or self-care (01) ==
LOC: ER 00:57
PROVIDERS: Emergency Medicine
DX: T83.511A Infection and inflammatory reaction due to indwelling urethral catheter, initial encounter (principal); N39.0 Urinary tract infection, site not specified; R10.30 Lower abdominal pain, unspecified; E11.22 Type 2 diabetes mellitus with diabetic chronic kidney disease; I13.0 Hypertensive heart and chronic kidney disease with heart failure and stage 1 through stage 4 chronic kidney disease, or unspecified chronic kidney disease; I50.30 Unspecified diastolic (congestive) heart failure; I48.91 Unspecified atrial fibrillation; E78.5 Hyperlipidemia, unspecified; M19.90 Unspecified osteoarthritis, unspecified site; Z79.899 Other long term (current) drug therapy; Z79.01 Long term (current) use of anticoagulants; Z79.84 Long term (current) use of oral hypoglycemic drugs; Z79.4 Long term (current) use of insulin; Z88.0 Allergy status to penicillin; Z91.018 Allergy to other foods; Z88.1 Allergy status to other antibiotic agents; Z88.8 Allergy status to other drugs, medicaments and biological substances
CPT/HCPCS: 51702; 80053; 81001; 85025; 87077; 87086; 87186; 96361; 96365; 99283-25; J0696; J7030

== ENCOUNTER 2024-08-09 17:05 | Emergency (ER) | payer MEDICARE, OTHER ==
[~2024-08-09] VITALS: Ht 198.1 cm; Wt 90.7 kg
[~2024-08-09 17:05] MED LIST changes: +CEFU250T47 PO
[2024-08-09 18:34] LABS: Source, Urine Foley catheter
[2024-08-09 18:38] LABS: Appearance, Urine Cloudy (Clear); Bilirubin, Urine Neg (Neg); Blood, Urine 5+ (Neg); Glucose Qualitative, Urine 4+ (Neg); Ketones, Urine Neg (Neg); Leukocyte Esterase, Urine 3+ (Neg); Nitrite, Urine Neg (Neg); Protein, Urine 3+ (Neg); Specific Gravity, Urine 1.015 (1.003-1.022); Urobilinogen, Urine NORM (Normal)
[2024-08-09 18:43] LABS: Color, Urine Pale Yellow (P-Yellow)
[2024-08-09 18:44] LABS: White Blood Cells, Urine TNTC /hpf (0-5)
[2024-08-09 18:45] LABS: Bacteria Many /hpf; Red Blood Cells, Urine 50-100 /hpf (0-2); Squamous Epithelial Cells Few /hpf (Few)
[2024-08-09] MEDS ORDERED: Nitrofurantoin/Nitrofuran Mac 100 MG Cap PO ONE (19:05)
[2024-08-09 19:09] VITALS: BP 129/76
[2024-08-09] MEDS ORDERED: NITR100CA PO (19:23)
== END 2024-08-09 19:33 | disposition home or self-care (01) ==
LOC: ER 17:05
PROVIDERS: Student in an Organized Health Care Education/Training Program
DX: T83.098A Other mechanical complication of other urinary catheter, initial encounter (principal); N30.00 Acute cystitis without hematuria; I13.0 Hypertensive heart and chronic kidney disease with heart failure and stage 1 through stage 4 chronic kidney disease, or unspecified chronic kidney disease; E11.22 Type 2 diabetes mellitus with diabetic chronic kidney disease; N18.30 Chronic kidney disease, stage 3 unspecified; I50.30 Unspecified diastolic (congestive) heart failure; M19.90 Unspecified osteoarthritis, unspecified site; I48.91 Unspecified atrial fibrillation; E78.5 Hyperlipidemia, unspecified; Z88.8 Allergy status to other drugs, medicaments and biological substances; Z91.018 Allergy to other foods; Z79.899 Other long term (current) drug therapy; Z79.01 Long term (current) use of anticoagulants; Z79.4 Long term (current) use of insulin
CPT/HCPCS: 51702; 51798; 81001; 87077; 87086; 87186; 99283-25; A9270

== ENCOUNTER 2024-08-12 00:48 | Emergency (ER) | payer MEDICARE, OTHER ==
[~2024-08-12] VITALS: Ht 185.4 cm; Wt 108.9 kg
[~2024-08-12 00:48] MED LIST changes: +NITR100CA PO
[2024-08-12 01:55] LABS: BASOPHILS ABSOLUTE AUTO 0.07 K/mm3 (0.00-0.23); BASOPHILS PERCENT AUTO 1 % (0-2); EOSINOPHILS ABSOLUTE AUTO 0.09 K/mm3 (0.00-0.68); EOSINOPHILS PERCENT AUTO 1 % (0-6); Hematocrit 42.6 % (37.0-53.0); Hemoglobin 13.9 g/dL (13.5-17.5); IMMATURE GRAN ABSOLUTE AUTO 0.06 K/mm3 (0.00-0.10); IMMATURE GRAN PERCENT AUTO 1 % (0-1); LYMPHOCYTES ABSOLUTE AUTO 0.87 K/mm3 (0.84-5.20); LYMPHOCYTES PERCENT AUTO 7 % (21-46); MONOCYTES ABSOLUTE AUTO 0.74 K/mm3 (0.16-1.47); MONOCYTES PERCENT AUTO 6 % (4-13); Mean Corpuscular HGB 28.7 pg (26.0-34.0); Mean Corpuscular HGB Conc 32.6 g/dL (31.5-36.5); Mean Corpuscular Volume 88 fL (80-100); NEUTROPHILS ABSOLUTE AUTO 10.85 K/mm3 (1.96-9.15); NEUTROPHILS PERCENT AUTO 86 % (41-73); Platelet Count 307 K/mm3 (150-400); RDW Coefficient Variation 13.5 % (11.7-14.2); RDW Standard Deviation 43.8 fL (35.1-46.3); Red Blood Cell Count 4.84 M/mm3 (4.30-5.90); White Blood Cell Count 12.68 K/mm3 (4.00-11.30)
[2024-08-12 02:14] LABS: Albumin, Blood 3.3 g/dL (3.4-5.0); Albumin/Globulin Ratio 0.8 (0.8-1.8); Bilirubin, Total 0.5 mg/dL (0.1-1.0); Bun/Creatinine Ratio 21.8 (12.0-20.0); Calcium, Blood 9.1 mg/dL (8.5-10.1); Creatinine, Blood 1.33 mg/dL (0.60-1.20); Globulin, Blood 4.2 g/dL (2.2-4.0); Magnesium, Blood 1.9 mg/dL (1.6-2.4); Potassium, Blood 4.2 mmol/L (3.5-5.5); Total Protein, Blood 7.5 g/dL (6.4-8.2); Triiodothyronine, Free 2.44 pg/mL (2.18-3.98)
[2024-08-12 03:11] VITALS: BP 131/77
== END 2024-08-12 03:08 | disposition home or self-care (01) ==
LOC: ER 00:48
PROVIDERS: Student in an Organized Health Care Education/Training Program
DX: R55 Syncope and collapse (principal); E11.9 Type 2 diabetes mellitus without complications; I10 Essential (primary) hypertension; Z86.718 Personal history of other venous thrombosis and embolism; Z91.81 History of falling; Z79.01 Long term (current) use of anticoagulants; Z79.84 Long term (current) use of oral hypoglycemic drugs; Z79.4 Long term (current) use of insulin; Z79.899 Other long term (current) drug therapy
CPT/HCPCS: 70450; 72125; 80053; 83735; 84481; 84484; 85025; 93005; 93010; 99284-25

== ENCOUNTER 2024-08-12 19:40 | Inpatient (IN) | payer MEDICARE, OTHER ==
[~2024-08-12] VITALS: Ht 198.1 cm; Wt 131.5 kg
[2024-08-12 21:06] LABS: BASOPHILS ABSOLUTE AUTO 0.09 K/mm3 (0.00-0.23); BASOPHILS PERCENT AUTO 1 % (0-2); EOSINOPHILS PERCENT AUTO 1 % (0-6); Hematocrit 44.6 % (37.0-53.0); Hemoglobin 14.8 g/dL (13.5-17.5); IMMATURE GRAN ABSOLUTE AUTO 0.06 K/mm3 (0.00-0.10); IMMATURE GRAN PERCENT AUTO 0 % (0-1); LYMPHOCYTES PERCENT AUTO 11 % (21-46); MONOCYTES ABSOLUTE AUTO 0.95 K/mm3 (0.16-1.47); MONOCYTES PERCENT AUTO 6 % (4-13); Mean Corpuscular HGB 29.2 pg (26.0-34.0); Mean Corpuscular HGB Conc 33.2 g/dL (31.5-36.5); Mean Corpuscular Volume 88 fL (80-100); Mean Platelet Volume 9.5 fL (9.1-12.4); NEUTROPHILS PERCENT AUTO 81 % (41-73); Platelet Count 376 K/mm3 (150-400); RDW Coefficient Variation 13.7 % (11.7-14.2); RDW Standard Deviation 44.3 fL (35.1-46.3); Red Blood Cell Count 5.06 M/mm3 (4.30-5.90)
[2024-08-12 21:28] LABS: Albumin, Blood 3.5 g/dL (3.4-5.0); Albumin/Globulin Ratio 0.7 (0.8-1.8); Bilirubin, Total 0.6 mg/dL (0.1-1.0); Bun/Creatinine Ratio 20.8 (12.0-20.0); Calcium, Blood 9.7 mg/dL (8.5-10.1); Creatinine, Blood 1.49 mg/dL (0.60-1.20); Potassium, Blood 4.2 mmol/L (3.5-5.5); Total Protein, Blood 8.5 g/dL (6.4-8.2)
[2024-08-12] MEDS ORDERED: NS 1,000 ML IV SCH (22:10)
[2024-08-12] MEDS ORDERED: CefTRIAXone Sodium 1,000 MG in NS 100 ML IV ONE (22:10)
[2024-08-13] MEDS ORDERED: NS 1,000 ML IV ONE (00:30)
[2024-08-13] MEDS ORDERED: Acetaminophen 325 MG TABLET PO PRN (00:30)
[2024-08-13] MEDS ORDERED: Ondansetron HCl 2 MG / ML 2ML Vial IV PRN (00:30)
[2024-08-13 00:33] LABS: Source, Urine Clean Catch
[2024-08-13 00:39] LABS: Bilirubin, Urine Neg (Neg); Blood, Urine 5+ (Neg); Glucose Qualitative, Urine 4+ (Neg); Ketones, Urine Neg (Neg); Leukocyte Esterase, Urine 3+ (Neg); Nitrite, Urine Neg (Neg); Protein, Urine 3+ (Neg); Specific Gravity, Urine 1.015 (1.003-1.022); Urobilinogen, Urine NORM (Normal)
[2024-08-13 00:57] LABS: Appearance, Urine Hazy (Clear)
[2024-08-13 00:58] LABS: Color, Urine Red (P-Yellow)
[2024-08-13 01:00] LABS: Bacteria Many /hpf; Red Blood Cells, Urine TNTC /hpf (0-2); Squamous Epithelial Cells Not Seen /hpf (Few); White Blood Cells, Urine TNTC /hpf (0-5)
[2024-08-13] MEDS ORDERED: Meropenem 1,000 MG in NS 100 ML IV SCH (01:05)
[2024-08-13] MEDS ORDERED: NS 250 ML IV PRN (03:40)
[2024-08-13 04:40] VITALS: BP 121/83
--- NOTE | 2024-08-13 04:46 | NUR ---
SHIFT SUMMARY/ADMITTED TO THE MEDICAL FLOOR REPORT RECEIVED FROM THE ED NURSE JESS @0222. PT ARRIVED TO THE MEDICAL FLOOR RM #[id number] @2628. PT BROUGHT ALL HIS BELONINGS WITH HIM. PT WAS TRANSFERRED TO THE HOSPITAL BED WITH A SLIDING SHEET AND THREE STAFF ASSIST. PT IS POOR HISTORIAN, A/O X3. CHRONIC DURHAM CATHETER WAS CHANGED AT THE ED. NOTED SOME BLOOD FROM THE ORFICE/AT THE TIP OF THE PENIS. CLEANSED. ATTENDS IN PLACE. NO ADDITIONAL DRAINAGE NOTED. ENCOURAGED PO FLUIDS. LOVE AMAYA COMPLETED THE ADMISSION ASSESSMENT, SKIN CHECK WITH THIS CRYSTAL GAZER. BED AT THE LOWEST POSITION, CALL LIGHT W/I REACH. EDUCATED DISK AND TAPE MACHINE TENDER LIGHT. PT VERBALIZED UNDERSTANDING.
[2024-08-13 05:12] LABS: BASOPHILS ABSOLUTE AUTO 0.08 K/mm3 (0.00-0.23); BASOPHILS PERCENT AUTO 1 % (0-2); EOSINOPHILS PERCENT AUTO 1 % (0-6); Hematocrit 39.7 % (37.0-53.0); Hemoglobin 13.1 g/dL (13.5-17.5); IMMATURE GRAN ABSOLUTE AUTO 0.05 K/mm3 (0.00-0.10); IMMATURE GRAN PERCENT AUTO 0 % (0-1); LYMPHOCYTES PERCENT AUTO 13 % (21-46); MONOCYTES ABSOLUTE AUTO 0.98 K/mm3 (0.16-1.47); MONOCYTES PERCENT AUTO 7 % (4-13); Mean Corpuscular HGB 29.1 pg (26.0-34.0); Mean Corpuscular Volume 88 fL (80-100); NEUTROPHILS ABSOLUTE AUTO 10.39 K/mm3 (1.96-9.15); NEUTROPHILS PERCENT AUTO 78 % (41-73); Platelet Count 289 K/mm3 (150-400); RDW Coefficient Variation 13.7 % (11.7-14.2); RDW Standard Deviation 44.4 fL (35.1-46.3)
[2024-08-13 05:37] LABS: Albumin, Blood 2.8 g/dL (3.4-5.0); Albumin/Globulin Ratio 0.7 (0.8-1.8); Bilirubin, Total 0.5 mg/dL (0.1-1.0); Bun/Creatinine Ratio 21.2 (12.0-20.0); Calcium, Blood 8.9 mg/dL (8.5-10.1); Creatinine, Blood 1.37 mg/dL (0.60-1.20); Potassium, Blood 3.9 mmol/L (3.5-5.5); Total Protein, Blood 6.8 g/dL (6.4-8.2)
[2024-08-13] MEDS ORDERED: Insulin Human Lispro 100 Units/ML 3ML Syringe SC SCH (07:30)
[2024-08-13 07:33] VITALS: BP 144/81
[2024-08-13] MEDS ORDERED: Enoxaparin 40 MG/0.4 ML SYR SC SCH (09:00)
[2024-08-13 11:26] VITALS: BP 134/73
[2024-08-13 15:18] VITALS: BP 134/85
--- NOTE | 2024-08-13 16:45 | NUR ---
PATIENT WAS SEEN BY PT TODAY, HE IS A 1 PERSON STAND BY ASSIST. HE LIKES TO GET UP IN THE CHAIR FOR MEALS. HE SEEMS TO COME IN AND OUT OF ORIENTATION, HE IS ALERT. DURHAM CATHETER AND CONTINENT OF BOWELS. THE MEATUS WAS VERY RED AND HAS GOTTEN BETTER THROUGHOUT THE DAY. HIS DURHAM IS CHRONIC BUT WAS CHANGED IN THE ED. HE RECEIVED 2 DOSES OF IV ANTIBIOTICS TODAY. HE IS CURRENTLY IN THE BED BUT WANTS UP TO CHAIR WHEN DINNER ARRIVES. BED IS IN THE LOWEST POSITION, BED ALARM IS ARMED, CALL LIGHT IN REACH.
--- NOTE | 2024-08-13 18:41 | NUR ---
WHILE REVIEWING THE PATIENT H&P FROM PHYSICIAN TODAY, IT IS NOTED THE PATIENT WAS DX WITH ESBL K PNEUMONIAE ON 08/09. THIS SN CALLED PROVIDER TO CLARIFY THAT PATIENT SHOULD BE ON CONTACT PRECAUTIONS. PROVIDER ADVISED YES, AND ISOLATION CART IS SET UP OUTSIDE OF PATIENT ROOM, WITH SIGN IN PLACE AND PRECEPTOR PUT THE ORDER IN FOR CONTRACT PRECAUTIONS FOR THE PATIENT.
[2024-08-13 19:48] VITALS: BP 161/90
[2024-08-14] VITALS (7 sets, daily range): BP systolic 117–165; BP diastolic 75–111
--- NOTE | 2024-08-14 03:22 | NUR ---
SHIFT SUMMARY NO ACUTE EVENTS DURING THIS SHIFT. PT DENIES PAIN AND DISCOMFORT. HS B. TELE: SR @68. PT APPEARS A BIT WITHDRAWN. A/O X3. ABLE TO REORIENT NEEDED. IV ABX INFUSED ORDERED. CHRONIC DURHAM DRAINING YELLOW COLOR URINE. BED AT THE LOWEST POSITION, CALL LIGHT W/I REACH. PT IS ABLE TO MAKE HIS NEEDS KNOWN AND CALLS APPROPRIATELY.
--- NOTE | 2024-08-14 13:57 | NUR ---
Spiritual Care Visit. Pt. is awake and welcomes my and nurse Slim into the room. Facilitated a life review and considered matters of stella and belief. Prayed with the Pt. Pt. displayed evidence of being encouraged and welcomed this interrelated special education teacher to return.
[2024-08-14 14:23] LABS: International Normalized Ratio 1.29; Prothrombin Time Results 13.5 Sec (9.7-11.5)
--- NOTE | 2024-08-14 17:52 | NUR ---
SHIFT SUMMARY: PT A&O X2-3. PLEASANT AND COOPERATIVE WITH CARE. PT WORKED WITH PHYSICAL THERAPY THIS SHIFT AND ABLE TO WALK OUTSIDE OF ROOM WITH WALKER AND GAIT BELT. DISCHARGE/DRAINAGE NOTED THIS AM FROM PENIS. STAT LOCKED PLACED TOO FAR AWAY WITH DURHAM BEING PULLED. NEW STAT LOCK PLACED WITH NO C/O PAIN SINCE PLACEMENT. PT ON CONTACT FOR ESBL IN THE URINE. PT TO CONTINUE 3-4 MORE DAYS OF IV ABX. CALL LIGHT IN REACH. BED IN LOWEST POSITION.
[2024-08-14] MEDS ORDERED: Warfarin Sodium 7.5 MG Tab PO SCH (18:00)
--- NOTE | 2024-08-14 20:29 | NUR ---
THIS REGRADER ATTEMPTED TO CALL THE ON-CALL HOSPITALIST @1949. PER DIRECTOR RETIREMENT, PT CONVERTED TO A-FIB@88, THIS REGRADER RECEIVED THE CALL FROM DIRECTOR RETIREMENT @194. . THIS REGRADER ASSESSED THE PT, HE IS ASYMPTOMATIC AND DENIES H/A, CP/PRESSURE, SOB. PT REPORT "JUST TIRED". PT VERBALIZED UNDERSTANDING TO IMMEDIATELY CALL FOR STAFF IN CASE OF CHANGES. THIS REGRADER WAS ABLE TO GET AHOLD OF GLO/ON-CALL HOSPITALIST @2017 Y TELEPHONE. NO NEW ORDERS AT THIS TIME.
[2024-08-14] MEDS ORDERED: Insulin Glargine-Yfgn 100 Unit/mL 3 ML SYR SC SCH (21:00)
--- NOTE | 2024-08-14 21:24 | NUR ---
NEW T-ORDER RECEIVED FROM THE ON-CALL HOSPITALIST ARTURO IVEY: MELATONIN PO 5MG QHS PRN. ENTERED TO [place], SEE EMAR.
[2024-08-14] MEDS ORDERED: Melatonin 5 MG Tablet PO PRN (21:25)
[2024-08-15 03:26] VITALS: BP 129/82
--- NOTE | 2024-08-15 03:51 | NUR ---
SHIFT SUMMARY TITLE ASSISTANT REPORTED AT 194 PT CONVERTED TO A-FIB @88. PROVIDER NOTIFIED. PT ASYMPTOMTIC. TITLE ASSISTANT REPOSTED BEFORE MIDNIGHT THAT PT CONVERTED BACK TO NSR IN THE 80'S. HS BG 223. CHRONIC DURHAM DRAINING TO GRAVITY TEA COLOR URINE. ENCOURAGING PO FLUIDS. PT IS A/O X2-3, APPEARS CONFUSED PER CONVERSTATIONS AND REQUESTS THAT HE MAKES AT TIMES. NO ACUTE DISTRESS NOTED/REPORTED DURING THIS SHIFT. BED AT THE LOWEST POSITION, CALL LIGHT W/I REACH. PT IS ABLE TO USE THE CALL LIGHT AND ABLE TO MAKE HIS NEEDS KNOWN. PT DENIES PAIN AND DISCOMFORT.
[2024-08-15 05:11] LABS: BASOPHILS ABSOLUTE AUTO 0.07 K/mm3 (0.00-0.23); BASOPHILS PERCENT AUTO 1 % (0-2); EOSINOPHILS ABSOLUTE AUTO 0.25 K/mm3 (0.00-0.68); EOSINOPHILS PERCENT AUTO 3 % (0-6); Hematocrit 37.8 % (37.0-53.0); Hemoglobin 12.5 g/dL (13.5-17.5); IMMATURE GRAN ABSOLUTE AUTO 0.03 K/mm3 (0.00-0.10); IMMATURE GRAN PERCENT AUTO 0 % (0-1); LYMPHOCYTES ABSOLUTE AUTO 1.51 K/mm3 (0.84-5.20); LYMPHOCYTES PERCENT AUTO 20 % (21-46); MONOCYTES ABSOLUTE AUTO 0.64 K/mm3 (0.16-1.47); MONOCYTES PERCENT AUTO 8 % (4-13); Mean Corpuscular HGB Conc 33.1 g/dL (31.5-36.5); Mean Corpuscular Volume 88 fL (80-100); NEUTROPHILS ABSOLUTE AUTO 5.21 K/mm3 (1.96-9.15); NEUTROPHILS PERCENT AUTO 68 % (41-73); Platelet Count 279 K/mm3 (150-400); RDW Coefficient Variation 13.4 % (11.7-14.2); RDW Standard Deviation 43.6 fL (35.1-46.3); Red Blood Cell Count 4.31 M/mm3 (4.30-5.90); White Blood Cell Count 7.71 K/mm3 (4.00-11.30)
[2024-08-15 05:27] LABS: International Normalized Ratio 1.2; Prothrombin Time Results 12.7 Sec (9.7-11.5)
[2024-08-15 05:33] LABS: Albumin, Blood 2.6 g/dL (3.4-5.0); Albumin/Globulin Ratio 0.7 (0.8-1.8); Bilirubin, Total 0.4 mg/dL (0.1-1.0); Bun/Creatinine Ratio 17.2 (12.0-20.0); Calcium, Blood 8.8 mg/dL (8.5-10.1); Creatinine, Blood 1.22 mg/dL (0.60-1.20); Globulin, Blood 3.7 g/dL (2.2-4.0); Potassium, Blood 3.6 mmol/L (3.5-5.5); Total Protein, Blood 6.3 g/dL (6.4-8.2)
[2024-08-15 07:40] VITALS: BP 134/81
[2024-08-15] MEDS ORDERED: Losartan Potassium 50 MG Tab PO SCH (09:00)
[2024-08-15] MEDS ORDERED: Bumetanide 1 MG Tab PO SCH (09:00)
--- NOTE | 2024-08-15 11:31 | NUR ---
Spiritual Care Visit. Pt. is awake in bed when he welcomes my visit. Pt. is pleasant. Rapport has been established for a long time with this Pt. Pt. confessed that he was out of line with the staff when he strongly verbalized his desire to go home. Pt. also verbalized that in the middle of the night he sought forgiveness of the staff with whom he had impulsively made demands. Listen with pastoral cousel and a calming presence. This bulk delivery driver has observed that the Pt. 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 Prayed with Pt. Pt. verbalized gratitude for the spiritual care visit.
[2024-08-15 11:58] VITALS: BP 131/84
[2024-08-15 16:00] VITALS: BP 129/73
--- NOTE | 2024-08-15 17:11 | NUR ---
SHIFT SUMMARY- PT ALERT AND ORIENTED TO SELF. HE CAN BE INAPPROPRIATE BOTH VERBALLY AND PHYSICALLY WITH FEMALE STAFF. 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 PT IS A 1P SBA TO THE BATHROOM AND WITH AMBULATION. HE IS CURRENTLY UP IN THE CHAIR WITH THE CALL LIGHT IN REACH NO S&S OF DISTRESS NOTED.
[2024-08-15] MEDS ORDERED: Warfarin Sodium 5 MG Tab PO ONE (18:00)
[2024-08-15 20:38] VITALS: BP 109/61
[2024-08-15] MEDS ORDERED: Insulin Glargine-Yfgn 100 Unit/mL 3 ML SYR SC SCH (21:00)
[2024-08-16 00:58] VITALS: BP 132/86
[2024-08-16 04:44] VITALS: BP 129/99
[2024-08-16 05:52] LABS: BASOPHILS ABSOLUTE AUTO 0.08 K/mm3 (0.00-0.23); BASOPHILS PERCENT AUTO 1 % (0-2); EOSINOPHILS ABSOLUTE AUTO 0.33 K/mm3 (0.00-0.68); EOSINOPHILS PERCENT AUTO 4 % (0-6); Hematocrit 40.3 % (37.0-53.0); Hemoglobin 13.1 g/dL (13.5-17.5); IMMATURE GRAN ABSOLUTE AUTO 0.04 K/mm3 (0.00-0.10); IMMATURE GRAN PERCENT AUTO 1 % (0-1); LYMPHOCYTES ABSOLUTE AUTO 1.89 K/mm3 (0.84-5.20); LYMPHOCYTES PERCENT AUTO 25 % (21-46); MONOCYTES ABSOLUTE AUTO 0.81 K/mm3 (0.16-1.47); MONOCYTES PERCENT AUTO 11 % (4-13); Mean Corpuscular HGB 28.8 pg (26.0-34.0); Mean Corpuscular HGB Conc 32.5 g/dL (31.5-36.5); Mean Corpuscular Volume 89 fL (80-100); Mean Platelet Volume 9.7 fL (9.1-12.4); NEUTROPHILS ABSOLUTE AUTO 4.32 K/mm3 (1.96-9.15); NEUTROPHILS PERCENT AUTO 58 % (41-73); Platelet Count 304 K/mm3 (150-400); RDW Coefficient Variation 13.3 % (11.7-14.2); RDW Standard Deviation 43.6 fL (35.1-46.3); Red Blood Cell Count 4.55 M/mm3 (4.30-5.90); White Blood Cell Count 7.47 K/mm3 (4.00-11.30)
--- NOTE | 2024-08-16 06:04 | NUR ---
SHIFT SUMMARY PT A&Ox2-3. NO C/O PAIN. PT RUDE TO STAFF AT TIMES AND WHEN IV OR BED ALARM SOUNDS, PT WILL YELL AND CURSE. IV ABX GIVEN PER EMAR. DURHAM IN PLACE AND DRAINING CLEAR YELLOW URINE. PT SB @ 58 PER TELE. COMPLETE BED CHANGE DONE D/T SPILLED APPLE JUICE. VSS. BED ALARM ON DURING THE NIGHT. BED IN LOWEST POSITION AND CALL LIGHT IN REACH.
[2024-08-16 06:06] LABS: International Normalized Ratio 1.19; Prothrombin Time Results 12.6 Sec (9.7-11.5)
[2024-08-16 06:11] LABS: Albumin, Blood 2.6 g/dL (3.4-5.0); Anion Gap 11 mmol/L (3-11); Blood Urea Nitrogen 25 mg/dL (8-24); Bun/Creatinine Ratio 21.4 (12.0-20.0); CO2, Blood 27 mmol/L (21-32); Calcium, Blood 8.7 mg/dL (8.5-10.1); Chloride, Blood 104 mmol/L (98-108); Creatinine, Blood 1.17 mg/dL (0.60-1.20); Glomerular Filtration Rate 65 (60-); Glucose, Blood 113 mg/dL (70-99); Phosphorus, Blood 3.8 mg/dL (2.5-4.9); Potassium, Blood 3.9 mmol/L (3.5-5.5); Sodium, Blood 138 mmol/L (136-145)
[2024-08-16 07:12] VITALS: BP 128/81
[2024-08-16 11:42] VITALS: BP 131/88
--- NOTE | 2024-08-16 14:29 | NUR ---
ASSUMPTION OF CARE: ASSUMED CARE OF PATIENT. AWAKE DURING SHIFT CHANGE REPORT, SITTING UP AT BEDSIDE. PT AZEB AND REQUESTING TO SIT IN THE DINING ROOM FOR BREAKFAST; NOTIFIED HIM WE DO NOT HAVE A COMMUNAL DINING AREA HERE, BUT BREAKFAST WILL BE HERE SHORTLY. DURHAM PATENT AND DRAINING URINE TO GRAVITY. TELE SINUS @ 77 c BBB & PAC PER YOLA IN TELE. BREATHING EVEN AND UNLABORED ON ROOM AIR. BED IN LOWEST POSITION. CALL LIGHT WITHIN REACH. NO ACUTE NEEDS.
[2024-08-16 15:43] VITALS: BP 108/67
[2024-08-16] MEDS ORDERED: Warfarin Sodium 7.5 MG Tab PO ONE (18:00)
--- NOTE | 2024-08-16 18:27 | NUR ---
END OF SHIFT SUMMARY: A&Ox3-4. PLEASANT AND COOPERATIVE WITH CARE. CALLS APPROPRIATELY AND IS ABLE TO ADVOCATE NEEDS EFFECTIVELY. CONTINENT OF BOWEL. CHRONIC DURHAM PATENT AND DRAINING URINE TO GRAVITY. SBA c FWW TO BATHROOM FOR BM. NO C/O PAIN OR DISCOMFORT. TELE NOTED S-T DEPRESSION THIS EVENING; SEE CORRESPONDING NOTE. STAT TROPS ORDERED. MEDS WHOLE WITH FLUIDS. NO C/O PAIN OR DISCOMFORT. PT PULLED IV; UNABLE TO PLACE NEW ONE OF YET. BED IN LOWEST POSITION, CALL LIGHT WITHIN REACH, ALL NEEDS MET. REPORT TO ONCOMING NURSE. OBIEE OBIA SOLUTION ARCHITECT DOCUMENTATION REVIEW: THIS RN HAS PERSONALLY REVIEWED DOCUMENTATION BY STUDENT NURSE. ALL CONTROLLED SUBSTANCES GIVEN BY AND APPROPRIATE IV PUSHES DIRECTLY OBSERVED BY THIS RN.
--- NOTE | 2024-08-16 18:52 | NUR ---
CALL FROM BECCA IN TELE: PT SHOWING S-T DEPRESSION. EKG DONE AND VARIES FROM PREVIOUS DONE. ON-CALL, DR BURCIAGA, NOTIFIED; SINCE PT ASYMPTOMATIC, OKAY TO DO TROPS NOW AND AGAIN IN TWO HOURS. CHARGE NOTIFIED.
[2024-08-16 20:57] VITALS: BP 124/77
[2024-08-16] MEDS ORDERED: Lactobacil 2-S.Thermo-Bifido 1 1 Cap PO SCH (21:00)
[2024-08-17 04:51] VITALS: BP 152/101
[2024-08-17 05:13] LABS: International Normalized Ratio 1.35; Prothrombin Time Results 14.1 Sec (9.7-11.5)
--- NOTE | 2024-08-17 05:45 | NUR ---
SHIFT SUMMARY PT MORE PLEASANT AND CHEARFUL TONIGHT BUT STILL MADE SEVERAL INAPROPRIATE COMMENTS. A&Ox3. TELE DC'd. NO ACUTE CHANGES. VSS. BG WAS 219 AT HS. INSULINE GLARGINE GIVEN PER EMAR. CONTINUING IV ABX. DURHAM IN PLACE AND DRAINING CLEAR YELLOW URINE. BED ALARM ON. BED IN LOWEST POSITION AND CALL LIGHT IN REACH.
[2024-08-17 07:50] VITALS: BP 136/83
[2024-08-17] MEDS ORDERED: Warfarin Sodium 5 MG Tab PO ONE (18:00)
--- NOTE | 2024-08-17 18:19 | NUR ---
SHIFT SUMMARY PT CONT LEVEL OF CARE WITH NO NEW CHANGES NOTED. PT NOTED TO BECOME MORE AGGITATED AND FORGETTFUL CLOSER TO END OF SHIFT. PT NOTED TO HAVE A HX OF DEMENTIA. PT PLAN IS TO CONT WITH IV ABT.
[2024-08-17 19:24] VITALS: BP 125/64
[2024-08-18 04:14] VITALS: BP 109/77
--- NOTE | 2024-08-18 05:06 | NUR ---
PT A&OX4, PLEASANT AND COOPERATIVE AND IRRITABLE. PT GETTING OOB OR CHAIR WITHOUT ASSISTANCE AND WHEN IT ALARMS HE BEGINS YELLING. PT ASKS QUESTIONS APPROPRIATLY ABOUT DX AND TX PLAN. DISCUSSED WITH PT AND VERBALIZED UNDERSTANDING.
[2024-08-18 07:45] VITALS: BP 149/98
[2024-08-18 12:41] LABS: Hematocrit 47.2 % (37.0-53.0); Hemoglobin 15.7 g/dL (13.5-17.5); Mean Corpuscular HGB 29.1 pg (26.0-34.0); Mean Corpuscular HGB Conc 33.3 g/dL (31.5-36.5); Mean Corpuscular Volume 88 fL (80-100); Mean Platelet Volume 9.6 fL (9.1-12.4); Platelet Count 260 K/mm3 (150-400); RDW Coefficient Variation 13.5 % (11.7-14.2); RDW Standard Deviation 43.1 fL (35.1-46.3); Red Blood Cell Count 5.39 M/mm3 (4.30-5.90); White Blood Cell Count 6.45 K/mm3 (4.00-11.30)
[2024-08-18 12:46] LABS: International Normalized Ratio 1.51; Prothrombin Time Results 15.7 Sec (9.7-11.5)
[2024-08-18 13:09] LABS: Calcium, Blood 9.1 mg/dL (8.5-10.1); Creatinine, Blood 1.15 mg/dL (0.60-1.20); Potassium, Blood 4.3 mmol/L (3.5-5.5)
[2024-08-18 15:29] VITALS: BP 133/84
[2024-08-18] MEDS ORDERED: Warfarin Sodium 5 MG Tab PO SCH (18:00)
--- NOTE | 2024-08-18 19:25 | NUR ---
SHIFT SUMMARY- PT ALERT AND ORIENTED 1PA WITH TRANSFERS. BED ALARM FOR SAFETY. PT HAS HAD OCCASSIONAL OUTBURSTS AT INANIMATE OBJECTS IN HIS ROOM. YELLING LOUDLY AND CURSING AT THEM FOR NOT DOING WHAT HE WANTED. STAFF REMIND HIM THAT TYPE OF SPEAK IS NOT APPROPRIATE TOWARDS STAFF, THE PT SEEMS TO REDIRECT WELL. PT USES CRUDE LANGUAGE AT TIMES TOWARDS STAFF. NIGHT RN AWARE. REPORT COMPLETED WITH NIGHT RN.
[2024-08-18 20:21] VITALS: BP 108/68
[2024-08-19 05:53] VITALS: BP 147/83
--- NOTE | 2024-08-19 06:17 | NUR ---
PT SLEPT T/O MOST OF NIGHT WAKING UP YELLING AND CUSSING, EASILY REDIRECTED. BLE TRACE EDEMA NOTED. NO ACUTE CHANGES NOTED THIS SHIFT.
[2024-08-19 07:30] LABS: International Normalized Ratio 1.89; Prothrombin Time Results 19.3 Sec (9.7-11.5)
[2024-08-19 08:05] VITALS: BP 124/72
[2024-08-19 15:46] VITALS: BP 121/64
--- NOTE | 2024-08-19 17:21 | NUR ---
SHIFT SUMMARY PATIENT IS ABLE TO GET UP BUT BECOMES TIRED EASILY. IS A MINIMUM OF 1 STAND BY ASSIST. IV FLUSHES RIGHT FOREARM. CAN BE FORGETFUL TO USE CALL LIGHT TO ASK TO GET UP. PATIENT STATED "I'M NOT WORRIED ABOUT ANYTHING, RIGHT NOW." DURHAM IS DRAINING TO GRAVITY. UP IN THE CHAIR MOST OF THE SHIFT.
[2024-08-19] MEDS ORDERED: Warfarin Sodium 7.5 MG Tab PO SCH (18:00)
[2024-08-19 20:16] VITALS: BP 101/73
[2024-08-20 03:08] VITALS: BP 118/78
--- NOTE | 2024-08-20 04:26 | NUR ---
SHIFT SUMMARY PT ALERT AND ORIENTEDX4 WITH MOMENTS OF INTERMITTENT CONFUSION THROUGH OUT THE NIGHT. PATIENT OTHERWISE CALM AND COOPERATIVE. PT ON ROOM AIR. NO COMPLAINTS OF PAIN. CHRONIC DURHAM IN PLACE DRAINING TO GRAVITY. BED ALARM ON AND CALL LIGHT WITHIN REACH.
[2024-08-20 06:41] LABS: International Normalized Ratio 2.18
[2024-08-20 07:57] VITALS: BP 147/87
--- NOTE | 2024-08-20 15:57 | NUR ---
Spiritual Care Visit. Pt. is awake and sitting in a chair when he welcomes my visit. Pt. displays evidence of a crestfallen spirit. Facilitate an update and make pastoral inquiries as to the nature of his downcast demeanor. Pt. has long been seen by this plant anatomy teacher so I directed him to a more personal life review and with theraputic listening the Pts. spirits began to lift. Considered matters of his worklife, marriage life, and stella stella. Prayed with the Pt. Pt. displayed evidence of being encouraged, and welcomed thischaplain to return.
[2024-08-20 17:09] VITALS: BP 121/85
--- NOTE | 2024-08-20 17:59 | NUR ---
SHIFT SUMMARY PATIENT ALERT AND INTERACTIVE. EASILY IRRITABLE WHEN BED/CHAIR ALARM OR IV PUMP ALARMS. PATIENT IMPULSIVE AND DOES NOT CALL FOR ASSISTANCE. PATIENT FORGETFUL ABOUT CATHETER AND OFTEN DRAGGING OR PULLING CATHETER BEHIND HIM WHEN HE ATTEMPTS TO AMBULATE. PATIENT NEEDING FREQUENT REMINDING TO CALL FOR HELP.
[2024-08-20] MEDS ORDERED: Warfarin Sodium 7.5 MG Tab PO SCH (18:00)
[2024-08-20 19:31] VITALS: BP 113/68
--- NOTE | 2024-08-21 04:02 | NUR ---
Pt has been resting comfortably in bed with intermittent confusion throughout the shift. patient on room air with no complaints of pain. Pt remians on contact precautions for ESBL in urine. chronic sterling in place. bed alarm is on and call light is within reach.
[2024-08-21 06:50] LABS: International Normalized Ratio 2.09; Prothrombin Time Results 21.2 Sec (9.7-11.5)
[2024-08-21 07:46] VITALS: BP 129/82
--- NOTE | 2024-08-21 08:07 | NUR ---
ASSUMPTION OF CARE: ASSUMED CARE OF PATIENT. ASLEEP DURING SHIFT CHANGE REPORT. LYING SUPINE IN BED.BREATHING EVEN AND UNLABORED ON ROOM AIR. DURHAM PATENT AND DRAINING TO GRAVITY. SALINE LOCKED LEFT WRIST. BED IN LOWEST POSITION. CALL LIGHT WITHIN REACH. NO ACUTE NEEDS.
[2024-08-21] MEDS ORDERED: Insulin Human Lispro 100 Units/ML 3ML Syringe SC ONE (13:35)
--- NOTE | 2024-08-21 15:08 | NUR ---
PT UP TO CHAIR AT THIS TIME. DISCUSSED CASE WITH BEDSIDE RN. PLAN IS FOR PATIENT TO FINISH ABX IN THE HOSPITAL. REVIEWED CODE STATUS. POLST IN REGISTRY REFLECTS FULL CODE STATUS.
[2024-08-21 16:08] VITALS: BP 125/74
--- NOTE | 2024-08-21 17:28 | NUR ---
Pt. is awake and sitting in a chair when he welcomes my visit. Pt. is pleasant but is a little unsettled because there are no sheets on his bed. Listen with empathy and a calming presence. Rapport has been established between this laundry assistant and Pt. for over two years. Pt. displays evidence of good humor. Facilitated conversation and then this laundry assistant was called to a Trauma Team activiation. Prayed with Pt. before departure. Pt. verbalized gratitude for the spiritual care visit and welcomed this laundry assistant to visit again tomorrow.
[2024-08-21] MEDS ORDERED: Warfarin Sodium 5 MG Tab PO ONE (18:00)
--- NOTE | 2024-08-21 20:00 | NUR ---
END OF SHIFT SUMMARY: A&Ox3-4. PLEASANT AND COOPERATIVE WITH CARE. CALLS APPROPRIATELY AND IS ABLE TO ADVOCATE NEEDS EFFECTIVELY. CONTINENT OF BOWEL AND CHRONIC DURHAM FOR VOIDING. LBM 08/21/24. AMBULATES SBA c FWW. MEDS WHOLE c FLUIDS. NO C/O PAIN OR DISCOMFORT. NO TELE. BED IN LOWEST POSITION, CALL LIGHT WITHIN REACH, ALL NEEDS MET. REPORT TO ONCOMING NURSE.
[2024-08-21 20:42] VITALS: BP 119/66
--- NOTE | 2024-08-22 05:03 | NUR ---
SHIFT SUMMARY ADMITTED FOR UTI. FULL CODE. ISOLATION FOR ESBL IN URINE. IV ANTIB RX ARE SCHEDULED. PLAN IS TO DC TO SNF FOR ANTIB RX VS. DC HOME W/HH. CHRONIC DURHAM IN PLACE. A&O X3, CAN BE IMPULSIVE AND FORGETFUL AT TIMES. PERIODS OF CONFUSION NOTED. ACHS CBG'S - LOW SS. REGULAR DIET. ON RA. PALLIATIVE CARE IS CONSULTED. [facility] PT. FROM [facility].
[2024-08-22 05:49] VITALS: BP 126/69
[2024-08-22 06:05] LABS: Hemoglobin 13.1 g/dL (13.5-17.5); Mean Corpuscular HGB 28.7 pg (26.0-34.0); Mean Corpuscular HGB Conc 33.6 g/dL (31.5-36.5); Mean Corpuscular Volume 86 fL (80-100); Platelet Count 186 K/mm3 (150-400); RDW Coefficient Variation 14.2 % (11.7-14.2); RDW Standard Deviation 44.2 fL (35.1-46.3); Red Blood Cell Count 4.56 M/mm3 (4.30-5.90); White Blood Cell Count 4.92 K/mm3 (4.00-11.30)
[2024-08-22 06:34] LABS: Bun/Creatinine Ratio 31.2 (12.0-20.0); Calcium, Blood 8.3 mg/dL (8.5-10.1); Creatinine, Blood 1.28 mg/dL (0.60-1.20); Potassium, Blood 3.9 mmol/L (3.5-5.5)
[2024-08-22 07:27] VITALS: BP 137/65
[2024-08-22 11:57] LABS: International Normalized Ratio 2.29
[2024-08-22 15:26] VITALS: BP 126/88
--- NOTE | 2024-08-22 16:12 | NUR ---
Spiritual Care Encouraged Pt. as he was being prepped for discharge. Pt. verbalized gratitude fo rhte spiritual care visits and welcomed this cook italian style food to visit him at [facility] in [place].
--- NOTE | 2024-08-22 16:41 | NUR ---
SHIFT SUMMARY: PATIENT A/OX3, INTERMITTENT CONFUSION, BUT EASILY REDIRECTABLE AND FOLLOW DIRECTION. PATIENT IS PLEASANT AND COOPERATIVE c CARE THOIS SHIFT. PATIENT DENIES CP/PRESSURE, SOB, N/V AND DIZZINESS. PATIENT ON CONS CARB DIET c BLOOD SUGAR ACCU CHECK AC/HS. PATIENT RECEIVED INSULIN PER EMAR SLIDING SCALE COVERAGE. PATIENT HAS GOOD APPETITE c NO ISSUE OR PROBLEM SWALLOWING. PATIENT HAS CHRONIC DURHAM, WAS CHANGED IN ED, PATENT DRAINING CLEAR URINE TO GRAVITY. PATIENT RECEIVED SCHEDULED MEDS PER EMAR. VITAL SIGNS REVIEWED. PIV DC'D. PATIENT DISCHARGING c DURHAM AND HE NEEDS TO F/U c UROLOGY AT THE [facility]. PATIENT DISCHARGE BACK TO [facility]. DISCHARGE INSTRUCTIONS PACKET GIVEN TO PATIENT. PATIENT AND RENATA (CAREGIVER) EDUCATED ON ADMITTING DX'S OF UTI, S/S, TX, CATH CARE AT HOME, F/U c PCP AND UROLOGY. PATIENT AND RENATA VERBALIZED UNDERSTANDING AND NO FURTHER QUESTIONS. PATIENT CAN RESUME HOME MEDS AND NO NEW RX ORDERED. ALL PERSONAL BELONGINGS WERE SENT HOME c THE PATIENT. PATIENT LEFT THE ROOM AT 1639, TRANSPORTED VIA WHEELCHAIR BY IVETTE ESPARZA TO PATIENT ENTRANCE.
[2024-08-22] MEDS ORDERED: Warfarin Sodium 7.5 MG Tab PO ONE (18:00)
== END 2024-08-22 16:52 | disposition home health service (06) | DRG 698 ==
LOC: ER 19:40 → MEDS 08-13 00:13 → ER 08-13 02:30 → MEDS 08-13 02:47
PROVIDERS: Emergency Medicine; Family Medicine; Internal Medicine; Student in an Organized Health Care Education/Training Program; ADMIT Internal Medicine
DX: T83.511A Infection and inflammatory reaction due to indwelling urethral catheter, initial encounter (principal); A41.59 Other Gram-negative sepsis; R65.20 Severe sepsis without septic shock; S22.31XA Fracture of one rib, right side, initial encounter for closed fracture; Z16.12 Extended spectrum beta lactamase (ESBL) resistance; N17.9 Acute kidney failure, unspecified; E87.1 Hypo-osmolality and hyponatremia; I50.32 Chronic diastolic (congestive) heart failure; I13.0 Hypertensive heart and chronic kidney disease with heart failure and stage 1 through stage 4 chronic kidney disease, or unspecified chronic kidney disease; N13.6 Pyonephrosis; E87.21 Acute metabolic acidosis; F03.911 Unspecified dementia, unspecified severity, with agitation; Y73.2 Prosthetic and other implants, materials and accessory gastroenterology and urology devices associated with adverse incidents; R33.8 Other retention of urine; N40.1 Benign prostatic hyperplasia with lower urinary tract symptoms; K80.20 Calculus of gallbladder without cholecystitis without obstruction; I48.0 Paroxysmal atrial fibrillation; E11.22 Type 2 diabetes mellitus with diabetic chronic kidney disease; G47.00 Insomnia, unspecified; E11.65 Type 2 diabetes mellitus with hyperglycemia; E21.3 Hyperparathyroidism, unspecified; E86.1 Hypovolemia; D64.9 Anemia, unspecified; N18.31 Chronic kidney disease, stage 3a; W18.39XA Other fall on same level, initial encounter; Y92.009 Unspecified place in unspecified non-institutional (private) residence as the place of occurrence of the external cause; Z86.718 Personal history of other venous thrombosis and embolism; Z86.711 Personal history of pulmonary embolism; Z79.01 Long term (current) use of anticoagulants; Z88.8 Allergy status to other drugs, medicaments and biological substances; Z88.0 Allergy status to penicillin; Z88.1 Allergy status to other antibiotic agents; Z79.84 Long term (current) use of oral hypoglycemic drugs; Z79.4 Long term (current) use of insulin
CPT/HCPCS: 36415; 51702; 70450; 71045; 74177; 80048; 80053; 80069; 81001; 82947; 83605; 83690; 83880; 84484; 85025; 85027; 85610; 87040; 87077; 87086; 87186; 93005; 93010; 96365; 96366; 97116; 97162; 97530; 99284-25; A9270; J0696; J1650; J1815; J2185; J7030; J7050; Q9967

== ENCOUNTER 2024-08-31 08:31 | Emergency (ER) | payer MEDICARE, OTHER ==
[~2024-08-31] VITALS: Ht 195.6 cm; Wt 108.9 kg
[2024-08-31 10:49] LABS: Source, Urine Foley catheter
[2024-08-31 10:52] LABS: Appearance, Urine Clear (Clear); Bilirubin, Urine Neg (Neg); Blood, Urine 3+ (Neg); Color, Urine Yellow (P-Yellow); Glucose Qualitative, Urine 4+ (Neg); Ketones, Urine Neg (Neg); Leukocyte Esterase, Urine Neg (Neg); Nitrite, Urine Neg (Neg); Protein, Urine 3+ (Neg); Urobilinogen, Urine NORM (Normal)
[2024-08-31 11:01] LABS: Bacteria Not Seen /hpf; Red Blood Cells, Urine 0-2 /hpf (0-2); Squamous Epithelial Cells Not Seen /hpf (Few)
[2024-08-31 11:30] LABS: Bun/Creatinine Ratio 24.5 (12.0-20.0); Calcium, Blood 9.1 mg/dL (8.5-10.1); Creatinine, Blood 1.43 mg/dL (0.60-1.20); Potassium, Blood 3.9 mmol/L (3.5-5.5)
[2024-08-31 12:02] VITALS: BP 134/71
[2024-09-05] MEDS ORDERED: JANTOVEN5 M2 (14:19)
[2024-09-08] MEDS ORDERED: WARF5 PO (11:31)
== END 2024-08-31 12:37 | disposition home or self-care (01) ==
LOC: ER 08:31
PROVIDERS: Student in an Organized Health Care Education/Training Program
DX: T83.091A Other mechanical complication of indwelling urethral catheter, initial encounter (principal); R33.9 Retention of urine, unspecified; I13.0 Hypertensive heart and chronic kidney disease with heart failure and stage 1 through stage 4 chronic kidney disease, or unspecified chronic kidney disease; E11.22 Type 2 diabetes mellitus with diabetic chronic kidney disease; N18.30 Chronic kidney disease, stage 3 unspecified; I50.30 Unspecified diastolic (congestive) heart failure; M19.90 Unspecified osteoarthritis, unspecified site; I48.91 Unspecified atrial fibrillation; E78.5 Hyperlipidemia, unspecified; Z79.01 Long term (current) use of anticoagulants; Z79.4 Long term (current) use of insulin; Z79.899 Other long term (current) drug therapy; Z79.84 Long term (current) use of oral hypoglycemic drugs; Z88.0 Allergy status to penicillin; Z88.1 Allergy status to other antibiotic agents; Z91.018 Allergy to other foods; Z88.8 Allergy status to other drugs, medicaments and biological substances
CPT/HCPCS: 51798; 80048; 81001; 99284-25

== ENCOUNTER 2024-10-12 21:10 | Emergency (ER) | payer MEDICARE, OTHER ==
[~2024-10-12] VITALS: Ht 198.1 cm; Wt 104.3 kg
[~2024-10-12 21:10] MED LIST changes: +JANTOVEN5 M2; +WARF5 PO
[2024-10-12] MEDS ORDERED: NS 500 ML IV SCH ×2 (21:25→23:55)
[2024-10-12 21:30] LABS: BASOPHILS ABSOLUTE AUTO 0.06 K/mm3 (0.00-0.23); BASOPHILS PERCENT AUTO 1 % (0-2); EOSINOPHILS ABSOLUTE AUTO 0.15 K/mm3 (0.00-0.68); EOSINOPHILS PERCENT AUTO 2 % (0-6); Hematocrit 40.4 % (37.0-53.0); Hemoglobin 13.2 g/dL (13.5-17.5); IMMATURE GRAN ABSOLUTE AUTO 0.03 K/mm3 (0.00-0.10); IMMATURE GRAN PERCENT AUTO 0 % (0-1); LYMPHOCYTES ABSOLUTE AUTO 0.80 K/mm3 (0.84-5.20); LYMPHOCYTES PERCENT AUTO 9 % (21-46); MONOCYTES ABSOLUTE AUTO 0.62 K/mm3 (0.16-1.47); MONOCYTES PERCENT AUTO 7 % (4-13); Mean Corpuscular HGB Conc 32.7 g/dL (31.5-36.5); Mean Corpuscular Volume 85 fL (80-100); NEUTROPHILS ABSOLUTE AUTO 7.53 K/mm3 (1.96-9.15); NEUTROPHILS PERCENT AUTO 82 % (41-73); NRBC ABSOLUTE 0.00 K/mm3 (0.00-0.02); NRBC Auto 0.0 /100 WBC (0.0-0.2); Platelet Count 293 K/mm3 (150-400); RDW Coefficient Variation 14.8 % (11.7-14.2); RDW Standard Deviation 45.5 fL (35.1-46.3)
[2024-10-12 21:44] LABS: Prothrombin Time Results 18.4 Sec (9.7-11.5)
[2024-10-12 21:54] LABS: Alanine Aminotransfer (ALT/SGP 21.0 U/L (12-78); Albumin, Blood 3.4 g/dL (3.4-5.0); Albumin/Globulin Ratio 0.9 (0.8-1.8); Anion Gap 11.0 mmol/L (3-11); Aspartate Aminotrans (AST/SGOT 18.0 U/L (12-37); Bilirubin, Total 0.7 mg/dL (0.1-1.0); Blood Urea Nitrogen 44.0 mg/dL (8-24); CO2, Blood 27.0 mmol/L (21-32); Calcium, Blood 8.9 mg/dL (8.5-10.1); Chloride, Blood 100.0 mmol/L (98-108); Creatinine, Blood 1.78 mg/dL (0.60-1.20); Globulin, Blood 3.9 g/dL (2.2-4.0); Glucose, Blood 130.0 mg/dL (70-99); Magnesium, Blood 1.9 mg/dL (1.6-2.4); Potassium, Blood 3.9 mmol/L (3.5-5.5); Sodium, Blood 134.0 mmol/L (136-145); Total Protein, Blood 7.3 g/dL (6.4-8.2)
[2024-10-13 03:32] VITALS: BP 129/90
[2024-10-13] MEDS ORDERED: NITR100CA PO (19:38)
== END 2024-10-13 03:35 | disposition home or self-care (01) ==
LOC: ER 21:10
PROVIDERS: Student in an Organized Health Care Education/Training Program
DX: S00.01XA Abrasion of scalp, initial encounter (principal); R55 Syncope and collapse; N17.9 Acute kidney failure, unspecified; I48.91 Unspecified atrial fibrillation; E86.0 Dehydration; R79.1 Abnormal coagulation profile; E78.5 Hyperlipidemia, unspecified; E11.22 Type 2 diabetes mellitus with diabetic chronic kidney disease; I13.0 Hypertensive heart and chronic kidney disease with heart failure and stage 1 through stage 4 chronic kidney disease, or unspecified chronic kidney disease; I50.30 Unspecified diastolic (congestive) heart failure; N18.30 Chronic kidney disease, stage 3 unspecified; W01.0XXA Fall on same level from slipping, tripping and stumbling without subsequent striking against object, initial encounter; Z79.84 Long term (current) use of oral hypoglycemic drugs; Z79.4 Long term (current) use of insulin; Z79.01 Long term (current) use of anticoagulants; Z88.0 Allergy status to penicillin; Z88.1 Allergy status to other antibiotic agents; Z91.018 Allergy to other foods; Z88.8 Allergy status to other drugs, medicaments and biological substances
CPT/HCPCS: 70450; 72125; 80053; 83735; 85025; 85610; 93005; 93010; 99284-25; J7030

== ENCOUNTER 2024-10-13 16:49 | Emergency (ER) | payer MEDICARE, OTHER ==
[~2024-10-13] VITALS: Ht 198.1 cm; Wt 113.4 kg
[2024-10-13 18:29] LABS: Source, Urine Clean Catch
[2024-10-13 18:41] LABS: Bilirubin, Urine Neg (Neg); Glucose Qualitative, Urine 4+ (Neg); Ketones, Urine Neg (Neg); Leukocyte Esterase, Urine 3+ (Neg); Protein, Urine 3+ (Neg); Specific Gravity, Urine 1.010 (1.003-1.022); Urobilinogen, Urine NORM (Normal)
[2024-10-13 18:57] LABS: Color, Urine Pale Yellow (P-Yellow)
[2024-10-13 18:59] LABS: Red Blood Cells, Urine TNTC /hpf (0-2); White Blood Cells, Urine TNTC /hpf (0-5)
[2024-10-13] MEDS ORDERED: HYDROcodone 5-APAP 325 TAB PO ONE (19:00)
[2024-10-13 19:02] LABS: Source, Urine Foley catheter
[2024-10-13 19:11] LABS: Bilirubin, Urine Neg (Neg); Color, Urine Amber (P-Yellow); Glucose Qualitative, Urine 4+ (Neg); Ketones, Urine Neg (Neg); Leukocyte Esterase, Urine 3+ (Neg); Protein, Urine 3+ (Neg); Specific Gravity, Urine 1.010 (1.003-1.022); Urobilinogen, Urine NORM (Normal)
[2024-10-13 19:23] LABS: Red Blood Cells, Urine 50-100 /hpf (0-2); White Blood Cells, Urine TNTC /hpf (0-5)
[2024-10-13] MEDS ORDERED: Nitrofurantoin/Nitrofuran Mac 100 MG Cap PO ONE (19:35)
[2024-10-13] MEDS ORDERED: NITR100CA PO (19:38)
[2024-10-13 21:54] VITALS: BP 101/52
== END 2024-10-13 21:54 | disposition home or self-care (01) ==
LOC: ER 16:49
PROVIDERS: Student in an Organized Health Care Education/Training Program
DX: T83.098A Other mechanical complication of other urinary catheter, initial encounter (principal); Y84.6 Urinary catheterization as the cause of abnormal reaction of the patient, or of later complication, without mention of misadventure at the time of the procedure; R33.9 Retention of urine, unspecified; F03.90 Unspecified dementia, unspecified severity, without behavioral disturbance, psychotic disturbance, mood disturbance, and anxiety; I13.0 Hypertensive heart and chronic kidney disease with heart failure and stage 1 through stage 4 chronic kidney disease, or unspecified chronic kidney disease; E11.22 Type 2 diabetes mellitus with diabetic chronic kidney disease; I50.30 Unspecified diastolic (congestive) heart failure; N18.30 Chronic kidney disease, stage 3 unspecified; E78.5 Hyperlipidemia, unspecified; Z88.1 Allergy status to other antibiotic agents; Z88.0 Allergy status to penicillin; Z88.8 Allergy status to other drugs, medicaments and biological substances; Z91.018 Allergy to other foods; Z79.84 Long term (current) use of oral hypoglycemic drugs; Z79.4 Long term (current) use of insulin; Z79.01 Long term (current) use of anticoagulants; Z79.899 Other long term (current) drug therapy
CPT/HCPCS: 51702; 51798; 81001; 87077; 87086; 87186; 99283-25; A9270

== ENCOUNTER 2024-10-14 12:06 | Emergency (ER) | payer MEDICARE, OTHER ==
[~2024-10-14] VITALS: Ht 198.1 cm; Wt 95.2 kg
[2024-10-14 12:57] VITALS: BP 120/70
[2024-10-14] MEDS ORDERED: Nitrofurantoin/Nitrofuran Mac 100 MG Cap PO ONE (13:05)
--- NOTE | 2024-10-14 13:36 | NUR ---
Met with pt. after discharge as he was waiting for his ride. Pt. calls my name as I was passing through the waiting room. Pt. is known to this barrel ribs solderer from previous admission to this hospital. Pt. is pleasant. A orchard worker is also present. Facilitated a little update, and then prayed for the Pt. Pt. verbalized gratitude for the spiritual care encounter.
== END 2024-10-14 13:48 | disposition home or self-care (01) ==
LOC: ER 12:06
DX: T83.091A Other mechanical complication of indwelling urethral catheter, initial encounter (principal); N39.0 Urinary tract infection, site not specified; E11.22 Type 2 diabetes mellitus with diabetic chronic kidney disease; I13.0 Hypertensive heart and chronic kidney disease with heart failure and stage 1 through stage 4 chronic kidney disease, or unspecified chronic kidney disease; I50.30 Unspecified diastolic (congestive) heart failure; N18.30 Chronic kidney disease, stage 3 unspecified; I48.91 Unspecified atrial fibrillation; E78.5 Hyperlipidemia, unspecified; F03.90 Unspecified dementia, unspecified severity, without behavioral disturbance, psychotic disturbance, mood disturbance, and anxiety; N40.0 Benign prostatic hyperplasia without lower urinary tract symptoms; Z88.0 Allergy status to penicillin; Z88.1 Allergy status to other antibiotic agents; Z88.8 Allergy status to other drugs, medicaments and biological substances; Z91.018 Allergy to other foods; Z79.84 Long term (current) use of oral hypoglycemic drugs; Z79.4 Long term (current) use of insulin; Z79.01 Long term (current) use of anticoagulants; Z79.899 Other long term (current) drug therapy
CPT/HCPCS: 99283; A9270

== ENCOUNTER 2024-10-17 19:21 | Emergency (ER) | payer MEDICARE, OTHER ==
[~2024-10-17] VITALS: Ht 198.1 cm; Wt 113.4 kg
[2024-10-17 20:30] VITALS: BP 122/77
== END 2024-10-17 21:00 | disposition home or self-care (01) ==
LOC: ER 19:21
DX: R31.9 Hematuria, unspecified (principal); F03.90 Unspecified dementia, unspecified severity, without behavioral disturbance, psychotic disturbance, mood disturbance, and anxiety; E11.22 Type 2 diabetes mellitus with diabetic chronic kidney disease; I13.0 Hypertensive heart and chronic kidney disease with heart failure and stage 1 through stage 4 chronic kidney disease, or unspecified chronic kidney disease; N18.30 Chronic kidney disease, stage 3 unspecified; I50.30 Unspecified diastolic (congestive) heart failure; I48.91 Unspecified atrial fibrillation; E78.5 Hyperlipidemia, unspecified; N40.0 Benign prostatic hyperplasia without lower urinary tract symptoms; Z96.0 Presence of urogenital implants; Z88.8 Allergy status to other drugs, medicaments and biological substances; Z88.0 Allergy status to penicillin; Z91.018 Allergy to other foods; Z88.1 Allergy status to other antibiotic agents; Z79.84 Long term (current) use of oral hypoglycemic drugs; Z79.4 Long term (current) use of insulin; Z79.01 Long term (current) use of anticoagulants; Z79.899 Other long term (current) drug therapy
CPT/HCPCS: 99283

== ENCOUNTER 2024-10-18 15:27 | Emergency (ER) | payer MEDICARE, OTHER ==
[~2024-10-18] VITALS: Ht 198.1 cm; Wt 95.2 kg
[2024-10-18 17:21] VITALS: BP 129/82
== END 2024-10-18 17:22 | disposition home or self-care (01) ==
LOC: ER 15:27
DX: T83.011A Breakdown (mechanical) of indwelling urethral catheter, initial encounter (principal); E11.22 Type 2 diabetes mellitus with diabetic chronic kidney disease; I12.9 Hypertensive chronic kidney disease with stage 1 through stage 4 chronic kidney disease, or unspecified chronic kidney disease; N18.30 Chronic kidney disease, stage 3 unspecified; I48.91 Unspecified atrial fibrillation; M19.90 Unspecified osteoarthritis, unspecified site; E78.5 Hyperlipidemia, unspecified; Z79.01 Long term (current) use of anticoagulants; Z79.899 Other long term (current) drug therapy; Z79.4 Long term (current) use of insulin; Z79.84 Long term (current) use of oral hypoglycemic drugs; Z88.0 Allergy status to penicillin; Z91.018 Allergy to other foods; Z88.1 Allergy status to other antibiotic agents; Z88.8 Allergy status to other drugs, medicaments and biological substances
CPT/HCPCS: 51702; 99283-25

== ENCOUNTER 2024-10-23 02:57 | Emergency (ER) | payer MEDICARE, OTHER ==
[~2024-10-23] VITALS: Ht 182.9 cm; Wt 102.1 kg
[2024-10-23 08:54] VITALS: BP 120/81
[2024-10-24] MEDS ORDERED: FLOMAX0.4 MG PO (23:05)
[2024-10-24] MEDS ORDERED: JANTOVEN5 M2 PO (23:07)
[2024-10-24] MEDS ORDERED: Acetaminophen650 M1 PO (23:08)
== END 2024-10-23 08:54 | disposition home or self-care (01) ==
LOC: ER 02:57
DX: Z04.3 Encounter for examination and observation following other accident (principal); I13.0 Hypertensive heart and chronic kidney disease with heart failure and stage 1 through stage 4 chronic kidney disease, or unspecified chronic kidney disease; E11.22 Type 2 diabetes mellitus with diabetic chronic kidney disease; N18.30 Chronic kidney disease, stage 3 unspecified; M19.90 Unspecified osteoarthritis, unspecified site; I50.30 Unspecified diastolic (congestive) heart failure; E78.5 Hyperlipidemia, unspecified; Z79.01 Long term (current) use of anticoagulants; Z79.84 Long term (current) use of oral hypoglycemic drugs; Z79.4 Long term (current) use of insulin; Z88.0 Allergy status to penicillin; Z91.018 Allergy to other foods; Z88.1 Allergy status to other antibiotic agents; Z88.8 Allergy status to other drugs, medicaments and biological substances
CPT/HCPCS: 70450; 72125; 99284-25

== ENCOUNTER 2024-10-24 21:27 | Emergency (ER) | payer MEDICARE, OTHER ==
[~2024-10-24] VITALS: Ht 198.1 cm; Wt 108.9 kg
[2024-10-24 22:00] VITALS: BP 126/79
[2024-10-24] MEDS ORDERED: FLOMAX0.4 MG PO (23:05)
[2024-10-24] MEDS ORDERED: JANTOVEN5 M2 PO (23:07)
[2024-10-24] MEDS ORDERED: Acetaminophen650 M1 PO (23:08)
== END 2024-10-24 23:49 | disposition home or self-care (01) ==
LOC: ER 21:27
DX: M24.874 Other specific joint derangements of right foot, not elsewhere classified (principal); M54.2 Cervicalgia; F03.90 Unspecified dementia, unspecified severity, without behavioral disturbance, psychotic disturbance, mood disturbance, and anxiety; I13.0 Hypertensive heart and chronic kidney disease with heart failure and stage 1 through stage 4 chronic kidney disease, or unspecified chronic kidney disease; I50.30 Unspecified diastolic (congestive) heart failure; N18.30 Chronic kidney disease, stage 3 unspecified; E11.22 Type 2 diabetes mellitus with diabetic chronic kidney disease; I48.91 Unspecified atrial fibrillation; E78.5 Hyperlipidemia, unspecified; Z79.84 Long term (current) use of oral hypoglycemic drugs; Z79.4 Long term (current) use of insulin; Z79.01 Long term (current) use of anticoagulants; Z79.899 Other long term (current) drug therapy; Z88.0 Allergy status to penicillin; Z88.1 Allergy status to other antibiotic agents; Z88.8 Allergy status to other drugs, medicaments and biological substances; Z91.018 Allergy to other foods
CPT/HCPCS: 99283; A9270

== ENCOUNTER 2024-10-31 20:41 | Emergency (ER) | payer MEDICARE, OTHER ==
[~2024-10-31] VITALS: Ht 198.1 cm; Wt 108.9 kg
[~2024-10-31 20:41] MED LIST changes: +Acetaminophen650 M1 PO; +FLOMAX0.4 MG PO; +JANTOVEN5 M2 PO
[2024-10-31 20:53] VITALS: BP 122/69
== END 2024-10-31 23:58 | disposition home or self-care (01) ==
LOC: ER 20:41
DX: S90.121A Contusion of right lesser toe(s) without damage to nail, initial encounter (principal); I10 Essential (primary) hypertension; E11.9 Type 2 diabetes mellitus without complications; W28.XXXA Contact with powered lawn mower, initial encounter; Z88.8 Allergy status to other drugs, medicaments and biological substances; Z88.1 Allergy status to other antibiotic agents; Z91.018 Allergy to other foods; Z88.0 Allergy status to penicillin; Z79.84 Long term (current) use of oral hypoglycemic drugs; Z79.4 Long term (current) use of insulin; Z79.01 Long term (current) use of anticoagulants; Z79.899 Other long term (current) drug therapy
CPT/HCPCS: 73660; 99283-25

== ENCOUNTER 2024-11-30 03:37 | Emergency (ER) | payer MEDICARE, OTHER ==
[~2024-11-30] VITALS: Ht 198.1 cm; Wt 113.4 kg
[2024-11-30 03:45] VITALS: BP 142/93
== END 2024-11-30 07:33 | disposition home or self-care (01) ==
LOC: ER 03:37
DX: S00.03XA Contusion of scalp, initial encounter (principal); I48.91 Unspecified atrial fibrillation; N18.30 Chronic kidney disease, stage 3 unspecified; E78.5 Hyperlipidemia, unspecified; E11.22 Type 2 diabetes mellitus with diabetic chronic kidney disease; Z88.8 Allergy status to other drugs, medicaments and biological substances; I12.9 Hypertensive chronic kidney disease with stage 1 through stage 4 chronic kidney disease, or unspecified chronic kidney disease; Z79.84 Long term (current) use of oral hypoglycemic drugs; Z79.01 Long term (current) use of anticoagulants; Z91.018 Allergy to other foods; M19.90 Unspecified osteoarthritis, unspecified site
CPT/HCPCS: 70450; 72125; 99284-25

== ENCOUNTER 2024-12-09 10:21 | Day surgery (SDC) | payer OTHER ==
[~2024-12-09] VITALS: Ht 198.1 cm; Wt 104.0 kg
[~2024-12-09 10:21] MED LIST changes: +CeFAZolin Sodium 2,000 MG VIAL ONE; +Lidocaine 2% Jelly Uro-Jet ONE; +Lidocaine HCl 2% Jelly 120MG/6ML SYR (20MG PER ML) ONE
[2024-12-09] MEDS ORDERED: FentaNYL Citrate 50 MCG/ML 2 ML Injection ONE (10:32)
[2024-12-09] MEDS ORDERED: CefOXitin 2000 mg Vial ONE (10:38)
[2024-12-09] MEDS ORDERED: NS 1,000 ML IV ONE (10:39)
--- NOTE | 2024-12-09 12:16 | NUR ---
12/09/24 1216 ODALIS WATKINS 1145 told thtat or delayed due to tray contamination. pt notified and given warm blankets, call light, tv remote.
[2024-12-09] MEDS ORDERED: Dexamethasone Sod Phos 10 MG/ML 1ML VIAL ONE (12:55)
[2024-12-09] MEDS ORDERED: Ondansetron HCl 2 MG / ML 2ML Vial ONE (12:55)
--- NOTE | 2024-12-09 14:06 | NUR ---
12/09/24 1406 Carlita Peterson RN, VERBAL ORDER FROM DR. SPICER THAT PATIENT DOES NOT HAVE TO VOID PRIOR TO DISCHARGE.
--- NOTE | 2024-12-09 14:16 | NUR ---
12/09/24 1416 Carlita Peterson REPORT RECEIVED FROM EDDIE AND RN. PT ASLEEP UPON ARRIVAL TO PACU. VSS. PT NOT RESPONSIVE TO VERBAL STIMULI AT THE MOMENT. VERBAL ORDER FROM DR. KNUTSON TO OBTAIN POST OP FSBS. FSBS 108 AT 1415, PERFORMED BY LOVE PATEL
[2024-12-09 14:23] VITALS: BP 100/65
== END 2024-12-09 15:32 | disposition home or self-care (01) ==
LOC: ORSCSDS 10:21
PROVIDERS: Urology
PROC: 0TCB8ZZ Extirpation of Matter from Bladder, Via Natural or Artificial Opening Endoscopic (ICD-10-PCS; principal; 2024-12-09 12:00)
DX: T19.1XXA Foreign body in bladder, initial encounter (principal); I48.91 Unspecified atrial fibrillation; N40.0 Benign prostatic hyperplasia without lower urinary tract symptoms; E11.22 Type 2 diabetes mellitus with diabetic chronic kidney disease; I12.9 Hypertensive chronic kidney disease with stage 1 through stage 4 chronic kidney disease, or unspecified chronic kidney disease; N18.9 Chronic kidney disease, unspecified; I50.9 Heart failure, unspecified; Z86.711 Personal history of pulmonary embolism; E78.5 Hyperlipidemia, unspecified; E21.3 Hyperparathyroidism, unspecified; F03.90 Unspecified dementia, unspecified severity, without behavioral disturbance, psychotic disturbance, mood disturbance, and anxiety; Z79.4 Long term (current) use of insulin; Z79.84 Long term (current) use of oral hypoglycemic drugs; Z79.01 Long term (current) use of anticoagulants; Z79.899 Other long term (current) drug therapy
CPT/HCPCS: 82947; A9270; J0690; J0694; J1100; J2405; J2704; J3010; J7030; J7120